=== PATIENT | female | born 1975 | race Caucasian/White ===

== ENCOUNTER 2023-04-14 15:22 | Emergency (ER) | payer BC, SELFPAY ==
[2023-04-14] VITALS (9 sets, daily range): BP systolic 148–168; BP diastolic 88–105; PULSE 61–76; RESP 13–26; TEMP 36.9; O2SAT 96; BMI 30.6
--- NOTE | 2023-04-14 15:33 | ECG_ITS ---
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
--- NOTE | 2023-04-14 15:38 | ED_ITS ---
HPI - General Adult General Chief complaint: Headache Stated complaint: HIGH BLOOD PRESSURE Time Seen by Provider: 04/14/23 15:27 Source: patient Mode of arrival: walk-in Limitations: no limitations History of Present Illness HPI narrative: patient is a 47-year-old female presents to the Emergency Room with concerns of headache, and high blood pressure. Patient states she has not felt well for the past for five days, notes a warm flushing sensation in her cheeks and ears. Recently got off her menstrual cycle. States she's had a gradual onset headache that waxes and wanes currently 10/10 frontal and occipital. Patient reports no nausea or vomiting. A she notes that her eyes hurt, she denies generalized body aches or fevers. She has two grandchildren with upper respiratory infections and the patient has had some postnasal drip herself. She has not taken her temperature over the past 4-5 days. She reports having these issues with headaches 3-4 times a month, and has mentioned it to her family doctor who has her monitoring her blood pressure. Patient notes her blood pressure has been in the mid to lower 150s systolic with episodes. She is not treated for hypertension. Patient has a history of mitral valve prolapse and also states this is her concern of her having undiagnosed hypertension. Patient appears nontoxic in no acute distress. pertinent history of chronic regional pain syndrome and bilateral feet following a back surgery. She is awaiting a spinal stimulator. Location: Reports head Treatments prior to arrival: Reports none Related Data Allergies Allergy/AdvReac Type Severity Reaction Status Date / Time codeine Allergy Unknown Verified 04/14/23 15:27 lamotrigine [From Lamictal] Allergy Unknown Verified 04/14/23 15:27 Review of Systems ROS Constitutional Denies: fever or chills Eyes Reports: light sensitivity; Denies: change in vision, blurry vision or eye discharge Ears, nose, mouth, and throat Reports: nasal congestion and post nasal drip; Denies: throat pain or neck pain Cardiovascular Denies: chest pain Respiratory Denies: shortness of breath or cough Gastrointestinal Denies: abdominal pain Genitourinary Denies: painful urination Musculoskeletal Denies: back pain or neck pain Integumentary/Breast Denies: rash Neurological Reports: headache and dizziness; Denies: lack of coordination or i nvoluntary movements Psychiatric Denies: anxiety Allergic/Immunologic Denies: hives Exam Narrative Exam Narrative: Vital signs and nurses notes reviewed. The patient is not hypoxic. General: The patient appears well and in no apparent distress. Patient is resting comfortably on cart. Skin: Warm, dry, no pallor noted. The patient has no evidence of rash, petechiae, or purpura noted. Head: Normocephalic, atraumatic, no temporal arterial tenderness Neck: Supple, trachea mid-line, no tenderness, no lymphadenopathy. No meningeal signs. No nuchal rigidity. Eye: Pupils are equal, round and reactive to light, EOMI Ears, Nose, Mouth, and Throat: Oral mucosa is moist, TMs are clear bilaterally, no hemotympanum noted. Cardiovascular: Regular Rate and Rhythm, no prominent murmur, barely audible only with pt seated upright with ER environment Respiratory: Patient is in no distress, no accessory muscle use, lungs are clear to auscultation, no wheezing, rales or rhonchi Musculoskeletal: normal ROM, + CRPS lower legs. Denies new pain or arthralgias GI: Normal bowel sounds, no tenderness to palpation, no masses appreciated. No rebound, guarding, or rigidity noted. 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 The patient is not ataxic. The patient has normal speech. The patient has normal coordination. . Normal motor and sensory observed.chronic regional pain syndrome and bilateral feet following back surgery. Patient ambulates cautiously Psychiatric: Cooperative Constitutional Vital Signs, click to edit/add: Last Vital Signs Temp 98.5 F 04/14/23 15:27 Pulse 61 04/14/23 16:40 Resp 15 04/14/23 16:40 BP 168/98 H 04/14/23 16:30 Pulse Ox 96 04/14/23 15:31 O2 Del Method Room Air 04/14/23 15:27 Course Vital Signs Vital signs: Vital Signs Temperature 98.5 F 04/14/23 15:27 Pulse Rate 76 04/14/23 15:27 Respiratory Rate 18 04/14/23 15:27 Blood Pressure 148/88 H 04/14/23 15:27 Pulse Oximetry 96 04/14/23 15:27 Oxygen Delivery Method Room Air 04/14/23 15:27 Temperature 98.5 F 04/14/23 15:27 Pulse Rate 61 10/08/23 16:40 Respiratory Rate 15 04/14/23 16:40 Blood Pressure 168/98 H 04/14/23 16:30 Pulse Oximetry 96 04/14/23 15:31 Oxygen Delivery Method Room Air 04/14/23 15:27 Medical Decision Making MDM Narrative Medical decision making narrative: patient presents with acute on chronic symptoms, noting headaches happening up to three times a month at various times, not just related to her menstrual cycles. Patient notes a flush feeling with warmness to her cheeks and ears, states her mother did go through menopause at age 50 or 49. She denies any head injury. Symptoms have been waxing and waning for the past 4-5 days. Patient has been exposed to children with upper respiratory infections and her symptoms may be more viral upper respiratory infection given light sensitivity and headache with nasal congestion. A flu and Covid swab will be obtained. Headache was gradual in onset the fluid bolus, Toradol, Reglan and Benadryl. recheck at bedside patient states her headache is down to a seven or six out of ten. Notes it is still there but much improved, she had a manual bloood pressure taken at bedside noted to be 142/84. Her home but pressure machine was double checked and noted to be 147/99. Patient had slightly low potassium. She is not a pressure medication and is given an oral dose of potassium here 50 mEq. We will also give her 2 g IV magnesium and reassess her symptoms. She like to hold on muscle relaxant at this time. Patient will disccuss ongoing blood pressure and possible migraine management with her family doctor. We discussed the frequency of her symptoms. She has no family history of brain aneurysm. Her is at bedside and reports is been no fall or fever. Patient's headache was also not sudden onset or severe with symptoms coming and going over the past 4-5 days. patient reevaluated, feel she is ready for discharge rates her pain 5/10. States it is very tolerable. She plans to call her doctor tomorrow to discuss ongoing treatments in symptoms. The patient is to followup with primary care physician in next 2-3 days or to return to the emergency department should any of the signs or symptoms worsen or new symptoms develop. Patient had questions answered. The patient agrees with the following Diagnosis and Treatment plan and the patient will be discharged home. Lab Data Labs: Lab Results 04/14/23 04/14/23 Range/Units 15:40 15:46 WBC 5.5 (4.0-11.0) 10^3/uL RBC 4.83 (4.20-5.40) 10^6/uL Hgb 13.6 (12.0-16.0) g/dL Hct 39.1 (36.0-48.0) % MCV 81.0 (81.0-99.0) fL MCH 28.2 (26.7-34.0) pg MCHC 34.8 (29.9-35.2) g/dL RDW 13.9 (11.0-15.0) % Plt Count 375 (150-450) 10^3/uL MPV 8.8 L (9.5-13.5) fL Neut % (Auto) 54.4 (43.0-75.0) % Lymph % (Auto) 31.5 (20.5-60.0) % [place] % (Auto) 12.0 (1.7-12.0) % Eos % (Auto) 1.4 (0.9-7.0) % Baso % (Auto) 0.5 (0.2-2.0) % Neut # (Auto) 3.0 (1.4-6.5) 10^3/uL Lymph # (Auto) 1.7 (1.2-3.8) 10^3/uL [place] # (Auto) 0.7 (0.3-0.8) 10^3/uL Eos # (Auto) 0.1 (0.0-0.7) 10^3/uL Baso # (Auto) 0.0 (0.0-0.1) 10^3/uL Abs Immat Gran (auto) 0.01 (0.00-0.03) 10^3/uL Imm/Tot Granulo (auto) 0.2 (0.0-0.5) % Sodium 131 L (136-145) mmol/L Potassium 3.1 L (3.5-5.1) mmol/L Chloride 96 L (98-107) mmol/L Carbon Dioxide 29.1 (21.0-32.0) mmol/L Anion Gap 9.0 BUN 12.0 (7.0-18.0) mg/dL Creatinine 0.75 (0.55-1.02) mg/dL Est GFR ( Amer) >60 (>=60) Est GFR (Non-Af Amer) >60 (>=60) BUN/Creatinine Ratio 16.0 Glucose 109 H (74-106) mg/dL Calcium 8.5 (8.5-10.1) mg/dL Total Bilirubin 0.2 (0.2-1.0) mg/dL AST 21 (15-37) U/L ALT 27 (14-59) U/L Alkaline Phosphatase 84 (46-116) U/L Total Protein 7.2 (6.4-8.2) g/dL Albumin 4.1 (3.4-5.0) g/dL Globulin 3.1 g/dL Albumin/Globulin Ratio 1.3 TSH 2.895 (0.358-3.740) uIU/mL Serum HCG, Qual Negative (NEGATIVE) SARS-CoV-2 (PCR) Negative (NEGATIVE) Influenza Type A Ag Negative Influenza Type B Ag Negative SARS-CoV-2 RNA ([place]ALVA) Not detected (NOT DETECTE) ECG Data Attestation: I personally reviewed and interpreted this ECG as follows: Interpretation: EKG interpretation: Emergency Department physician interpretation, normal sinus rhythm 76, no ectopy, no ST segment elevation, normal axis. Discharge Plan Discharge Chief Complaint: Headache Clinical Impression: Headache, Hypertension, Hypokalemia Patient Disposition: Home, Self-Care Time of Disposition Decision: 17:35 Condition: Good Instructions: Hypokalemia (ED), Acute Headache (ED), Hypertension (ED) Stand Alone Forms: Portal Instructions Referrals: HERBERT PANG [Primary Care Provider] - As soon as possible Discharge Date/Time: 04/14/23 17:52
[2023-04-14 15:53] LABS: Basophils Percent Auto 0.5 % (0.2-2.0); Eosinophils Absolute Auto 0.1 10^3/uL (0.0-0.7); Eosinophils Percent Auto 1.4 % (0.9-7.0); Hematocrit 39.1 % (36.0-48.0); Hemoglobin 13.6 g/dL (12.0-16.0); Immature Granulocytes Abs Auto 0.01 10^3/uL (0.00-0.03); Immature Granulocytes Pct Auto 0.2 % (0.0-0.5); Lymphocytes Absolute Auto 1.7 10^3/uL (1.2-3.8); Lymphocytes Percent Auto 31.5 % (20.5-60.0); Mean Corpuscular HGB Conc 34.8 g/dL (29.9-35.2); Mean Corpuscular Hemoglobin 28.2 pg (26.7-34.0); Mean Platelet Volume 8.8 fL (9.5-13.5); Monocytes Absolute Auto 0.7 10^3/uL (0.3-0.8); Neutrophils Percent Auto 54.4 % (43.0-75.0); Platelet Count 375 10^3/uL (150-450); Red Blood Count 4.83 10^6/uL (4.20-5.40); Red Cell Distribution Width 13.9 % (11.0-15.0); White Blood Count 5.5 10^3/uL (4.0-11.0)
[2023-04-14 16:02] LABS: HCG Qualitative NEGATIVE (NEGATIVE)
[2023-04-14] MEDS: 0.9 % SODIUM CHLORIDE 1,000 ML 999 ML IV (16:02)
[2023-04-14] MEDS: DIPHENHYDRAMINE HCL 50 MG/ML (1ML) VIAL 25 MG IV (16:03)
[2023-04-14] MEDS: KETOROLAC TROMETHAMINE 30 MG/ML VIAL IVP (16:03)
[2023-04-14] MEDS: METOCLOPRAMIDE HCL 10 MG/2 ML VIAL IVP (16:03)
[2023-04-14 16:06] LABS: Influenza Virus A Antigen Negative; Influenza Virus B Antigen Negative; Internal Control Within Normal Limits; SARS-CoV-2 Ag NEGATIVE (NEGATIVE)
[2023-04-14 16:07] LABS: Alanine Aminotransferase 27 U/L (14-59); Albumin Globulin Ratio 1.3; Albumin Level 4.1 g/dL (3.4-5.0); Alkaline Phosphatase 84 U/L (46-116); Aspartate Amino Transferase 21 U/L (15-37); Bilirubin Total 0.2 mg/dL (0.2-1.0); Calcium 8.5 mg/dL (8.5-10.1); Carbon Dioxide 29.1 mmol/L (21.0-32.0); Chloride 96 mmol/L (98-107); Estimated GFR (African America >60 (>=60); Estimated GFR (Non-African Ame >60 (>=60); Globulin 3.1 g/dL; Glucose 109 mg/dL (74-106); Potassium 3.1 mmol/L (3.5-5.1); Sodium 131 mmol/L (136-145); Total Protein 7.2 g/dL (6.4-8.2)
[2023-04-14 16:15] LABS: Thyroid Stimulating Hormone 2.895 uIU/mL (0.358-3.740)
[2023-04-14] MEDS: POTASSIUM BICARBONATE/CIT 25 MEQ TABLET EFF 50 MEQ PO (17:04)
[2023-04-14] MEDS: MAGNESIUM SULFATE IN WATER 2 GM/50 ML PREMIX IV (17:04)
[2023-04-15 15:50] LABS: SARS-CoV-2 NAA NOT DETECTED (NOT DETECTE)
== END 2023-04-14 17:52 | disposition home or self-care (01) ==
PROVIDERS: Personal Emergency Response Attendant; Emergency Provider Emergency Medicine; PCP Family Medicine
DX: R51.9 Headache, unspecified (principal); I10 Essential (primary) hypertension; E87.6 Hypokalemia; Z20.822 Contact with and (suspected) exposure to COVID-19; I34.1 Nonrheumatic mitral (valve) prolapse
CPT/HCPCS: 36415; 80053; 84443; 84703; 85025; 87635; 87804; 87811; 93005; 96374; 96375; 99285; U0003

== ENCOUNTER 2023-05-08 16:55 | Emergency (ER) | payer BC, SELFPAY ==
[2023-05-08] VITALS (15 sets, daily range): BP systolic 146–202; BP diastolic 88–118; PULSE 53–72; RESP 18–28; TEMP 36.8; O2SAT 96–98; BMI 30.8
--- NOTE | 2023-05-08 17:26 | ECG_ITS ---
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
--- NOTE | 2023-05-08 17:29 | CT_ITS ---
The [address] [address] Patient Name: BETO BRENNAN MRN: [id number] date: 1975 Sex: F Assigned Patient Location: ER Current Patient Location: ER Accession/Order Number: [id number] Exam Date: 05/08/2023 18:33 Report Date: 05/08/2023 18:49 At the request of: LAUREL SULLIVAN Procedure: CT head/brain wo con EXAM: CT head/brain wo con HISTORY: Dizzy, headache, HTN COMPARISON: None. TECHNIQUE: Multiple thin computed tomograms of the brain were obtained, with sagittal and coronal reconstructions. Radiation reduction technique and algorithms were utilized during the study. FINDINGS: The ventricles are not enlarged, the lateral ventricles are symmetric and the third ventricles in the midline. The sylvian fissures and cortical sulci are unremarkable. There is no evidence of an intracranial hemorrhage, mass lesion or apparent acute infarct. No abnormality seen in the deep white matter. The cerebellum and visualized brainstem are intact. The paranasal sinuses are clear as visualized. The middle ears are aerated. The mastoid sinuses are clear. There is no apparent acute skull fracture. CT/CT head/brain wo con IMPRESSION: There is no evidence of an intracranial hemorrhage, mass lesion or apparent acute infarct. No focal abnormality is seen in the deep white matter. The paranasal sinuses are clear as visualized. There is no apparent acute skull fracture. Comparison with a previous study may be helpful in confirming the chronicity of these findings. If the patient's symptoms persist and further evaluation is clinically indicated perhaps an MRI the brain would be helpful. Electronically authenticated by: SOFIA JARAMILLO Date: 05/08/2023 18:49
--- NOTE | 2023-05-08 17:30 | ED.GENADUL1 ---
HPI - General Adult General Chief complaint: Headache Stated complaint: Hypertension Time Seen by Provider: 05/08/23 17:15 Source: patient Mode of arrival: walk-in History of Present Illness HPI narrative: patient is a 47-year-old female who presents to the Emergency Room for ongoing issues with high blood pressure, dizziness, headache. She is currently taking propranolol that is prescribed by her primary care provider. She does not take any other medications for high blood pressure. She was seen in this emergency department almost 4 weeks ago for the same symptoms. She denies fevers, cough, congestion, chest pain, shortness of breath. She feels nauseous but has not had any vomiting. No double or loss of vision. She states her provider told her if her systolic blood pressure is greater than 170, to go to the emergency department. She states she took a dose of her blood pressure medication before she came to the Emergency Room. She states her provider is attempting to get an MRI approved of the brain to check for for lots of things . Related Data Home Medications Medication Instructions Recorded Confirmed lurasidone 80 mg tablet 160 mg PO QPM 05/08/23 05/08/23 oxcarbazepine 600 mg tablet 600 mg PO TID 05/08/23 05/08/23 propranolol 80 mg capsule,24 80 mg PO DAILY 05/08/23 05/08/23 hr,extended release trazodone 50 mg tablet 100 mg PO QPM 05/08/23 05/08/23 vilazodone 20 mg tablet 20 mg PO DAILY 05/08/23 05/08/23 zolpidem 12.5 mg tablet,extended 12.5 mg PO QPM PRN insomnia 05/08/23 05/08/23 release,multiphase Previous Rx's Medication Instructions Recorded diphenhydramine HCl 25 mg capsule 25 mg PO Q6H PRN headache #12 caps 05/08/23 (Benadryl) metoclopramide HCl 10 mg tablet 10 mg PO Q6H PRN nausea and 05/08/23 (Reglan) vomiting #12 tabs Allergies Allergy/AdvReac Type Severity Reaction Status Date / Time codeine Allergy Unknown Verified 04/14/23 15:27 lamotrigine [From Lamictal] Allergy Unknown Verified 04/14/23 15:27 Review of Systems ROS Constitutional Denies: fever or chills Ears, nose, mouth, and throat Denies: throat pain Cardiovascular Denies: chest pain Respiratory Denies: shortness of breath or cough Gastrointestinal Reports: nausea; Denies: abdominal pain or vomiting Musculoskeletal Denies: back pain or neck pain Integumentary/Breast Denies: rash Neurological Reports: headache Hematologic/Lymphatic Denies: easy bruising Exam Narrative Exam Narrative: Gen.: Awake, alert, in no distress Head: Normocephalic, atraumatic ENT: Moist mucous membranes Respiratory: No respiratory distress, lungs clear bilaterally Cardio: Regular rate and rhythm Extremities: Moves extremities equally Psych: Normal mood and affect Neuro: No focal neuro deficit Skin: Warm, dry, intact Constitutional Vital Signs, click to edit/add: Last Vital Signs Temp 98.2 F 05/08/23 17:10 Pulse 55 L 05/08/23 18:50 Resp 23 05/08/23 18:50 BP 148/88 H 05/08/23 18:30 Pulse Ox 96 05/08/23 17:15 O2 Del Method Room Air 05/08/23 17:10 Course Vital Signs Vital signs: Vital Signs Temperature 98.2 F 05/08/23 17:10 Pulse Rate 64 05/08/23 17:10 Respiratory Rate 18 05/08/23 17:10 Blood Pressure 184/110 H 05/08/23 17:10 Pulse Oximetry 98 05/08/23 17:10 Oxygen Delivery Method Room Air 05/08/23 17:10 Temperature 98.2 F 05/08/23 17:10 Pulse Rate 55 L 05/08/23 18:50 Respiratory Rate 23 05/08/23 18:50 Blood Pressure 148/88 H 05/08/23 18:30 Pulse Oximetry 96 05/08/23 17:15 Oxygen Delivery Method Room Air 05/08/23 17:10 Medical Decision Making [facility] Narrative Medical decision making narrative: beta blockers avoided as the patient is bradycardic in the Emergency Room. she was treated with IV Reglan, Benadryl, IV fluids in addition to IV hydralazine and Vasotec. Her blood pressure improved significantly, she reported that her headache and dizziness were much better. CT of the brain is unremarkable and lab studies show mild thyroid dysfunction with no other acute abnormalities. Patient will be discharged home to follow-up for further medication adjustment from her PCP office, Reglan and Benadryl given for home for headache. Return to the Emergency Room if symptoms change or worsen. Medical Records Medical records reviewed: Yes I reviewed the patient's medical records Lab Data Lab results reviewed: Yes I reviewed the patient's lab results Labs: Lab Results 05/08/23 Range/Units 17:23 WBC 6.1 (4.0-11.0) 10^3/uL RBC 4.32 (4.20-5.40) 10^6/uL Hgb 12.0 (12.0-16.0) g/dL Hct 35.5 L (36.0-48.0) % MCV 82.2 (81.0-99.0) fL MCH 27.8 (26.7-34.0) pg MCHC 33.8 (29.9-35.2) g/dL RDW 14.4 (11.0-15.0) % Plt Count 324 (150-450) 10^3/uL MPV 9.6 (9.5-13.5) fL Neut % (Auto) 57.3 (43.0-75.0) % Lymph % (Auto) 29.2 (20.5-60.0) % [place] % (Auto) 10.8 (1.7-12.0) % Eos % (Auto) 2.0 (0.9-7.0) % Baso % (Auto) 0.5 (0.2-2.0) % Neut # (Auto) 3.5 (1.4-6.5) 10^3/uL Lymph # (Auto) 1.8 (1.2-3.8) 10^3/uL [place] # (Auto) 0.7 (0.3-0.8) 10^3/uL Eos # (Auto) 0.1 (0.0-0.7) 10^3/uL Baso # (Auto) 0.0 (0.0-0.1) 10^3/uL Abs Immat Gran (auto) 0.01 (0.00-0.03) 10^3/uL Imm/Tot Granulo (auto) 0.2 (0.0-0.5) % PT 10.2 (9.0-11.6) sec INR 0.96 Sodium 135 L (136-145) mmol/L Potassium 3.4 L (3.5-5.1) mmol/L Chloride 100 (98-107) mmol/L Carbon Dioxide 31.6 (21.0-32.0) mmol/L Anion Gap 6.8 BUN 7.0 (7.0-18.0) mg/dL Creatinine 0.70 (0.55-1.02) mg/dL Est GFR ( Amer) >60 (>=60) Est GFR (Non-Af Amer) >60 (>=60) BUN/Creatinine Ratio 10.0 Glucose 88 (74-106) mg/dL Calcium 8.7 (8.5-10.1) mg/dL Total Bilirubin 0.2 (0.2-1.0) mg/dL AST 20 (15-37) U/L ALT 46 (14-59) U/L Alkaline Phosphatase 80 (46-116) U/L Troponin I High Sens 5.7 (4.0-51.3) pg/mL Total Protein 7.0 (6.4-8.2) g/dL Albumin 3.7 (3.4-5.0) g/dL Globulin 3.3 g/dL Albumin/Globulin Ratio 1.1 TSH 5.187 H (0.358-3.740) uIU/mL Free T4 0.64 L (0.76-1.46) ng/dL Free T3 1.71 L (2.18-3.98) pg/mL Imaging Data CT scan - head: Attestation: I have reviewed the pertinent imaging results. Radiologist's impression: Procedure: CT head/brain wo con EXAM: CT head/brain wo con HISTORY: Dizzy, headache, HTN COMPARISON: None. TECHNIQUE: Multiple thin computed tomograms of the brain were obtained, with sagittal and coronal reconstructions. Radiation reduction technique and algorithms were utilized during the study. FINDINGS: The ventricles are not enlarged, the lateral ventricles are symmetric and the third ventricles in the midline. The sylvian fissures and cortical sulci are unremarkable. There is no evidence of an intracranial hemorrhage, mass lesion or apparent acute infarct. No abnormality seen in the deep white matter. The cerebellum and visualized brainstem are intact. The paranasal sinuses are clear as visualized. The middle ears are aerated. The mastoid sinuses are clear. There is no apparent acute skull fracture. IMPRESSION: There is no evidence of an intracranial hemorrhage, mass lesion or apparent acute infarct. No focal abnormality is seen in the deep white matter. The paranasal sinuses are clear as visualized. There is no apparent acute skull fracture. Comparison with a previous study may be helpful in confirming the chronicity of these findings. If the patient's symptoms persist and further evaluation is clinically indicated perhaps an MRI the brain would be helpful. Electronically authenticated by: SOFIA JARAMILLO Date: 05/08/2023 18:49 ECG Data Attestation: I personally reviewed and interpreted this ECG as follows: (normal sinus rhythm at a rate of fifty-four, no acute ST elevation or ectopy.) Discharge Plan Discharge Chief Complaint: Headache Clinical Impression: Headache, Hypertension Patient Disposition: Home, Self-Care Time of Disposition Decision: 18:56 Condition: Good Prescriptions / Home Meds: New diphenhydramine HCl [Benadryl] 25 mg capsule 25 mg PO Q6H PRN (Reason: headache) Qty: 12 0RF Rx Instructions: to be taken with reglan for headache metoclopramide HCl [Reglan] 10 mg tablet 10 mg PO Q6H PRN (Reason: nausea and vomiting) Qty: 12 0RF No Action lurasidone 80 mg tablet 160 mg PO QPM oxcarbazepine 600 mg tablet 600 mg PO TID propranolol 80 mg capsule,extended release 24 hr 80 mg PO DAILY trazodone 50 mg tablet 100 mg PO QPM vilazodone 20 mg tablet 20 mg PO DAILY zolpidem 12.5 mg tablet,ext release multiphase 12.5 mg PO QPM PRN (Reason: insomnia) Instructions: Acute Headache (ED), Hypertension (ED) Stand Alone Forms: Portal Instructions Referrals: HERBERT PANG [Primary Care Provider] - 1 week
[2023-05-08] MEDS: 0.9 % SODIUM CHLORIDE 1,000 ML 1000 ML IV (17:45)
[2023-05-08 17:48] LABS: Basophils Percent Auto 0.5 % (0.2-2.0); Eosinophils Absolute Auto 0.1 10^3/uL (0.0-0.7); Hematocrit 35.5 % (36.0-48.0); Immature Granulocytes Abs Auto 0.01 10^3/uL (0.00-0.03); Immature Granulocytes Pct Auto 0.2 % (0.0-0.5); Lymphocytes Absolute Auto 1.8 10^3/uL (1.2-3.8); Lymphocytes Percent Auto 29.2 % (20.5-60.0); Mean Corpuscular HGB Conc 33.8 g/dL (29.9-35.2); Mean Corpuscular Hemoglobin 27.8 pg (26.7-34.0); Mean Corpuscular Volume 82.2 fL (81.0-99.0); Mean Platelet Volume 9.6 fL (9.5-13.5); Monocytes Absolute Auto 0.7 10^3/uL (0.3-0.8); Monocytes Percent Auto 10.8 % (1.7-12.0); Neutrophils Absolute Auto 3.5 10^3/uL (1.4-6.5); Neutrophils Percent Auto 57.3 % (43.0-75.0); Platelet Count 324 10^3/uL (150-450); Red Blood Count 4.32 10^6/uL (4.20-5.40); Red Cell Distribution Width 14.4 % (11.0-15.0); White Blood Count 6.1 10^3/uL (4.0-11.0)
[2023-05-08] MEDS: HYDRALAZINE HCL 20 MG/ML VIAL 10 MG IVP (17:50)
[2023-05-08] MEDS: DIPHENHYDRAMINE HCL 50 MG/ML (1ML) VIAL 25 MG IV (17:50)
[2023-05-08] MEDS: METOCLOPRAMIDE HCL 10 MG/2 ML VIAL INJ (17:50)
[2023-05-08] MEDS: ENALAPRILAT DIHYDRATE 1.25 MG/ML VIAL IV (17:50)
[2023-05-08 18:01] LABS: INR 0.96; Prothrombin Time 10.2 sec (9.0-11.6)
[2023-05-08 18:04] LABS: Alanine Aminotransferase 46 U/L (14-59); Albumin Globulin Ratio 1.1; Albumin Level 3.7 g/dL (3.4-5.0); Alkaline Phosphatase 80 U/L (46-116); Anion Gap 6.8; Aspartate Amino Transferase 20 U/L (15-37); Bilirubin Total 0.2 mg/dL (0.2-1.0); Calcium 8.7 mg/dL (8.5-10.1); Carbon Dioxide 31.6 mmol/L (21.0-32.0); Chloride 100 mmol/L (98-107); Estimated GFR (African America >60 (>=60); Estimated GFR (Non-African Ame >60 (>=60); Globulin 3.3 g/dL; Glucose 88 mg/dL (74-106); Potassium 3.4 mmol/L (3.5-5.1); Sodium 135 mmol/L (136-145)
[2023-05-08 18:10] LABS: Thyroid Stimulating Hormone 5.187 uIU/mL (0.358-3.740); Troponin I High Sensitivity 5.7 pg/mL (4.0-51.3)
[2023-05-08 18:41] LABS: Free T4 0.64 ng/dL (0.76-1.46)
[2023-05-08 18:47] LABS: Free T3 1.71 pg/mL (2.18-3.98)
== END 2023-05-08 19:10 | disposition home or self-care (01) ==
PROVIDERS: Physician Assistant; Emergency Provider Emergency Medicine; PCP Family Medicine
DX: R51.9 Headache, unspecified (principal); I10 Essential (primary) hypertension; Z79.899 Other long term (current) drug therapy
CPT/HCPCS: 36415; 70450; 80053; 84439; 84443; 84481; 84484; 85025; 85610; 93005; 96372; 96374; 96375; 99285

== ENCOUNTER 2023-07-31 17:31 | Emergency (ER) | payer BC, SELFPAY ==
[2023-07-31] VITALS (28 sets, daily range): BP systolic 143–210; BP diastolic 89–115; PULSE 56–82; RESP 10–25; TEMP 36.3; O2SAT 95–100; BMI 31.6
--- OUTSIDE RECORDS SUMMARY | 2023-07-31 17:41 | XMS_ITS | CCD ---
Author Name Unknown Address [address] [facility] [address] [place] [address] Organization [facility] Care Team Providers Care Research [employer] Insights Executive Name Role Phone Aspen Mast Unavailable Joanie Mujica Unavailable DO Sarwat Pang Primary Care Provider [phone] MD Joanie Mujica Attending Provider [phone] Campbell Shelton Unavailable DO Sarwat Pang Primary Care Provider [phone] MD Campbell Shelton Attending Provider MD Joanie Mujica Attending Provider [facility], DR MATHEW Primary Care Unavailable DR JOANIE MUJICA Admitting Unavailable DR JOANIE MUJICA Attending Unavailable LOKESH Mast-C Aspen Attending Provider MD Joanie Mujica Attending Provider [phone] NO FAMILY, PHYSICIAN Primary Care Provider Unava ilable Aspen Mast Attending Unavailable Aspen Mast Admitting Unavailable Joanie Mujica Attending Unavailable Joanie Mujica Admitting Unavailable Sarwat Pang Primary Care Unavailable Joanie Mujica E Admitting Unavailable NO FAMILY, PHYSICIAN Primary Care Unavailable Joanie Mujica Attending Unavailable Joanie Mujica Attending Unavailable Joanie Mujica Admitting Unavailable Sarwat Pang Primary Care Unavailable Campbell Shelton Admitting Unavailable Campbell Shelton Attending Unavailable Sarwat Pang Primary Care Unavailable Campbell Shelton Admitting Unavailable Campbell Shelton Attending Unavailable Sarwat Pang Primary Care Unavailable Magno Joanie E Admitting Unavailable Sarwat Pang Primary Care Unavailable Joanie Mujica Attending Unavailable Joanie Mujica E Admitting Unavailable Pang, Sarwat Primary Care Unavailable Mujica, Joanie E Attending Unavailable Mujica, Joanie E Admitting Unavailable Pang, Sarwat Primary Care Unavailable Mujica, Joanie E Attending Unavailable Mujica, Joanie E Admitting Unavailable Pang, Sarwat Primary Care Unavailable Mujica, Joanie E Attending Unavailable PANG, SARWAT W Primary Care Physician Unavailab MD Abel Joe Admitting Unavailable Abel Ruggiero Attending Unavailable Abel Ruggiero Referring Unavailable Abel Ruggiero Attending Unavailable Abel Ruggiero Admitting Unavailable PANG, SARWAT Celso Referring Unavailable Rodriguez Ruba Admitting Unavailable Ruba Frias Attending Unavailable Abel Ruggiero Attending Unavailable MD Abel Ruggiero Admitting Unavailable PANG, SARWAT Celso Referring Unavailable PANG, SARWAT W Referring Unavailable Frias Ruba Admitting Unavailable Ruba Frias Attending Unavailable MD Abel Ruggiero Admitting Unavailable Magno Joanie E. Referring Unavailable Abel Ruggiero Attending Unavailable SARWAT PANG Referring Unavailable MD Abel Ruggiero Admitting Unavailable Abel Ruggiero Attending Unavailable SARWAT PANG Referring Unavailable MD Abel Ruggiero Admitting Unavailable Abel Ruggiero Attending Unavailable SARWAT PANG Referring Unavailable Abel Ruggiero Attending Unavailable MD Abel Ruggiero Admitting Unavailable Abel Ruggiero Admitting Unavailable PANG, SARWAT W Referring Unavailable Abel Ruggiero Attending Unavailable Abel Ruggiero Attending Unavailable MD Abel Ruggiero Admitting Unavailable Abel Ruggiero Referring Unavailable Abel Ruggiero Attending Unavailable MD Abel Ruggiero Admitting Unavailable Abel Ruggiero Referring Unavailable IRMA LAI Referring Unavailable Allergies Allergy Classification Reported Allergen(s) Allergy Type Date of Onset Reaction(s) Facility (20 sources) Codeine; Translations: [codeine] Drug Allergy 2 rash, Vomiting (disorder) [facility] (20 sources) lamoTRIgine; Translations: [lamotrigine] Drug Allergy 2 rash, Eruption of skin (disorder) [facility] (1 source) Codeine Drug Allergy 6 [facility] (2 sources) lamoTRIgine; Translations: [LaMICtal] Drug Allergy 6 [facility] (1 source) Codeine Drug Allergy 2 [facility] (1 source) lamoTRIgine Drug Allergy 2 [facility] Medications Current Medications Medication Drug Class(es) Dates Sig (Normalized) Sig (Original) acetaminophen 325 mg / oxyCODONE hydrochloride 5 mg oral tablet (3 sources) Opioid Agonist Start: 05-21-2023 Percocet 5 mg-325 mg oral tablet 1 tab(s), Oral, q6hr, 28 tab(s), Refill(s) 0, prn pain, [id number], 155, cm, 05/21/23 7:14:00 EST, Height/Length Dosing, 77.5, kg, 11/27/22 9:07:00 EDT, Weight Dosing Start Date: 05/21/23 Status: Ordered Amphetamine / Dextroamphetamine (1 source) Central Nervous System Stimulant Adderall XR Active amphetamine aspartate 7.5 mg / amphetamine sulfate 7.5 mg / dextroamphetamine saccharate 7.5 mg / dextroamphetamine sulfate 7.5 mg oral tablet (20 sources) Central Nervous System Stimulant Start: 11-27-2022 take 1 tablet by mouth in the morning amphetamine-dext roamphetamine 30 mg oral tablet Refill(s) 0, TAKE 1 TABLET BY MOUTH IN THE MORNING IN ADDITION TO 30 MG IN THE AFTERNOON Start Date: 11/27/22 Status: Ordered Start: 11-13-2021 take 20 mg by mouth once daily in the morning Dextroamphetamine-Amphetamine Active 20 MG PO Every morning November 13, 2021 12:00am Start: 11-13-2021 End: 11-13-2021 take 15 mg by mouth once daily in the evening Dextroamphetamine-Amphetamine Active 15 MG PO Every evening November 13, 2021 12:00am Takes at 2 PM Ascorbic Acid-Vitamin E-Biot in (Hair, Skin, Nails With Biotin) 7.5-7.5-1,250 mg-unit-mcg Tablet,Chewable (7 sources) Start: 11-13-2021 Ascorbic Acid- Vitamin E-Biotin (Hair, Skin, Nails With Biotin) 7.5-7.5-1,250 mg-unit-mcg Tablet,Chewable Active 3 TAB PO Daily November 12, 2021 11:00pm Start: 11-13-2021 Ascorbic Acid- Vitamin E-Biotin (Hair, Skin, Nails With Biotin) 7.5-7.5-1,250 mg-unit-mcg Tablet,Chewable Active 3 TAB PO Daily November 13, 2021 12:00am azithromycin 500 mg oral tab let (6 sources) Macrolide Antimicrobial Start: 10-19-2022 Start: 10-19-2022 take 4 tablets by mo uth at mealtime Azithromycin 500 MG 4 tablets Orally as directed for 1 days Take all 4 tablets by mouth today with food Oct, Active Start: 08-29-2021 Zithromax 250 MG 2 tablet on the first day, then 1 tablet daily for 4 days Orally Once a day for 5 day(s) Aug, Active Biotin (9 sources) Start: 11-27-2022 biotin See Instructions, celso, Refills(s) 0 Start Date: 11/27/22 Status: Ordered cephalexin 500 mg oral capsule (8 sources) Cephalosporin Antibacterial Start: 03-26-2023 End: 04-02-2023 take 1 capsule by mouth every six hours Keflex 500 mg Cap 500 mg = 1 cap(s), Oral, q6hr, X 7 day(s), # 28 cap(s), Refills(s) 0, Pharmacy: [id number], 155, cm, 03/26/23 6:55:00 EDT, Height/Length Dosing, 77.5, kg, 11/27/22 9:07:00 EDT, Weight Dosing Start Date: 03/26/23 Stop Date: 04/02/23 Status: Ordered Start: 11-29-2021 End: 05-17-2022 take 500 mg by mouth three times daily Cephalexin Discontinued 500 MG PO Three times daily November 29, 2021 12:00am May 17, 2022 8:03am doxycycline hyclate 100 mg oral capsule (1 source) Tetracycline-class Drug Start: 05-21-2023 End: 06-04-2023 take 1 capsule by mouth twice daily doxycycline hyclate 100 mg Cap 100 mg = 1 cap(s), Oral, BID, X 14 day(s), # 28 cap(s), Refills(s) 0, Pharmacy: [id number], 155, cm, 05/21/23 7:14:00 EST, Height/Length Dosing, 77.5, kg, 11/27/22 9:07:00 EDT, Weight Dosing Start Date: 05/21/23 Stop Date: 06/04/23 Status: Ordered Fish Oils (9 sources) Start: 11-27-2022 take 1000 mg by mouth once daily Fish Oil 1,000 mg, Oral, Daily, Refill(s) 0 Start Date: 11/27/22 Status: Ordered gabapentin 300 mg oral capsule (6 sources) Anti-epileptic Agent Start: 05-29-2022 take 1-2 capsules by mouth twice daily Gabapentin 300 MG 1-2 capsule Orally BID for 30 day(s) May, Active Start: 12-19-2021 take 2 capsules by m outh every twelve hours Gabapentin 300 MG 2 capsule Orally twice a day for 30 day(s) Dec, Active Gabapentin Activ e Handicap placards as directed (1 source) Start: 12-11-2022 Hydrolyzed Ultra Collagen Plus C (9 sources) Start: 11-27-2022 Hydrolyzed Ultra Collagen Plus C See Instructions, Refill(s) 0, daily Start Date: 11/27/22 Status: Ordered lurasidone hydrochloride 80 mg oral tablet (20 sources) Atypical Antipsychotic Start: 11-27-2022 take 2 tablets by mouth once daily at bedtime Latuda 80 mg oral tablet TAKE 2 TABLETS BY MOUTH EVERY DAY AT BEDTIME Start Date: 11/27/22 Status: Ordered Start: 11-13-2021 take 1 tablet by marco th once daily at bedtime Lurasidone (Latuda) 80 mg tablet Active 160 MG PO Daily at bedtime November 13, 2021 12:00am take 2 tablets by mo uth at bedtime Latuda 80 MG TAKE 2 TABLETS BY MOUTH AT BEDTIME Oral for 15 Days Active Latuda Active medication for headaches and nausea (5 sources) Start: 05-14-2023 medication for headaches and nausea medication for headaches and nausea Start Date: 05/14/23 Status: Ordered metroNIDAZOLE 500 mg oral tablet (5 sources) Nitroimidazole Antimicrobial Start: 10-20-2022 take 1 tablet by mouth every twelve hours Misc Medication (20 sources) Start: 11-27-2022 Misc Medication See Instructions, hair, skin and nails dailh Start Date: 11/27/22 Status: Ordered Start: 11-27-20[facility] See Instructions, Dungeduardkevin da dailu Start Date: 11/27/22 Status: Ordered Start: 11-27-2022 [facility] See Instructions, Apple cider vinegar daily Start Date: 11/27/22 Status: Ordered Ayssmixuvqbh-Pwpu-Mwarn Acid (Centrum Women) 18-400 mg-mcg Tablet (7 sources) Start: 11-13-2021 take 3 tablets by mouth once daily Aseannnhjxgs-Cvlg-Gcpnh Acid (Centrum Women) 18-400 mg-mcg Tablet Active 3 TAB PO Daily November 12, 2021 11:00pm Start: 11-13-2021 take 3 tablets by mo uth once daily Hvxgegeugfmo-Tuzk-Wcvkh Acid (Centrum Women) 18-400 mg-mcg Tablet Active 3 TAB PO Daily November 13, 2021 12:00am mupirocin 0.02 mg/mg topical ointment (1 source) RNA Synthetase Inhibitor Antibacterial Start: 05-16-2023 take 15 g nasal route twice daily mupirocin Top 2% Oint See Instructions, 15 gm, Refill(s) 0, apply to both nostrils, both axillary folds, both groin creases twice daily for 5 days, [id number], 155, cm, 05/14/23 13:20:00 EST, Height/Length Dosing, 77.5, kg, 11/27/22 9:07:00 EDT, Weight Dosing Start Date: 05/16/23 Status: Ordered nitroglycerin 0.4 mg sublingual tablet (7 sources) Nitrate Vasodilator Start: 11-13-2021 Nitroglycerin Active 0.4 MG SUBLINGUAL As Directed November 13, 2021 12:00am OXcarbazepine 600 mg oral tablet (20 sources) Anti-epileptic Agent Start: 03-20-2023 take 1 tablet by mouth three times daily oxcarbazepine 600 mg Tab 600 mg = 1 tab(s), Oral, TID, Refills(s) 0 Start Date: 03/20/23 Status: Ordered Start: 11-27-2022 take 1 tablet by marco th once daily at bedtime oxcarbazepine 300 mg Tab TAKE 1 TABLET BY MOUTH EVERYDAY AT BEDTIME Start Date: 11/27/22 Status: Ordered Start: 11-13-2021 take 600 mg by mouth twice daily Oxcarbazepine Active 600 MG PO Twice daily November 13, 2021 12:00am Start: 11-13-2021 take 300 mg by mouth once daily at bedtime Oxcarbazepine Active 300 MG PO Daily at bedtime November 13, 2021 12:00am OXcarbazepine Ac tive oxyCODONE hydrochloride 5 mg oral tablet (19 sources) Opioid Agonist Start: 01-04-2022 take 1-2 tablets by mouth three times daily oxyCODONE HCl 5 MG 1-2 tablets Orally tid for 7 days Dec, Active Start: 11-29-2021 End: 05-17-2022 take 5-10 mg by mouth every six hours Oxycodone Discontinued 5 - 10 MG PO Q6H 50 8 November 29, 2021 May 17, 2022 8:02am prazosin 2 mg oral capsule (16 sources) alpha-Adrenergic Inocencio Start: 11-27-2022 take 2 capsules by mouth once daily prazosin 2 mg oral capsule 4 mg = 2 cap(s), Oral, Daily, Refills(s) 0 Start Date: 11/27/22 Status: Ordered Start: 11-13-2021 take 1 mg by mouth o nce daily at bedtime Prazosin Active 1 MG PO Daily at bedtime November 13, 2021 12:00am pregabalin 100 mg oral capsu le (18 sources) Start: 10-26-2022 take 1 capsule by mo [facility] every twelve hours Start: 10-26-2022 take 1 capsule by mo [facility] every twelve hours Start: 10-26-2022 Start: 06-12-2022 take 1 capsule by mo [facility] every twelve hours Pregabalin 75 MG 1 capsule Orally Twice a day for 30 days Jun, Active Start: 02-09-2022 take 1 capsule by mo [facility] every twelve hours Pregabalin 25 MG 1 capsule Orally Twice a day for 10 days Feb, Active Start: 02-08-2022 take 1 capsule by mo [facility] every six hours Pregabalin 25 MG 1 capsule Orally qid for 30 days Feb, Active Start: 02-08-2022 take 2 capsules by m outh every twelve hours Lyrica 25 MG 2 capsules Orally Twice a day for 30 days EMMANUEL Feb, Active AD (9 sources) Start: 11-27-2022 AD See Instructions, Refill(s) 0, daily Start Date: 11/27/22 Status: Ordered ProFe (1 source) ProFe Active propranolol hydrochloride 80 mg oral tablet (5 sources) beta-Adrenergic Inocencio Start: 04-29-2023 take 80 mg by mouth once daily propranolol 80 mg, Oral, Daily, Refills(s) 0 Start Date: 04/29/23 Status: Ordered tiZANidine 4 mg oral tablet (4 sources) Central alpha-2 Adrenergic Agonist Start: 06-05-2022 take 1 tablet by mouth every eight hours tiZANidine HCl 4 MG 1 tablet as needed Orally Three times a day for 7 days May, Active traZODone hydrochloride 150 mg oral tablet (20 sources) Serotonin Reuptake Inhibitor Start: 11-13-2021 take 1 tablet by mouth once daily at bedtime as needed traZODONE 150 mg Tab TAKE 1 TABLET BY MOUTH EVERYDAY AT BEDTIME NEEDED FOR INSOMNIA Start Date: 11/27/22 Status: Ordered traZODone HCl Ac tive vilazodone hydrochloride 20 mg oral tablet (20 sources) Start: 11-27-2022 take 1 tablet by mouth once daily vilazodone 20 mg oral tablet TAKE 1 TABLET BY MOUTH EVERY DAY Start Date: 11/27/22 Status: Ordered Start: 11-13-2021 take 1 tablet by marco once daily in the morning Vilazodone (Viibryd) 40 mg tablet Active 40 MG PO Every morning November 13, 2021 12:00am Viibryd Active zolpidem tartrate 12.5 mg extended release oral tablet (20 sources) gamma-Aminobutyric Acid-ergic Agonist Start: 11-13-2021 take 1 tablet by mouth at bedtime as needed zolpidem 12.5 mg oral ER Tab TAKE 1 TABLET AT BEDTIME NEEDED FOR INSOMNIA Start Date: 11/27/22 Status: Ordered Zolpidem Tartrat e Active Completed/Discontinued Medications Medication Drug Class(es) Dates Sig (Normalized) Sig (Original) [id number] 200 actuat albuterol 0.09 mg/actuat metered dose inhaler (1 source) beta2-Adrenergic Agonist Start: 1 take 2 puff(s) by inhalation every four hours as needed Albuterol Sulfate HFA 108 (90 Base) MCG/ACT 2 puffs as needed Inhalation every 4 hrs November, Not-Taking amoxicillin 875 mg / clavulanate 125 mg oral tablet (1 source) Penicillin-class Antibacterial Start: 1 take 1 tablet by mouth every twelve hours Amoxicillin-Pot Clavulanate 875-125 MG 1 tablet Orally every 12 hrs for 7 days November, Not-Taking cariprazine (1 source) Atypical Antipsychotic Vraylar Not-Taking cefTRIAXone (4 sources) Cephalosporin Antibacterial Start: 3 Rocephin 500 mg Oct, 500 mg cyclobenzaprine hydrochloride 10 mg oral tablet (7 sources) Muscle Relaxant Start: 2 End: 2 take 10 mg by mouth three times daily Cyclobenzaprine Discontinued 10 MG PO Three times daily November 29, 2021 12:00am May 17, 2022 8:02am fluticasone propionate 0.05 mg/actuat metered dose nasal spray (1 source) Corticosteroid Start: 1 take 1 spray(s) nasal route once daily Fluticasone Propionate 50 MCG/ACT 1 spray in each nostril Nasally Once a day for 30 day(s) November, Not-Taking methylPREDNISolone 4 mg oral tablet (1 source) Corticosteroid Start: 1 methylPREDNISolone 4 MG as directed Orally Once a day for 6 days November, Not-Taking Prednisone (8 sources) Start: 2 End: 2 Prednisone Discontinued 1 dose pk PO per package directions November 29, 2021 12:00am May 17, 2022 8:02am take 4 tabs for 3 days then take 3 tabs for 3 days then take 2 tabs for 3 days then take 1 tab for 3 days Start: 11-29-2021 End: 05-17-2022 Prednisone Discontinued 1 do se pk PO per package directions November 28, 2021 11:00pm May 17, 2022 7:02am take 4 tabs for 3 days then take 3 tabs for 3 days then take 2 tabs for 3 days then take 1 tab for 3 days Start: 11-29-2021 Prednisone Act destini 1 dose pk PO per package directions November 28, 2021 11:00pm take 4 tabs for 3 days then take 3 tabs for 3 days then take 2 tabs for 3 days then take 1 tab for 3 days Start: 11-29-2021 Prednisone Act destini 1 dose pk PO per package directions November 29, 2021 12:00am take 4 tabs for 3 days then take 3 tabs for 3 days then take 2 tabs for 3 days then take 1 tab for 3 days Start: 08-29-2021 take 1 tablet by marco th every twelve hours predniSONE 20 MG 1 tablet Orally bid for 5 day(s) Aug, Active Problems Active Problems Problem Classification Problem Date Documented Da te Episodic/Chronic Anxiety disorders (9 sources) Anxiety 11-27-2022 Chronic Esophageal disorders (20 sources) Gastroesophageal reflux disease; Translations: [Gastro-esophageal reflux disease without esophagitis] Onset: 2 Resolved: 2 Chronic Esophageal disorders (1 source) Esophageal disorders; Translations: [Gastro-esophageal reflux disease without esophagitis] Onset: 2 Essential hypertension (9 sources) Hypertensive disorder 11-27-2022 Chronic Genitourinary symptoms and ill-defined conditions (2 sources) Dysuria Episodic Mood disorders (9 sources) Bipolar I disorder 11-27-2022 Chronic Other acquired deformities (20 sources) Spondylolysis; Translations: [Spondylolysis, lumbar region] 11-28-2021 Episodic Other acquired deformities (4 sources) Spondylolysis, lumbar region Onset: 2 Resolved: 2 Episodic Other acquired deformities (7 sources) Lumbar spondylolisthesis; Translations: [Spondylolisthesis, lumbar region] 11-29-2021 Episodic Other connective tissue disease (3 sources) Arthrodesis status Episodic Other gastrointestinal disorders (9 sources) History of gastroesophageal reflux disease 11-27-2022 Episodic Other nutritional; endocrine; and metabolic disorders (9 sources) H/O: hypothyroidism 11-27-2022 Episodic Other nutritional; endocrine; and metabolic disorders (9 sources) H/O: obesity 11-27-2022 Episodic Other screening for suspected conditions (not mental disorders or infectious disease) (9 sources) Disorder of cardiovascular system 11-27-2022 Episodic Residual codes; unclassified (3 sources) High risk heterosexual behavior; Translations: [High risk heterosexual behavior] Onset: 3 Episodic Schizophrenia and other psychotic disorders (9 sources) Schizophrenia 11-27-2022 Chronic Spondylosis; intervertebral disc disorders; other back problems (20 sources) Lumbar radiculopathy; Translations: [Radiculopathy, lumbar region] Onset: 2 Resolved: 2 Episodic Unclassified (1 source) Encounter for preprocedural laboratory examination; Translations: [Encounter for preprocedural laboratory examination] Onset: 2 Unclassified (1 source) Spondylolysis, lumbar region; Translations: [Spondylolysis, lumbar region] Onset: 2 Unclassified (1 source) M43.06 - Spondylolysis, lumbar region; Translations: [M43.06 - Spondylolysis, lumbar region] Onset: 2 Unclassified (1 source) Spinal stenosis, lumbar region without neurogenic claudication; Translations: [Spinal stenosis, lumbar region without neurogenic claudication] Onset: 2 Unclassified (1 source) Z01.812 - Encounter for preprocedural laboratory examination; Translations: [Z01.812 - Encounter for preprocedural laboratory examination] Onset: 2 Past or Other Problems Problem Classification Problem Date Documented Da te Episodic/Chronic Chronic obstructive pulmonary disease and bronchiectasis (1 source) Bronchitis, not specified as acute or chronic Onset: 08-29-2021 Resolved: 08-29-2021 Episodic Immunizations and screening for infectious disease (1 source) Contact with and (suspected) exposure to other viral communicable diseases Onset: 08-29-2021 Resolved: 08-29-2021 Episodic Other acquired deformities (1 source) Spondylolysis, lumbosacral region; Translations: [Spondylolysis, lumbosacral region] Onset: 11-27-2021 Episodic Other acquired deformities (1 source) Spondylolisthesis, lumbar region; Translations: [Spondylolisthesis, lumbar region] Onset: 11-27-2021 Episodic Other upper respiratory infections (1 source) Acute upper respiratory infection, unspecified Onset: 08-29-2021 Resolved: 08-29-2021 Episodic Results Test Name Value Interpretation Reference Range Facility Consent for Treatmenton Consent for Treatment [id number] Mane [facility] Consultation Noteon 07-15-19 24 Consultation Note Patient: AARON BRENNAN Age: 47 years Sex: Female : 1975 Associated Diagnoses: None Author: Ruba Frias PA-C Subjective Chief complaint 07/15/2023 10:32 EST low back pain . Patient is a 47-year-old female. She has a past medical history significant for postlaminectomy syndrome, chronic pain, and sacroiliitis. She underwent spinal cord stimulator implant on 05/21/2023 and at this time, she states that her pain is almost completely resolved. She is doing well and feeling well. She has no radicular symptoms. She does not have any pain or issues with the stimulator site anymore. She is overall feeling better. Unfortunate, she is noticing a lot of buttock pain. Difficulty with sitting in certain positions. Difficulty with doing certain things because of the buttock pain. She rates this discomfort a 6/10 when it is present. She underwent a full course of physical therapy without improvement. She continues to do home exercise without improvement. She has taken anti-inflammatory medication without improvement. She wonders now about getting his buttock pain taken care of now that her radicular symptoms are resolved with the stimulator. Health Status Allergies: Allergic Reactions (Selected) Severity Not Documented Codeine- Emesis. LaMICtal- Rash., Allergies (2) Active Reaction codeine Emesis LaMICtal Rash Current medications: (Selected) Prescriptions Prescribed Percocet 5 mg-325 mg oral tablet: 1 tab(s), Oral, q6hr, 28 tab(s), Refill(s) 0, prn pain, [id number], 155, cm, 05/21/23 7:14:00 EST, Height/Length Dosing, 77.5, kg, 11/27/22 9:07:00 EDT, Weight Dosing Documented Medications Documented Fish Oil: 1,000 mg, Oral, Daily, Refill(s) 0 Hydrolyzed Ultra Collagen Plus C: See Instructions, Refill(s) 0, daily Latuda 80 mg oral tablet: TAKE 2 TABLETS BY MOUTH EVERY DAY AT BEDTIME Misc Medication: See Instructions, Apple cider vinegar daily Misc Medication: See Instructions, Gurjit dorman Misc Medication: See Instructions, hair, skin and nails dailh AD: See Instructions, Refill(s) 0, daily amphetamine-dextroamp hetamine 30 mg oral tablet: Refill(s) 0, TAKE 1 TABLET BY MOUTH IN THE MORNING IN ADDITION TO 30 MG IN THE AFTERNOON biotin: See Instructions, celso, Refills(s) 0 medication for headaches and nausea: medication for headaches and nausea oxcarbazepine 600 mg Tab: 600 mg = 1 tab(s), Oral, TID, Refills(s) 0 prazosin 2 mg oral capsule: 4 mg = 2 cap(s), Oral, Daily, Refills(s) 0 propranolol: 80 mg, Oral, Daily, Refills(s) 0 traZODONE 150 mg Tab: TAKE 1 TABLET BY MOUTH EVERYDAY AT BEDTIME NEEDED FOR INSOMNIA vilazodone 20 mg oral tablet: TAKE 1 TABLET BY MOUTH EVERY DAY zolpidem 12.5 mg oral ER Tab: TAKE 1 TABLET AT BEDTIME NEEDED FOR INSOMNIA Problem list: All Problems Hypertension / SNOMED CT 0882353125 / Confirmed Cardiovascular disease / SNOMED CT 8695959694 / Confirmed History of hypothyroidism / SNOMED CT 438873264 / Confirmed H/O gastroesophageal reflux (GERD) / SNOMED CT 9395306322 / Confirmed H/O: obesity / SNOMED CT 117907913 / Confirmed Anxiety / SNOMED CT 27519986 / Confirmed Lower back pain / SNOMED CT 456000830 / Confirmed Bipolar 1 disorder / SNOMED CT 2288611099 / Confirmed Schizophrenia / SNOMED CT 08453341 / Confirmed Objective Vital Signs 07/15/2023 10:32 EST Peripheral Pulse Rate 51 bpm LOW Respiratory Rate 18 br/min Systolic Blood Pressure 133 mmHg Diastolic Blood Pressure 77 mmHg Mean Arterial Pressure, Cuff 96 mmHg General: Alert and oriented, No acute distress. Eye: Normal conjunctiva. HENT: Normocephalic, Normal hearing. Cardiovascular: No edema. Musculoskeletal Normal range of motion. Normal strength. 5/5 lower extremity straight Pain with compression of the bilateral sacroiliac joints positive TRENT test bilaterally. Positive thigh thrust bilaterally. Positive Gaenslen's test bilaterally Integumentary: Warm, Dry, Fowlkes. Incisions well-healed Neurologic: Alert, Oriented. Psychiatric: Cooperative, Appropriate mood & affect. Results Review Lumbar MRI report once again reviewed. 11/27/2022 Impression and Plan Patient is a 47-year-old female with a past medical history significant for postlaminectomy syndrome, chronic pain, and sacroiliitis. She underwent spinal cord stimulator implant on 05/21/2023 that gave her complete relief of her radicular symptoms. She states that things are going well in regards to her lower back and radicular symptoms. Unfortunate, she is noticing a lot of buttock pain that appears to be related to her sacroiliac joints. She has undergone physical therapy in the past without improvement. Continues to do home exercise without improvement. This affects her ambulatory status. This affects her quality of life. On physical examination appears to be related to her sacroiliac joint. Based on her imaging findings, her pain pattern, and her failure to improve pr (more content not included)... Normal [facility] Comment on above: Result Comment: Elec tronically Signed By: Ruba Frias PA-C\.br\Date and Time Signed: 07/15/23 10:58 EST\.br\Electronically Co-Signed By: Néstor Maradiaga DO Legal Correspondence Officeo n 07-15-2023 Legal Correspondence Office [id number]# 1.00TIFF [facility] Office/Clinic Note-Physician on 07-15-2023 Office/Clinic Note-Physician [id number]# 1.00TIFF [facility] Patient Correspondenceon Patient Correspondence [id number]# 1.00TIFF [facility] Patient Correspondence [id number]# 1.00TIFF [facility] Patient Correspondence [id number]# 1.00TIFF Normal [facility] Patient Correspondence [id number]# 1.00TIFF Normal [facility] Patient History Officeon Patient History Office [id number]# 1.00TIFF Normal [facility] Consent for Treatmenton 06-07 Consent for Treatment [id number]# 1.00TIFF [facility] Consultation Noteon 06-18-20 Consultation Note Patient: AARON BRENNAN Age: 47 years Sex: Female : 1975 Associated Diagnoses: None Author: Abel Ruggiero MD Subjective Chief complaint 06/18/2023 9:25 EST Low back pain, f.u from SCS implant . 47-year-old female 3-1/2 weeks out from permanent spinal cord stimulator for lumbar postlaminectomy syndrome and chronic pain. Here for postop check. The puffiness in the battery site is resolving. She has some pain around the battery site but it is improving. She would also like some reprogramming done by the [employer] dairy supplies sales representative who is here today. No apparent complications. The patient has questions about her activity restrictions. The patient finds the stimulator to be helpful for her chronic neuropathic pain. Current pain rates as a 6 out of 10 at the battery site. AGUSTO 60. Health Status Allergies: Allergic Reactions (All) Severity Not Documented Codeine- Emesis. LaMICtal- Rash. Current medications: (Selected) Prescriptions Prescribed Percocet 5 mg-325 mg oral tablet: 1 tab(s), Oral, q6hr, 28 tab(s), Refill(s) 0, prn pain, [id number], 155, cm, 05/21/23 7:14:00 EST, Height/Length Dosing, 77.5, kg, 11/27/22 9:07:00 EDT, Weight Dosing Documented Medications Documented Fish Oil: 1,000 mg, Oral, Daily, Refill(s) 0 Hydrolyzed Ultra Collagen Plus C: See Instructions, Refill(s) 0, daily Latuda 80 mg oral tablet: TAKE 2 TABLETS BY MOUTH EVERY DAY AT BEDTIME Misc Medication: See Instructions, Apple cider vinegar daily Misc Medication: See Instructions, Gurjit dorman Misc Medication: See Instructions, hair, skin and nails dailh AD: See Instructions, Refill(s) 0, daily amphetamine-dextroamp hetamine 30 mg oral tablet: Refill(s) 0, TAKE 1 TABLET BY MOUTH IN THE MORNING IN ADDITION TO 30 MG IN THE AFTERNOON biotin: See Instructions, dailu, Refills(s) 0 medication for headaches and nausea: medication for headaches and nausea oxcarbazepine 600 mg Tab: 600 mg = 1 tab(s), Oral, TID, Refills(s) 0 prazosin 2 mg oral capsule: 4 mg = 2 cap(s), Oral, Daily, Refills(s) 0 propranolol: 80 mg, Oral, Daily, Refills(s) 0 traZODONE 150 mg Tab: TAKE 1 TABLET BY MOUTH EVERYDAY AT BEDTIME NEEDED FOR INSOMNIA vilazodone 20 mg oral tablet: TAKE 1 TABLET BY MOUTH EVERY DAY zolpidem 12.5 mg oral ER Tab: TAKE 1 TABLET AT BEDTIME NEEDED FOR INSOMNIA Problem list: All Problems Anxiety / SNOMED CT 85511802 / Confirmed Bipolar 1 disorder / SNOMED CT 3555570788 / Confirmed Cardiovascular disease / SNOMED CT 7733245313 / Confirmed H/O gastroesophageal reflux (GERD) / SNOMED CT 8225020525 / Confirmed H/O: obesity / SNOMED CT 555355250 / Confirmed History of hypothyroidism / SNOMED CT 164558835 / Confirmed Hypertension / SNOMED CT 6259680885 / Confirmed Lower back pain / SNOMED CT 920254266 / Confirmed Schizophrenia / SNOMED CT 81924426 / Confirmed Objective Vital Signs 06/18/2023 9:25 EST Peripheral Pulse Rate 51 bpm LOW Systolic Blood Pressure 136 mmHg Diastolic Blood Pressure 92 mmHg HI Mean Arterial Pressure, Cuff 107 mmHg General: No acute distress. Alert and oriented x 3. Well-nourished. Well-developed. Musculoskeletal/skin: Incision sites are healing very well. No sign of infection. The battery site is much less puffy. No redness or edema. No warmth. Impression and Plan 47-year-old female with lumbar postlaminectomy syndrome chronic pain status post permanent spinal cord stimulator 3-1/2 weeks ago. She is healing very well. I advised her that she could use an abdominal binder. She may walk. She is to continue to limit her lifting, bending, twisting for the next 3 weeks. I would like to see her back in 3 to 4 weeks for final postoperative check. If all looks well at that point she will be cleared for full activities. Patient agrees with plan of care. [facility] Comment on above: Result Comment: Elec tronically Signed By: Monik SANTIAGO, Abel Singh.br\Date and Time Signed: 06/18/23 12:03 EST Office/Clinic Note-Physician on 06-18-2023 Office/Clinic Note-Physician [id number]#1 .00TIFF [facility] Patient Correspondenceon Patient Correspondence [id number]#1 .00TIFF [facility] Patient Correspondence [id number]#1 .00TIFF [facility] Patient History Officeon Patient History Office [id number]#1 .00TIFF [facility] Consent for Treatmenton 05-09 Consent for Treatment [id number]#1 .00TIFF [facility] Consultation Noteon 05-27-20 Consultation Note Patient: AARON BRENNAN Age: 47 years Sex: Female : 1975 Associated Diagnoses: None Author: Ruba Frias PA-C Subjective Chief complaint Follow-up for spinal cord stimulator implant.. Patient is a 47-year-old female. She presents today for a follow-up after undergoing a spinal cord stimulator implant. This was done on 05/21/2023. Unfortunate, she has been having a lot of issues with her battery pack site. She states that it is very tender. She has pain at the battery pack site that she rates a 9/10. She is here today to just have it checked as she is nervous because she now shares with us that she is allergic to nickel and has some issues with nickel jewelry. Health Status Allergies: Allergic Reactions (Selected) Severity Not Documented Codeine- Emesis. LaMICtal- Rash., Allergies (2) Active Reaction codeine Emesis LaMICtal Rash Current medications: (Selected) Prescriptions Prescribed Percocet 5 mg-325 mg oral tablet: 1 tab(s), Oral, q6hr, 28 tab(s), Refill(s) 0, prn pain, [id number], 155, cm, 05/21/23 7:14:00 EST, Height/Length Dosing, 77.5, kg, 11/27/22 9:07:00 EDT, Weight Dosing doxycycline hyclate 100 mg Cap: 100 mg = 1 cap(s), Oral, BID, X 14 day(s), # 28 cap(s), Refills(s) 0, Pharmacy: [id number], 155, cm, 05/21/23 7:14:00 EST, Height/Length Dosing, 77.5, kg, 11/27/22 9:07:00 EDT, Weight Dosing mupirocin Top 2% Oint: See Instructions, 15 gm, Refill(s) 0, apply to both nostrils, both axillary folds, both groin creases twice daily for 5 days, [id number], 155, cm, 05/14/23 13:20:00 EST, Height/Length Dosing, 77.5, kg, 11/27/22 9:07:00 EDT, Weight Dosing Documented Medications Documented Fish Oil: 1,000 mg, Oral, Daily, Refill(s) 0 Hydrolyzed Ultra Collagen Plus C: See Instructions, Refill(s) 0, daily Latuda 80 mg oral tablet: TAKE 2 TABLETS BY MOUTH EVERY DAY AT BEDTIME Misc Medication: See Instructions, Apple cider vinegar daily Misc Medication: See Instructions, Ashwangon da dailu Misc Medication: See Instructions, hair, skin and nails dailh AD: See Instructions, Refill(s) 0, daily amphetamine-dextroamp hetamine 30 mg oral tablet: Refill(s) 0, TAKE 1 TABLET BY MOUTH IN THE MORNING IN ADDITION TO 30 MG IN THE AFTERNOON biotin: See Instructions, dailu, Refills(s) 0 medication for headaches and nausea: medication for headaches and nausea oxcarbazepine 600 mg Tab: 600 mg = 1 tab(s), Oral, TID, Refills(s) 0 prazosin 2 mg oral capsule: 4 mg = 2 cap(s), Oral, Daily, Refills(s) 0 propranolol: 80 mg, Oral, Daily, Refills(s) 0 traZODONE 150 mg Tab: TAKE 1 TABLET BY MOUTH EVERYDAY AT BEDTIME NEEDED FOR INSOMNIA vilazodone 20 mg oral tablet: TAKE 1 TABLET BY MOUTH EVERY DAY zolpidem 12.5 mg oral ER Tab: TAKE 1 TABLET AT BEDTIME NEEDED FOR INSOMNIA Problem list: All Problems Hypertension / SNOMED CT 1304462840 / Confirmed Cardiovascular disease / SNOMED CT 8997371535 / Confirmed History of hypothyroidism / SNOMED CT 537322285 / Confirmed H/O gastroesophageal reflux (GERD) / SNOMED CT 7340684591 / Confirmed H/O: obesity / SNOMED CT 789768372 / Confirmed Anxiety / SNOMED CT 87288568 / Confirmed Lower back pain / SNOMED CT 794763121 / Confirmed Bipolar 1 disorder / SNOMED CT 7275677197 / Confirmed Schizophrenia / SNOMED CT 06043698 / Confirmed Objective VS/Measurements General: Alert and oriented, No acute distress. Eye: Normal conjunctiva. HENT: Normocephalic, Normal hearing. Cardiovascular: No edema. Musculoskeletal Normal range of motion. Normal strength. 5/5 lower extremity strength but uncomfortable moving around Integumentary: Warm, Dry, Fowlkes. Dressing was removed. Dr. Ruggiero was in the room as well. Incisions are both healing well. No redness. No drainage. Internal sutures all look good. Some fluid/swelling looks to be present on exam. Neurologic: Alert, Oriented. Psychiatric: Cooperative, Appropriate mood & affect. Impression and Plan Patient is a 47-year-old female with a past medical history significant for postlaminectomy syndrome and chronic pain. She underwent a spinal cord stimulator full implant on 05/21/2023 and she presents today for a sooner than originally scheduled follow-up?1 day early because of some tenderness and pain at the battery site. She states it is very uncomfortable. She cannot put any pressure against it. We had a long session of the battery pack. It does not look to be infected. We recommend her to ice the area. A new clean and dry sterile dressing was placed. At this time, she is going to follow-up in 2 weeks for reevaluation. Call clinic sooner if necessary. [id number] treatments and wound comfort were discussed [facility] Comment on above: Result Comment: Elec tronically Signed By: Ruba Frias PA-C\.br\Date and Time Signed: 05/27/23 15:21 EST\.br\Electronically Co-Signed By: Abel Ruggiero MD\.br\Date and Time Co-Signed: 06/10/23 11:41 EST IntraOperative Documentson 07-22-2022 IntraOperative Documents [id number]# 1.00TIFF [facility] Consent for Anesthesiaon Consent for Anesthesia [id number]#1 .00TIFF [facility] Consent for Procedure/Surger yon 05-21-2023 Consent for Procedure/Surgery [id number]#1 .00TIFF [facility] Consent for Treatmenton 05-08 Consent for Treatment [id number]# 1.00TIFF [facility] Discharge Instructionson Discharge Instructions [id number]#1 .00TIFF [facility] IntraOperative Documentson 07-21-2022 IntraOperative Documents [id number]#1 .00TIFF [facility] Main OR Intraoperative Recor don 05-21-2023 Main OR Intraoperative Record IntraOp Document Type FTPM Summary Primary Physician: Abel Ruggiero MD Finalized Date/Time: 05/21/23 10:15:18 Pt. Name: AARON BRENNAN/Sex: 1975 Female Med Rec #: [id number] Physician: Monik SANTIAGO, Abel Melo Financial #: [id number] Pt. Type: P Room/Bed: / Admit/Disch: 05/21/23 06:52:24 - Institution: Case Times FTPM Entry 1 Patient Times In Room 05/21/23 09:07:00 Out Room 05/21/23 10:14:00 Procedure Times Start 05/21/23 09:10:00 Stop 05/21/23 10:04:00 Anesthesia Times Start 05/21/23 09:07:00 Stop 05/21/23 10:14:00 Last Modified By: Francisco RODRIGUEZ, Mariam Ruiz 05/21/23 10:15:12 Case Attendance FTPM Entry 1 Entry 2 Entry 3 Case Attendee Jerome Burgos DO, Jhony Ruggiero MD, Aebl Lee CRNA, Merced De Jesus Role Performed Anesthesiologist of Surgeon - Primary Anesthesiologist Record Welcome Center Attendant Time In 05/21/23 09:07:00 05/21/23 09:07:00 05/21/23 09:07:00 Time Out 05/21/23 10:14:00 05/21/23 10:14:00 05/21/23 10:14:00 Procedure SPINAL CORD STIMULATOR SPINAL CORD STIMULATOR SPINAL CORD STIMULATOR IMPLANT(.) IMPLANT(.) IMPLANT(.) Comments Last Modified By: Francisco RODRIGUEZ, Mariam Singh RN, Mariam Chen RN 05/21/23 10:15:13 05/21/23 10:15:13 05/21/23 10:15:13 Entry 4 Entry 5 Entry 6 Case Attendee Francisco RODRIGUEZ, Mariam Cantu RN, Demetria Metz RT(R), Zuleika Role Performed Tire Worker - Primary Scrub - Primary Egg Trayer Time In 05/21/23 09:07:00 05/21/23 09:07:00 05/21/23 09:07:00 Time Out 05/21/23 10:14:00 05/21/23 10:14:00 05/21/23 10:14:00 Procedure SPINAL CORD STIMULATOR SPINAL CORD STIMULATOR SPINAL CORD STIMULATOR IMPLANT(.) IMPLANT(.) IMPLANT(.) Comments Last Modified By: Mariam Singh RN, RN, Mariam Chen RN 05/21/23 10:15:13 05/21/23 10:15:13 05/21/23 10:15:13 Entry 7 Case Attendee Tona Rincon CST Role Performed CANE LOADER/SA Time In 05/21/23 09:07:00 Time Out 05/21/23 10:14:00 Procedure SPINAL CORD STIMULATOR IMPLANT(.) Comments Last Modified By: Mariam Singh RN 05/21/23 10:15:13 General Comments: [employer] -Megan Robledo Perioperative Protocols FTPM Pre-Care Text: Implements protective measures prior to operative or invasive procedure, confirms identity before the operative or invasive procedure, verifies operative procedure, surgical site, and laterality Entry 1 Procedure(s) SPINAL CORD STIMULATOR Patient Identity Birthday, ID Band IMPLANT(.) Verified (select at Check, Patient least 2): Participation Consents / H and P Anesthesia Consent, Operative Site Present Verified HandP, Surgery/Procedure Marking Verified Consent Surgical Site Yes Laterality Verified Yes Verified Procedure Verified Yes Correct Patient Yes Position Verified Availability Equipment, Medication, Prep Dry Yes Verified (If X-ray Applicable) PreOp Antibiotic Yes Time Out Jhony Cano Jr., DO Given Participants G, Mariam Singh RN, Pepe RN, Monik Augustin MD, Jesus Parker CRNA, Brandy J., Christman RT(R), Mckenzie To CST, Liane E Time Out Complete 05/21/23 09:07:00 Outcomes Met? Yes Last Modified By: Mariam Singh RN 05/21/23 09:17:25 Post-Care Text: The patient is free from signs and symptoms of injury caused by extraneous objects Allergy Information FTPM Pre-Care Text: Verifies allergies Entry 1 Allergies Reviewed? Yes Allergies Reviewed Self/Patient With Outcomes Met? Yes Last Modified By: Mariam Singh RN 05/21/23 08:50:21 Post-Care Text: The patient received appropriate medication(s) safely administered during the perioperative period Surgical Procedures FTPM Entry 1 Procedure Description Procedure SPINAL CORD STIMULATOR Modifiers . IMPLANT Surgeon Description PERM SCS, 2 LEADS, THORACIC Primary Procedure Yes Primary Surgeon Abel Ruggiero MD Start 05/21/23 09:10:00 Stop 05/21/23 10:04:00 Anesthesia Type MAC Surgical Service Pain Management Wound Class 1 - Clean Last Modified By: Mariam Singh RN 05/21/23 10:15:15 General Case Data FTPM Pre-Care Text: Classifies surgical wound, implements aseptic technique, initiates traffic control Entry 1 Case Information OR Pain Proc Room Case Level Level 2 Wound Class 1 - Clean Specialty Pain Management ASA Class 3 Preop Diagnosis M96.1, G89.29 Postop Same As Preop Yes Postop Diagnosis M96.1, G89.29 Outcomes Met? Yes Last Modified By: Mariam Singh RN 05/21/23 09:18:00 Post-Care Text: The patient is free from signs and symptoms of infection Skin Assessment (Pre Procedure) FTPM Pre-Care Text: Implements protective measures to prevent skin/ tissue injury due to thermal or mechanical sources Evaluates for signs and symptoms of physical injury to skin and tissue Entry 1 Skin Integrity Intact, Fowlkes, Warm, and Skin Abnormality No Dry Outcomes Met? Yes Last Modified By: Mariam Singh RN 05/21/23 08:50:29 Post-Care Text: The patie (more content not included)... Normal [facility] Main OR Preoperative Recordo n 05-21-2023 Main OR Preoperative Record Holding Area Document Type FTPM Summary Primary Physician: Abel Ruggiero MD Finalized Date/Time: 05/21/23 07:28:37 Pt. Name: AARON BRENNANO.B./Sex: 1975 Female Med Rec #: [id number] Physician: Abel Ruggiero MD Financial #: [id number] Pt. Type: P Room/Bed: / Admit/Disch: 05/21/23 06:52:24 - Institution: Case Times Holding FTPM Pre-Care Text: Verifies consent for planned procedure, identifies individual values and wishes concerning care, includes family members in perioperative teaching Secures patient's records' belongings, and valuables, maintains patient's dignity and privacy, and maintains patient confidentiality Entry 1 In Holding 05/21/23 07:08:00 Outcomes Met? Yes Last Modified By: Amanda Canales RN 05/21/23 07:08:57 Post-Care Text: The patient participates in decisions affecting his or her perioperative plan of care The patient's right to privacy is maintained Surgery Checklist FTPM Entry 1 Patient Birthday, ID Band Procedure History and Physical, Identification: Check, Patient Verification: Surgical Consent, With Participation Patient NPO after Midnight: Yes Date/Time: 05/21/23 07:27:00 Results Reviewed N/A Personal Items: Jewelry Comments: Personal Items Pt. wearing seven rings. Complaints of Pain: Yes Comment: Pain Comment: 03/17 bilateral feet Operative Site Yes Marking: Marked By: Dr. Ruggiero Location: SCS imiplant 2 leads thoracic Availability Equipment, X-Ray Verified: Does Patient Smoke No Patient states Yes Comment - Adult --Sudeep postop adult Supervision supervision available Case Cancelled in No Holding Area see comments below for reason Last Modified By: Amanda Canales RN 05/21/23 07:28:33 Finalized By: Amanda Canales RN Document Signatures Signed By: Amanda Canales RN 05/21/23 07:28 Normal [facility] Operative Reporton 3 Operative Report Patient: AARON BRENNAN Age: 47 years Sex: Female : 1975 Associated Diagnoses: None Author: Abel Ruggiero MD Procedure Procedure: Spinal Cord Stimulator Implant with Fluoroscopic Guidance - [employer] WaveWriter Alpha 16 Implantable Pulse generator, 2 x 8 contact Avista MRI 56cm leads. Diagnosis: Lumbar Post-laminectomy Syndrome Anesthesia: MAC MAC anesthesia is medically necessary for the procedure due to the procedure requiring the patient to remain in a painful position for a prolonged period of time. Patient was responsive throughout the procedure. The increased risk of the procedure with use of sedation was discussed with the patient. The patient wished to proceed. Pre-op antibiotics were administered 30 minutes prior to incision. The patient was identified in the pre-op area. The procedure, including risks benefits and alternatives was discussed with the patient. The patient agreed to proceed. Informed consent was obtained and the site(s) marked. The patient was brought to the procedure room and placed in the prone position with padding under the abdomen to reduce lumbar lordosis. Time out was taken. The back was prepped and draped in surgical sterile fashion. Skin and subcutaneous tissues were anesthetized with 16 mL of Lidocaine 2% with epinephrine combined in a 50/50 mixture with 0.5% bupivacaine through a 25G needle. A 3 cm incision was made in the midline. Bovie cautery was used to dissect to the interspinous ligament. The L1/2 epidural space was entered using a 14G Touhy needle using loss of resistance technique. The first 8-contact [employer] epidural lead was advanced in the posterior aspect of the epidural space to right of midline where the top of the lead overlied the T10 vertebral body to the right of midline. A second 14G Touhy needle then was used to enter the L1/2 epidural space using the same technique. A second 8-contact [employer] lead was then advanced under fluoroscopic guidance in the posterior aspect of the epidural space to where the tip of the lead overlied the T10 vertebral body to the left of midline. Complex intraoperative programming then took place for less than 30 minutes. The patient noted paresthesias in the areas of pain. The leads were then anchored to interspinous ligament using Clik X Anchors and Fixate devices. The generator pocket was then formed after first anesthetizing the skin and subcutaneous tissues with 10ml of the anesthetic mixture using bovie cautery and blunt dissection.. The leads were tunneled from the midline incision to the generator pocket. Both sites were irrigated with antibiotic irrigation. 2 2-0 silk suture were used in the pocket as stay sutures for the generator. Impedances were checked and were ok. The leads were then fixed to the generator with the hex wrench. The pulsed generator was then placed in the pocket and fixed into place with the stay sutures. Both sites were closed in layered fashion with Vicryl suture and liquiband. Antibiotic ointment and sterile dressing was then applied and the patient transferred to the recovery area. The patient was awakened and brought to the recovery room in good condition. IVF: 1000ml Blood loss: minimal Complications: none Specimens: none The patient was brought to the recovery area in stable condition and then monitored for an appropriate period of time. Further programming and education then took place with the dairy supplies sales representative. The patient was discharged home in good condition with post-procedure instructions and antibiotics sent to the patient's pharmacy. Epidural injection procedure Physical Exam: vital signs Vital Signs 05/21/2023 7:14 EST Heart Rate Monitored 58 bpm LOW SpO2 95 % 05/21/2023 7:14 EST Systolic Blood Pressure 139 mmHg Diastolic Blood Pressure 69 mmHg Mean Arterial Pressure, Monitered 92 mmHg 05/21/2023 7:13 EST Temperature Axillary 36.4 DegC 05/21/2023 7:12 EST Respiratory Rate 14 br/min . Normal [facility] Comment on above: Result Comment: Elec tronically Signed By: Abel Ruggiero MD\.br\Date and Time Signed: 05/21/23 10:07 EST Progress Note-Physicianon Progress Note-Physician Patient: AARON BRENNAN Age: 47 years Sex: Female : 1975 Associated Diagnoses: None Author: Jhony Cano Jr., DO Postoperative Information Postoperative disposition: Postoperative disposition: To PACU. Optimetrix number: Optimetrix number [id number]. Anesthetic utilized: Monitored anesthesia care. Physical Examination Vital signs stable. Pain Assessment: Controlled. General: Awake, Alert, Appropriate. Respiratory: Adequate air exchange, Equal bilateral chest wall expansion, Non-labored. Cardiovascular: Stable, Normal peripheral perfusion. Neurological: Normal sensory function. Assessment Anesthetic outcome No anesthetic complications noted. Review / Management Condition: Stable. Plan Transfer/Discharge: Transfer/Discharge Discharge when meets criteria. Normal [facility] Comment on above: Result Comment: Elec tronically Signed By: Jhony Cano Jr., DO\.br\Date and Time Signed: 05/21/23 12:25 EST Progress Note-Physicianon Progress Note-Physician Patient: AARON BRENNAN Age: 47 years Sex: Female : 1975 Associated Diagnoses: None Author: Jhony Cano Jr., DO Preoperative Information NPO after midnight Review of Systems Eye Respiratory: Negative except as documented in history of present illness. Cardiovascular: Negative except as documented in history of present illness. Health Status Allergies: Allergic Reactions (Selected) Severity Not Documented Codeine- Emesis. LaMICtal- Rash., Allergies (2) Active Reaction codeine Emesis LaMICtal Rash Current medications: (Selected) Prescriptions Prescribed mupirocin Top 2% Oint: See Instructions, 15 gm, Refill(s) 0, apply to both nostrils, both axillary folds, both groin creases twice daily for 5 days, [facility][id number], 155, cm, 05/14/23 13:20:00 EST, Height/Length Dosing, 77.5, kg, 11/27/22 9:07:00 EDT, Weight Dosing Documented Medications Documented Fish Oil: 1,000 mg, Oral, Daily, Refill(s) 0 Hydrolyzed Ultra Collagen Plus C: See Instructions, Refill(s) 0, daily Latuda 80 mg oral tablet: TAKE 2 TABLETS BY MOUTH EVERY DAY AT BEDTIME Misc Medication: See Instructions, Apple cider vinegar daily Misc Medication: See Instructions, Gurjit dorman Misc Medication: See Instructions, hair, skin and nails dailh AD: See Instructions, Refill(s) 0, daily amphetamine-dextroamp hetamine 30 mg oral tablet: Refill(s) 0, TAKE 1 TABLET BY MOUTH IN THE MORNING IN ADDITION TO 30 MG IN THE AFTERNOON biotin: See Instructions, celso, Refills(s) 0 medication for headaches and nausea: medication for headaches and nausea oxcarbazepine 600 mg Tab: 600 mg = 1 tab(s), Oral, TID, Refills(s) 0 prazosin 2 mg oral capsule: 4 mg = 2 cap(s), Oral, Daily, Refills(s) 0 propranolol: 80 mg, Oral, Daily, Refills(s) 0 traZODONE 150 mg Tab: TAKE 1 TABLET BY MOUTH EVERYDAY AT BEDTIME NEEDED FOR INSOMNIA vilazodone 20 mg oral tablet: TAKE 1 TABLET BY MOUTH EVERY DAY zolpidem 12.5 mg oral ER Tab: TAKE 1 TABLET AT BEDTIME NEEDED FOR INSOMNIA, Home Medications (17) Active amphetamine-dextroamp hetamine 30 mg oral tablet biotin See Instructions Fish Oil 1,000 mg, Oral, Daily Hydrolyzed Ultra Collagen Plus C See Instructions Latuda 80 mg oral tablet medication for headaches and nausea Misc Medication See Instructions Misc Medication See Instructions Misc Medication See Instructions mupirocin Top 2% Oint See Instructions oxcarbazepine 600 mg Tab 600 mg = 1 tab(s), Oral, TID prazosin 2 mg oral capsule 4 mg = 2 cap(s), Oral, Daily AD See Instructions propranolol 80 mg, Oral, Daily traZODONE 150 mg Tab vilazodone 20 mg oral tablet zolpidem 12.5 mg oral ER Tab , No qualifying data available Problem list: All Problems Anxiety / SNOMED CT 91904968 / Confirmed Bipolar 1 disorder / SNOMED CT 5510857865 / Confirmed Cardiovascular disease / SNOMED CT 8742409421 / Confirmed H/O gastroesophageal reflux (GERD) / SNOMED CT 6249658550 / Confirmed H/O: obesity / SNOMED CT 852730970 / Confirmed History of hypothyroidism / SNOMED CT 728706336 / Confirmed Hypertension / SNOMED CT 8986313193 / Confirmed Lower back pain / SNOMED CT 149424247 / Confirmed Schizophrenia / SNOMED CT 19090375 / Confirmed Histories Past Medical History: No active or resolved past medical history items have been selected or recorded. Procedure history: Spinal cord stimulator trial ([id number]) on 03/26/2023 at 47 Years. Comments: 04/02/2023 14:47 Danielle Raymond RN 60% relief Caudal epidural ([id number]) on 01/21/2023 at 47 Years. Comments: 02/18/2023 8:09 Nanci Lopez RN caudal elizabeth 0% relief Fusion of lumbar spine (879645766) in 2021 at 46 Years. Comments: 11/27/2022 9:06 Nanci Lopez RN L5/S1 Laminectomy with excision of herniated intervertebral disc, nucleus pulposus (58626285) in 2019 at 44 Years. Comments: 11/27/2022 8:44 Nanci Lopez RN T2 and T3 Open reversal of tubal ligation (434104544) in 2010 at 35 Years. Tubal ligation (088721340) in 1995 at 20 Years. Cholecystectomy (66331676) in 1992 at 17 Years. Appendix (104588807). Social History Social & Psychosocial Habits Alcohol 11/27/2022 Risk Assessment: Denies Alcohol Use Substance Abuse 11/27/2022 Risk Assessment: Denies Substance Abuse Tobacco 11/27/2022 Risk Assessment: Denies Tobacco Use . Physical Examination Airway: Mallampati classification: II (soft palate, fauces, uvula visible). Plan [place] [employer] (ASA) physical status classification: Class III. [facility] Comment on above: Result Comment: Elec tronically Signed By: Jhony Cano Jr., DO\Date and Time Signed: 05/20/23 07:32 EST MRSA Screenon 05-15-2023 MRSA DNA ROSALVA+probe Ql (Unsp spec) Microbiology PROCEDURE: MRSA Screen [R1] SOURCE: Nasal BODY SITE: COLLECTED DATE/TIME: 05/14/2023 13:59 EST RECEIVED DATE/TIME: 05/14/2023 14:58 EST START DATE/TIME: 05/14/2023 14:58 EST FREE TEXT SOURCE: Monik SANTIAGO, Abel Ruggiero MD, Abel Melo FINAL REPORTS Final Report [] Verified Date/Time: 05/15/2023 11:50 EST MRSA Positive. Final faxed to Dr. Abel Ruggiero 05/15/2023 11:50 CSS Performing Locations R1: This test was performed at: [facility], [address] [place] [address], [address] [place] [address], [facility] Comment on above: Performed By: #### 1 [id number] ####[place] [address] Consent for Treatmenton Consent for Treatment [id number]#1 .00TIFF [facility] Consent for Treatment [id number]#1 .00TIFF [facility] Physician Orderon 05-14-2023 Physician Order [id number]# 1.00TIFF [facility] Insurance Correspondence Off iceon 05-13-2023 Insurance Correspondence Office [id number]# 3.00TIFF [facility] Physician Orderon 05-08-2023 Physician Order [id number]# 1.00TIFF [facility] Patient Correspondenceon Patient Correspondence [id number]#1 .00TIFF [facility] Consent for Treatmenton 03-09 Consent for Treatment [id number]# 1.00CD:127 Normal [facility] Consultation Noteon 04-02-20 Consultation Note Patient: AARON BRENNAN Age: 47 years Sex: Female : 1975 Associated Diagnoses: None Author: Monik SANTIAGO, Abel Melo Subjective Chief complaint 04/02/2023 14:43 EDT Bilateral feet and leg pain . 47-year-old female history of lumbar postlaminectomy syndrome and chronic neuropathic pain following up from spinal cord stimulator trial. The patient reports 60 to 80% ongoing relief with the trial. She was able to walk for a mile. Used to not be able to walk for more than 100 feet with the severe pain that she was experiencing in her feet. The patient is very hesitant to give up the trial leads because she is feeling so much better. She is though encouraged with the relief that she is experienced. No apparent complications from the procedure. The patient is very eager to proceed with permanent implant. Pain rates down to a 2 out of 10 on the visual analog scale. Up to a 4 out of 10. AGUSTO at 48. Health Status Allergies: Allergic Reactions (All) Severity Not Documented Codeine- Emesis. LaMICtal- Rash. Current medications: (Selected) Documented Medications Documented Fish Oil: 1,000 mg, Oral, Daily, Refill(s) 0 Hydrolyzed Ultra Collagen Plus C: See Instructions, Refill(s) 0, daily Latuda 80 mg oral tablet: TAKE 2 TABLETS BY MOUTH EVERY DAY AT BEDTIME Misc Medication: See Instructions, Apple cider vinegar daily Misc Medication: See Instructions, Ashwangon da dailu Misc Medication: See Instructions, hair, skin and nails dailh AD: See Instructions, Refill(s) 0, daily amphetamine-dextroamp hetamine 30 mg oral tablet: Refill(s) 0, TAKE 1 TABLET BY MOUTH IN THE MORNING IN ADDITION TO 30 MG IN THE AFTERNOON biotin: See Instructions, dailu, Refills(s) 0 oxcarbazepine 600 mg Tab: 600 mg = 1 tab(s), Oral, TID, Refills(s) 0 prazosin 2 mg oral capsule: 4 mg = 2 cap(s), Oral, Daily, Refills(s) 0 traZODONE 150 mg Tab: TAKE 1 TABLET BY MOUTH EVERYDAY AT BEDTIME NEEDED FOR INSOMNIA vilazodone 20 mg oral tablet: TAKE 1 TABLET BY MOUTH EVERY DAY zolpidem 12.5 mg oral ER Tab: TAKE 1 TABLET AT BEDTIME NEEDED FOR INSOMNIA Problem list: All Problems Anxiety / SNOMED CT 25237919 / Confirmed Bipolar 1 disorder / SNOMED CT 1484410441 / Confirmed Cardiovascular disease / SNOMED CT 4175451350 / Confirmed H/O gastroesophageal reflux (GERD) / SNOMED CT 5411133716 / Confirmed H/O: obesity / SNOMED CT 347768947 / Confirmed History of hypothyroidism / SNOMED CT 023401324 / Confirmed Hypertension / SNOMED CT 6803932518 / Confirmed Lower back pain / SNOMED CT 198900600 / Confirmed Schizophrenia / SNOMED CT 47406005 / Confirmed Objective Vital Signs 04/02/2023 14:43 EDT Peripheral Pulse Rate 91 bpm Respiratory Rate 14 br/min Systolic Blood Pressure 189 mmHg HI Diastolic Blood Pressure 97 mmHg HI Mean Arterial Pressure, Cuff 128 mmHg General: No acute distress. Alert and oriented x3. Well-nourished. Well-developed. Musculoskeletal: Patient arises easily from a seated position. Leads were removed under sterile conditions intact without difficulty. Sites are clean, dry, and intact. No sign of infection. Impression and Plan 47-year-old female with a history lumbar postlaminectomy syndrome chronic pain, and lumbar radiculitis with significant improvement of pain and function with the use of the spinal cord stimulator trial. This was a very successful trial. The patient's quality life and activities of daily living were significantly improved as a result of the relief she was experiencing. She got back to walking, which has been very problematic for her due to her pain. The leads were removed intact without difficulty. I provided the patient activity restrictions directly following the lead removal, which include do not submerge in water for the next several days. She may shower however. We discussed the permanent implant including its risk, benefits, and alternatives. These include risks of bleeding, infection, and nerve injury. We discussed the postoperative period which require activity restrictions for at least 4 to 6 weeks following the permanent implant. The patient voiced understanding and willingness to proceed. She would like to proceed to soon as possible. Plan to follow-up 1 week after the surgical implant of her spinal cord stimulator. She required 2 thoracic leads as well as rechargeable pulse generator. Patient agrees with plan of care. [facility] Comment on above: Result Comment: Elec tronically Signed By: Monik SANTIAGO, Abel Singh.br\Date and Time Signed: 04/02/23 15:14 EDT Office/Clinic Note-Physician on 04-02-2023 Office/Clinic Note-Physician [id number]# 1.00CD:127 [facility] Patient Correspondenceon Patient Correspondence [id number]# 1.00CD:127 [facility] Patient Correspondence [id number]# 1.00CD:127 [facility] Patient History Officeon Patient History Office [id number]# 1.00CD:127 [facility] Consent for Anesthesiaon Consent for Anesthesia [id number]# 1.00CD:127 [facility] Consent for Procedure/Surger yon 03-26-2023 Consent for Procedure/Surgery [id number]# 1.00CD:127 [facility] Consent for Treatmenton 03-08 Consent for Treatment [id number]#1. 00CD:127 [facility] Discharge Instructionson Discharge Instructions [id number]# 1.00CD:127 Normal [facility] IntraOperative Documentson 0 03-26-2023 IntraOperative Documents [id number]# 1.00CD:127 Normal [facility] IntraOperative Documents [id number]# 1.00CD:127 Normal [facility] Main OR Intraoperative Recor don 03-26-2023 Main OR Intraoperative Record IntraOp Document Type FTPM Summary Primary Physician: Abel Ruggiero MD Finalized Date/Time: 03/26/23 08:07:10 Pt. Name: AARON BRENNANO.B./Sex: 1975 Female Med Rec #: [id number] Physician: Abel Ruggiero MD Financial #: [id number] Pt. Type: P Room/Bed: / Admit/Disch: 03/26/23 06:44:13 - Institution: Case Times FTPM Entry 1 Patient Times In Room 03/26/23 07:34:00 Out Room 03/26/23 08:00:00 Procedure Times Start 03/26/23 07:37:00 Stop 03/26/23 07:58:00 Anesthesia Times Start 03/26/23 07:34:00 Last Modified By: Mariam Singh RN 03/26/23 08:04:22 Case Attendance FTPM Entry 1 Entry 2 Entry 3 Case Attendee Estee MATUTE, NEWS LIBRARY DIRECTOR, Queen Monik SANTIAGO, Abel Singh RN, Mariam Redmond Role Performed Anesthesiologist Surgeon - Primary Tire Worker - Primary Welcome Center Attendant Time In 03/26/23 07:34:00 03/26/23 07:34:00 03/26/23 07:34:00 Time Out 03/26/23 08:00:00 03/26/23 08:00:00 03/26/23 08:00:00 Procedure SPINAL CORD STIMULATOR SPINAL CORD STIMULATOR SPINAL CORD STIMULATOR TRIAL(.) TRIAL(.) TRIAL(.) Comments Last Modified By: Francisco RODRIGUEZ, Mariam Singh RN, Mariam Chen RN 03/26/23 08:04:25 03/26/23 08:04:25 03/26/23 08:04:25 Entry 4 Entry 5 Entry 6 Case Attendee Danielle Bah RN, Sabina Stern Role Performed Scrub - Primary Scrub - Relief Egg Trayer Time In 03/26/23 07:34:00 03/26/23 07:34:00 03/26/23 07:34:00 Time Out 03/26/23 08:00:00 03/26/23 08:00:00 03/26/23 08:00:00 Procedure SPINAL CORD STIMULATOR SPINAL CORD STIMULATOR SPINAL CORD STIMULATOR TRIAL(.) TRIAL(.) TRIAL(.) Comments Last Modified By: Francisco RODRIGUEZ, Maraim Singh RN, Mariam hCen RN 03/26/23 08:04:25 03/26/23 08:04:25 03/26/23 08:04:25 Entry 7 Case Attendee Toi SANTIAGO, Keo Mehta Role Performed Anesthesiologist of Record Time In 03/26/23 07:34:00 Time Out 03/26/23 08:00:00 Procedure SPINAL CORD STIMULATOR TRIAL(.) Comments Last Modified By: Mariam Singh RN 03/26/23 08:04:25 General Comments: [employer] Rep-Marisa Perioperative Protocols FTPM Pre-Care Text: Implements protective measures prior to operative or invasive procedure, confirms identity before the operative or invasive procedure, verifies operative procedure, surgical site, and laterality Entry 1 Procedure(s) SPINAL CORD STIMULATOR Patient Identity Birthday, ID Band TRIAL(.) Verified (select at Check, Patient least 2): Participation Consents / H and P Anesthesia Consent, Operative Site Present Verified HandP, Surgery/Procedure Marking Verified Consent Surgical Site Yes Laterality Verified Yes Verified Procedure Verified Yes Correct Patient Yes Position Verified Availability Equipment, Medication, Prep Dry Yes Verified (If X-ray Applicable) PreOp Antibiotic Yes Time Out Francisco RODRIGUEZ, Mariam Ruiz, Given Participants Danielle Bah, Monik SANTIAGO, Estee Parker DNP, NEWS LIBRARY DIRECTOR, Queen Ruy, Pepe RODRIGUEZ, Charly Augustin Amy Time Out Complete 03/26/23 07:34:00 Outcomes Met? Yes Last Modified By: Mariam Singh RN 03/26/23 08:05:45 Post-Care Text: The patient is free from signs and symptoms of injury caused by extraneous objects Allergy Information FTPM Pre-Care Text: Verifies allergies Entry 1 Allergies Reviewed? Yes Allergies Reviewed Self/Patient With Outcomes Met? Yes Last Modified By: Mariam Singh RN 03/26/23 07:28:10 Post-Care Text: The patient received appropriate medication(s) safely administered during the perioperative period Surgical Procedures FTPM Entry 1 Procedure Description Procedure SPINAL CORD STIMULATOR Modifiers . TRIAL Surgeon Description SCS TRIAL 2 LEADS THORACIC Primary Procedure Yes Primary Surgeon Abel Ruggiero MD Start 03/26/23 07:37:00 Stop 03/26/23 07:58:00 Anesthesia Type MAC Surgical Service Pain Management Wound Class 1 - Clean Last Modified By: Mariam Singh RN 03/26/23 08:04:30 General Case Data FTPM Pre-Care Text: Classifies surgical wound, implements aseptic technique, initiates traffic control Entry 1 Case Information OR Pain Proc Room Case Level Level 2 Wound Class 1 - Clean Specialty Pain Management ASA Class 2 Preop Diagnosis M96.1, G89.29 Postop Same As Preop Yes Postop Diagnosis M96.1, G89.29 Outcomes Met? Yes Last Modified By: Mariam Singh RN 03/26/23 07:41:14 Post-Care Text: The patient is free from signs and symptoms of infection Skin Assessment (Pre Procedure) FTPM Pre-Care Text: Implements protective measures to prevent skin/ tissue injury due to thermal or mechanical sources Evaluates for signs and symptoms of physical injury to skin and tissue Entry 1 Skin Integrity Intact, [place], Warm, and Skin Abnormality No Dry Outcomes Met? Yes Last Modified By: Mariam Singh RN 03/26/23 07:28:19 Post-Care Text: The patient is free from signs and symptoms of injury caused by extraneous objects Patient (more content not included)... Normal [facility] Main OR Preoperative Recordo n 03-26-2023 Main OR Preoperative Record Holding Area Document Type FTPM Summary Primary Physician: Abel Ruggiero MD Finalized Date/Time: 03/26/23 07:02:18 Pt. Name: AARON BRENNAN /Sex: 1975 Female Med Rec #: [id number] Physician: Abel Ruggiero MD Financial #: [id number] Pt. Type: P Room/Bed: / Admit/Disch: 03/26/23 06:44:13 - Institution: Case Times Holding FTPM Pre-Care Text: Verifies consent for planned procedure, identifies individual values and wishes concerning care, includes family members in perioperative teaching Secures patient's records' belongings, and valuables, maintains patient's dignity and privacy, and maintains patient confidentiality Entry 1 In Holding 03/26/23 06:48:00 Outcomes Met? Yes Last Modified By: Amanda Canales RN 03/26/23 06:48:47 Post-Care Text: The patient participates in decisions affecting his or her perioperative plan of care The patient's right to privacy is maintained Surgery Checklist FTPM Entry 1 Patient Birthday, ID Band Procedure History and Physical, Identification: Check, Patient Verification: Surgical Consent, With Participation Patient NPO after Midnight: Yes Date/Time: 03/26/23 06:48:00 Results Reviewed N/A Personal Items: Jewelry Comments: Personal Items Pt. wearing two rings. Complaints of Pain: Yes Comment: a necklace and a nose piercing. Pain Comment: 1010 LLE and bilateral Operative Site Yes foot Marking: Marked By: Dr. Ruggiero Location: 2 leads thoracic Availability Equipment, X-Ray Verified: Does Patient Smoke No Patient states Yes Comment - Adult -Sudeep postop adult Supervision supervision available Case Cancelled in No Holding Area see comments below for reason Last Modified By: Amanda Canales RN 03/26/23 06:50:40 Finalized By: Amanda Canales RN Document Signatures Signed By: Amanda Canales RN 03/26/23 07:02 Normal [facility] Operative Reporton 3 Operative Report Patient: AARON BRENNAN Age: 47 years Sex: Female : 1975 Associated Diagnoses: None Author: Abel Ruggiero MD Procedure Procedure: Spinal Cord Stimulator Trial with Fluoroscopic Guidance, 2- Infinion 16-contact [employer] Leads Placed - Thoracic. Diagnosis: Lumbar Post Laminectomy Syndrome, Chronic pain Anesthesia: MAC MAC anesthesia is medically necessary for the procedure due to the procedure requiring the patient to remain in a painful position. The patient was identified in the pre-op area. The procedure, including risks benefits and alternatives was discussed with the patient. The patient agreed to proceed. Informed consent was obtained and the site(s) marked. The patient was brought to the procedure room and placed in the prone position with padding under the abdomen to reduce lumbar lordosis. Time out was taken. The back was prepped and draped in surgical sterile fashion. Skin and subcutaneous tissues were anesthetized with 16 mL of Lidocaine 2% with epinephrine through a 25G needle. The L1/2 epidural space was entered using a 14G Touhy needle using loss of resistance technique. The first 16-contact [employer] epidural lead was advanced in the posterior aspect of the epidural space to where the top of the lead overlied the top of T8 to the right of midline. A second 14G Touhy needle then was used to enter the L1/2 epidural space using the same technique. A second 16-contact [employer] lead was then advanced under fluoroscopic guidance in the posterior aspect of the epidural space to where the tip of the lead overlied the top of T8 to the left of midline. Complex intraoperative programming then took place for less than 30 minutes. The patient noted paresthesias in the areas of her pain. The leads were then anchored to the skin using 2-0 silk suture and Clik-X anchors after removing the needles and stylettes. Antibiotic ointment and sterile dressing was then applied and the patient transferred to the recovery area. The patient was brought to the recovery area in stable condition and then monitored for an appropriate period of time. Further programming and education then took place with the dairy supplies sales representative. The patient was discharged home in good condition with post-procedure instructions and antibiotics sent to her pharmacy. No apparent complications. Epidural injection procedure Physical Exam: vital signs Vital Signs 03/26/2023 7:49 EDT Heart Rate Monitored 84 bpm Systolic Blood Pressure 98 mmHg Diastolic Blood Pressure 69 mmHg SpO2 99 % 03/26/2023 6:55 EDT Heart Rate Monitored 70 bpm SpO2 99 % 03/26/2023 6:55 EDT Temperature Axillary 36.3 DegC 03/26/2023 6:55 EDT Systolic Blood Pressure 125 mmHg Diastolic Blood Pressure 84 mmHg Mean Arterial Pressure, Monitered 98 mmHg 03/26/2023 6:55 EDT Respiratory Rate 14 br/min . Normal [facility] Comment on above: Result Comment: Elec tronically Signed By: Monik SANTIAGO, Abel Melo\.br\Date and Time Signed: 03/26/23 08:02 EDT Progress Note-Physicianon Progress Note-Physician Patient: AARON BRENNAN Age: 47 years Sex: Female : 1975 Associated Diagnoses: None Author: Keo Cm MD Postoperative Information Postoperative disposition: Postoperative disposition: To PACU. Optimetrix number: Optimetrix number [id number]. Anesthetic utilized: General. Physical Examination Vital Signs 03/26/2023 8:11 EDT Heart Rate Monitored 76 bpm SpO2 100 % 03/26/2023 8:11 EDT Respiratory Rate 16 br/min 03/26/2023 8:10 EDT Systolic Blood Pressure 111 mmHg Diastolic Blood Pressure 70 mmHg Mean Arterial Pressure, Monitered 84 mmHg 03/26/2023 8:04 EDT Heart Rate Monitored 76 bpm SpO2 98 % 03/26/2023 8:04 EDT Temperature Axillary 36.4 DegC Pain Assessment: Pain Assessment 03/26/2023 8:03 EDT Preliminary Pain Scale 0 03/26/2023 8:03 EDT Patient Preferred Pain Tool Numeric rating . General: Awake, Alert, Appropriate. Respiratory: Adequate air exchange, Equal bilateral chest wall expansion. Cardiovascular: Stable. Neurological: At Baseline. Assessment Anesthetic outcome No anesthetic complications noted. Review / Management Condition: Stable. Plan Transfer/Discharge: Transfer/Discharge Discharge when meets criteria ( To home ). Normal [facility] Comment on above: Result Comment: Elec tronically Signed By: Keo Cm MD\.br\Date and Time Signed: 03/26/23 08:21 EDT Progress Note-Physician Patient: AARON BRENNAN Age: 47 years Sex: Female : 1975 Associated Diagnoses: None Author: Keo Cm MD Preoperative Information Anesthesia Preop Info: Time patient last ate or drank 03/25/2023 19:00:00. Anesthesia history: Patient history: None. Family history+: None. Informed consent: Signed by patient. Including risks, benefits, and alternatives related to the: Anesthetic plan, Postoperative pain management plan. Re-evaluation prior to induction: Toi SANTIAGO, Keo Mehta. Initial evaluation reviewed: No significant change. Review of Systems Eye: Negative. Ear/Nose/Mouth/Throat : Negative. Respiratory: Negative. Cardiovascular: Negative. Gastrointestinal: Negative. Genitourinary: Negative. Hematology/Lymphatics : Negative. Endocrine: Negative. Musculoskeletal: Negative. Neurologic: Negative. Health Status Allergies: Allergies (2) Active Reaction codeine Emesis LaMICtal Rash Current medications: Home Medications (14) Active amphetamine-dextroamp hetamine 30 mg oral tablet biotin See Instructions Fish Oil 1,000 mg, Oral, Daily Hydrolyzed Ultra Collagen Plus C See Instructions Latuda 80 mg oral tablet Misc Medication See Instructions Misc Medication See Instructions Misc Medication See Instructions oxcarbazepine 600 mg Tab 600 mg = 1 tab(s), Oral, TID prazosin 2 mg oral capsule 4 mg = 2 cap(s), Oral, Daily AD See Instructions traZODONE 150 mg Tab vilazodone 20 mg oral tablet zolpidem 12.5 mg oral ER Tab , Medications (1) Active Scheduled: (0) Continuous: (1) Sodium Chloride 0.9% 1,000 mL 1,000 mL, IV, 15 mL/hr PRN: (0) Problem list: All Problems Hypertension / SNOMED CT 8077548901 / Confirmed Cardiovascular disease / SNOMED CT 7213709007 / Confirmed History of hypothyroidism / SNOMED CT 011832018 / Confirmed H/O gastroesophageal reflux (GERD) / SNOMED CT 6178082356 / Confirmed H/O: obesity / SNOMED CT 971658500 / Confirmed Anxiety / SNOMED CT 13219315 / Confirmed Lower back pain / SNOMED CT 649309017 / Confirmed Bipolar 1 disorder / SNOMED CT 3597471778 / Confirmed Schizophrenia / SNOMED CT 64389734 / Confirmed, Active Problems (9) Anxiety Bipolar 1 disorder Cardiovascular disease H/O gastroesophageal reflux (GERD) H/O: obesity History of hypothyroidism Hypertension Lower back pain Schizophrenia Histories Social History Social & Psychosocial Habits Alcohol 11/27/2022 Risk Assessment: Denies Alcohol Use Substance Abuse 11/27/2022 Risk Assessment: Denies Substance Abuse Tobacco 11/27/2022 Risk Assessment: Denies Tobacco Use . Physical Examination Vital Signs 03/26/2023 6:55 EDT Heart Rate Monitored 70 bpm SpO2 99 % 03/26/2023 6:55 EDT Temperature Axillary 36.3 DegC 03/26/2023 6:55 EDT Systolic Blood Pressure 125 mmHg Diastolic Blood Pressure 84 mmHg Mean Arterial Pressure, Monitered 98 mmHg 03/26/2023 6:55 EDT Respiratory Rate 14 br/min Measurements from flowsheet : Measurements 03/26/2023 6:55 EDT Height/Length Measured 155 cm Height/Length Dosing 155.0 cm Weight Estimated 77.5 kg Airway: Mallampati classification: II (soft palate, fauces, uvula visible). Distance: Thyromental, Adequate. Respiratory: Lungs are clear to auscultation, Symmetrical chest wall expansion. Cardiovascular: Regular rhythm, Good pulses equal in all extremities. Gastrointestinal: Soft, Non-tender. Plan [place] [employer] (ASA) physical status classification: Class II. Anesthetic Preoperative Plan: Anesthesia General. [facility] Comment on above: Result Comment: Elec tronically Signed By: Toi SANTIAGO, Keo Mehta\.br\Date and Time Signed: 03/26/23 07:23 EDT Insurance Correspondence Off iceon 03-21-2023 Insurance Correspondence Office [id number]#3 .00CD:127 [facility] Consent for Treatmenton 03-08 Consent for Treatment [id number]# 1.00CD:127 [facility] Patient Correspondenceon Patient Correspondence [id number]# 1.00CD:127 [facility] Consent for Treatmenton 02-05 Consent for Treatment [id number]# 1.00CD:127 [facility] Consultation Noteon 02-19-20 Consultation Note Patient: AARON BRENNAN Age: 47 years Sex: Female : 1975 Associated Diagnoses: None Author: Abel Ruggiero MD Subjective Chief complaint 02/18/2023 8:07 EDT Left leg and bilateral feet pain . 47-year-old female with a history of lumbar postlaminectomy syndrome and lumbar radiculitis following up from caudal epidural steroid injection. Unfortunately, the patient has not experienced any significant sustained relief. She still has severe pain into both feet. She has a very hard time doing normal daily activities and can hardly walk as a result of her pain. She rates her pain as an 8 out of 10 on the visual analog scale. AGUSTO is 62. No apparent complications from the procedure. The patient and I have previously discussed spinal cord stimulation. She is interested in pursuing this. She has already undergone psychological evaluation which came back favorable. She and her would like to discuss that process again. He is present virtually. Health Status Allergies: Allergic Reactions (All) Severity Not Documented Codeine- Emesis. LaMICtal- Rash. Current medications: (Selected) Documented Medications Documented Fish Oil: 1,000 mg, Oral, Daily, Refill(s) 0 Hydrolyzed Ultra Collagen Plus C: See Instructions, Refill(s) 0, daily Latuda 80 mg oral tablet: TAKE 2 TABLETS BY MOUTH EVERY DAY AT BEDTIME Misc Medication: See Instructions, Apple cider vinegar daily Misc Medication: See Instructions, Gurjit dorman Misc Medication: See Instructions, hair, skin and nails dailh AD: See Instructions, Refill(s) 0, daily amphetamine-dextroamp hetamine 30 mg oral tablet: TAKE 1 TABLET BY MOUTH IN THE MORNING IN ADDITION TO 15 MG IN THE AFTERNOON biotin: See Instructions, celso, Refills(s) 0 lurasidone 80 mg oral tablet: TAKE 2 TABLETS BY MOUTH DAILY AT BEDTIME oxcarbazepine 300 mg Tab: TAKE 1 TABLET BY MOUTH EVERYDAY AT BEDTIME prazosin 2 mg oral capsule: 4 mg = 2 cap(s), Oral, Daily, Refills(s) 0 traZODONE 150 mg Tab: TAKE 1 TABLET BY MOUTH EVERYDAY AT BEDTIME NEEDED FOR INSOMNIA vilazodone 20 mg oral tablet: TAKE 1 TABLET BY MOUTH EVERY DAY zolpidem 12.5 mg oral ER Tab: TAKE 1 TABLET AT BEDTIME NEEDED FOR INSOMNIA Problem list: All Problems Anxiety / SNOMED CT 07546021 / Confirmed Bipolar 1 disorder / SNOMED CT 7121860653 / Confirmed Cardiovascular disease / SNOMED CT 3846886036 / Confirmed H/O gastroesophageal reflux (GERD) / SNOMED CT 2819610836 / Confirmed H/O: obesity / SNOMED CT 269277089 / Confirmed History of hypothyroidism / SNOMED CT 533791923 / Confirmed Hypertension / SNOMED CT 6362955910 / Confirmed Lower back pain / SNOMED CT 258324889 / Confirmed Schizophrenia / SNOMED CT 54367059 / Confirmed Objective Vital Signs 02/18/2023 8:07 EDT Peripheral Pulse Rate 90 bpm Respiratory Rate 12 br/min LOW Systolic Blood Pressure 137 mmHg Diastolic Blood Pressure 96 mmHg HI Mean Arterial Pressure, Cuff 110 mmHg General: No acute distress. Alert and oriented x3. Well-nourished. Well-developed. Musculoskeletal: Injection site healed. Arises slowly from a seated position. Neuro: allodynia bilateral feet and ankles, Nondermatomal. Feet are reddish in color. They are cool to the touch. 2/5 left ankle dorsiflexion. 4/5 right ankle dorsiflexion. Unable to move the left toes. Impression and Plan 47-year-old female with severe bilateral lower extremity pain after lumbar surgery. Her pain is consistent lumbar postlaminectomy syndrome. The pain has not responded to extensive conservative care including the use of Lyrica, ibuprofen, physical therapy. surgical intervention has been ineffective in managing her symptoms. We discussed the option of a spinal cord stimulator trial again today. Risk, benefits, and alternatives were reviewed with the patient. She wishes to proceed. Follow-up 1 week after the trial to assess response. Patient agrees with plan of care. Normal [facility] Comment on above: Result Comment: Elec tronically Signed By: Monik SANTIAGO, Abel Singh.valdo\Date and Time Signed: 02/18/23 08:29 EDT Office/Clinic Note-Physician on 02-18-2023 Office/Clinic Note-Physician [id number]# 1.00CD:127 Normal [facility] Patient Correspondenceon Patient Correspondence [id number]# 1.00CD:127 Normal [facility] Patient Correspondence [id number]# 1.00CD:127 [facility] Patient History Officeon Patient History Office [id number]# 1.00CD:127 [facility] Consent for Procedure/Surger yon 01-21-2023 Consent for Procedure/Surgery [id number]# 1.00CD:127 [facility] Consent for Treatmenton 01-05 Consent for Treatment [id number]# 1.00CD:127 [facility] Discharge Instructionson Discharge Instructions [id number]# 1.00CD:127 [facility] IntraOperative Documentson 0 01-21-2023 IntraOperative Documents [id number]# 1.00CD:127 [facility] Main OR Intraoperative Recor don 01-21-2023 Main OR Intraoperative Record IntraOp Document Type FTPM Summary Primary Physician: Abel Ruggiero MD Finalized Date/Time: 01/21/23 08:08:04 Pt. Name: AARON BRENNANO.B./Sex: 1975 Female Med Rec #: [id number] Physician: Abel Ruggiero MD Financial #: [id number] Pt. Type: P Room/Bed: / Admit/Disch: 01/21/23 07:08:10 - Institution: Case Times FTPM Entry 1 Patient Times In Room 01/21/23 07:56:00 Out Room 01/21/23 08:01:00 Procedure Times Start 01/21/23 07:59:00 Stop 01/21/23 08:00:00 Anesthesia Times Last Modified By: Danielle Armstrong RN 01/21/23 08:01:01 Case Attendance FTPM Entry 1 Entry 2 Entry 3 Case Attendee Monik MD, AbelDanielle Matrinez RN, RN, Emily C Role Performed Surgeon - Primary Tire Worker - Primary Scrub - Primary Time In 01/21/23 07:56:00 01/21/23 07:56:00 01/21/23 07:56:00 Time Out 01/21/23 08:01:00 01/21/23 08:01:00 01/21/23 08:01:00 Procedure CAUDAL EPIDURAL STEROID CAUDAL EPIDURAL STEROID CAUDAL EPIDURAL STEROID INJECTION(.) INJECTION(.) INJECTION(.) Comments Last Modified By: Danielle Armstrong RN, RN, Madison A Pritchard RN, Madison A 01/21/23 08:01:02 01/21/23 08:01:02 01/21/23 08:01:02 Entry 4 Case Attendee Barry Rodriguez Role Performed Egg Trayer Time In 01/21/23 07:56:00 Time Out 01/21/23 08:01:00 Procedure CAUDAL EPIDURAL STEROID INJECTION(.) Comments Last Modified By: Danielle Armstrong RN 01/21/23 08:01:02 Perioperative Protocols FTPM Pre-Care Text: Implements protective measures prior to operative or invasive procedure, confirms identity before the operative or invasive procedure, verifies operative procedure, surgical site, and laterality Entry 1 Procedure(s) CAUDAL EPIDURAL STEROID Patient Identity Birthday, ID Band INJECTION(.) Verified (select at Check, Patient least 2): Participation Consents / H and P HandP, Surgery/Procedure Operative Site Present Verified Consent Marking Verified Surgical Site Yes Laterality Verified Yes Verified Procedure Verified Yes Correct Patient Yes Position Verified Availability Equipment, Medication, Prep Dry Yes Verified (If X-ray Applicable) PreOp Antibiotic No Time Out Danielle Armstrong RN, Myers RN, Monik Owens MD, Michael Parker Bryce Time Out Complete 01/21/23 07:57:00 Outcomes Met? Yes Last Modified By: Danielle Armstrong RN 01/21/23 07:57:19 Post-Care Text: The patient is free from signs and symptoms of injury caused by extraneous objects Allergy Information FTPM Pre-Care Text: Verifies allergies Entry 1 Allergies Reviewed? Yes Allergies Reviewed Self/Patient With Outcomes Met? Yes Last Modified By: Danielle Armstrong RN 01/21/23 07:32:51 Post-Care Text: The patient received appropriate medication(s) safely administered during the perioperative period Surgical Procedures FTPM Entry 1 Procedure Description Procedure CAUDAL EPIDURAL STEROID Modifiers . INJECTION Surgeon Description CAUDAL ELIZABETH Primary Procedure Yes Primary Surgeon Abel Ruggiero MD Start 01/21/23 07:59:00 Stop 01/21/23 08:00:00 Anesthesia Type None Surgical Service Pain Management Wound Class 1 - Clean Last Modified By: Danielle Armstrong RN 01/21/23 08:01:03 General Case Data FTPM Pre-Care Text: Classifies surgical wound, implements aseptic technique, initiates traffic control Entry 1 Case Information OR Pain Proc Room Case Level Level 2 Wound Class 1 - Clean Specialty Pain Management Preop Diagnosis M96.1 Postop Same As Preop Yes Postop Diagnosis M96.1 Outcomes Met? Yes Last Modified By: Danielle Armstrong RN 01/21/23 07:57:28 Post-Care Text: The patient is free from signs and symptoms of infection Skin Assessment (Pre Procedure) FTPM Pre-Care Text: Implements protective measures to prevent skin/ tissue injury due to thermal or mechanical sources Evaluates for signs and symptoms of physical injury to skin and tissue Entry 1 Skin Integrity Intact, [place], Warm, and Skin Abnormality No Dry Outcomes Met? Yes Last Modified By: Danielle Armstrong RN 01/21/23 07:33:14 Post-Care Text: The patient is free from signs and symptoms of injury caused by extraneous objects Patient Positioning FTPM Pre-Care Text: Identifies physical alterations that require additional precautions for procedure-specific positioning, verifies presence of prosthetics or corrective devices, positions the patient, evaluates the patient for signs and symptoms of injury as a result of positioning Entry 1 Procedure CAUDAL EPIDURAL STEROID Body Position Prone INJECTION(.) Feet Uncrossed? Yes Left Arm Position Resting at Side Right Arm Position Resting at Side Left Leg Position Extended Right Leg Position Extended Positioning Device Pillow Under Head Large, Safety Strap, Pillow Large Under Knees Press Points Checked Yes By Danielle Armstrong RN Outcomes Met? Yes Last Mo (more content not included)... Normal [facility] Main OR Preoperative Recordo n 01-21-2023 Main OR Preoperative Record Holding Area Document Type FT Summary Primary Physician: Abel Ruggiero MD Finalized Date/Time: 01/21/23 07:26:46 Pt. Name: AARON BRENNAN /Sex: 1975 Female Med Rec #: [id number] Physician: Abel Ruggiero MD Financial #: [id number] Pt. Type: P Room/Bed: / Admit/Disch: 01/21/23 07:08:10 - Institution: Case Times Holding FTPM Pre-Care Text: Verifies consent for planned procedure, identifies individual values and wishes concerning care, includes family members in perioperative teaching Secures patient's records' belongings, and valuables, maintains patient's dignity and privacy, and maintains patient confidentiality Entry 1 In Holding 01/21/23 07:24:00 Outcomes Met? Yes Last Modified By: Amanda Canales RN 01/21/23 07:24:35 Post-Care Text: The patient participates in decisions affecting his or her perioperative plan of care The patient's right to privacy is maintained Surgery Checklist FTPM Entry 1 Patient Birthday, ID Band Procedure History and Physical, Identification: Check, Patient Verification: Surgical Consent, With Participation Patient NPO after Midnight: Yes Date/Time: 01/21/23 07:24:00 Results Reviewed N/A Personal Items: Jewelry Comments: Personal Items Pt. wearing two rings Complaints of Pain: Yes Comment: and nose piercing. Pain Comment: 10 bilateral feet Operative Site Yes and LLE Marking: Marked By: Dr. Ruggiero Location: caudal ELIZABETH Availability Equipment, X-Ray Verified: Does Patient Smoke No Patient states Yes Comment - Adult -Sudeep postop adult Supervision supervision available Case Cancelled in No Holding Area see comments below for reason Last Modified By: Amanda Canales RN 01/21/23 07:26:44 Finalized By: Amanda Canales RN Document Signatures Signed By: Amanda Canales RN 01/21/23 07:26 Normal [facility] Operative Reporton 3 Operative Report Patient: AARON BRENNAN Age: 47 years Sex: Female : 1975 Associated Diagnoses: None Author: Abel Ruggiero MD Procedure Procedure: Caudal Epidural Steroid Injection with Fluoroscopic Guidance Diagnosis: Lumbar Post laminectomy syndrome Anesthesia: local The patient was identified in the pre-op area. The procedure, including risks benefits and alternatives was discussed with the patient. The patient agreed to proceed. Informed consent was obtained and the site(s) marked. The patient was brought to the procedure room and placed in the prone position with padding under the abdomen to reduce lumbar lordosis. Time out was taken. Monitors were placed. Patient was responsive throughout the procedure. The sacral region was prepped and draped in sterile fashion with Chloraprep. Skin and subcutaneous tissues were anesthetized with 4 mL of Lidocaine 2% through a 25G needle. A 22G spinal needle was then advanced under fluoroscopic guidance onto the sacral hiatus. Isovue 1mL was injected under live fluoroscopy which demonstrated appropriate epidural spread without vascular uptake. After confirmation of negative aspiration, 2mL of 2% PF lidocaine, 7mL of PF normal saline, and 10mg (10mg/1mL) of PF dexamethasone were injected. The needle was removed and a bandage applied. The patient was brought to the recovery area in stable condition and then monitored for an appropriate period of time. The patient was discharged home in good condition with post-procedure instructions. No apparent complications. Epidural injection procedure Physical Exam: vital signs Vital Signs 01/21/2023 7:59 EDT Heart Rate Monitored 74 bpm Respiratory Rate 14 br/min Systolic Blood Pressure 153 mmHg HI Diastolic Blood Pressure 93 mmHg HI SpO2 95 % 01/21/2023 7:29 EDT Heart Rate Monitored 63 bpm SpO2 96 % 01/21/2023 7:28 EDT Systolic Blood Pressure 141 mmHg HI Diastolic Blood Pressure 92 mmHg HI Mean Arterial Pressure, Monitered 108 mmHg 01/21/2023 7:28 EDT Temperature Oral 36.7 DegC 01/21/2023 7:27 EDT Respiratory Rate 14 br/min . Normal [facility] Comment on above: Result Comment: Elec tronically Signed By: Monik SANTIAGO, Abel Melo\.br\Date and Time Signed: 01/21/23 08:01 EDT Outside Records Officeon Outside Records Office [id number]#1 .00CD:127 Normal [facility] Insurance Correspondence Off iceon 12-19-2022 Insurance Correspondence Office [id number]# 1.00CD:127 Normal [facility] Referrals Officeon 3 Referrals Office [id number]# 1.00CD:127 Normal [facility] Consultation Noteon 12-19-19 Consultation Note Patient: AARON BRENNAN Age: 47 years Sex: Female : 1975 Associated Diagnoses: None Author: Monik SANTIAGO, Abel Melo Basic Information Accompanied by: Spouse. Source of history: Self. Referral source: Magno SANTIAGO, Joanie Fonseca History limitation: None. Chief Complaint 11/27/2022 8:31 EDT Bilateral feet pain History of Present Illness 47-year-old female with a history of L5-S1 fusion 1 year ago exactly. The patient was having low back and left leg pain prior to her fusion. Patient states that she woke up feeling much different following the surgery. She had severe pain in her left greater than right foot and severe pain in the left thigh. The pain has not subsided over the year. She rates it as a 10/10 on the visual analog scale. AGUSTO is 50. Treatments have included a full course of physical therapy, Lyrica, and ibuprofen. She has a difficult time walking. Her feet are extremely sensitive. Even light touch bothers them. She denies swelling in the feet. She does endorse color change and weakness. Her feet do tend to get hot and cold. The pain is significantly impacting quality life and activities of daily living. The patient used to enjoy hiking and is no longer able to walk even short distances without having to sit. She uses now a cane for support. Initially she was using a walker just following her surgery. Review of Systems Complete review of systems obtained and reviewed. Form scanned. Pertinent findings are noted in the HPI. Health Status Allergies: Allergic Reactions (All) Severity Not Documented Codeine- Emesis. LaMICtal- Rash. Current medications: Home Medications (16) Active amphetamine-dextroamp hetamine 30 mg oral tablet biotin See Instructions Fish Oil 1,000 mg, Oral, Daily Hydrolyzed Ultra Collagen Plus C See Instructions Latuda 80 mg oral tablet lurasidone 80 mg oral tablet Misc Medication See Instructions Misc Medication See Instructions Misc Medication See Instructions oxcarbazepine 300 mg Tab prazosin 2 mg oral capsule 4 mg = 2 cap(s), Oral, Daily pregabalin 100 mg Cap AD See Instructions traZODONE 150 mg Tab vilazodone 20 mg oral tablet zolpidem 12.5 mg oral ER Tab Problem list: All Problems Anxiety / SNOMED CT 38110310 / Confirmed Cardiovascular disease / SNOMED CT 9933958056 / Confirmed H/O gastroesophageal reflux (GERD) / SNOMED CT 1341163439 / Confirmed H/O: obesity / SNOMED CT 804757651 / Confirmed History of hypothyroidism / SNOMED CT 037500081 / Confirmed Hypertension / SNOMED CT 4751732669 / Confirmed Lower back pain / SNOMED CT 037649801 / Confirmed Histories Past Medical History: No active or resolved past medical history items have been selected or recorded. Family History: No family history items have been selected or recorded. Procedure history: Fusion of lumbar spine (982696043) in 2021 at 46 Years. Comments: 11/27/2022 9:06 Nanci Lopez RN L5/S1 Laminectomy with excision of herniated intervertebral disc, nucleus pulposus (98467679) in 2019 at 44 Years. Comments: 11/27/2022 8:44 Nanci Lopez RN T2 and T3 Open reversal of tubal ligation (912203581) in 2010 at 35 Years. Tubal ligation (966441291) in 1995 at 20 Years. Cholecystectomy (28518191) in 1992 at 17 Years. Appendix (320754810). Social History Social & Psychosocial Habits Alcohol 11/27/2022 Risk Assessment: Denies Alcohol Use Substance Abuse 11/27/2022 Risk Assessment: Denies Substance Abuse Tobacco 11/27/2022 Risk Assessment: Denies Tobacco Use . Physical Examination Vital Signs (last 24 hrs) Last Charted Heart Rate Peripheral 81 bpm (NOVEMBER 27 08:31) SBP 130 mmHg (NOVEMBER 27:) DBP 88 mmHg (NOVEMBER 27:) Weight 77.5 kg (NOVEMBER 27:) BMI 32.3 (NOVEMBER 27:) Constitutional: No acute distress. Well-nourished. Well-developed. Eyes: No exudate or deformity. Extraocular muscles are intact. Ears, nose, mouth, and throat: Ears and nose are without deformity. Wears a mask. Neck: No noticeable masses, tracheal deviation, or asymmetry. No thyromegaly on inspection. Respiratory: No gasping or shortness of breath. No accessory muscle use. Cardiovascular: Pulses in extremities are palpable. No noticeable lower extremity edema or varicosities. Gastrointestinal (abdomen): No distention. No pain with palpation. Lymphatic: No supraclavicular or paracervical lymphadenopathy. Skin: Inspection of skin reveals no rashes, lesions, or ulcers. Normal skin turgor. Psychiatric: Oriented to time, place, and person. Normal mood and affect. Musculoskeletal: Patient arises slowly from a seated position. She ambulates with a limp. There is limited range of motion lumbar spine secondary to pain. Tender over the low back region. Healed lumbar scar. No pain with range of motion of bilateral hips. Allodynia bilateral feet and ankles Neurologic: Allodynia bilateral feet and ankles, Nondermatomal. Fe (more content not included)... Normal [facility] Comment on above: Result Comment: Elec tronically Signed By: Monik SANTIAGO, Abel Melo\.br\Date and Time Signed: 12/18/22 14:25 EDT Consent for Treatmenton 11-06 Consent for Treatment [id number]# 1.00CD:127 [facility] HIPAA Forms Officeon 023 HIPAA Forms Office [id number]#1 .00CD:127 [facility] Legal Correspondence Officeo n 11-27-2022 Legal Correspondence Office [id number]#1 .00CD:127 [facility] Legal Correspondence Office [id number]#1 .00CD:127 [facility] Office/Clinic Note-Physician on 11-27-2022 Office/Clinic Note-Physician [id number]#1 .00CD:127 [facility] Patient Correspondenceon Patient Correspondence [id number]#1 .00CD:127 Normal [facility] Patient Correspondence [id number]#1 .00CD:127 Normal [facility] Patient Correspondence [id number]#1 .00CD:127 Normal [facility] Patient Correspondence [id number]#1 .00CD:127 Normal [facility] Patient Correspondence [id number]#1 .00CD:127 Normal [facility] Patient Correspondence [id number]#1 .00CD:127 Normal [facility] Patient History Officeon Patient History Office [id number]#1 .00CD:127 Normal [facility] Radiology Outside Office Cpa Tax yon 11-27-2022 Radiology Outside Office Copy [id number]#1 .00CD:127 Normal [facility] Radiology Outside Office Cpa Tax yon 11-09-2022 Radiology Outside Office Copy [id number]# 1.00CD:127 Normal [facility] Outside Records Officeon Outside Records Office [id number]# 1.00CD:127 Normal [facility] Referrals Officeon 3 Referrals Office [id number]# 1.00CD:127 Normal [facility] MR lumbar spine wo/w conon 0 11-04-2022 MR lumbar spine wo/w con [place] [id number] MRI Report Signed Patient: Aaron Brennan MR#: [id number] 78 : 1975 Acct:[id number] Age/Sex: 47 / F ADM Date: 11/03/22 Loc: MR Room: Type: [facility] Attending Dr: Joanie Mujica MD Copies to: Joanie Mujica MD Ordering Provider: Joanie Mujica MD Date of Service: 11/03/22 MR/MR lumbar spine wo/w con: M54.16 MRI LUMBAR SPINE WITHOUT AND WITH INTRAVENOUS CONTRAST CLINICAL DATA: Low back pain with radiculopathy. Difficulty ambulating. Previous back surgery. COMPARISON: MRI 07/04/2021 Multiecho imaging in the axial and sagittal plane was performed before and after intravenous administration of 15 MLO ProHance. Patient is status post fusion with posterior rods, pedicle screws and interbody fusion device at the lumbosacral junction. There is associated susceptibility artifact. There is continued anterolisthesis of L5 of approximately 6 mm. Bilateral L5 spondylolysis is present. There are no acute compression fractures or marrow edema. The conus medullaris terminates at L1-2. No paraspinal soft tissue abnormalities are seen. There is a tiny left renal cyst. At T12-L1, there is no disc disease or stenosis. At L1-2, there is slight loss of disc height. Mild annular disc bulging is visualized with a more focal broad-based protrusion from the right parasagittal region to the neural foramen. This is similar to the comparison. There is slight thecal sac effacement. There is also minor inferior foraminal encroachment on the right. At L2-3, there is minimal loss of disc height and disc desiccation. Mild annular disc bulging is present. There is a tiny left parasagittal protrusion. This site shows enhancement and this may be granulation tissue. There is minimal associated thecal sac effacement. There is minor bilateral inferior foraminal encroachment. At L3-4, the disc is normal in height and signal intensity. No disc bulge or herniation is present. No central or foraminal stenosis is seen. At L4-5, there is minimal loss of disc height and disc desiccation. There is minor annular disc bulging. No thecal sac effacement is identified. There is some facet hypertrophy and bilateral inferior foraminal encroachment, right side slightly greater than left. At the lumbosacral junction, there is mild disc bulging and uncovering of the disc. There is mild facet hypertrophy. No thecal sac effacement is identified. Assessment of the neural foramen is slightly limited by the hardware artifact. Once again the foramen are more horizontally oriented and there is still probably at least moderate if not greater stenosis. MR/MR lumbar spine wo/w con IMPRESSION: NEW LUMBOSACRAL FUSION OR SPINAL LISTHESIS DUE TO SPONDYLOLYSIS IS AGAIN NOTED. QUESTION OF GRANULATION TISSUE IN THE LEFT PARASAGITTAL REGION AT L2-3. MILD ADDITIONAL DISCOVERTEBRAL DEGENERATIVE CHANGES, OUTLINED ABOVE. Impression dictated by: Megan Robles M.D.11/04/2022 1:51 PM Dictation Location: [place] [address] Transcribed By: [facility] 11/04/22 1351 Dictated By: Megan Robles MD 11/04/22 1200 Signed By: 11/04/22 1351 Normal [facility] Chlamydia trachomatis DNA [P resence] in Specimen by ROSALVA with probe detectionOrdered By: Aspen Mast on 10-19-2022 C. trachomatis DNA ROSALVA+probe Ql (Unsp spec) Negative Negative [facility] Chlamydia/GC/Trich NAAon Chlamydia Trachomotis, ROSALVA Negative Normal Negative [facility] Comment on above: Order Comment: Reaso n for Exam High risk sexual behavior Performed By: #### G CCHLAMTRI #### [facility] , Neisseria Gonorrhoeae, ROSALVA Negative Normal Negative [facility] Comment on above: Order Comment: Reaso n for Exam High risk sexual behavior Performed By: #### G CCHLAMTRI #### [facility] , Trichomonas ROSALVA Negative Normal Negative [facility] Comment on above: Order Comment: Reaso n for Exam High risk sexual behavior Result Comment: Perf ormed at: =G - [facility] [address] [id number] Copy Center Specialist: Stephenie Xiong MD, Phone: [phone] PERFORMED BY: [address] [place] [address] PATHOLOGIST CAR WASH ATTENDANT AUTOMATIC ARUN FOSTER M.D. Performed By: #### G CCHLAMTRI #### [facility] , Chlamydia/GC/Trich ROSALVA Negative Negative No rt [employer] Other Neisseria gonorrhoeae DNA [P resence] in Specimen by ROSALVA with probe detectionOrdered By: Aspen Mast on 10-19-2022 N. gonorrhoeae DNA ROSALVA+probe Ql (Unsp spec) Negative Negative [facility] Trichomonas vaginalis DNA [P resence] in Specimen by ROSALVA with probe detectionOrdered By: Aspen Mast on 10-19-2022 T. vaginalis DNA ROSALVA+probe Ql (Unsp spec) Negative Negative [facility] Comment on above: Performed at: =[facility] [address] [id number] Director: Stephenie Xiong MD, Phone: [phone] Urinalysis - AUTOMATEDon Appearance (U) clear [employer] Other Bilirubin Ql (U) Negative [employer] Other Color (U) yellow [employer] Other Glucose Ql (U) Negative [employer] Other Hemoglobin Ql (U) Negative [employer] Other Ketones Ql (U) Negative [employer] Other Leukocyte esterase Test strip Ql (U) Negative [employer] Other Nitrite Ql (U) Negative [employer] Other pH (U) 6.0 [pH] [employer] Other Protein Ql (U) Negative [employer] Other Specific gravity (U) [Rel density] 1.030 [employer] Other Urobilinogen (U) [Mass/Vol] 0.2 mg/dL [employer] Other Urinalysis - AUTOMATED No rth [employer] Other XR lumbar spine 6V w bending on 06-04-2022 XR lumbar spine 6V w bending [facility] [address] [address] XRay Report Signed Patient: Aaron Brennan MR#: [id number] 78 : 1975 Acct:[id number] Age/Sex: 46 / F ADM Date: 06/04/22 Loc: XD Room: Type: REG CLI Attending Dr: Joanie Mujica MD Copies to: Joanie Mujica MD Ordering Provider: Joanie Mujica MD Date of Service: 06/04/22 XR/XR lumbar spine 6V w bending: M43.06 LUMBAR SPINE - 6 views. CLINICAL HISTORY: Fall over the weekend now with pain in lower back down left leg COMPARISON: Lumbar spine 05/28/2022 FINDINGS: Posterior hardware fixation L5-S1 grossly unchanged without evidence of hardware complication. Vertebral body and remaining disc space heights appear maintained. Minimal endplate and facet joint degenerative changes without pathological motion. XR/XR lumbar spine 6V w bending IMPRESSION: NO EVIDENCE OF HARDWARE COMPLICATION OR ACUTE BONY PROCESS. Impression dictated by: Guille Meadows Jr., D.OYovani06/04/2022 4:21 PM Dictation Location: [place] [address] Transcribed By: [facility] 06/04/22 162 Dictated By: Guille Meadows Jr, DO 06/04/22 1620 Signed By: 06/04/22 1621 Normal [facility] XR lumbar spine AP/LAT/FLX/E XTon 05-28-2022 XR lumbar spine AP/LAT/FLX/EXT [facility] [address] [address] XRay Report Signed Patient: Aaron Brennan MR#: [id number] 78 : 1975 Acct:[id number] Age/Sex: 46 / F ADM Date: 05/28/22 Loc: XD Room: Type: REG CLI Attending Dr: Joanie Mujica MD Copies to: Joanie Mujica MD Ordering Provider: Joanie Mujica MD Date of Service: 05/28/22 XR/XR lumbar spine AP/LAT/FLX/EXT: M56.16 Lumbar spine 4 views Reason for exam: Three-month follow-up postop. Left-sided back pain that radiates into hip. COMPARISON: Lumbar spine 02/08/2022. FINDINGS: Posterior hardware fixation L5-S1 grossly unchanged from the prior study. No hardware complication. Vertebral body and remaining disc space heights appear maintained. Scattered endplate and facet joint degenerative changes, unchanged. No pathological motion. XR/XR lumbar spine AP/LAT/FLX/EXT IMPRESSION: No significant change in lumbar spine findings compared to the prior study. No hardware complication. Impression dictated by: Guille Meadows Jr., D.O.05/28/2022 12:29 PM Dictation Location: [place] [address] Transcribed By: [facility] 05/28/22 1229 Dictated By: Guille Meadows Jr DO 05/28/22 1227 Signed By: 05/28/22 1229 Normal [facility] HCG ( test) IA.rapi d Ql (U)Ordered By: Campbell Shelton on 05-17-2022 HCG ( test) Ql (U) Negative [facility] HCG,Urineon 05-17-2022 Beta HCG ( test) Ql (U) Negative [facility] Comment on above: Result Comment: PERF ORMED BY: [facility] [address] [place] [address] PATHOLOGIST CAR WASH ATTENDANT AUTOMATIC ARUN FOSTER M.D. Performed By: #### U HCG ####[facility] [id number] [place] [address] [facility] COVID-19 Antigenon 2 COVID-19 Antigen Healthcare Worker?: N Reference Range: Negative Negative results, from patients with symptom onset beyond five days, should be treated as presumptive and confirmation with a molecular assay, if necessary, for patient management, may be performed. Negative results do not rule out COVID-19 and should not be used as the sole basis for treatment or patient management decisions, including infection control decisions. Negative results should be considered in the context of a patient's recent exposures, history and the presence of clinical signs and symptoms consistent with COVID-19. The Sathish SARS Antigen SANTANA does not differentiate between SARS-CoV and SARS-CoV-2. This test was developed and its performance characteristic determined by [employer] and validated at [facility]. This test has not been FDA cleared or approved. This test has been authorized by FDA under an Emergency Use Authorization (EUA). This test has been validated in accordance with the FDA's Guidance Document (Policy for Diagnostics Testing in Laboratories Certified to Perform High Complexity Testing under CLIA prior to Emergency Use Authorization for Coronavirus Disease-2019 during the Public Health Emergency) issued on October 08, 2019. This test is only authorized for the duration of time the declaration that circumstances exist justifying the authorization of the emergency use of in vitro diagnostic tests for detection of SARS-CoV-2 virus and/or diagnosis of COVID-19 infection under section 564(b)(1) of the Act, 21 U.S.C. 360bbb-3(b)(1), unless the authorization is terminated or revoked sooner. SARS-CoV+SARS-CoV-2 (COVID-19) Ag [Presence] in Respiratory specimen by Rapid immunoassay Negative for SARS Antigen by SANTANA PERFORMED BY: [place] [address] PATHOLOGIST CAR WASH ATTENDANT AUTOMATIC ARUN FOSTER M.D. Normal [facility] Comment on above: Performed By: #### C OVID-19 SATHISH, SOFIANEG #### [address] COVID-19 SOFIAOrdered By: Yasmine Shelton on 05-15-2022 SARS-CoV+SARS-CoV-2 (COVID-19) Ag IA.rapid Ql (Resp) Negative Negative [facility] Comment on above: This is a duplicate Sathish SARS Antigen (SANTANA) result to be used for statistical tracking purpose only. No Panel InformationOrdered By: Cmapbell Shelton on 05-15-2022 SARS Antigen (LFIA) [facility] Sathish Ag Negativeon 05-15-20 Sathish Ag Negative Negative Normal Negative [facility] Comment on above: Result Comment: This is a duplicate Sathish SARS Antigen (SANTANA) result to be used for statistical tracking purpose only. PERFORMED BY: [place] [address] PATHOLOGIST CAR WASH ATTENDANT AUTOMATIC ARUN FOSTER M.D. Performed By: #### C OVID-19 SATHISH, SOFIANEG #### [address] XR lumbar spine 2-3V*on XR lumbar spine 2-3V* [facility] [address] XRay Report Signed Patient: Aaron Brennan MR#: [id number] 78 : 1975 Acct:[id number] Age/Sex: 46 / F ADM Date: 02/08/22 Loc: XD Room: Type: [facility] Attending Dr: Joanie Mujica MD Copies to: Joanie Mujica MD Ordering Provider: Joanie Mujica MD Date of Service: 02/08/22 XR/XR lumbar spine 2-3V*: M43.06 Lumbar spine 2 views Reason for exam: Follow-up fusion surgery. Pain down left leg. COMPARISON: Lumbar spine 12/19/2021. FINDINGS: Chest finger hardware fixation lumbosacral junction without evidence of hardware complication. Vertebral body and remaining disc space heights appear maintained. Scattered endplate and facet joint degenerative change. XR/XR lumbar spine 2-3V* IMPRESSION: No evidence of hardware complication. Impression dictated by: Guille Meadows Jr., D.OYovani02/08/2022 1:05 PM Dictation Location: [place] [address] Transcribed By: [facility] 02/08/22 1305 Dictated By: Guille Meadows Jr, DO 02/08/22 1300 Signed By: 02/08/22 1305 Normal [facility] XR lumbar spine 2-3V*on 12-06 XR lumbar spine 2-3V* [facility] [place] [address] XRay Report Signed Patient: Aaron Brennan MR#: [id number] 78 : 1975 Acct:[id number] Age/Sex: 46 / F ADM Date: 12/19/21 Loc: XD Room: Type: [facility] Attending Dr: Joanie Mujica MD Copies to: Joanie Mujica MD Ordering Provider: Joanie Mujica MD Date of Service: 12/19/21 XR/XR lumbar spine 2-3V*: M43.06 Lumbar spine 2 views Reason for exam: Post surgical follow-up. Bilateral leg numbness left-sided low back pain. COMPARISON: Intraoperative study 11/27/2021. FINDINGS: Posterior hardware fixation involving the lumbosacral junction without evidence of radiographic complication. Vertebral body and remaining disc space heights appear well-maintained. Minimal endplate degenerative change. Post cholecystectomy clips. SI joints demonstrate degenerative change. XR/XR lumbar spine 2-3V* IMPRESSION: No evidence of hardware complication. Impression dictated by: Guille Meadows Jr., D.O.12/19/2021 3:55 PM Dictation Location: [place] [address] Transcribed By: [facility] 12/19/21 1555 Dictated By: Guille Meadows Jr, DO 12/19/21 155 Signed By: 12/19/21 1555 Normal [facility] XR lumbar spine 2-3V*on 11-06 XR lumbar spine 2-3V* [facility] [place] [address] XRay Report Signed Patient: Aaron Brennan MR#: [id number] 78 : 1975 Acct:[id number] Age/Sex: 46 / F ADM Date: 11/27/21 Loc: OR Room: Type: [facility] Attending Dr: Joanie Mujica MD Ordering Provider: Joanie Mujica MD Date of Service: 11/27/21 XR/XR lumbar spine 2-3V*: . Copies to: Joanie Mujica MD Intraoperative study. Reason for exam: PLIF L5-S1. FINDINGS: A total of 194 images were obtained intraoperatively by the referring service including CT images of the lumbar spine in the axial, sagittal and coronal planes. No radiologist was present at time procedure. 1 minute 10 seconds of fluoroscopic time is utilized. XR/XR lumbar spine 2-3V* IMPRESSION: Intraoperative study. Impression dictated by: Guille Meadows Jr., D.O.11/30/2021 11:40 AM Dictation Location: [place] [address] Transcribed By: [facility] 11/30/21 1140 Dictated By: Guille Meadows Jr, DO 11/30/21 1139 Signed By: 11/30/21 1140 Normal [facility] ABO/Rh Retypeon 11-27-2021 ABO/RH Recheck Result Positive Normal [facility] Comment on above: Result Comment: PERF ORMED BY: [place] [address] PATHOLOGIST CAR WASH ATTENDANT AUTOMATIC ARUN FOSTER M.D. HCG,Urineon 11-27-2021 Beta HCG ( test) Ql (U) Negative [facility] Comment on above: Result Comment: PERF ORMED BY: [place] [address] PATHOLOGIST CAR WASH ATTENDANT AUTOMATIC ARUN FOSTER M.D. Performed By: #### U HCG #### [address] 11-27-2021 L - -------- Specimen: [id number] Received: 11/27/21 Status: ANANDA Aguilera Num: [id number] Spec Type: Surgical Subm Dr: Joanie Mujica MD Tissues: A Disc - Intervertebral/Lumbar /Cervical (LUMBAR) Procedures: HE Stain, Gross/Micro L3 -------- Patient Age/Sex Location Account Attending Physician -------- Aaron Brennan 46/F 4N [id number] Joanie Mujica MD -------- SPEC NUM: [id number] RECD: 11/27/21 STATUS: ANANDA AGUILERA NUM: [id number] RICARDO: 11/27/21 DR: Joanie Mujica MD ENTERED: 11/27/[address] [facility] [address]: LISA TYPE: Surgical DEPT: S ORDERED: HE Stain, Gross/Micro L3 ORDERED: HE Stain, Gross/Micro L3 Pathological Diagnosis Lumbar disc, L5-S1, discectomy: - Fragments of fibrocartilaginous tissue with no specific pathologic findings. Clinical Information L5-S1 instability Gross Description Received in formalin labeled with the patient's name, number and lumbar disc is a 3.5 x 2.5 x 0.9 cm aggregate of carey-red, rubbery and ragged fibrous tissue. Machine Operator Replanter sections are submitted in one cassette labeled A1. Type of Fixative: 10% Neutral Buffered Formalin (SINAI/DIEGO) Microscopic Description One glass slide with H E stained material has been examined. The microscopic findings support the above pathologic diagnosis. CPT Codes 87778 -------- -------- Specimen: [id number] Received: 11/27/21 Status: ANANDA Barberjanny Num: [id number] Spec Type: Surgical Subm Dr: Joanie Mujica MD Tissues: A Disc - Intervertebral/Lumbar /Cervical (LUMBAR) Procedures: HE Stain, Gross/Micro L3 -------- Patient: Aaron Brennan [id number] (Continued) -------- Signed (signature on file) Kristopher Mohan MD 11/28/211922 [facility] COVID-19 [facility] 11-23-2021 SARS-CoV-2 (COVID-19) RNA ROSALVA+probe Ql (Unsp spec) Negative Normal Negative [facility] Comment on above: Order Comment: Healt hcare Worker?: N Result Comment: Testing for SARS-CoV-2 by RT-PCR This test was developed and its performance characteristics determined by [email or web address]) and validated at the [facility]. This test has not been FDA cleared or approved. This test has been authorized by FDA under an Emergency Use Authorization (EUA). This test has been validated in accordance with the FDA's Guidance Document (Policy for Diagnostics Testing in Laboratories Certified to Perform High Complexity Testing under CLIA prior to Emergency Use Authorization for Coronavirus Disease-2019 during the Public Health Emergency) issued on October 08, 2019. This test is only authorized for the duration of time the declaration that circumstances exist justifying the authorization of the emergency use of in vitro diagnostic tests for detection of SARS-CoV-2 virus and/or diagnosis of COVID-19 infection under section 564(b)(1) of the Act, 21 U.S.C. 360bbb-3(b)(1), unless the authorization is terminated or revoked sooner. PERFORMED BY: [place] [address] PATHOLOGIST CAR WASH ATTENDANT AUTOMATIC ARUN FOSTER M.D. Performed By: #### C OVID 19 [facility] #### [address] Vital Signs Date Time Vital Sign Value Performing Clinician Facility 07-15-2023 10:32-0500 Diastolic blood pressure 77 mm[Hg] Ruba LOANZ [facility] 07-15-2023 10:32-0500 Heart rate 51 /min Ruba LOANZ [facility] 07-15-2023 10:32-0500 Mean blood pressure 96 mm[Hg] Ruba LOANZ [facility] 07-15-2023 10:32-0500 Respiratory rate 18 /min Ruba LOANZ [facility] 07-15-2023 10:32-0500 Systolic blood pressure 133 mm[Hg] Rubary Frias [facility] 06-18-2023 09:25-0500 Diastolic blood pressure 92 mm[Hg] Abel Mnoik [facility] 06-18-2023 09:25-0500 Heart rate 51 /min Abel Monik [facility] 06-18-2023 09:25-0500 Mean blood pressure 107 mm[Hg] Abel Monik [facility] 06-18-2023 09:25-0500 Systolic blood pressure 136 mm[Hg] Abel Monik [facility] 05-21-2023 10:27-0500 Heart rate 53 /min Abel Monik [facility] 05-21-2023 10:27-0500 SaO2% (BldA) [Mass fraction] 95 % Abel Monik [facility] 05-21-2023 10:27-0500 Body temperature 97.34 [degF] Abel Monik [facility] 05-21-2023 10:27-0500 Respiratory rate 16 /min Abel Monik [facility] 05-21-2023 10:24-0500 Diastolic blood pressure 84 mm[Hg] Abel Monik [facility] 05-21-2023 10:24-0500 Mean blood pressure 105 mm[Hg] Abel Monik [facility] 05-21-2023 10:24-0500 Systolic blood pressure 146 mm[Hg] Abel Monik [facility] 05-21-2023 10:16-0500 Heart rate 57 /min Abel Monik [facility] 05-21-2023 10:16-0500 SaO2% (BldA) [Mass fraction] 98 % Abel Moink [facility] 05-21-2023 10:16-0500 Diastolic blood pressure 74 mm[Hg] Abel Monik [facility] 05-21-2023 10:16-0500 Mean blood pressure 93 mm[Hg] Abel Monik [facility] 05-21-2023 10:16-0500 Systolic blood pressure 131 mm[Hg] Abel Monik [facility] 05-21-2023 10:16-0500 Respiratory rate 12 /min Abel Monik [facility] 05-21-2023 07:14-0500 Heart rate 58 /min Abel Monik [facility] 05-21-2023 07:14-0500 SaO2% (BldA) [Mass fraction] 95 % Abel Monik [facility] 05-21-2023 07:14-0500 Diastolic blood pressure 69 mm[Hg] Abel Monik [facility] 05-21-2023 07:14-0500 Mean blood pressure 92 mm[Hg] Abel Monik [facility] 05-21-2023 07:14-0500 Systolic blood pressure 139 mm[Hg] Abel Monik [facility] 05-21-2023 07:13-0500 Body temperature 97.52 [degF] Abel Monik [facility] 05-21-2023 07:12-0500 Respiratory rate 14 /min Abel Monik [facility] 05-14-2023 13:16-0500 Diastolic blood pressure 81 mm[Hg] Abel Monik [facility] 05-14-2023 13:16-0500 Heart rate 53 /min Abel Monik [facility] 05-14-2023 13:16-0500 Mean blood pressure 101 mm[Hg] Abel Monik [facility] 05-14-2023 13:16-0500 Respiratory rate 16 /min Abel Monik [facility] 05-14-2023 13:16-0500 Systolic blood pressure 142 mm[Hg] Abel Monik [facility] 04-02-2023 14:43-0400 Diastolic blood pressure 97 mm[Hg] Abel Monik [facility] 04-02-2023 14:43-0400 Heart rate 91 /min Abel Monik [facility] 04-02-2023 14:43-0400 Mean blood pressure 128 mm[Hg] Abel Monik [facility] 04-02-2023 14:43-0400 Respiratory rate 14 /min Abel Monik [facility] 04-02-2023 14:43-0400 Systolic blood pressure 189 mm[Hg] Abel Monik [facility] 03-26-2023 08:11-0400 Heart rate 76 /min Abel Monik [facility] 03-26-2023 08:11-0400 SaO2% (BldA) [Mass fraction] 100 % Abel Monik [facility] 03-26-2023 08:11-0400 Respiratory rate 16 /min Abel Monik [facility] 03-26-2023 08:10-0400 Diastolic blood pressure 70 mm[Hg] Abel Monik [facility] 03-26-2023 08:10-0400 Mean blood pressure 84 mm[Hg] Abel Monik [facility] 03-26-2023 08:10-0400 Systolic blood pressure 111 mm[Hg] Abel Monik [facility] 03-26-2023 08:04-0400 Heart rate 76 /min Abel Monik [facility] 03-26-2023 08:04-0400 SaO2% (BldA) [Mass fraction] 98 % [facility] System 03-26-2023 08:04-0400 Body temperature 97.52 [degF] Abel Monik [facility] 03-26-2023 08:03-0400 Diastolic blood pressure 65 mm[Hg] Abel Monik [facility] 03-26-2023 08:03-0400 Mean blood pressure 80 mm[Hg] Abel Monik [facility] 03-26-2023 08:03-0400 Systolic blood pressure 108 mm[Hg] Abel Monik [facility] 03-26-2023 08:03-0400 Respiratory rate 16 /min Abel Monik [facility] 03-26-2023 07:57-0400 Diastolic blood pressure 74 mm[Hg] Abel Monik [facility] 03-26-2023 07:57-0400 Systolic blood pressure 128 mm[Hg] Abel Monik [facility] 03-26-2023 07:55-0400 Heart rate 91 /min Abel Monik [facility] 03-26-2023 07:55-0400 SaO2% (BldA) [Mass fraction] 100 % Abel Monik [facility] 03-26-2023 06:55-0400 Body temperature 97.34 [degF] Abel Monik [facility] 03-26-2023 06:55-0400 Mean blood pressure 98 mm[Hg] Abel Monik [facility] 03-20-2023 09:44-0400 Diastolic blood pressure 86 mm[Hg] Abel Monik [facility] 03-20-2023 09:44-0400 Heart rate 80 /min Abel Monik [facility] 03-20-2023 09:44-0400 Respiratory rate 14 /min Abel Monik [facility] 03-20-2023 09:44-0400 Systolic blood pressure 128 mm[Hg] Abel Monik [facility] 01-21-2023 08:03-0400 Heart rate 61 /min Abel Monik [facility] 01-21-2023 08:03-0400 SaO2% (BldA) [Mass fraction] 98 % Abel Monik [facility] 01-21-2023 08:03-0400 Diastolic blood pressure 83 mm[Hg] Abel Monik [facility] 01-21-2023 08:03-0400 Mean blood pressure 103 mm[Hg] Abel Monik [facility] 01-21-2023 08:03-0400 Systolic blood pressure 143 mm[Hg] Abel Monik [facility] 01-21-2023 07:59-0400 Diastolic blood pressure 93 mm[Hg] Abel Monik [facility] 01-21-2023 07:59-0400 Heart rate 74 /min Abel Monik [facility] 01-21-2023 07:59-0400 Respiratory rate 14 /min Abel Monik [facility] 01-21-2023 07:59-0400 SaO2% (BldA) [Mass fraction] 95 % Abel Monik [facility] 01-21-2023 07:59-0400 Systolic blood pressure 153 mm[Hg] Abel Monik [facility] 01-21-2023 07:29-0400 Heart rate 63 /min Abel Monik [facility] 01-21-2023 07:29-0400 SaO2% (BldA) [Mass fraction] 96 % Abel Monik [facility] 01-21-2023 07:28-0400 Diastolic blood pressure 92 mm[Hg] Abel Monik [facility] 01-21-2023 07:28-0400 Mean blood pressure 108 mm[Hg] Abel Monik [facility] 01-21-2023 07:28-0400 Systolic blood pressure 141 mm[Hg] Abel Monik [facility] 01-21-2023 07:28-0400 Body temperature 98.06 [degF] Abel Monik [facility] 01-21-2023 07:27-0400 Respiratory rate 14 /min Abel Ruggiero [facility] 10-26-2022 09:40-0400 Body height 154.94 cm Joanie Mujica Other [facility] Other 10-26-2022 09:40-0400 Body mass index (BMI) [Ratio] 32.5 kg/m2 Joanie Mujica Other [facility] Other 10-26-2022 09:40-0400 Body weight 78.02 kg Joanie Mujica Other [facility] Other 10-26-2022 09:40-0400 Diastolic blood pressure 60 mm[Hg] Joanie Mujica Other [facility] Other 10-26-2022 09:40-0400 Systolic blood pressure 122 mm[Hg] Joanie Mujica Other [facility] Other 10-19-2022 17:30-0400 Body height 154.94 cm Aspen Mast Other [facility] Other 10-19-2022 17:30-0400 Body mass index (BMI) [Ratio] 32.5 kg/m2 Aspen Mast Other [facility] Other 10-19-2022 17:30-0400 Body temperature 100.1 [degF] Aspen Mast Other [facility] Other 10-19-2022 17:30-0400 Body weight 78.02 kg Aspen Mast Other [facility] Other 10-19-2022 17:30-0400 Diastolic blood pressure 95 mm[Hg] Aspen Mast Other [facility] Other 10-19-2022 17:30-0400 Respiratory rate 18 /min Aspen Mast Other [facility] Other 10-19-2022 17:30-0400 SaO2% (BldA) [Mass fraction] 97 % Aspen Mast Other [facility] Other 10-19-2022 17:30-0400 Systolic blood pressure 164 mm[Hg] Aspen Mast Other [facility] Other 2022 10:00-0500 Body height 154.94 cm Joanie Mujica Other [facility] Other 2022 10:00-0500 Body mass index (BMI) [Ratio] 30.98 kg/m2 Joanie Mujica Other [facility] Other 2022 10:00-0500 Body weight 74.39 kg Joanie Mujica Other [facility] Other 2022 10:00-0500 Respiratory rate 18 /min Joaniedouglas Mujica Other [facility] Other 05-17-2022 09:25-0500 Diastolic blood pressure 76 mm[Hg] DO Sarwat Pang Work Phone: [facility] 05-17-2022 09:25-0500 Heart rate 51 /min DO Sarwat Pang Work Phone: [facility] 05-17-2022 09:25-0500 Respiratory rate 16 /min DO Sarwat Pang Work Phone: [facility] 05-17-2022 09:25-0500 SaO2% (BldA) [Mass fraction] 96 % DO Sarwat Pang Work Phone: [facility] 05-17-2022 09:25-0500 Systolic blood pressure 117 mm[Hg] DO Sarwat Braye Work Phone: [facility] 05-17-2022 06:58-0500 Body height 154.94 cm DO Sarwat Braye Work Phone: [facility] 05-17-2022 06:58-0500 Body temperature 97.7 [degF] DO Sarwat Pang Work Phone: [facility] 05-17-2022 06:58-0500 Body weight 78.01 kg DO Sarwat Pang Work Phone: [facility] 02-08-2022 12:20-0400 Body height 154.94 cm Joanie Mujica Other [facility] Other 02-08-2022 12:20-0400 Body mass index (BMI) [Ratio] 30.98 kg/m2 Joanie Mujica Other [facility] Other 02-08-2022 12:20-0400 Body weight 74.39 kg Joanie Mujica Other [facility] Other 12-19-2021 12:00-0400 Body height 154.94 cm Joanie Mujica Other [facility] Other 12-19-2021 12:00-0400 Body mass index (BMI) [Ratio] 30.98 kg/m2 Joanie Mujica Other [facility] Other 12-19-2021 12:00-0400 Body weight 74.39 kg Joanie Mujica Other [facility] Other 09-21-2021 14:20-0400 Body height 154.94 cm Joanie Mujica Other [facility] Other 09-21-2021 14:20-0400 Body mass index (BMI) [Ratio] 30.61 kg/m2 Joanie Mujica Other [facility] Other 09-21-2021 14:20-0400 Body weight 73.48 kg Joanie Mujica Other [facility] Other 08-29-2021 10:05-0500 Body height 154.94 cm Aspen Mast Other [facility] Other 08-29-2021 10:05-0500 Body mass index (BMI) [Ratio] 30.61 kg/m2 Aspen Mast Other [facility] Other 08-29-2021 10:05-0500 Body temperature 98.4 [degF] Aspen Mast Other [facility] Other 08-29-2021 10:05-0500 Body weight 73.48 kg Aspen Mast Other [facility] Other 08-29-2021 10:05-0500 SaO2% (BldA) [Mass fraction] 98 % Aspen Mast Other [facility] Other Encounters Encounter Date Encounter Type Care Provider Facility Start: 07-30-2023 ambulatory IRMA LAI Not Available Start: 07-15-2023 End: 07-16-2023 ambulatory SARWAT PANG Facility:[facility] [place] Start: 07-15-2023 End: 07-15-2023 Pain Management Ruba Frias [facility] Start: 06-18-2023 End: 06-19-2023 ambulatory Abel D Monik Facility:[facility] [place] Start: 06-18-2023 End: 06-18-2023 Pain Management Abel D Monik [facility] Start: 05-27-2023 End: 05-28-2023 ambulatory SARWAT PANG Facility:[facility] [place] Start: 05-21-2023 End: 05-22-2023 ambulatory Abel D Monik Facility:[facility] [place] Start: 05-21-2023 End: 05-21-2023 Pain Management Abel D Monik [facility] Start: 05-14-2023 End: 05-15-2023 ambulatory Abel D Monik Facility:[facility] [place] Start: 05-14-2023 End: 05-15-2023 ambulatory Abel D Monik Facility:[facility] [place] Start: 05-14-2023 End: 05-14-2023 Patient encounter procedure Abel D Monik [facility] Start: 05-14-2023 End: 05-14-2023 Pain Management Abel D Monik [facility] Start: 04-02-2023 End: 04-03-2023 ambulatory SARWAT PANG Facility:[facility] [place] Start: 04-02-2023 End: 04-02-2023 Pain Management Abel D Monik [facility] Start: 03-26-2023 End: 03-27-2023 ambulatory Abel D Monik Facility:[facility] [place] Start: 03-26-2023 End: 03-26-2023 Pain Management Abel D Monki [facility] Start: 03-20-2023 End: 03-21-2023 ambulatory SARWAT PANG Facility:[facility] [place] Start: 03-20-2023 End: 03-20-2023 Pain Management Abel Ruggiero [facility] Start: 02-18-2023 End: 02-19-2023 ambulatory SARWAT Celso PANG Facility:[facility] [place] Start: 01-21-2023 End: 01-22-2023 ambulatory MD Abel Ruggiero Facility:[facility] [place] Start: 01-21-2023 End: 01-21-2023 Pain Management Abel Ruggiero [facility] Start: 12-11-2022 End: 12-11-2022 ambulatory Joanie Mujica Other [facility] [employer] Other Start: 12-11-2022 Telephone encounter Joanie Mujica [facility] Neuro[facility] Start: 11-27-2022 End: 11-28-2022 ambulatory MD Abel Ruggiero Facility:[facility] [place] Start: 11-03-2022 End: 11-03-2022 ambulatory Joanie Mujica Facility:[facility] Start: 11-03-2022 End: 11-03-2022 ambulatory PHYSICIAN NO [facility] Work Phone: Start: 11-03-2022 End: 11-03-2022 Patient encounter procedure PHYSICIAN NO [facility] Work Phone: Start: 10-26-2022 End: 10-26-2022 ambulatory Joanie Mujica Other [facility] [employer] Other Start: 10-26-2022 Office outpatient visit 15 minutes Joanie Mujica [facility] Neurosurgery Start: 10-26-2022 Telephone encounter Joanie Mujica [facility] Neurosurgery Start: 10-19-2022 End: 10-19-2022 ambulatory Aspen Mast Facility:[facility] Start: 10-19-2022 End: 10-19-2022 Departed Referred SPIRITUAL CARE COORDINATOR-C Aspen Mast Work Phone: [facility] Ctr-Lab [facility] Work Phone: Start: 10-19-2022 End: 10-19-2022 ambulatory SPIRITUAL CARE COORDINATOR-C Aspen Aragonmond Work Phone: [facility] Ctr Work Phone: Start: 10-19-2022 Office outpatient visit 15 minutes Aspen Kezia [facility] Start: 2022 End: 2022 ambulatory Joanie Mujica Other [facility] Other Start: 2022 Office outpatient visit 15 minutes Joanie Mujica [facility] Neurosurgery Start: 08-21-2022 End: 08-21-2022 ambulatory Joanie Mujica Other [facility] Other Start: 08-21-2022 Telephone encounter Joanie Mujica [facility] Neuro[facility] Start: 06-12-2022 End: 06-12-2022 ambulatory Joanie Mujica Other [facility] Other Start: 06-12-2022 Telephone encounter Joanie Mujica [facility] Start: 06-04-2022 End: 06-04-2022 ambulatory Joanie Mujica Facility:[facility] Start: 06-04-2022 End: 06-04-2022 Patient encounter procedure DO Sarwat Pang Work Phone: [facility] Ctr-XRay [facility] Start: 06-04-2022 End: 06-04-2022 ambulatory DO Sarwat Pang Work Phone: [facility] C[facility] Work Phone: Start: 06-04-2022 Telephone encounter Joanie Mujica [facility] Neuro[facility] Start: 05-29-2022 End: 05-29-2022 ambulatory Joanie Mujica Other [facility] Other Start: 05-29-2022 Office outpatient visit 15 minutes Joanie Mujica [facility] Neurosurgery Start: 05-28-2022 End: 05-28-2022 ambulatory Joanie Mujica Facility:[facility] Start: 05-28-2022 End: 05-28-2022 ambulatory DO Sarwat Pang Work Phone: [facility] Ctr Work Phone: Start: 05-28-2022 End: 05-28-2022 Patient encounter procedure DO Sarwat Pang Work Phone: [facility] Ctr-XRay [facility] Start: 05-17-2022 End: 05-17-2022 ambulatory Campbell Shelton Facility:[facility] Start: 05-17-2022 End: 05-17-2022 Admission to same day surgery center DO Sarwat Pang Work Phone: [facility] Ctr-Digestive Health Start: 05-17-2022 End: 05-17-2022 ambulatory DO Sarwat Pang Work Phone: [facility] Ctr Work Phone: Start: 05-15-2022 End: 05-15-2022 ambulatory Campbell Shelton Facility:[facility] Start: 05-15-2022 End: 05-15-2022 ambulatory DO Sarwat Pang Work Phone: [facility] Ctr Work Phone: Start: 05-15-2022 End: 05-15-2022 Patient encounter procedure DO Sarwat Pang Work Phone: [facility] Start: 03-21-2022 End: 03-21-2022 ambulatory Campbell Shelton Other [facility] [employer] Other Start: 03-21-2022 Telephone encounter Campbell Shelton [facility] Start: 02-09-2022 End: 02-09-2022 ambulatory Joanie Mujica Other [facility] [employer] Other Start: 02-09-2022 Telephone encounter Joanie Mujica [facility] Neuro[facility] Start: 02-08-2022 Postop follow up visit related to original px Joanie Mujica [facility] Start: 02-08-2022 End: 02-08-2022 ambulatory Joanie Mujica [facility] [employer] Other Start: 02-08-2022 End: 02-08-2022 Patient encounter procedure DO Sarwat Pang Work Phone: [facility] Start: 01-04-2022 End: 01-04-2022 ambulatory Joanie Mujica Other [facility] [employer] Other Start: 01-04-2022 Telephone encounter Joanie Mujica [facility] Start: 01-03-2022 End: 01-04-[address] [facility] Facility: Start: 12-19-2021 Postop follow up visit related to original px Joanie Mujica [facility] Start: 12-19-2021 End: 12-19-2021 ambulatory Joanie Cole Mujica [facility] [employer] Other Start: 12-19-2021 End: 12-19-2021 Patient encounter procedure DO Sarwat Pang Work Phone: [facility] Start: 12-18-2021 End: 12-18-2021 ambulatory Joanie Mujica Other [place] [employer] Other Start: 12-18-2021 Telephone encounter Joanie Mujica [facility] Start: 12-07-2021 End: 12-07-2021 ambulatory Joanie Mujica Other [place] [employer] Other Start: 12-07-2021 Telephone encounter Joanie Mujica [facility] Start: 12-05-2021 End: 12-05-2021 ambulatory Joanie Mujica Other [place] [employer] Other Start: 12-05-2021 Telephone encounter Joanie Mujica [facility] Start: 11-27-2021 Admission to [facility] Joanie Mujica [facility] Start: 11-27-2021 End: 11-29-2021 ambulatory Joanie Mujica [facility] [employer] Other Start: 11-23-2021 End: 11-23-2021 ambulatory Joanie Mujica Facility:[facility] Start: 09-21-2021 End: 09-21-2021 ambulatory Joanie Mujica Other [facility] [employer] Other Start: 09-21-2021 Office outpatient visit 15 minutes Joanie Mujica [facility] Start: 08-29-2021 End: 08-29-2021 ambulatory Aspen Aragonmond Other [facility] [employer] Other Start: 08-29-2021 Office outpatient visit 15 minutes Aspen Kezia [facility] Procedures Date Procedure Procedure Detail Performing Clinician Start: 03-26-2023 Implantation of temporary spinal cord stimulator Abel Ruggiero Comment on above: 60% relief Start: 01-21-2023 Local anesthetic sacral epidural block Abel Ruggiero Comment on above: caudal elizabeth 0% relief Start: 06-04-2022 X-ray of lumbar spine, six views including bending views DO Sarwat Pang Work Phone: Start: 05-28-2022 X-ray of lumbar spine, four views DO Garett leo Pang Work Phone: Start: 05-17-2022 Esophagogastroduodenoscopy DO Sarwat Steel e Work Phone: Start: 02-08-2022 X-ray of lumbar spine, two or three views DO Sarwat Pang Work Phone: Start: 12-19-2021 X-ray of lumbar spine, two or three views DO Sarwat Pang Work Phone: Start: 07-08-2021 Lumbar spinal fusion Abel Ruggiero Comment on above: L5/S1 Start: 07-08-2019 Laminectomy with excision of herniated intervertebral disc, nucleus pulposus Abel Ruggiero Comment on above: T2 and T3 Start: 07-08-2010 Open reversal of female sterilization Abel Ruggiero Start: 07-08-1995 Ligation of fallopian tube Abel marie Start: 07-08-1992 Cholecystectomy Abel Ruggiero Appendix structure ( body structure) Abel Ruggiero SARS Antigen (LFIA) DO Sarwat Pang Work Phone: Plan of Treatment Date Care Activity Detail Author Start: 11-03-2022 MR Lumbar spine WO a nd W contrast IV [facility] Start: 11-03-2022 MRI of lumbar spine with contrast MR lumbar spine wo/w con [facility] Start: 05-17-2022 [facility] Chlamydia trachomati s DNA [Presence] in Unspecified specimen by ROSALVA with probe detection [facility] Neisseria gonorrhoea e DNA [Presence] in Unspecified specimen by ROSALVA with probe detection [facility] Trichomonas vaginali s DNA [Presence] in Unspecified specimen by ROSALVA with probe detection [facility] Immunizations Immunization Date Immunization Notes Care Provider Gene woodard 10-27-2020 COVID-19 mRNA, Comirnaty (Pfizer) DO Sarwat Pang Work Phone: [facility] 10-06-2020 COVID-19 mRNA, Comirnaty (Pfizer) DO Sarwat Pang Work Phone: [facility] Payers Date Payer Category Payer Unknown 2021 Self-pay [id number] 1975 Unknown [id number] 2.16.84 [id number] 1973 Unknown [id number] 2.16.8 40.1.893435.3.579.2.727 1973 Unknown [id number] 2.16.8 40.1.668035.3.579.2.727 1973 Unknown [id number] 2.16.8 40.1.473344.3.579.2.727 1973 Unknown [id number] 2.16.8 40.1.235492.3.579.2.727 1973 Unknown [id number] 2.16.8 40.1.343577.3.579.2. 1973 Unknown [id number] 2.16.8 40.1.867862.3.579.2.72 1973 Unknown [id number] .16.8 40.1.456439.3.579.2. 1973 Unknown [id number] .16.8 40.1.000207.3.579.2. 1973 Unknown [id number] .16.8 40.1.510045.3.579.2. 1973 Unknown [id number] .16.8 40.1.775416.3.579.2. 1973 Unknown [id number] .16.8 40.1.293491.3.579.2. 1973 Unknown [id number] 2.16.8 40.1.696262.3.579.2.7 1973 Unknown [id number] 2.16.84 0.1.654068.3.579.2.1259 1959 Blue Cross Blue [facility]70 [id number] 2.16.840.1.623942.19 Unknown [id number] 2.16.8 40.1.773571.3.579.2.531 Unknown [id number] 2.16.8 40.1.348427.3.579.2.531 Unknown [id number] 2.16.8 40.1.761933.3.579.2.531 Unknown [id number] 2.16.8 40.1.766456.3.579.2.531 Unknown [id number] 2.16.8 40.1.441657.3.579.2.531 Unknown [id number] 2.16.8 40.1.003816.3.579.2.531 Unknown [id number] 2.16.8 40.1.605351.3.579.2.531 Unknown [id number] 2.16.8 40.1.328734.3.579.2.531 Unknown [id number] 2.16.8 40.1.580486.3.579.2.531 Unknown [id number] 2.16.8 40.1.434845.3.579.2.531 Social History Date Type Detail Facility Unknown if ever smoked [facility] Other Sex Assigned At [facility] Start: 11-27-2021 End: 05-17-2022 Tobacco smoking status NHIS Never smoked tobacco (finding) [facility] Start: 1975 Sex Assigned At Female F [facility] Tobacco smoking status No Smokin g Status Entered [facility] Medical Equipment Procedure Code Equipment Code Equipment Origin al Text Equipment Identifier Dates Spinal fusion gr aft kit [id number] FDA Start: 11-27-2021 Bone-screw inter nal spinal fixation system, non-sterile [id number] FDA Start: 11-27-2021 Bone-screw inter nal spinal fixation system, non-sterile [id number] FDA Start: 11-27-2021 Polymeric spinal fusion cage, non-sterile [id number] FDA Start: 11-27-2021 Bone-screw inter nal spinal fixation system, non-sterile [id number] FDA Start: 11-27-2021 Bone-screw inter nal spinal fixation system, non-sterile +[id number] FDA Start: 11-27-2021 Bone-screw inter nal spinal fixation system, non-sterile [id number] FDA Start: 11-27-2021 Bone-screw inter nal spinal fixation system, non-sterile +[id number] FDA Start: 11-27-2021 Goals Date Patient Goal Desired Activity /State Functional Status Date Assessment Result Facility 07-15-2023 Functional Status N/A [facility] 06-18-2023 Functional Status N/A [facility] 05-21-2023 Functional Status N/A [facility] 05-14-2023 Functional Status N/A [facility] 04-02-2023 Functional Status N/A [facility] 03-26-2023 Functional Status N/A [facility] 03-20-2023 Functional Status N/A [facility] 01-21-2023 Functional Status N/A [facility] Clinical Notes 08-29-2021 to 07-15-2023 Note Date & Type Note Facility 07-15-2023 Evaluation + Plan note Extrac carmelo from: Title:Pain Managment Follow up Author:Ruba Lo Date:07/15/23 Impression and Plan Patient is a 47-year-old female with a past medical history significant for postlaminectomy syndrome, chronic pain, and sacroiliitis. She underwent spinal cord stimulator implant on 05/21/2023 that gave her complete relief of her radicular symptoms. She states that things are going well in regards to her lower back and radicular symptoms. Unfortunate, she is noticing a lot of buttock pain that appears to be related to her sacroiliac joints. She has undergone physical therapy in the past without improvement. Continues to do home exercise without improvement. This affects her ambulatory status. This affects her quality of life. On physical examination appears to be related to her sacroiliac joint. Based on her imaging findings, her pain pattern, and her failure to improve previous conservative treatments I recommended to patient bilateral sacroiliac joint injection under fluoroscopy for diagnostic purposes. Procedure was discussed previous and benefits were discussed. Patient to go patient out to his after the injection for reevaluation. Call clinic sooner if necessary. AGUSTO score: 16% OARRS reviewed [facility]12-12-2023 Evaluation + Plan noteExtracted from: Title:FUV Author:Abel Ruggiero MD Date :06/18/23 Impression and Plan 47-year-old female with lumbar postlaminectomy syndrome chronic pain status post permanent spinal cord stimulator 3-1/2 weeks ago. She is healing very well. I advised her that she could use an abdominal binder. She may walk. She is to continue to limit her lifting, bending, twisting for the next 3 weeks. I would like to see her back in 3 to 4 weeks for final postoperative check. If all looks well at that point she will be cleared for full activities. Patient agrees with plan of care. Future Appointments Appointment Date:07/15/2023 10:30:00 AM Scheduled Provider:Ruba Frias PA-C Location:[facility] Appointment Type:Pain Management - Follow Up (FT) [facility]11-14-2023 Note [id number] + Plan noteExtracted from: Title:ANES Post-operative Note - MAC Author:Jhony Weiner Jr., DO Date:05/21/23 Plan Transfer/Discharge: Transfer/Discharge Discharge when meets criteria. Extracted from: Title:ANES Pre-operative Note - Pain Mgt Author: Jhony Cano Jr., DO Date:05/21/23 Plan [place] [employer] (ASA) physical status classification: Class III. Future Appointments Appointment Date:05/28/2023 10:30:00 AM Scheduled Provider:Abel Ruggiero MD Location:[facility] Appointment Type:Pain Management - Follow Up (FT) [facility]09-26-2023 Evaluation + Plan noteExtracted from: Title:FUV Author:Abel Ruggiero MD Date :04/02/23 Impression and Plan 47-year-old female with a history lumbar postlaminectomy syndrome chronic pain, and lumbar radiculitis with significant improvement of pain and function with the use of the spinal cord stimulator trial. This was a very successful trial. The patient's quality life and activities of daily living were significantly improved as a result of the relief she was experiencing. She got back to walking, which has been very problematic for her due to her pain. The leads were removed intact without difficulty. I provided the patient activity restrictions directly following the lead removal, which include do not submerge in water for the next several days. She may shower however. We discussed the permanent implant including its risk, benefits, and alternatives. These include risks of bleeding, infection, and nerve injury. We discussed the postoperative period which require activity restrictions for at least 4 to 6 weeks following the permanent implant. The patient voiced understanding and willingness to proceed. She would like to proceed to soon as possible. Plan to follow-up 1 week after the surgical implant of her spinal cord stimulator. She required 2 thoracic leads as well as rechargeable pulse generator. Patient agrees with plan of care. [facility]09-19-2023 Evaluation + Plan noteExtracted from: Title:CSB post op Author:Keo Cm MD Date:03/26/23 Plan Transfer/Discharge: Transfer/Discharge Discharge when meets criteria ( To home ). Extracted from: Title:YOLIE Preop Author:Keo Cm MD Date:03/26/23 Plan [place] [employer] (ASA) physical status classification: Class II. Anesthetic Preoperative Plan: Anesthesia General. Future Appointments Appointment Date:04/02/2023 02:45:00 PM Scheduled Provider:Abel Ruggiero MD Location:.[facility] Appointment Type:Pain Management - Follow Up (FT) [facility]09-19-2023 Note [id number]#1.00CD:[address] [place] [address] 01-21-2023 [id number]#1.00CD:[address] [place], [place] 2330304-21-2023 Evaluation note* Encounter Date Diagnosis Assessment Notes Treatment Notes Treatment Clinical Notes Oct, Left lumbar radiculopathy (ICD-10 - M54.16) The patient gets mild relief with 75 mg Lyrica twice daily but has other medications that bother her at night with the Lyrica I have asked her to talk to her other doctors to see if these can be adjusted so we can increase her Lyrica. My recommendation would be to increase Lyrica to 75 mg 1 or 2 p.o. twice daily she needs to see pain management for evaluation of dorsal column stimulator or peripheral nerve stimulation for her RSD she will be sent to Dr. Ruggiero. I independently reviewed the dynamic back x-ray and compared to previous showing good hardware and interbody cage placement. The patient also has had 6 sessions of physical therapy with no benefit she feels it makes her symptoms a bit worse given these findings and the symptoms that the patient has I would recommend a reevaluation with MRI of the lumbar spine with and without gadolinium she understands agrees and we will order it I will follow-up with her after. I will also follow-up with her after her visit to Dr. Ruggiero so I will see her in a period of 4 to 6 weeks. Oct, History of lumbar fusion (ICD-10 - Z98.1) [facility] Other 04-14-2023 Evaluation note* Encounter Date Diagnosis Assessment Notes Treatment Notes Treatment Clinical Notes Oct, High risk sexual behavior (ICD-10 - Z72.51) Detecting and treating STDs material was printed Oct, Dysuria (ICD-10 - R30.0) Drink plenty fluids, get plenty of rest. Take the azithromycin, 4 tablets today with food. Take the metronidazole as prescribed until gone starting tomorrow. Follow-up with your family physician if no improvement in 2 to 3 days. No intercourse for 2 weeks. Always use condoms. [employer] [facility] Other 02-16-2023 Evaluation note* Encounter Date Diagnosis Assessment Notes Treatment Notes Treatment Clinical Notes Aug, Left lumbar radiculopathy (ICD-10 - M54.16) This patient has in essence RSD below the knees bilaterally, left greater than right that is quite uncomfortable. When talking with the patient she had symptoms similar to this but nowhere near as severe prior to surgery. Now that she has been decompressed they seem to be getting worse. I think we need to reimage her to ensure there are no further problems with her spine or canal that could be contributing to these leg symptoms. I am sending her for physical therapy so that we can obtain an MRI. She has upset stomach with Gabapentin. She will start with Gabapentin 300 mg once or twice in the morning continue with Lyrica in the evening and check in with us about how she is coming along. I will see her in 4 to 6 weeks. Aug, History of lumbar fusion (ICD-10 - Z98.1) [facility] Other 12-06-2022 Evaluation note* Encounter Date Diagnosis Assessment Notes Treatment Notes Treatment Clinical Notes Jun, Left lumbar radiculopathy (ICD-10 - M54.16) [facility] Other 11-22-2022 Evaluation note* Encounter Date Diagnosis Assessment Notes Treatment Notes Treatment Clinical Notes May, Left lumbar radiculopathy (ICD-10 - M54.16) At approximately 6 months postop the patient's x-rays look very good. Her pain is much better than it was preoperatively but she has numbness in the left L5 distribution and some dysesthesias over the distal foot, and a little bit on the right, along with some weakness. The patient had a significant L5-S1 spondylolisthesis and had chronic problems for a long period of time prior to surgical intervention.I would like her to start on gabapentin to gain some relief. She is quite functional and she overall is happy with how she is doing, but still has real issues that she is living with. I would like to talk to her in the next couple weeks about how the gabapentin is doing and adjust the dose.as needed. She will call the office and speak with my nurse and keep us updated with her progress on the medication. May, Lumbar spondylolysis (ICD-10 - M43.06) [employer] [facility] Other 11-10-2022 Procedure [facility]09-14-2022 Evaluation note* Encounter Date Diagnosis Assessment Notes Treatment Notes Treatment Clinical Notes Mar, Gastroesophageal ref lux disease, unspecified whether esophagitis present (ICD-10 - K21.9) [facility] Other 08-04-2022 Evaluation note* Encounter Date Diagnosis Assessment Notes Treatment Notes Treatment Clinical Notes Feb, Lumbar spondylolysis (ICD-10 - M43.06) This patient is now 2 1/2 month postop, x-ray looks to be good with regard to hardware and interbody cage. Clinically the patient cannot walk half mile; she does not have the leg pain that she did previously but she has some persistent numbness in the left calf she has developed dysesthesias in the anterior foot consistent with almost an RSD like pattern. She had had chronic pain and numbness in that leg for some time. I remember that neuroforamen was very narrow interoperatively. Her right leg is nearly completely better I think the biggest difficulty she is having at this point is the dysesthesias in the foot. She had difficulty with gabapentin so we will try Lyrica 25 mg 1 or 2 tablets p.o. twice daily. I will see her definitely in 3 months with an x-ray for follow-up. She is doing regular physical therapy for strengthening. She will check in with us on how the Lyrica is doing. Feb, Left lumbar radiculopathy (ICD-10 - M54.16) [facility] [facility] Other 06-14-2022 Evaluation note* Encounter Date Diagnosis Assessment Notes Treatment Notes Treatment Clinical Notes Dec, Left lumbar radiculopathy (ICD-10 - M54.16) This patient has numbness in an L5 distribution that occurred after surgery and weakness of the left foot. She had a very severely compressed left L5 nerve root that was decompressed during the L5-S1 lumbar interbody fusion. She had the symptoms for several years prior to her surgery. Her postop findings are not uncommon in situations like this. I discussed this with the patient and her . She has numbness L5 distribution a little bit on the right, a lot on the left, with left foot weakness and left quadricep weakness. She feels she is slowly improving. I am sending her for physical therapy for gait training and left leg strengthening. She continues to wear her brace and mind her postop limitations. I have added gabapentin to her regime for discomfort. I will see her back in 4 to 6 weeks. [facility] Other 03-17-2022 Evaluation note* Encounter Date Diagnosis Assessment Notes Treatment Notes Treatment Clinical Notes Sep, Lumbar spondylolysis (ICD-10 - M43.06) I have independently reviewed the MRI of the lumbar spine and the plain x-ray of the lumbar spine. This patient has an L5-S1 spondylolisthesis with severe foraminal stenosis bilaterally. She appears to have significant left radicular leg pain and chronic low back pain. She seems to have exhausted conservative care in the past but has not had recent therapy since 2018 so we will send her for physical therapy of the low back and obtain a dynamic flexion and extension view of the back along with a AP lateral pelvis and reevaluate the patient in about 4 to 6 weeks. Consideration will be given to surgical intervention once these results are available for review Sep, Left lumbar radiculopathy (ICD-10 - M54.16) [facility] Other 02-22-2022 Evaluation note* Encounter Date Diagnosis Assessment Notes Treatment Notes Treatment Clinical Notes Aug, Contact with and (suspected) exposure to other viral communicable diseases (ICD-10 - Z20.828) Aug, Bronchitis (ICD-10 - J40) Drink plenty fluids, get plenty of rest. Take the prednisone and Zithromax as prescribed until gone. Take Tylenol Motrin as needed for aches pains or fevers. Use your albuterol inhaler as needed as prescribed. Follow-up with your family physician if no improvement in 2 to 3 days. Aug, Viral upper respiratory illness (ICD-10 - J06.9) Aug, Other Additional time spent conducting pre-visit phone call, screening for symptoms, instructions on social distancing, application and removal of PPE, and cleaning of examination room, equipment and supplies was preformed. Patient education given for testing methodology and results. Patient care instructions given in writting by [facility] document. [employer] Other Evaluation + Plan note Future Appointments Appointment Date:02/05/2023 03:30:00 PM Scheduled Provider:Abel Ruggiero MD Location:FT.[facility] Appointment Type:Pain Management - Follow Up ([facility] Future Appointments Appointment Date:03/26/2023 07:30:00 AM Scheduled Provider: Location:[facility] Pain Management Appointment Type:Surgery FT Appointment Date:04/02/2023 02:45:00 PM Scheduled Provider:Abel Ruggiero MD Location:FT.[facility] Appointment Type:Pain Management - Follow Up (FT) [facility] Future Appointments Appointment Date:05/21/2023 08:45:00 AM Scheduled Provider: Location:[facility] Pain Management Appointment Type:Surgery FT Appointment Date:05/28/2023 01:30:00 PM Scheduled Provider:Abel Ruggiero MD Location:FT.Pain [facility] Appointment Type:Pain Management - Follow Up (FT) [facility] Future Appointments Appointment Date:05/21/2023 08:45:00 AM Scheduled Provider: Location:[facility] Pain Management Appointment Type:Surgery FT Appointment Date:05/28/2023 01:30:00 PM Scheduled Provider:Abel Ruggiero MD Location:FT.Pain [facility] Appointment Type:Pain Management - Follow Up (FT) Diagnostic Tests Pending * MRSA Screen 05/14/23 [facility] noteNo InformationNort[employer] Other evaluation noteNo assessment information available [facility] Work Phone: Evaluation noteNortNext Level [employer] Systems Other History and physical note Author Campbell Shelton [facility] May 17, 2022 8:44am Note Date/Time May 17, 2022 8:44am [facility] [address] [place] [address] Gastroenterology H&P Signed Patient: Aaron Brennan MR#: [id number] : 1975 Acct:[id number] Age/Sex: 46 / F Adm Date: 2 Loc: Room: Type: [facility] Attending Dr: Campbell Shelton MD Copies to: MD Sarwat Rene DO~ Date of Service: 05/17/2022 HISTORY & PHYSICAL: Patient's history with special attention to the cardiovascular, pulmonary systems and the current problem was reviewed with the patient immediately prior to the procedure. Present medications and doses reviewed in the EMR. Allergies and pertinent laboratory tests were also reviewedat this time in the EMR. The physical examination, as below, was then performed. Indication, assessment and HPI: 46-year-old female referred for EGD to evaluate history of GERD, eructation, regurgitation Family history of GI malignancy? No PHYSICAL EXAMINATION Mouth and Pharynx : Moist mucus membranes, normal dentition Cardiac: Regular rate, regular rhythm Pulmonary: Clear to auscultation bilaterally, no wheezing Neurological: Alert and oriented x3, no focal deficits noted Abdomen: Abdomen soft, non-tender REVIEW OF SYSTEMS Constitutional: Denies malaise, fevers Cardiovascular: Denies chest pain, palpitations Respiratory: Denies shortness of breath, wheezing Gastrointestinal: Per HPI Genitourinary: Denies dysuria, polyuria Musculoskeletal: Denies joint swelling, joint stiffness Neurological: Denies numbness, tingling Integumentary: Denies rashes, skin lesions Endocrine: Denies fatigue, weight loss Written informed consent obtained from the patient. Risks (including but not limited to perforation, infection, bloating, bleeding, need for emergent surgeryand loss of life), benefits and alternatives explained and questions answered. The patient verbalized understanding. Based on history patient is an appropriate candidate for the procedure. Campbell Shelton MD Documented By: Campbell Shelton MD 05/17/2243 Signed By: <Electronically signed by Campbell Shelton MD> 05/17/2244 [facility] Work Phone: [employer] general Narrative - Reported* Type Description Date Medical History bipolar Medical History schizophrenia [facility] Other [facility] general Narrative - Reported* Type Description Date Medical History bipolar Medical History schizophrenia Medical History Prolapsing left ventricle Surgical History back surgery-[place] Hospitalization History See Above [facility] Other History general Narrative - ReportedNort [employer] Other Hospital course Narrative No data available for this section [facility] Additional Instructions DISCHARGE INSTRUCTIONS FOR UPPER ENDOSCOPY WHAT TO EXPECT: - You may feel full, gassy or cramping after your procedure. In some cases, this may be from a few hours to a day. Walking may help relieve the discomfort. - Your throat may feel sore today from the scope that the doctor passed through your throat to visualize your stomach. Take a throat lozenge or suck on ice to ease the discomfort. - You may notice some streaks of blood in your sputum if the doctor has taken a biopsy. - You should begin to recover from anesthesia within 1 hour of the procedure, however may feel groggy for the next 24 hours. DO's AND DON'Ts: - Call your doctor right away if you have a hard abdomen, severe pain, vomiting or if you cough up large amounts of blood. - Call your doctor if you develop any rashes, hives or difficulty breathing. - If you take 81 mg aspirin for your heart it is safe to resume this medication. - If you take other blood thinner medications your doctor will instruct you when these can safely be resumed. - Do NOT drive for 24 hours. - Do NOT operate machinery such as power tools, lawn mowers, snow blowers, sewing machines, etc. for 24 hours. - Avoid alcoholic beverages and drugs for allergies, nerves, or sleep. - Do NOT stay alone. Do NOT leave your child unattended. - Do NOT make important personal or business decisions or sign any legal documents. - Eat solid foods and drink liquids in smaller amounts than usual until normal appetite returns. If you should experience an upset stomach, liquids high in sugar content (soda, Mekih-Aid, non-acid juices) are recommended. - Do NOT smoke. - Do take it easy today. You need not stay in bed, but avoid strenuous activities such as jogging or working out. FOLLOW UP & RECOMMENDATIONS: - Follow-up with Dr. Shelton as needed - Notify the doctor if you have any problems. - Follow up with PCP. - Office number [phone].[facility] Work Phone: Hospital Discharge instructions No data available for this section [facility] No data available for this section [facility] SystemReason for visit NarrativeReferral Dr. Pinto Lumbar SpondylolysisWellersburg [employer] Other Reason for Referral Reason *FU 11/08 RSD Bila t foot stimulator ; Right sacroiliac pain Diagnosis 1 Left lumbar radiculo sarah (M54.16) Referral Organization [facility]ros[facility]gery Referring Provider First Name Joanie Referring Provider Last Name Magno Referring Provider Specialty Neurologica l Surgery Referred Organization [facility] Referred Provider Abel Ruggiero Referred Address [address] [place], [place],[address] Referred Provider Specialty Pain Medicin e Referral Priority Routine General Notes Bee Gray 023 11:15:48 AM >Received today and waiting for office notes to be locked before sending Bee Gray 11/01/2022 11:10:53 AM >Office notes are locked. [facility] Pain Medicine 's office request us to fill out form and fax referral to them and they will review the referral and call patient. Referral was fax Reason Severe Persistent Mya mbar Radiculopathy with Severe Leg Pain with Zacarias Charly Please send PT notes as soon as available for MRI prior auth Diagnosis 1 Left lumbar radiculo sarah (M54.16) Referral Organization [facility] Referring Provider First Name Joanie Referring Provider Last Name Magno Referring Provider Specialty Neurologica l Surgery Referred Organization [facility] Referred Address ,[place], [place],[address] Referred Provider Specialty Physical The rapist Referral Priority Routine General Notes [place] i 09/14/2022 11:32:48 AM > PT notes in chart Reason Evaluate and Treat f or Leg Strengthening and Gait Training Diagnosis 1 Left lumbar radiculo sarah (M54.16) Referral Organization [facility] Referring Provider First Name Joanie Referring Provider Last Name Magno Referring Provider Specialty Neurologica l Surgery Referred Organization [facility] Referred Address [address], [place],[address] Referred Provider Specialty Physical The rapist Referral Priority Routine Reason Evaluate and Treat Diagnosis 1 Lumbar spondylolysis (M43.06) Diagnosis 2 Left lumbar radiculo sarah (M54.16) Referral Organization [facility] urosurgery Referring Provider First Name Joanie Referring Provider Last Name Magno Referring Provider Specialty Neurologica l Surgery Referred Organization [facility] Referred Address ,[place], [place],[address] Referred Provider Specialty Physical The rapist Referral Priority Routine Chief Complaint and Reason for Visit Chief Complaint M43.06 M43.06 Chief Complaint GERD Chief Complaint GERD GERD Chief Complaint GERD GERD m54.16 Chief Complaint GERD GERD m54.16 m43.06 Chief Complaint High risk sexual beh avior Chief Complaint Z72.51 m54.16 Family History No Family History Records Found Relationship Condition Age at Onset Recorded Date/T armando Not Specified Depression Unknown Malignant neoplasm of breast Unknown father Diabetes mellitus Unknown History of coronary artery stent placement Unknown Coronary artery disease Unknown Schizophrenia Unknown Malignant neoplasm of kidney Unknown brother Diabetes mellitus Unknown Depression Unknown Hypertension Unknown sister Schizophrenia Unknown Diabetes mellitus Unknown Bipolar disorder Unknown Advance Directives No Advanced Directives Records Found Advance Directive Response Recorded Date/ Time Advance Directives No September 21 2:12pm Advance Directive Response Recorded Date/ Time Advance Directives No September 21 1:12pm Summary Purpose Additional Source Comments REASON FOR VISIT (unrecogniz ed section and content) #1 RED SHERI, SORE THRAOT, B/L EAR PAIN, CONGESTED X 6 DAYSnumbness and tinglingmed refillplif L5-S13 wk po/ Plif L5-S1/ [id number] refillRx9 wks po PLIF f/u PT leg weaknessNo InformationMAIL PPW6 mo po PLIF w/xrayfell down stairsGabapentin follow upOtherf/u left leg painRULE OUT STDRULE OUT STDmed changef/u after ptNo Information Care Teams (unrecognized sec tion and content) Team Status: Inactive Member Role Status Dates Sarwat Pang DO Primary Care Provider Active Joanie Mujica MD Attending Provider Active Team Status: Active Member Role Status Dates Sarwat Pang DO Primary Care Provider Active Team Status: Inactive Member Role Status Dates Sarwat Pang DO Primary Care Provider Active Campbell Shelton MD Attending Provider Active Team Status: Inactive Member Role Status Dates KRISTY FarooqC Attending Provider Active Team Status: Active Member Role Status Dates PHYSICIAN NO FAMILY Primary Care Provider Active Team Status: Inactive Member Role Status Dates Joanie Mujica MD Attending Provider Active PHYSICIAN NO FAMILY Primary Care Provider Active Goals (unrecognized section and content) Goals may be documented in a n alternate section INFORMATION SOURCE (unrecogn ized section and content) DATE CREATED AUTHOR 07/03/2022 [facility] DATE CREATED AUTHOR AUTHOR'S ORGANIZ ATION 11/14/2022 [facility] DATE CREATED AUTHOR AUTHOR'S ORGANIZ ATION 07/16/2023 [facility] DATE CREATED AUTHOR AUTHOR'S ORGANIZ ATION 07/31/2023 [facility] EPIC FOR RECORDS PERTAINING TO PATIENTS WHO ARE OR HAVE BEEN ENROLLED IN A CHEMICAL DEPENDENCY/SUBSTANCEABUSE PROGRAM, SOME INFORMATION MAY BE OMITTED. This clinical summary was aggregated from multiple sources. Caution should be exercised in using it in the provision of clinical care. This summary normalizes information from multiple sources, and as a consequence, information in this document may materially change the coding, format and clinical context of patient data. In addition, data may be omitted in some cases. CLINICAL DECISIONS SHOULD BE BASED ON THE PRIMARY CLINICAL RECORDS. [facility] [employer], [facility]. provides no warranty or guarantee of the accuracy or completeness of information in this document.
--- NOTE | 2023-07-31 17:58 | XR_ITS ---
The [address] [address] Patient Name: BETO BRENNAN MRN: [id number] date: 1975 Sex: F Assigned Patient Location: ER Current Patient Location: ER Accession/Order Number: [id number] Exam Date: 07/31/2023 18:10 Report Date: 07/31/2023 18:47 At the request of: LAUREL SULLIVAN Procedure: XR chest 1V EXAM: XR chest 1V at 1806 hours HISTORY: Dizzy COMPARISON: None. TECHNIQUE: AP upright portable chest x-ray FINDINGS: The heart is not enlarged and the vasculature is not distended. No acute infiltrate, effusion or pneumothorax is identified. The osseous structures are grossly intact. XR/XR chest 1V IMPRESSION: No acute infiltrate or evidence of cardiac decompensation. Direct comparison with a previous study would be helpful in determining the chronicity of these findings. Electronically authenticated by: SOFIA JARAMILLO Date: 07/31/2023 18:47
--- NOTE | 2023-07-31 17:58 | ECG_ITS ---
The [facility] Test Date: 2023-07-31 Pat Name: BETO BRENNAN Department: Room: - Gender: Female Behavior Analyst: : 1975 Requested By: Order Number: [id number] Reading MD: MIKE OVALLE Measurements Intervals [place] Rate: 62 P: 35 OK: 178 QRS: 64 QRSD: 94 T: 65 QT: 436 QTc: 442 Interpretive Statements 1100 Sinus rhythm 9110 normal ECG Compared to ECG 05/08/2023 17:25:30 Sinus bradycardia no longer present Electronically Signed On 08-01-2023 7:15:26 EST by MIKE OVALLE
--- NOTE | 2023-07-31 18:02 | CT_ITS ---
[address] [address] Patient Name: BETO BRENNAN MRN: [id number] date: 1975 Sex: F Assigned Patient Location: ED.MAIN Current Patient Location: Accession/Order Number: [id number] Exam Date: 07/31/2023 19:08 Report Date: 07/31/2023 20:43 At the request of: LAUREL SULLIVAN Procedure: CT angio neck CTA HEAD/NECK. HISTORY: HTN, dizziness COMPARISON: None. TECHNIQUE: CT angiogram of the head and neck obtained after administration of 75 mL of nonionic intravenous contrast material, Isovue-300. Multiplanar and volume rendered 3-D reformats were created. NASCET criteria was used for evaluation of luminal stenosis. 3-D vascular images were constructed on a separate workstation. FINDINGS: THORACIC AORTA: Normal. There is a normal anatomy at the origin of the great vessels. RIGHT COMMON CAROTID ARTERY: No significant stenosis. RIGHT EXTERNAL CAROTID ARTERY: No significant stenosis. RIGHT INTERNAL CAROTID ARTERY: No significant stenosis. LEFT COMMON CAROTID ARTERY: No significant stenosis. LEFT EXTERNAL CAROTID ARTERY: No significant stenosis. LEFT INTERNAL CAROTID ARTERY: No significant stenosis. RIGHT VERTEBRAL ARTERY: No significant stenosis. LEFT VERTEBRAL ARTERY: No significant stenosis. [place]: The bilateral intracranial internal carotid arteries, anterior cerebral arteries, middle cerebral arteries and anterior and posterior communicating arteries are normal. POSTERIOR INTRACRANIAL CIRCULATION: The basilar artery and posterior cerebral arteries are patent, without stenosis or occlusion. DURAL SINUSES: Patent. No intracranial aneurysm measuring least 2 mm identified. No intracranial AVM. LUNG APICES: The lung apices are clear. SOFT TISSUES: The prevertebral soft tissues are normal. No soft tissue inflammation. OSSEOUS STRUCTURES: No acute osseous abnormality throughout the imaged axial skeleton and skull base. CT/CT angio neck IMPRESSION: No high-grade or hemodynamically flow-limiting stenosis of the major arteries of the head and neck. Electronically authenticated by: TIESHA ORTIZ Date: 07/31/2023 20:43
--- NOTE | 2023-07-31 18:02 | CT_ITS ---
[address] [address] Patient Name: BETO BRENNAN MRN: [id number] date: 1975 Sex: F Assigned Patient Location: ER Current Patient Location: ER Accession/Order Number: [id number] Exam Date: 07/31/2023 19:08 Report Date: 07/31/2023 20:43 At the request of: LAUREL SULLIVAN Procedure: CT angio head CTA HEAD/NECK. HISTORY: HTN, dizziness COMPARISON: None. TECHNIQUE: CT angiogram of the head and neck obtained after administration of 75 mL of nonionic intravenous contrast material, Isovue-300. Multiplanar and volume rendered 3-D reformats were created. NASCET criteria was used for evaluation of luminal stenosis. 3-D vascular images were constructed on a separate workstation. FINDINGS: THORACIC AORTA: Normal. There is a normal anatomy at the origin of the great vessels. RIGHT COMMON CAROTID ARTERY: No significant stenosis. RIGHT EXTERNAL CAROTID ARTERY: No significant stenosis. RIGHT INTERNAL CAROTID ARTERY: No significant stenosis. LEFT COMMON CAROTID ARTERY: No significant stenosis. LEFT EXTERNAL CAROTID ARTERY: No significant stenosis. LEFT INTERNAL CAROTID ARTERY: No significant stenosis. RIGHT VERTEBRAL ARTERY: No significant stenosis. LEFT VERTEBRAL ARTERY: No significant stenosis. [place]: The bilateral intracranial internal carotid arteries, anterior cerebral arteries, middle cerebral arteries and anterior and posterior communicating arteries are normal. POSTERIOR INTRACRANIAL CIRCULATION: The basilar artery and posterior cerebral arteries are patent, without stenosis or occlusion. DURAL SINUSES: Patent. No intracranial aneurysm measuring least 2 mm identified. No intracranial AVM. LUNG APICES: The lung apices are clear. SOFT TISSUES: The prevertebral soft tissues are normal. No soft tissue inflammation. OSSEOUS STRUCTURES: No acute osseous abnormality throughout the imaged axial skeleton and skull base. CT/CT angio head IMPRESSION: No high-grade or hemodynamically flow-limiting stenosis of the major arteries of the head and neck. Electronically authenticated by: TIESHA ORTIZ Date: 07/31/2023 20:43
--- NOTE | 2023-07-31 18:06 | ED.GENADUL1 ---
HPI - General Adult General Chief complaint: Dizziness Stated complaint: dizzy high bp Time Seen by Provider: 07/31/23 17:57 Source: patient and family Mode of arrival: Wheelchair History of Present Illness HPI narrative: Patient is a 47-year-old female who returns to the emergency department for dizziness, hypertension, not feeling well. Patient states abruptly today after having an MRI done as an outpatient, she noticed a sensation of spinning, dizziness and her blood pressure was elevated. She denies feeling anxious although she is visibly anxious at initial interview. She has had no fevers, chills. She reports blurry vision. She states she feels numbness in the fingertips of the left hand. She is able to ambulate. She denies chest pain or shortness of breath. She has been seen in this emergency department twice previously for the same. She takes multiple blood pressure medications. Related Data Home Medications Medication Instructions Recorded Confirmed lurasidone 80 mg tablet 160 mg PO QPM 05/08/23 07/31/23 oxcarbazepine 600 mg tablet 600 mg PO TID 05/08/23 07/31/23 propranolol 80 mg capsule,24 80 mg PO BID 05/08/23 07/31/23 hr,extended release trazodone 50 mg tablet 100 mg PO QPM 05/08/23 07/31/23 vilazodone 20 mg tablet 20 mg PO DAILY 05/08/23 07/31/23 zolpidem 12.5 mg tablet,extended 12.5 mg PO QPM PRN insomnia 05/08/23 07/31/23 release,multiphase amlodipine 5 mg tablet 5 mg PO BID PRN BP >150 07/31/23 07/31/23 Previous Rx's Medication Instructions Recorded diphenhydramine HCl 25 mg capsule 25 mg PO Q6H PRN headache #12 caps 05/08/23 (Benadryl) metoclopramide HCl 10 mg tablet 10 mg PO Q6H PRN nausea and 05/08/23 (Reglan) vomiting #12 tabs meclizine 25 mg chewable tablet 25 mg PO QID PRN dizziness #12 tabs 07/31/23 (Antivert) promethazine 25 mg tablet 25 mg PO Q6H PRN nausea and 07/31/23 vomiting #12 tabs Allergies Allergy/AdvReac Type Severity Reaction Status Date / Time codeine Allergy Unknown Verified 07/31/23 17:55 lamotrigine [From Lamictal] Allergy Unknown Verified 07/31/23 17:55 Review of Systems ROS Constitutional Denies: fever or chills Eyes Reports: blurry vision Ears, nose, mouth, and throat Denies: throat pain or nasal congestion Cardiovascular Denies: chest pain Respiratory Denies: shortness of breath or cough Gastrointestinal Denies: nausea or vomiting Musculoskeletal Denies: back pain Integumentary/Breast Denies: rash Neurological Reports: numbness in extremities, dizziness and vertigo; Denies: headache or slurred speech Endocrine Denies: excessive urination Hematologic/Lymphatic Denies: easy bruising PFSH PFSH Social History Smoking status: Never smoker Exam Narrative Exam Narrative: Gen.: Awake, alert, in no distress Head: Normocephalic, atraumatic ENT: Moist mucous membranes Respiratory: No respiratory distress, lungs clear bilaterally Cardio: Regular rate and rhythm Extremities: Moves extremities equally Psych: Anxious Neuro: No focal neuro deficit, Clear speech Skin: Warm, dry, intact Constitutional Vital Signs, click to edit/add: Last Vital Signs Temp 97.4 F L 07/31/23 17:44 Pulse 59 L 07/31/23 21:40 Resp 18 07/31/23 21:40 BP 156/95 H 07/31/23 21:30 Pulse Ox 95 07/31/23 21:40 O2 Del Method Room Air 07/31/23 17:44 Course Vital Signs Vital signs: Vital Signs Temperature 97.4 F L 07/31/23 17:44 Pulse Rate 64 07/31/23 17:44 Respiratory Rate 20 07/31/23 17:44 Blood Pressure 209/114 H 07/31/23 17:44 Pulse Oximetry 99 07/31/23 17:44 Oxygen Delivery Method Room Air 07/31/23 17:44 Temperature 97.4 F L 07/31/23 17:44 Pulse Rate 59 L 07/31/23 21:40 Respiratory Rate 18 07/31/23 21:40 Blood Pressure 156/95 H 07/31/23 21:30 Pulse Oximetry 95 07/31/23 21:40 Oxygen Delivery Method Room Air 07/31/23 17:44 Medical Decision Making MDM Narrative Medical decision making narrative: Patient was treated with IV hydralazine and Vasotec with improvement of blood pressure. She continued to feel dizzy, she was given Valium, Zofran and additional Compazine for dry heaving. Lab studies are within normal limits. Patient was sent for CT angio of the head and neck, as she had an MRI without contrast today. The scans are unremarkable. The radiologist required that the patient have a noncontrast CT at this facility before injection for angiography despite having an MRI today. These studies do not show any evidence of acute process. Patient was reevaluated by attending physician and we recommended she be evaluated in the hospital to monitor her blood pressure and dizziness. It was recommended that she be admitted for hypertensive urgency. Initially she was agreeable to this but states that her blood pressure is better and she would like to go home. She understands she should continue to take her blood pressure medication and return to the ER if symptoms change or worsen. Antivert and Phenergan given for home. Follow-up with PCP and return to the ER if symptoms change or worsen. Medical Records Medical records reviewed: Yes I reviewed the patient's medical records Lab Data Lab results reviewed: Yes I reviewed the patient's lab results Labs: Lab Results 07/31/23 Range/Units 18:05 WBC 8.1 (4.0-11.0) 10^3/uL RBC 4.75 (4.20-5.40) 10^6/uL Hgb 12.6 (12.0-16.0) g/dL Hct 37.8 (36.0-48.0) % MCV 79.6 L (81.0-99.0) fL MCH 26.5 L (26.7-34.0) pg MCHC 33.3 (29.9-35.2) g/dL RDW 14.7 (11.0-15.0) % Plt Count 358 (150-450) 10^3/uL MPV 8.8 L (9.5-13.5) fL Neut % (Auto) 56.9 (43.0-75.0) % Lymph % (Auto) 31.5 (20.5-60.0) % [place] % (Auto) 10.1 (1.7-12.0) % Eos % (Auto) 0.7 L (0.9-7.0) % Baso % (Auto) 0.6 (0.2-2.0) % Neut # (Auto) 4.6 (1.4-6.5) 10^3/uL Lymph # (Auto) 2.6 (1.2-3.8) 10^3/uL [place] # (Auto) 0.8 (0.3-0.8) 10^3/uL Eos # (Auto) 0.1 (0.0-0.7) 10^3/uL Baso # (Auto) 0.1 (0.0-0.1) 10^3/uL Abs Immat Gran (auto) 0.02 (0.00-0.03) 10^3/uL Imm/Tot Granulo (auto) 0.2 (0.0-0.5) % PT 11.0 (9.0-11.6) sec INR 1.04 Sodium 127 L (136-145) mmol/L Potassium 3.4 L (3.5-5.1) mmol/L Chloride 94 L (98-107) mmol/L Carbon Dioxide 26.0 (21.0-32.0) mmol/L Anion Gap 10.4 BUN 8.0 (7.0-18.0) mg/dL Creatinine 0.80 (0.55-1.02) mg/dL Est GFR ( Amer) >60 (>=60) Est GFR (Non-Af Amer) >60 (>=60) BUN/Creatinine Ratio 10.0 Glucose 104 (74-106) mg/dL Calcium 9.1 (8.5-10.1) mg/dL Magnesium 2.0 (1.8-2.4) mg/dL Total Bilirubin 0.4 (0.2-1.0) mg/dL AST 24 (15-37) U/L ALT 29 (14-59) U/L Alkaline Phosphatase 89 (46-116) U/L Troponin I High Sens 5.7 (4.0-51.3) pg/mL Total Protein 7.8 (6.4-8.2) g/dL Albumin 3.9 (3.4-5.0) g/dL Globulin 3.9 g/dL Albumin/Globulin Ratio 1.[address] scan - head: Radiologist's impression: ITS Impressions Chest X-Ray 07/31/23 17:58 IMPRESSION: No acute infiltrate or evidence of cardiac decompensation. Direct comparison with a previous study would be helpful in determining the chronicity of these findings. Electronically authenticated by: SOFIA JARAMILLO Date: 07/31/2023 18:47 Head CTA 07/31/23 18:02 IMPRESSION: No high-grade or hemodynamically flow-limiting stenosis of the major arteries of the head and neck. Electronically authenticated by: TIESHA ORTIZ Date: 07/31/2023 20:43 Neck CTA 07/31/23 18:02 IMPRESSION: No high-grade or hemodynamically flow-limiting stenosis of the major arteries of the head and neck. Electronically authenticated by: TIESHA ORTIZ Date: 07/31/2023 20:[address] 07/31/23 19:00 IMPRESSION: No acute intracranial process. Electronically authenticated by: GEORGE ROACH Date: 07/31/2023 20:22 ECG Data Attestation: I personally reviewed and interpreted this ECG as follows: (Normal sinus rhythm at a rate of 62, no acute ST elevation or ectopy. EKG reviewed by attending physician) Discharge Plan Discharge Chief Complaint: Dizziness Clinical Impression: Dizziness, Hypertension Patient Disposition: Home, Self-Care Time of Disposition Decision: 21:56 Condition: Good Prescriptions / Home Meds: New meclizine [Antivert] 25 mg tablet,chewable 25 mg PO QID PRN (Reason: dizziness) Qty: 12 0RF promethazine 25 mg tablet 25 mg PO Q6H PRN (Reason: nausea and vomiting) Qty: 12 0RF No Action lurasidone 80 mg tablet 160 mg PO QPM oxcarbazepine 600 mg tablet 600 mg PO TID propranolol 80 mg capsule,extended release 24 hr 80 mg PO BID trazodone 50 mg tablet 100 mg PO QPM vilazodone 20 mg tablet 20 mg PO DAILY zolpidem 12.5 mg tablet,ext release multiphase 12.5 mg PO QPM PRN (Reason: insomnia) diphenhydramine HCl [Benadryl] 25 mg capsule 25 mg PO Q6H PRN (Reason: headache) Qty: 12 0RF Rx Instructions: to be taken with reglan for headache metoclopramide HCl [Reglan] 10 mg tablet 10 mg PO Q6H PRN (Reason: nausea and vomiting) Qty: 12 0RF amlodipine 5 mg tablet 5 mg PO BID PRN (Reason: BP >150) Instructions: Hypertension (ED), Dizziness (ED) Stand Alone Forms: Portal Instructions Referrals: HERBERT APNG [Primary Care Provider] - 1 week
[2023-07-31] MEDS: DIAZEPAM 10 MG/2 ML SYRINGE 2 MG IV (18:22)
[2023-07-31] MEDS: ONDANSETRON PF 4 MG/2 ML VIAL IV ×2 (18:22→20:06)
[2023-07-31] MEDS: ENALAPRILAT DIHYDRATE 1.25 MG/ML VIAL IV (18:22)
[2023-07-31] MEDS: HYDRALAZINE HCL 20 MG/ML VIAL 10 MG IVP (18:22)
[2023-07-31 18:24] LABS: Basophils Absolute Auto 0.1 10^3/uL (0.0-0.1); Basophils Percent Auto 0.6 % (0.2-2.0); Eosinophils Absolute Auto 0.1 10^3/uL (0.0-0.7); Eosinophils Percent Auto 0.7 % (0.9-7.0); Hematocrit 37.8 % (36.0-48.0); Hemoglobin 12.6 g/dL (12.0-16.0); Immature Granulocytes Abs Auto 0.02 10^3/uL (0.00-0.03); Immature Granulocytes Pct Auto 0.2 % (0.0-0.5); Lymphocytes Absolute Auto 2.6 10^3/uL (1.2-3.8); Lymphocytes Percent Auto 31.5 % (20.5-60.0); Mean Corpuscular HGB Conc 33.3 g/dL (29.9-35.2); Mean Corpuscular Hemoglobin 26.5 pg (26.7-34.0); Mean Corpuscular Volume 79.6 fL (81.0-99.0); Mean Platelet Volume 8.8 fL (9.5-13.5); Monocytes Absolute Auto 0.8 10^3/uL (0.3-0.8); Monocytes Percent Auto 10.1 % (1.7-12.0); Neutrophils Absolute Auto 4.6 10^3/uL (1.4-6.5); Neutrophils Percent Auto 56.9 % (43.0-75.0); Platelet Count 358 10^3/uL (150-450); Red Blood Count 4.75 10^6/uL (4.20-5.40); Red Cell Distribution Width 14.7 % (11.0-15.0); White Blood Count 8.1 10^3/uL (4.0-11.0)
[2023-07-31 18:40] LABS: Alanine Aminotransferase 29 U/L (14-59); Albumin Level 3.9 g/dL (3.4-5.0); Alkaline Phosphatase 89 U/L (46-116); Anion Gap 10.4; Aspartate Amino Transferase 24 U/L (15-37); Bilirubin Total 0.4 mg/dL (0.2-1.0); Calcium 9.1 mg/dL (8.5-10.1); Chloride 94 mmol/L (98-107); Estimated GFR (African America >60 (>=60); Estimated GFR (Non-African Ame >60 (>=60); Globulin 3.9 g/dL; Glucose 104 mg/dL (74-106); Potassium 3.4 mmol/L (3.5-5.1); Sodium 127 mmol/L (136-145); Total Protein 7.8 g/dL (6.4-8.2); Troponin I High Sensitivity 5.7 pg/mL (4.0-51.3)
[2023-07-31 18:42] LABS: INR 1.04
--- NOTE | 2023-07-31 19:00 | CT_ITS ---
[address] [address] Patient Name: BETO BRENNAN MRN: [id number] date: 1975 Sex: F Assigned Patient Location: ER Current Patient Location: ER Accession/Order Number: [id number] Exam Date: 07/31/2023 19:05 Report Date: 07/31/2023 20:22 At the request of: LAUREL SULLIVAN Procedure: CT head/brain wo con EXAM: CT head/brain wo con HISTORY: HTN dizziness COMPARISON: CT brain 05/08/2023 TECHNIQUE: Axial CT scans through the head were obtained without IV contrast administration. Dose reduction techniques were achieved by using: automated exposure control and/or adjustment of mA and /or kV according to patient size and/or use of iterative reconstruction technique. FINDINGS: There is no acute intracranial hemorrhage or abnormal extra-axial fluid collection. No mass effect or midline shift is seen. There is no evidence of large acute territorial infarction. There is no hydrocephalus. To the limit of CT, the posterior fossa appears unremarkable. The calvaria and extra cranial soft tissues are unremarkable. The visualized orbits show no abnormality. The visualized paranasal sinuses show no air-fluid level. Mastoid air cells are clear. CT/CT head/brain wo con IMPRESSION: No acute intracranial process. Electronically authenticated by: GEORGE ROACH Date: 07/31/2023 20:22
--- NOTE | 2023-07-31 19:56 | PC.NURSE ---
This nurse assisted pt to the restroom Pt very nauseous and slow moving Pt wanted to keep her eyes closed at most times and felt very light headed ambulating when pt got back into bed she began to vomit Josselyn MILLER notified and orders placed
[2023-07-31] MEDS: PROCHLORPERAZINE 10 MG/2 ML VIAL 5 MG IV (21:21)
== END 2023-07-31 22:06 | disposition home or self-care (01) ==
PROVIDERS: Physician Assistant; Emergency Provider Emergency Medicine; PCP Family Medicine
DX: R42 Dizziness and giddiness (principal); I10 Essential (primary) hypertension
CPT/HCPCS: 36415; 70450; 70496; 70498; 71045; 80053; 83735; 84484; 85025; 85610; 93005; 96374; 96375; 96376; 99285; J0360; J0780; J2405; J3360; Q9967

== ENCOUNTER 2023-11-06 19:24 | Emergency (ER) | payer BC, SELFPAY ==
[2023-11-06] VITALS (7 sets, daily range): BP systolic 150–155; BP diastolic 90–96; PULSE 84–104; TEMP 36.7; O2SAT 97–98; BMI 27.9
--- NOTE | 2023-11-06 19:37 | ECG_ITS ---
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
--- NOTE | 2023-11-06 19:38 | ED_ITS ---
HPI HPI - General Adult General Chief complaint: Recheck/Abnormal Lab/Rx Stated complaint: fast heart rate Time Seen by Provider: 11/06/23 19:27 Source: patient Mode of arrival: walk-in History of Present Illness HPI narrative: 48-year-old female presents to ED for fast heartbeat. She has no palpitations. She checks her blood pressure several times a day and her heart rate was fast, approximately 110 all day. She has not missed any of her medications. She has had no fever cough chest pain or vomiting. Related Data Home Medications ?Medication ?Instructions ?Recorded ?Confirmed lurasidone 80 mg tablet 160 mg PO QPM 05/08/23 11/06/23 oxcarbazepine 600 mg tablet 600 mg PO TID 05/08/23 11/06/23 propranolol 80 mg capsule,24 80 mg PO BID 05/08/23 07/31/23 hr,extended release trazodone 50 mg tablet 100 mg PO QPM 05/08/23 11/06/23 zolpidem 12.5 mg tablet,extended 12.5 mg PO QPM PRN insomnia 05/08/23 11/06/23 release,multiphase amlodipine 5 mg tablet 5 mg PO BID PRN BP >150 07/31/23 11/06/23 dextroamphetamine-amphetamine 20 20 mg PO DAILY 11/06/23 11/06/23 mg tablet dextroamphetamine-amphetamine ER 30 mg PO QAM 11/06/23 11/06/23 30 mg 24hr capsule,extend release levothyroxine 25 mcg tablet 25 mcg PO DAILY 11/06/23 11/06/23 losartan 100 mg tablet 100 mg PO DAILY 11/06/23 11/06/23 losartan 50 mg tablet 50 mg PO QAM 11/06/23 11/06/23 metoprolol succinate 50 mg 50 mg PO DAILY 11/06/23 11/06/23 tablet,extended release 24 hr spironolactone 25 mg tablet 25 mg PO DAILY 11/06/23 11/06/23 vilazodone 40 mg tablet 40 mg PO DAILY 11/06/23 11/06/23 Allergies Allergy/AdvReac Type Severity Reaction Status Date / Time codeine Allergy Unknown Verified 07/31/23 17:55 lamotrigine [From Lamictal] Allergy Unknown Verified 07/31/23 17:55 Opioid HPI Opioid Management Most Recent Opioid Data: No Data to Display Review of Systems ROS Narrative A ten point review of systems is negative except as noted above. PFSH PFSH Social History Smoking status: Never smoker Exam Narrative Exam Narrative: Nurses note and vital signs reviewed and patient is not hypoxic. General: The patient appears well and in no apparent distress. Patient is resting comfortably on cart. Skin: Warm, dry, no pallor noted. There is no rash noted. Head: Normocephalic, atraumatic Eye: Normal conjunctiva, no drainage Ears, Nose, Mouth, and Throat: oral mucosa is moist. Nares patent. Cardiovascular: Regular Rate and Rhythm, minimally tachycardic Respiratory: Patient is in no distress, no accessory muscle use, lungs are clear to auscultation, no wheezing, rales or rhonchi Back: non-tender, no CVA tenderness bilaterally to percussion. GI: Soft and nontender Musculoskeletal: The patient has no evidence of calf tenderness, no pitting edema, symmetrical pulses noted bilaterally Neurological: A&O, normal speech Psychiatric: Cooperative Constitutional Vital Signs, click to edit/add: Last Vital Signs Temp 98.0 F 11/06/23 19:30 Pulse 85 11/06/23 20:00 Resp 16 11/06/23 20:00 BP 155/90 H 11/06/23 20:51 Pulse Ox 97 11/06/23 19:31 O2 Del Method Room Air 11/06/23 19:30 Course Vital Signs Vital signs: Vital Signs Temperature 98.0 F 11/06/23 19:30 Pulse Rate 104 H 11/06/23 19:30 Respiratory Rate 16 11/06/23 19:30 Blood Pressure 150/92 H 11/06/23 19:30 Pulse Oximetry 98 11/06/23 19:30 Oxygen Delivery Method Room Air 11/06/23 19:30 Temperature 98.0 F 11/06/23 19:30 Pulse Rate 85 11/06/23 20:00 Respiratory Rate 16 11/06/23 20:00 Blood Pressure 155/90 H 11/06/23 20:51 Pulse Oximetry 97 11/06/23 19:31 Oxygen Delivery Method Room Air 11/06/23 19:30 Medical Decision Making MDM Narrative Medical decision making narrative: The patient's heart rate has come down without intervention. Blood pressure is very minimally elevated and she is due for more blood pressure medication tonight when she gets home. Blood work is negative. She is able to be discharged home but she will follow-up with her PCP for recheck. Treatment diagnosis and follow-up were discussed with the patient. Differential Diagnosis Differential Diagnosis: Hypertension, anemia, dehydration, acute kidney injury Lab Data Lab results reviewed: Yes I reviewed the patient's lab results Labs: Lab Results 11/06/23 Range/Units 19:53 WBC 6.0 (4.0-11.0) 10^3/uL RBC 4.30 (4.20-5.40) 10^6/uL Hgb 11.5 L (12.0-16.0) g/dL Hct 33.9 L (36.0-48.0) % MCV 78.8 L (81.0-99.0) fL MCH 26.7 (26.7-34.0) pg MCHC 33.9 (29.9-35.2) g/dL RDW 15.6 H (11.0-15.0) % Plt Count 317 (150-450) 10^3/uL MPV 8.8 L (9.5-13.5) fL Neut % (Auto) 55.2 (43.0-75.0) % Lymph % (Auto) 30.5 (20.5-60.0) % [place] % (Auto) 12.6 H (1.7-12.0) % Eos % (Auto) 0.7 L (0.9-7.0) % Baso % (Auto) 0.7 (0.2-2.0) % Neut # (Auto) 3.3 (1.4-6.5) 10^3/uL Lymph # (Auto) 1.8 (1.2-3.8) 10^3/uL [place] # (Auto) 0.8 (0.3-0.8) 10^3/uL Eos # (Auto) 0.0 (0.0-0.7) 10^3/uL Baso # (Auto) 0.0 (0.0-0.1) 10^3/uL Abs Immat Gran (auto) 0.02 (0.00-0.03) 10^3/uL Imm/Tot Granulo (auto) 0.3 (0.0-0.5) % Sodium 137 (136-145) mmol/L Potassium 3.2 L (3.5-5.1) mmol/L Chloride 102 (98-107) mmol/L Carbon Dioxide 27.2 (21.0-32.0) mmol/L Anion Gap 11.0 BUN 6.0 L (7.0-18.0) mg/dL Creatinine 0.63 (0.55-1.02) mg/dL Est GFR ( Amer) >60 (>=60) Est GFR (Non-Af Amer) >60 (>=60) BUN/Creatinine Ratio 9.5 Glucose 118 H (74-106) mg/dL Calcium 9.5 (8.5-10.1) mg/dL Imaging Data Chest x-ray: Radiologist's impression: ITS Impressions Chest X-Ray 11/06/23 19:43 IMPRESSION: No acute abnormality identified. Electronically authenticated by: Salbador ALEXIS Date: 11/06/2023 20:43 ECG Data Attestation: I personally reviewed and interpreted this ECG as follows: (EKG on my interpretation shows sinus rhythm with a rate of 83 and artifact from nerve stimulator) Discharge Plan Discharge Stand Alone Forms: Portal Instructions Chief Complaint: Recheck/Abnormal Lab/Rx Clinical Impression: Sinus tachycardia, Hypertension Patient Disposition: Home, Self-Care Time of Disposition Decision: 20:54 Condition: Good Mode of Transportation: Private Vehicle Prescriptions / Home Meds: No Action lurasidone 80 mg tablet 160 mg PO QPM oxcarbazepine 600 mg tablet 600 mg PO TID propranolol 80 mg capsule,extended release 24 hr 80 mg PO BID trazodone 50 mg tablet 100 mg PO QPM zolpidem 12.5 mg tablet,ext release multiphase 12.5 mg PO QPM PRN (Reason: insomnia) dextroamphetamine-amphetamine 20 mg tablet 20 mg PO DAILY dextroamphetamine-amphetamine 30 mg capsule,extended release 24hr 30 mg PO QAM levothyroxine 25 mcg tablet 25 mcg PO DAILY losartan 100 mg tablet 100 mg PO DAILY losartan 50 mg tablet 50 mg PO QAM metoprolol succinate 50 mg tablet extended release 24 hr 50 mg PO DAILY vilazodone 40 mg tablet 40 mg PO DAILY spironolactone 25 mg tablet 25 mg PO DAILY amlodipine 5 mg tablet 5 mg PO BID PRN (Reason: BP >150) Print Language: Ethiopian Instructions: Hypertension (ED), Tachycardia (ED) Additional Instructions: Follow-up with your PCP Referrals: HERBERT PANG [Primary Care Provider] - 1 week
--- NOTE | 2023-11-06 19:43 | XR_ITS ---
The [address] [address] Patient Name: BETO BRENNAN MRN: [id number] date: 1975 Sex: F Assigned Patient Location: ER Current Patient Location: ER Accession/Order Number: [id number] Exam Date: 11/06/2023 20:12 Report Date: 11/06/2023 20:43 At the request of: CIPRIANO CHAMPION Procedure: XR chest 1V ONE-VIEW CHEST RADIOGRAPH, 11/06/2023 8:12 PM EDT COMPARISON: Chest, 07/31/2023 CLINICAL HISTORY: SOB/rapid heart rate today. Patient takes blood pressure medication. FINDINGS: No acute cardiopulmonary disease. No pulmonary edema, pneumothorax, or pleural effusion. Normal heart size. No acute osseous abnormality. Spinal stimulation leads overlying the lower thoracic level. XR/XR chest 1V IMPRESSION: No acute abnormality identified. Electronically authenticated by: Salbador ALEXIS Date: 11/06/2023 20:43
--- NOTE | 2023-11-06 19:48 | PC.NURSE ---
pt has a back stimulator in and this is causing artifact to EKG print out. While on the air sampling and monitoring the rate and rhythm is clear, NSR and in the 80's to 90's at this time.
[2023-11-06 20:10] LABS: Basophils Percent Auto 0.7 % (0.2-2.0); Eosinophils Percent Auto 0.7 % (0.9-7.0); Hematocrit 33.9 % (36.0-48.0); Hemoglobin 11.5 g/dL (12.0-16.0); Immature Granulocytes Abs Auto 0.02 10^3/uL (0.00-0.03); Immature Granulocytes Pct Auto 0.3 % (0.0-0.5); Lymphocytes Absolute Auto 1.8 10^3/uL (1.2-3.8); Lymphocytes Percent Auto 30.5 % (20.5-60.0); Mean Corpuscular HGB Conc 33.9 g/dL (29.9-35.2); Mean Corpuscular Hemoglobin 26.7 pg (26.7-34.0); Mean Corpuscular Volume 78.8 fL (81.0-99.0); Mean Platelet Volume 8.8 fL (9.5-13.5); Monocytes Absolute Auto 0.8 10^3/uL (0.3-0.8); Monocytes Percent Auto 12.6 % (1.7-12.0); Neutrophils Absolute Auto 3.3 10^3/uL (1.4-6.5); Neutrophils Percent Auto 55.2 % (43.0-75.0); Platelet Count 317 10^3/uL (150-450); Red Cell Distribution Width 15.6 % (11.0-15.0)
[2023-11-06 20:17] LABS: BUN Creatinine Ratio 9.5; Calcium 9.5 mg/dL (8.5-10.1); Carbon Dioxide 27.2 mmol/L (21.0-32.0); Chloride 102 mmol/L (98-107); Estimated GFR (African America >60 (>=60); Estimated GFR (Non-African Ame >60 (>=60); Glucose 118 mg/dL (74-106); Potassium 3.2 mmol/L (3.5-5.1); Sodium 137 mmol/L (136-145)
== END 2023-11-06 21:05 | disposition home or self-care (01) ==
PROVIDERS: Emergency Provider Emergency Medicine; PCP Family Medicine
DX: R00.0 Tachycardia, unspecified (principal); I10 Essential (primary) hypertension; Z79.899 Other long term (current) drug therapy; Z79.890 Hormone replacement therapy
CPT/HCPCS: 36415; 71045; 80048; 85025; 93005; 99285

== ENCOUNTER 2024-05-13 13:00 | Outpatient (OUT) | payer OTHER, SELFPAY ==
--- NOTE | 2024-05-13 13:08 | XR_ITS ---
The [address] [address] Patient Name: BETO BRENNAN MRN: [id number] date: 1975 Sex: F Assigned Patient Location: [facility] Current Patient Location: Accession/Order Number: [id number] Exam Date: 05/13/2024 13:11 Report Date: 05/18/2024 07:31 At the request of: CARMENZA MACKENZIE Procedure: XR foot LT min 3V PROCEDURE: XR foot LT min 3V COMPARISON: None. HISTORY: Pain In Unspecified Foot FINDINGS: BONES:No fracture, acute abnormality, or significant arthropathy. SOFT TISSUES:Negative. No visible soft tissue swelling. EFFUSION:None visible. OTHER: Negative. XR/XR foot LT min 3V IMPRESSION: No acute radiographic abnormality Electronically authenticated by: SALINAS LINTON Date: 05/18/2024 07:31
== END 2024-05-13 13:01 | disposition home or self-care (01) ==
PROVIDERS: PCP Family Medicine; Visit Provider Anesthesiology
DX: M79.672 Pain in left foot (principal)
CPT/HCPCS: 73630

== ENCOUNTER 2024-05-28 15:55 | Outpatient (OUT) | payer OTHER, SELFPAY ==
--- NOTE | 2024-05-28 16:10 | MR_ITS ---
[facility] [id number] Patient Name: BETO BRENNAN MRN: [id number] date: 1975 Sex: F Assigned Patient Location: MRI Current Patient Location: Accession/Order Number: [id number] Exam Date: 05/28/2024 16:12 Report Date: 05/31/2024 09:28 At the request of: CARMEZNA MACKENZIE Procedure: MR foot LT wo con HISTORY: Pain in the region of the MTP joints of the left foot for the past year. Painful to walk. MR foot LT wo con: 05/28/2024 4:12 PM EST COMPARISON: Radiographs left foot 05/13/2024. TECHNIQUE: Multiplanar, multisequence MRI images of the left foot were obtained without contrast. FINDINGS: LIGAMENTS AND TENDONS: The Lisfranc ligament complex appears intact. No significant tendinopathy, tendon tear, or tenosynovitis is seen. BONES AND JOINTS: The bone marrow signal intensity appears age appropriate. There is a hallux valgus deformity. There are mild degenerative changes of the first MTP joint and first metatarsal-sesamoid joints. There is a small joint effusion of the tibiotalar joint. No bone marrow edema-like signal is identified. MUSCLES AND SOFT TISSUES: The visualized musculature appears of normal signal intensity. No Alaniz neuroma or intermetatarsal bursitis is seen. PLANTAR FASCIA: The visualized portion of the plantar fascia appears of normal thickness and signal intensity. MR/MR foot LT wo con IMPRESSION: 1. No MRI evidence of a stress reaction or stress fracture is seen. 2. Hallux valgus deformity with mild osteoarthritis of the first MTP joint and first metatarsal-sesamoid joints. Electronically authenticated by: MARITO GUERRERO Date: 05/31/2024 09:28
== END 2024-05-28 15:56 | disposition home or self-care (01) ==
LOC: MRI 15:55
PROVIDERS: PCP Family Medicine; Visit Provider Anesthesiology
DX: M79.672 Pain in left foot (principal); M20.12 Hallux valgus (acquired), left foot
CPT/HCPCS: 73718

== ENCOUNTER 2025-03-23 07:22 | Outpatient (OUT) | payer OTHER, SELFPAY ==
--- OUTSIDE RECORDS SUMMARY | 2025-03-23 07:28 | XMS_ITS | CCD ---
Author Organization [facility] Care Team Providers Care Data Entry Analyst Name Role Phone Aspen Mast Unavailable Joanie Mujica Unavailable DO Sarwat Pang Primary Care Provider [phone] MD Joanie Mujica Attending Provider [phone] Campbell Shelton Unavailable DO Sarwat Pang Primary Care Provider [phone] MD Campbell Shelton Attending Provider [phone] MD Joanie Mujica Attending Provider [facility], DR MATHEW Primary Care Unavailable SIL, DR NAIR Admitting Unavailable DR JOANIE MUJICA Attending Unavailable Kezia, SAW STRAIGHTENER-C Aspen Attending Provider [phone] MD Joanie Mujica Attending Provider [phone] NO FAMILY, PHYSICIAN Primary Care Provider Unava ilable Aspen Mast Attending Unavailable Aspen Mast Admitting Unavailable Joanie Mujica Attending Unavailable Michael Mujicae Douglas Admitting Unavailable Pang, Sarwat Primary Care Unavailable Joanie Mujica E Admitting Unavailable NO FAMILY, PHYSICIAN Primary Care Unavailable Joanie Mujica Attending Unavailable Joanie Mujica Attending Unavailable Sil Joanie E Admitting Unavailable Pang, Sarwat Primary Care Unavailable Campbell Shelton Admitting Unavailable Campbell Shelton Attending Unavailable Wilber, Sarwat Primary Care Unavailable Campbell Shelton Admitting Unavailable Campbell Shelton Attending Unavailable Pang, Sarawt Primary Care Unavailable Mujica, Joanie E Admitting Unavailable Pang, Sarwat Primary Care Unavailable Joanie Mujica Attending Unavailable Michael Mujicae E Admitting Unavailable Pang, Sarwat Primary Care Unavailable Joanie Mujica Attending Unavailable Sil, Joanie E Admitting Unavailable Pang, Sarwat Primary Care Unavailable Mujica, Joanie E Attending Unavailable Sil, Joanie E Admitting Unavailable Sarwat Pang Primary Care Unavailable Michael Mujicae E Attending Unavailable SARWAT PANG Primary Care Physician Unavailab crescencio Pang MD, Sarwat Primary Care Provider Eisenstein SEXUAL HEALTH PHYSICIAN-TONSORIAL ARTIST, [facility] Primary Care Provi kristine Eisenstein SEXUAL HEALTH PHYSICIAN-TONSORIAL ARTIST, [facility] Primary Care Provi kristine Carmelo Oconnor Admitting Unavailabl e AnastasiaCarmelo webb Attending Unavailabl e Eisenstein, Jemma Primary Care Unavailable Eisenstein, Jemma Primary Care Unavailable Eisenstein, Jemma Admitting Unavailable Eisenstein, Jemma Attending Unavailable MAYITO PLASCENCIA Attending Unavailable MAYITO PLASCENCIA Referring Unavailable EISENSTEIN, JEMMA Primary Care Unavailable CARMELO OCONNOR Attending Unavailabl e ANASTASIACARMELO R Referring Unavailabl e EISENSTEIN, JEMMA Primary Care Unavailable EISENSTEIN, JEMMA Referring Unavailable EISENSTEIN, JEMMA Primary Care Unavailable CARMELO OCONNOR Attending Unavailabl e EISENSTEIN, JEMMA Referring Unavailable EISENSTEIN, JEMMA Primary Care Unavailable CARMELO OCONNOR Attending Unavailabl WAYNE Soto Attending Unavailable VAMSI ALONZO Attending Unavailable VAMSI ADDISON Referring Unavailable WAYNE ADDISON Attending Unavailable WAYNE ADDISON Attending Unavailable WAYNE ADDISON Attending Unavailable Néstor Maradiaga Referring Unavailable Néstor Maradiaga Attending Unavailable Néstor Maradiaga Attending Unavailable SARWAT PANG Referring Unavailable Néstor Maradiaga Admitting Unavailable Néstor Maradiaga Attending Unavailable Néstor Maradiaga Admitting Unavailable SARWAT PANG Referring Unavailable Néstor Maradiaga Attending Unavailable Néstor Maradiaga Referring Unavailable NO FAMILY, PHYSICIAN Primary Care Provider Unava ilable Vamsi Alonzo DO Attending Provider Allergies Allergy Classification Reported Allergen(s) Allergy Type Date of Onset Reaction(s) Facility Anti-Epileptic Agents (1 source) lamoTRIgine Drug Allergy 4 [facility] Opioid Agonists (1 source) Codeine Drug Allergy 4 Vomiting, [facility] (20 sources) Codeine; Translations: [codeine] Drug Allergy 0 rash, Vomiting (disorder), GI intolerance, Hives, Unknown [facility] (20 sources) lamoTRIgine; Translations: [lamotrigine] Drug Allergy 0 rash, Eruption of skin (disorder) [facility] (1 source) Codeine Drug Allergy 6 [facility] (2 sources) lamoTRIgine; Translations: [LaMICtal] Drug Allergy 6 [facility] (1 source) Codeine Drug Allergy 2 [facility] (1 source) lamoTRIgine Drug Allergy 2 [facility] (14 sources) Lamotrigine Propensity to adverse reactions 0 Rash, Unknown [facility] Medications Current Medications Medication Drug Class(es) Dates [...] Weight Dosing Start Date: 05/21/23 Status: Ordered [id number] 200 actuat albuterol 0.09 mg/actuat metered dose inhaler (2 sources) beta2-Adrenergic Agonist Start: 12-04-2023 take 1 puff(s) by inhalation every four hours as needed for wheezing Start: 11-14-2020 take 2 puff(s) by in halation every four hours as needed Albuterol Sulfate HFA 108 (90 Base) MCG/ACT 2 puffs as needed Inhalation every 4 hrs November, Not-Taking amLODIPine 5 mg oral tablet (5 sources) Dihydropyridine Calcium Channel Inocencio Start: 09-16-2023 End: 10-02-2024 take 1 tablet by mouth in the morning, then take 1 tablet by mouth at bedtime amLODIPine (NORVASC) 5 mg tablet Take 1 tablet (5 mg total) by mouth in the morning and 1 tablet (5 mg total) before bedtime. 09/16/2023 10/02/2024 Discontinued Amphetamine / Dextroamphetamine (1 source) Central Nervous System Stimulant Adderall XR Active amphetamine aspartate 3.75 mg / amphetamine sulfate 3.75 mg / dextroamphetamine saccharate 3.75 mg / dextroamphetamine sulfate 3.75 mg oral tablet (20 sources) Central Nervous System Stimulant Start: 12-04-2023 take 2 tablets by mouth once daily in the evening Start: 12-04-2023 take 30 mg by mouth once daily in the evening Dextroamphetamine-Amphetamine Active 30 MG PO Every evening December 04, 2023 11:01am Takes at 2 PM Start: 11-27-2022 take 1 tablet by marco in the morning amphetamine-dextroamphetamine 30 mg oral tablet Refill(s) 0, TAKE 1 TABLET BY MOUTH IN THE MORNING IN ADDITION TO 30 MG IN THE AFTERNOON Start Date: 11/27/22 Status: Ordered Start: 11-13-2021 take 1 capsule by mo [facility] once daily in the morning Start: 11-13-2021 End: 12-04-2023 take 1 tablet by mouth once daily in the evening Dextroamphetamine-Amphetamine 15 mg tabl et Discontinued 15 MG PO Every evening November 13, 2021 12:00am December 04, 2023 11:04am Takes at 2 PM Start: 11-13-2021 End: 11-13-2021 Dextroamphetamine-Amphetamin e 15 mg tablet Discontinued 0 .ROUTE .COMPLEX November 13, 2021 12:00am November 13, 2021 1:30pm 15 mg orally Start: 06-16-2021 dextroamphetam ine-amphetamine (ADDERALL) 20 mg tablet in the morning. 06/16/2021 Active Start: 06-16-2021 amphetamine-de xtroamphetamine XR (ADDERALL XR) 20 mg 24 hr capsule Start: 05-16-2021 amphetamine-de xtroamphetamine XR (ADDERALL XR) 30 mg 24 hr capsule 1 capsule (30 mg total) every morning. 05/16/2021 Active Start: 05-16-2021 amphetamine-de xtroamphetamine XR (ADDERALL XR) 15 mg 24 hr capsule amphetamine-dext roamphetamine (Adderall) 15 MG tablet every 12 (twelve) hours Active Adderall 20 MG t ablet every 12 (twelve) hours Active Apple Cider Vinegar (5 sources) End: 10-02-2024 APPLE CIDER VINEGAR ORAL Newton e by mouth daily. 10/02/2024 Discontinued (Discontinued by another clinician) APPLE CIDER VINE GAR ORAL Take by mouth daily. Active APPLE CIDER VINE GAR ORAL Take by mouth daily. 0 Active Ascorbic Acid-Vitamin E-Biot in (Hair, Skin, Nails With Biotin) 7.5-7.5-1,250 mg-unit-mcg Tablet,Chewable (9 sources) Start: 11-13-2021 Start: 11-13-2021 Ascorbic Acid- Vitamin E-Biotin (Hair, [...] a day for 5 day(s) Aug, Active benzonatate 200 mg oral capsule (1 source) Non-narcotic Antitussive Start: 12-04-2023 take 1 capsule by mouth three times daily as needed for cough Biotin (18 sources) Start: 11-27-2022 biotin See Instructions, dailu, Refills(s) 0 Start Date: 11/27/22 Status: Ordered End: 10-02-2024 BIOTIN ORAL Take by mouth da danie. 10/02/2024 Discontinued (Discontinued by another clinician) BIOTIN ORAL Take by mouth daily. Active BIOTIN ORAL Take by mouth daily. 0 Active cariprazine 1.5 mg oral capsule (7 sources) Atypical Antipsychotic Start: 04-12-2020 End: 10-02-2024 VRAYLAR 1.5 mg capsule 3 mg. 04/12/2020 10/02/2024 Discontinued Vraylar Not-Taki ng cephalexin 500 mg oral capsule (10 sources) Cephalosporin Antibacterial Start: 03-26-2023 End: 04-02-2023 take 1 capsule by mouth every six hours Keflex 500 mg Cap 500 mg = 1 cap(s), Oral, q6hr, X 7 day(s), # 28 cap(s), Refills(s) 0, Pharmacy: [facility]/pharmacy #[id number], 155, cm, 03/26/23 6:55:00 EDT, Height/Length Dosing, 77.5, kg, 11/27/22 9:07:00 EDT, Weight Dosing Start Date: 03/26/23 Stop Date: 04/02/23 Status: Ordered Start: 11-29-2021 End: 05-17-2022 take 1 capsule by mouth three times daily Cephalexin 500 mg capsule Discontinued 500 MG PO Three times daily November 29, 2021 12:00am May 17, 2022 8:03am Cranberry preparation (5 sources) Non-Standardized Food Allergenic Extract, Non-Standardized Plant Allergenic Extract End: 10-02-2024 CRANBERRY ORAL Take by mouth daily. 10/02/2024 Discontinued (Discontinued by another clinician) CRANBERRY ORAL T ocry by mouth daily. Active CRANBERRY ORAL T cory by mouth daily. 0 Active docosahexaenoic acid/epa (FI SH OIL ORAL) (5 sources) End: 10-02-2024 docosahexaenoic acid/epa (FI SH OIL ORAL) Take by mouth 3 (three) times a day. 10/02/2024 Discontinued (Discontinued by another clinician) docosahexaenoic acid/epa (FISH OIL ORAL) Take by mouth 3 (three) times a day. Active docosahexaenoic acid/epa (FISH OIL ORAL) Take by mouth 3 (three) times a day. 0 Active doxycycline hyclate 100 mg oral capsule (1 source) Tetracycline-class Drug Start: 05-21-2023 End: 06-04-2023 take 1 capsule by mouth twice daily doxycycline hyclate 100 mg Cap 100 mg = 1 cap(s), Oral, BID, X 14 day(s), # 28 cap(s), Refills(s) 0, Pharmacy: [facility]/pharmacy #[id number], 155, cm, 05/21/23 7:14:00 EST, Height/Length Dosing, 77.5, kg, 11/27/22 9:07:00 EDT, Weight Dosing Start Date: 05/21/23 Stop Date: 06/04/23 Status: Ordered Fish Oils (13 sources) Start: 11-27-2022 take 1000 mg by mouth once daily Fish Oil 1,000 mg, Oral, Daily, Refill(s) 0 Start Date: 11/27/22 Status: Ordered gabapentin 300 mg oral capsule (12 sources) Anti-epileptic Agent Start: 12-19-2021 take 2 capsules by mouth every twelve hours Gabapentin 300 MG 2 capsule Orally twice a day for 30 day(s) Dec, Active Start: 08-16-2020 End: 10-02-2024 gabapentin (NEURONTIN) 300 m g capsule Indications: Lumbar neuritis , Lumbosacral spondylosis without myelopathy Take 1 capsule (300 mg total) by mouth See Admin Instructions. Take 1 tablet by mouth at bedtime for 3 nights, then take 1 tablet by mouth twice daily for 3 days, then take 1 tablet by mouth three times daily thereafter 81 capsule 08/16/2020 10/02/2024 Discontinued (Discontinued by another clinician) Gabapentin Activ e Handicap placards as directed (1 source) Start: 12-11-2022 Hydrolyzed Ultra Collagen Plus C (13 sources) Start: 11-27-2022 Hydrolyzed Ultra Collagen Plus C See Instructions, Refill(s) 0, daily Start Date: 11/27/22 Status: Ordered ibuprofen 800 mg oral tablet (6 sources) Nonsteroidal Anti-inflammatory Drug End: 10-02-2024 take 1 tablet by mouth every six hours as needed for pain ibuprofen (ADVIL,MOTRIN) 800 mg tablet Take 800 mg by mouth every 6 (six) hours as needed for pain. 10/02/2024 Discontinued (Discontinued by another clinician) labetalol hydrochloride 200 mg oral tablet (5 sources) beta-Adrenergic Inocencio Start: 10-28-2024 End: 02-25-2025 take 1 tablet by mouth at bedtime labetaloL (NORMODYNE) 200 mg tablet TAKE 1 TABLET (200 MG TOTAL) BY MOUTH IN THE MORNING AND BEFORE BEDTIME 180 tablet 2 02/25/2025 Active levothyroxine sodium 0.05 mg oral tablet (12 sources) l-Thyroxine Start: 07-08-2024 take 1 tablet by mouth in the morning levothyroxine (SYNTHROID, LEVOTHROID) 50 MCG tablet Take 1 tablet (50 mcg total) by mouth in the morning. 07/08/2024 Active Start: 09-10-2023 take 1 tablet by mouth once da danie losartan potassium 100 mg oral tablet (15 sources) Angiotensin 2 Receptor Inocencio Start: 10-31-2023 End: 10-02-2024 take 1 tablet by mouth in the morning losartan (COZAAR) 100 mg tablet Take 1 tablet (100 mg total) by mouth in the morning. 90 tablet 3 10/02/2024 Active Start: 10-03-2023 take 1 tablet by marco in the morning losartan (COZAAR) 50 mg tablet Take 1 tablet (50 mg total) by mouth in the morning. 90 tablet 3 10/03/2023 Active take 2 tablets by mo [facility] once daily losartan (Cozaar) 50 MG tablet Take 100 mg by mouth Daily Active lurasidone hydrochloride 80 mg oral tablet (20 sources) Atypical Antipsychotic Start: 11-27-2022 take 2 tablets by mouth once daily at bedtime Latuda 80 mg oral tablet TAKE 2 TABLETS BY MOUTH EVERY DAY AT BEDTIME Start Date: 11/27/22 Status: Ordered Start: 06-19-2021 lurasidone (LA TUDA) 80 mg tablet 1 tablet (80 mg total) in the morning. 06/19/2021 Active Start: 06-19-2021 LATUDA 120 mg tablet tablet lurasidone (Latu da) 120 MG tablet Take 80 mg by mouth in the evening Active take 2 tablets by mo ut at bedtime Latuda 80 MG TAKE 2 TABLETS BY MOUTH AT BEDTIME Oral for 15 Days Active Latuda Active medication for headaches and nausea (9 sources) Start: 05-14-2023 medication for headaches and nausea medication for headaches and nausea Start Date: 05/14/23 Status: Ordered methylPREDNISolone (12 sources) Corticosteroid Start: 07-09-2024 methylPREDNISo lone (Medrol Dospak) 4 MG tablets Indications: Neuritis Follow schedule on MEDROL PACK package instructions to be used as directed 21 tablet 07/09/2024 Active Start: 11-14-2020 methylPREDNISo lone 4 MG as directed Orally Once a day for 6 days November, Not-Taking 24 hr metoprolol succinate 50 mg extended release oral tablet (13 sources) beta-Adrenergic Inocencio Start: 12-04-2023 take 1 tablet by mouth once daily Start: 09-10-2023 End: 10-02-2024 take 1.5 tablets by mouth every twenty-four hours in the morning, then take 1.5 tablets by mouth at bedtime metoprolol succinate XL (TOPROL XL) 50 mg 24 hr tablet Take 1.5 tablets (75 mg total) by mouth in the morning and 1.5 tablets (75 mg total) before bedtime. 270 tablet 3 10/02/2024 Active Start: 09-10-2023 take 1 tablet by marco th every twenty-four hours in the morning, then take 1 tablet by mouth at bedtime metoprolol succinate XL (TOPROL XL) 50 mg 24 hr tablet Take 1 tablet (50 mg total) by mouth in the morning and 1 tablet (50 mg total) before bedtime. 0 09/10/2023 Active metroNIDAZOLE 500 mg oral tablet (5 sources) Nitroimidazole Antimicrobial Start: 10-20-2022 take 1 tablet by mouth every twelve hours Misc Medication (20 sources) Start: 11-27-2022 Misc Medication See Instructions, hair, skin and nails dail Start Date: 11/27/22 Status: Ordered Start: 11-27-2022 Misc Medicatio n See Instructions, Dungngon da dailu Start Date: 11/27/22 Status: Ordered Start: 11-27-2022 Misc Medicatio n See Instructions, Apple cider vinegar daily Start Date: 11/27/22 Status: Ordered Pdvhnhsfbjjy-Ylti-Wtcly Acid (Centrum Women) 18-400 mg-mcg Tablet (9 sources) Start: 11-13-2021 take 3 tablets by mo uth once daily Start: 11-13-2021 take 3 tablets by mo uth once daily Tleeehvdejrc-Bnsu-Jkfhn Acid (Centrum Women) 18-400 mg-mcg Tablet Active 3 TAB PO Daily November 12, 2021 11:00pm Start: 11-13-2021 take 3 tablets by mo uth once daily Braarbtdadjq-Ofen-Akzps Acid (Centrum Women) 18-400 mg-mcg Tablet Active 3 TAB PO Daily November 13, 2021 12:00am mupirocin 0.02 mg/mg topical ointment (1 source) RNA Synthetase Inhibitor Antibacterial Start: 05-16-2023 take 15 g nasal route twice daily mupirocin Top 2% Oint See Instructions, 15 gm, Refill(s) 0, apply to both nostrils, both axillary folds, both groin creases twice daily for 5 days, [facility]/pharmacy #[id number], 155, cm, 05/14/23 13:20:00 EST, Height/Length Dosing, 77.5, kg, 11/27/22 9:07:00 EDT, Weight Dosing Start Date: 05/16/23 Status: Ordered NIFEdipine 60 mg osmotic 24 hr extended release oral tablet (9 sources) Dihydropyridine Calcium Channel Inocencio Start: 10-22-2024 take 1 tablet by mouth twice daily NIFEdipine XL (PROCARDIA XL) 60 mg 24 hr tablet Take 1 tablet (60 mg total) by mouth 2 (two) times a day. 60 tablet 3 10/22/2024 Active Start: 10-02-2024 End: 10-22-2024 take 1 tablet by mouth every twenty-four hours in the morning NIFEdipine XL (PROCARDIA XL) 60 mg 24 hr tablet Take 1 tablet (60 mg total) by mouth in the morning. 30 tablet 5 10/02/2024 10/22/2024 Discontinued (Reorder) take 1 tablet by marco th before mealtime, then take 1 tablet by mouth every twenty-four hours NIFEdipine CC (Adalat CC) 60 MG 24 hr tablet Take 60 mg by mouth in the morning. Take before meals. Do not crush, chew, or split. Active nitroglycerin 0.4 mg sublingual tablet (9 sources) Nitrate Vasodilator Start: 11-13-2021 OXcarbazepine 600 mg oral tablet (20 sources) Anti-epileptic Agent Start: 04-12-2020 OXcarbaze pine (TRILEPTAL) 600 mg tablet Take 1 tablet (600 mg total) by mouth in the morning and 1 tablet (600 mg total) at noon and 1 tablet (600 mg total) before bedtime. 04/12/2020 Active Start: 04-12-2020 OXcarbazepine (TRILEPTAL) 600 mg tablet Take 1 tablet (600 mg total) by mouth in the morning and 1 tablet (600 mg total) at noon and 1 tablet (600 mg total) before bedtime. 04/12/2020 Active Start: 04-12-2020 End: 10-02-2024 take 1 tablet by mouth once daily at bedtime Oxcarbazepine 300 mg tablet Discontinued 300 MG PO Daily at bedtime November 13, 2021 12:00am December 04, 2023 11:03am Trileptal 600 MG tablet every 12 (twelve) hours Active OXcarbazepine Ac tive oxyCODONE hydrochloride 5 mg oral tablet (20 sources) Opioid Agonist Start: 01-04-2022 take 1-2 tablets by mouth three times daily oxyCODONE HCl 5 MG 1-2 tablets Orally tid for 7 days Dec, Active Start: 11-29-2021 End: 05-17-2022 take 5-10 mg by mouth every six hours as needed for pain Oxycodone 5 mg Tablet Discontinued 5 - 10 MG PO Q6H as needed for Pain 50 8 November 29, 2021 May 17, 2022 8:02am PNV no.95/ferrous fum/folic ac ( ORAL) (5 sources) End: 10-02-2024 PNV no.95/ferrous fum/folic ac ( ORAL) Take by mouth daily. 10/02/2024 Discontinued (Discontinued by another clinician) PNV no.95/ferrou s fum/folic ac ( ORAL) Take by mouth daily. Active PNV no.95/ferrou s fum/folic ac ( ORAL) Take by mouth daily. 0 Active prazosin 2 mg oral capsule (19 sources) alpha-Adrenergic Inocencio Start: 11-27-2022 take 2 capsules by mouth once daily prazosin 2 mg oral capsule 4 mg = 2 cap(s), Oral, Daily, Refills(s) 0 Start Date: 11/27/22 Status: Ordered Start: 11-13-2021 End: 12-04-2023 take 1 capsule by mouth once daily at bedtime Prazosin 1 mg capsule Discontinued 1 MG PO Daily at bedtime November 13, 2021 12:00am May 29th, 2024 11:05am predniSONE 10 mg oral tablet (11 sources) Start: 12-04-2023 Start: 11-29-2021 End: 05-17-2022 Prednisone 10 mg tablets,dos e pack Discontinued 1 dose pk PO per package directions November 29, 2021 12:00am May 17, 2022 8:02am take 4 tabs for 3 days then take 3 tabs for 3 days then take 2 tabs for 3 days then take 1 tab for 3 days Start: 11-29-2021 End: 05-17-2022 Prednisone Discontinued 1 do se pk PO per package directions November 29, [...] Start: 08-29-2021 take 1 tablet by marco every twelve hours predniSONE 20 MG 1 tablet Orally bid for 5 day(s) Aug, Active pregabalin 100 mg oral capsu le (18 sources) Start: 10-26-2022 take 1 capsule by mo [facility] every twelve hours Start: 10-26-2022 take 1 capsule by mo [facility] every twelve hours Start: 10-26-2022 Start: 06-12-2022 take 1 capsule by mo [facility] every twelve hours Pregabalin 75 MG 1 capsule Orally Twice a day for 30 days Jun, Active Start: 02-09-2022 take 1 capsule by mo uth every twelve hours Pregabalin 25 MG 1 capsule Orally Twice a day for 10 days Feb, Active Start: 02-08-2022 take 1 capsule by mo uth every six hours Pregabalin 25 MG 1 capsule Orally qid for 30 days Feb, Active Start: 02-08-2022 take 2 capsules by out every twelve hours Lyrica 25 MG 2 capsules Orally Twice a day for 30 days EMMANUEL Feb, Active AD (13 sources) Start: 11-27-2022 AD See Instructions, Refill(s) 0, daily Start Date: 11/27/22 Status: Ordered ProFe (1 source) ProFe Active propranolol hydrochloride 80 mg oral tablet (9 sources) beta-Adrenergic Inocencio Start: 04-29-2023 take 80 mg by mouth once daily propranolol 80 mg, Oral, Daily, Refills(s) 0 Start Date: 04/29/23 Status: Ordered spironolactone 25 mg oral tablet (12 sources) Aldosterone Antagonist Start: 10-31-2023 End: 10-02-2024 take 1 tablet by mouth in the morning spironolactone (ALDACTONE) 25 mg tablet Take 1 tablet (25 mg total) by mouth in the morning. 90 tablet 3 10/02/2024 Active tiZANidine 4 mg oral tablet (4 sources) Central alpha-2 Adrenergic Agonist Start: 06-05-2022 take 1 tablet by mouth every eight hours tiZANidine HCl 4 MG 1 tablet as needed Orally Three times a day for 7 days May, Active traZODone hydrochloride 50 mg oral tablet (20 sources) Serotonin Reuptake Inhibitor Start: 06-23-2024 traZODone (Desyrel) 50 MG tablet 06/23/2024 Active Start: 12-04-2023 Start: 12-04-2023 take 100 mg by mouth once daily at bedtime Trazodone Active 100 MG PO Daily at bedtime December 04, 2023 11:04am Start: 04-12-2020 take 2 tablets by mo uth once daily traZODone (DESYREL) 50 mg tablet Take 2 tablets (100 mg total) by mouth nightly. 04/12/2020 Active Start: 04-12-2020 End: 12-04-2023 take 1 tablet by mouth once daily at bedtime Trazodone 150 mg tablet Discontinued 150 MG PO Daily at bedtime November 13, 2021 12:00am December 04, 2023 11:04am traZODone HCl Ac tive vilazodone hydrochloride 40 mg oral tablet (20 sources) Start: 04-19-2020 take 1 tablet by mouth in the morning vilazodone (VIIBRYD) 40 mg tablet Take 1 tablet (40 mg total) by mouth in the morning. 04/19/2020 Active Start: 04-19-2020 take 1 tablet by mouth once da danie vilazodone 20 mg oral tablet TAKE 1 TABLET BY MOUTH EVERY DAY Start Date: 11/27/22 Status: Ordered take 2 tablets by [facility] at mealtime vilazodone (Viibryd) 20 MG tablet Take 40 mg by mouth in the morning. Take with meals. Active Viibryd Active zolpidem tartrate 12.5 mg extended release oral tablet (20 sources) gamma-Aminobutyric Acid-ergic Agonist Start: 05-31-2021 zolpidem CR (AMBIEN CR) 12.5 mg CR tablet nightly. 05/31/2021 Active Start: 05-31-2021 zolpidem (AMBI EN) 10 mg tablet Zolpidem Tartrat e Active Completed/Discontinued Medications Medication Drug Class(es) Dates Sig (Normalized) Sig (Original) amoxicillin 875 mg / clavulanate 125 mg oral tablet (1 source) Penicillin-class Antibacterial Start: 11-14-2020 take 1 tablet by mouth every twelve hours Amoxicillin-Pot Clavulanate 875-125 MG 1 tablet Orally every 12 hrs for 7 days November, Not-Taking cefTRIAXone (4 sources) Cephalosporin Antibacterial Start: 10-19-2022 Rocephin 500 mg Oct, 500 mg cyclobenzaprine hydrochloride 10 mg oral tablet (9 sources) Muscle Relaxant Start: 11-29-2021 End: 05-17-2022 take 1 tablet by mouth three times daily as needed for muscle spasms Cyclobenzaprine 10 mg tablet Discontinued 10 MG PO Three times daily as needed for back spasms November 29, 2021 12:00am May 17, 2022 8:02am fluticasone propionate 0.05 mg/actuat metered dose nasal spray (1 source) Corticosteroid Start: 11-14-2020 take 1 spray(s) nasal route once daily Fluticasone Propionate 50 MCG/ACT 1 spray in each nostril Nasally Once a day for 30 day(s) November, Not-Taking pantoprazole 40 mg delayed release oral tablet (2 sources) Proton Pump Inhibitor Start: 12-04-2023 End: 12-04-2023 take 1 tablet by mouth once daily Pantoprazole 40 mg tablet,delayed release (DR/EC) Discontinued 40 MG PO Daily December 04, 2023 12:00am December 04, 2023 11:03am Problems Active Problems Problem Classification Problem Date Documented Date Episodic/Chronic Acute bronchitis (1 source) Acute bronchitis; Translations: [Acute bronchitis, unspecified] 12-04-2023 Episodic Anxiety disorders (20 sources) Anxiety; Translations: [Anxiety disorder, unspecified] Onset: 0 11-27-2022 Chronic Esophageal disorders (20 sources) Gastroesophageal reflux disease; Translations: [Gastro-esophageal reflux disease without esophagitis] Onset: 2 Resolved: 2 Chronic Esophageal disorders (1 source) Esophageal disorders; Translations: [Gastro-esophageal reflux disease without esophagitis] Onset: 2 Essential hypertension (20 sources) Hypertensive disorder; Translations: [Essential (primary) hypertension] Onset: 4 11-27-2022 Chronic Genitourinary symptoms and ill-defined conditions (2 sources) Dysuria Episodic Heart valve disorders (13 sources) Mitral valve prolapse; Translations: [Nonrheumatic mitral (valve) prolapse] Onset: 0 04-20-2020 Chronic Malaise and fatigue (2 sources) Asthenia; Translations: [Weakness] 11-05-2024 Episodic Mood disorders (13 sources) Bipolar I disorder 11-27-2022 Chronic Other acquired deformities (20 sources) Spondylolysis; Translations: [Spondylolysis, lumbar region] 11-28-2021 Episodic Other acquired deformities (4 sources) Spondylolysis, lumbar region Onset: 2 Resolved: 2 Episodic Other acquired deformities (9 sources) Lumbar spondylolisthesis; Translations: [Spondylolisthesis, lumbar region] 11-29-2021 Episodic Comment on above: Problem List clean-u p per request of Phys. EHR Cmte Other acquired deformities (3 sources) Spondylolysis, lumbosacral region; Translations: [Lumbosacral spondylolysis] Onset: 2 06-19-2023 Episodic Comment on above: Problem List clean-u p per request of Phys. EHR Cmte Other connective tissue disease (3 sources) Arthrodesis status Episodic Other connective tissue disease (8 sources) Inflammatory neuropathy ; Translations: [Neuralgia and neuritis, unspecified] 06-25-2024 Episodic Other connective tissue disease (8 sources) Capsulitis of metatarsophalangeal joint of left foot; Translations: [Other enthesopathy of left foot and ankle] 06-25-2024 Episodic Other connective tissue disease (2 sources) Muscle pain; Translations: [Myalgia, unspecified site] 11-05-2024 Episodic Other gastrointestinal disorders (13 sources) History of gastroesophageal reflux disease 11-27-2022 Episodic Other nervous system disorders (12 sources) Polyneuropathy; Translations: [Other specified polyneuropathies] 06-25-2024 Chronic Other nervous system disorders (2 sources) 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 Other nervous system disorders (2 sources) Paresthesia; Translations: [Paresthesia of skin] 11-05-2024 Episodic Other nutritional; endocrine; and metabolic disorders (13 sources) H/O: hypothyroidism 11-27-2022 Episodic Other nutritional; endocrine; and metabolic disorders (13 sources) H/O: obesity 11-27-2022 Episodic Other screening for suspected conditions (not mental disorders or infectious disease) (13 sources) Disorder of cardiovascular system 11-27-2022 Episodic Other upper respiratory disease (11 sources) Seasonal allergy; Translations: [Other seasonal allergic rhinitis] Onset: 0 04-20-2020 Chronic Residual codes; unclassified (3 sources) High risk heterosexual behavior; Translations: [High risk heterosexual behavior] Onset: 3 Episodic Schizophrenia and other psychotic disorders (13 sources) Schizophrenia 11-27-2022 Chronic Spondylosis; intervertebral disc disorders; other back problems (13 sources) Lumbosacral spondylosis without myelopathy; Translations: [Spondylosis without myelopathy or radiculopathy, lumbosacral region] Onset: 0 04-20-2020 Chronic Thyroid disorders (2 sources) Hypothyroidism; Translations: [Hypothyroidism, unspecified] 12-04-2023 Chronic Unclassified (1 source) Encounter for preprocedural laboratory [...] Encounter for preprocedural laboratory examination] Onset: 2 Unclassified (1 source) M54.17 - Radiculopathy, lumbosacral region Past or Other Problems Problem Classification Problem Date Documented Da te Episodic/Chronic Chronic obstructive pulmonary disease and bronchiectasis (1 source) Bronchitis, not specified as acute or chronic Onset: 08-29-2021 Resolved: 08-29-2021 Episodic Immunizations and screening for infectious disease (1 source) Contact with and (suspected) exposure to other viral communicable diseases Onset: 08-29-2021 Resolved: 08-29-2021 Episodic Other acquired deformities (1 source) Spondylolisthesis, lumbar region; Translations: [Spondylolisthesis, lumbar region] Onset: 11-27-2021 Episodic Other upper respiratory infections (1 source) Acute upper respiratory infection, unspecified Onset: 08-29-2021 Resolved: 08-29-2021 Episodic Spondylosis; intervertebral disc disorders; other back problems (20 sources) Lumbar radiculopathy; Translations: [Radiculopathy, lumbar region] Onset: 04-20-2020 Resolved: 02-08-2022 Episodic Comment on above: Problem List clean-u p per request of Phys. EHR Cmte Results Test Name Value Interpretation Reference Range Facility Main OR Intraoperative Recor don 02-01-2025 Main OR Intraoperative Record Main OR Intraoperative Record IntraOp Document Type FTPM Summary Primary Physician: Néstor Maradiaga DO Finalized Date/Time: 02/01/25 13:46:20 Pt. Name: AARON BRENNAN/Sex: 1975 Female Med Rec #: [id number] Physician: Néstor Maradiaga DO Financial #: [id number] Pt. Type: P Room/Bed: / Admit/Disch: 02/01/25 12:58:17 - Institution: Case Times FTPM Entry 1 Patient Times In Room 02/01/25 13:39:00 Out Room 02/01/25 13:46:00 Procedure Times Start 02/01/25 13:42:00 Stop 02/01/25 13:45:00 Anesthesia Times Last Modified By: Vamsi Blackwell RN 02/01/25 13:46:06 Case Attendance FTPM Entry 1 Entry 2 Entry 3 Case Attendee Néstor Maradiaga DO, RN, Vamsi Armstrong RN, Danielle Fitzgerald Role Performed Surgeon - Primary Factory Helper - Primary Scrub - Primary Time In 02/01/25 13:39:00 02/01/25 13:39:00 02/01/25 13:39:00 Time Out 02/01/25 13:46:00 02/01/25 13:46:00 02/01/25 13:46:00 Procedure CAUDAL EPIDURAL STEROID CAUDAL EPIDURAL STEROID CAUDAL EPIDURAL STEROID INJECTION(., .) INJECTION(., .) INJECTION(., .) Comments Last Modified By: Rishi RODRIGUEZ, Vamsi Blackwell RN, Vamsi Castrejon RN 02/01/25 13:46:06 02/01/25 13:46:06 02/01/25 13:46:06 Entry 4 Case Attendee Sabina Parks Role Performed Reliability Engineer Time In 02/01/25 13:39:00 Time Out 02/01/25 13:46:00 Procedure CAUDAL EPIDURAL STEROID INJECTION(., .) Comments Last Modified By: Vamsi Blackwell RN 02/01/25 13:46:06 Perioperative Protocols FTPM Pre-Care Text: Implements protective measures prior to operative or invasive procedure, confirms identity before the operative or invasive procedure, verifies operative procedure, surgical site, and laterality Entry 1 Procedure(s) CAUDAL EPIDURAL STEROID Patient Identity Birthday, ID Band INJECTION(., .) Verified (select at Check, Patient least 2): Participation Consents / H and P H&P, Surgery/Procedure Operative Site Present Verified Consent Marking Verified Surgical Site Yes Laterality Verified Yes Verified Procedure Verified Yes Correct Patient Yes Position Verified Availability Equipment, Medication, Prep Dry Yes Verified (If X-ray Applicable) PreOp Antibiotic No Time Out Vamsi Blackwell RN, Pritchard RN, Hiren Gilman DO, Bradford A., Sabina Parks Time Out Complete 02/01/25 13:39:00 Outcomes Met? Yes Last Modified By: Vamsi Blackwell RN 02/01/25 13:40:38 Post-Care Text: The patient is free from signs and symptoms of injury caused by extraneous objects Allergy Information FTPM Pre-Care Text: Verifies allergies Entry 1 Allergies Reviewed? Yes Allergies Reviewed Self/Patient With Outcomes Met? Yes Last Modified By: Vamsi Blackwell RN 02/01/25 13:41:04 Post-Care Text: The patient received appropriate medication(s) safely administered during the perioperative period Surgical Procedures FTPM Entry 1 Procedure Description Procedure CAUDAL EPIDURAL STEROID Modifiers ., . INJECTION Surgeon Description Caudal ELIZABETH Primary Procedure Yes Primary Surgeon Néstor Maradiaga DO Start 02/01/25 13:42:00 Stop 02/01/25 13:45:00 Anesthesia Type None Surgical Service Pain Management Wound Class 1 - Clean Last Modified By: Vamsi Blackwell RN 02/01/25 13:46:08 General Case Data FTPM Pre-Care Text: Classifies surgical wound, implements aseptic technique, initiates traffic control Entry 1 Case Information OR Pain Proc Room Case Level Level 2 Wound Class 1 - Clean Specialty Pain Management Preop Diagnosis M96.1 Postop Same As Preop Yes Postop Diagnosis M96.1 Outcomes Met? Yes Last Modified By: Vamsi Blackwell RN 02/01/25 13:41:26 Post-Care Text: The patient is free from signs and symptoms of infection Skin Assessment (Pre Procedure) FTPM Pre-Care Text: Implements protective measures to prevent skin/ tissue injury due to thermal or mechanical sources Evaluates for signs and symptoms of physical injury to skin and tissue Entry 1 Skin Integrity Intact, [place], Warm, & Skin Abnormality No Dry Outcomes Met? Yes Last Modified By: Vamsi Blackwell RN 02/01/25 13:41:33 Post-Care Text: The patient is free from [...] Procedure CAUDAL EPIDURAL STEROID Body Position Prone INJECTION(., .) Feet Uncrossed? Yes Left Arm Position Resting at Side Right Arm Position Resting at Side Left Leg Position Extended Right Leg Position Extended Positioning Device Pillow Under Head Large, Safety Strap, Pillow Large Under Knees Press Points Cande (more content not included)... Normal [facility] Main OR Preoperative Recordo n 02-01-2025 Main OR Preoperative Record Main OR Preoperative Record Holding Area Document Type FTPM Summary Primary Physician: Néstor Maradiaga DO Finalized Date/Time: 02/01/25 13:05:04 Pt. Name: AARON BRENNAN/Sex: 1975 Female Med Rec #: [id number] Physician: Néstor Maradiaga DO Financial #: [id number] Pt. Type: P Room/Bed: / Admit/Disch: 02/01/25 12:58:17 - Institution: Case Times Holding FTPM Pre-Care Text: Verifies consent for planned procedure, identifies individual values and wishes concerning care, includes family members in perioperative teaching Secures patient's records' belongings, and valuables, maintains patient's dignity and privacy, and maintains patient confidentiality Entry 1 In Holding 02/01/25 13:03:00 Outcomes Met? Yes Last Modified By: Amanda Canales RN 02/01/25 13:03:15 Post-Care Text: The patient participates in decisions affecting his or her perioperative plan of care The patient's right to privacy is maintained Surgery Checklist FTPM Entry 1 Patient Birthday, ID Band Procedure History and Physical, Identification: Check, Patient Verification: Surgical Consent, With Participation Patient NPO after Midnight: No Date/Time: 02/01/25 13:03:00 Results Reviewed 09 orange and water Personal Items: Jewelry Comments: Personal Items Pt. wearing eight Complaints of Pain: Yes Comment: earrings, three rings and two necklaces. Pain Comment: 04/16 lower back pain Operative Site Yes Marking: Marked By: Dr. Maradiaga Location: caudal Availability Equipment, X-Ray Verified: Does Patient Smoke No Patient states Yes Comment - Adult -Sudeep postop adult Supervision supervision available Case Cancelled in No Holding Area see comments below for reason Last Modified By: Amanda Canales RN 02/01/25 13:05:03 Finalized By: Amanda Canales RN Document Signatures Signed By: Amanda Canales RN 02/01/25 13:05 [facility] Operative Reporton Operative Report Operative Report Diagnosis: M96.1 Lumbar postlaminectomy pain syndrome Procedure: Caudal epidural steroid injection under fluoroscopic guidance Anesthesia: Local Complications: None After informed consent was obtained, the patient was brought back to the procedure room and placed in the prone position. Back areas prepped and draped in the usual sterile fashion using fluoroscopic guidance, the skin and subcutaneous tissues overlying the needle trajectory over the sacral hiatus was anesthetized with 2% lidocaine. The 22-gauge Quincke needle was then introduced in the lower aspect of the sacral hiatus. Injection of contrast under fluoroscopy revealed appropriate epidural spread in both the lateral and AP views without vascular uptake. Negative aspiration for blood. Thereafter, 9 mL of normal saline with 40 mg of methylprednisolone was injected into the epidural space the needle was then removed. The patient tolerated procedure well. Patient was then transferred to the recovery room in stable condition. Follow-up: The patient will update us on the response to this procedure, and agrees to continue currently prescribed/recommende d therapies. Normal [facility] Comment on above: Result Comment: Elec tronically Signed By: Néstor Maradiaga DO.br\Date and Time Signed: 02/01/25 13:47 EDT Coding Summaryon 10-07-2024 Coding Summary HTMLBase 64 TlverjaiGWs2tUw+PGhlY WQ+RJ9QVFZgF19huHUakS 9tQ0ACRMlAOxskOGSSGNk JYpTdwmLuLZ6nwCRwUMBc IC8+HQ6dFDOqMfmdkCRiu 1F8yAH3B24bxw3lCTwxlG K3DGQaFoCoijopc5bwaXd 6IDcuNmluOyBt FJJpeG29UEN9lE20Sv36m CRysPZyt9hylKn3BtXdQY CcXOW4mDxsUJwys8RdJPH dK76vpREom2N3 AJKnkUasuNQnNqQslDN6q F3dACugtcbmd8zhlthqAb n1vd06nQZvt3J8tPQ1D7W cwjS8GXWzwRSi FdpajNWKkH9iycxbi8yvu vdvDoPaWLKuGVe5GGa9LN RunQjzOlPjTL99CXL9AUS ixpQzM2TxQTOt qWfsKyF3a2R7Zm8FH4DDD otbB0UBUEWIYQltuHE+PC 42mv20A1CoWlusPvq9BRK jIHW3gTC3fS2z XSHlYUgtq9Z2lDI1R6Jhq bCsax3ar0obBQIoBBquM5 5yoLDav3S2TYLczQO2ZZX owOvhEoCswX56 Oyc+VZPcbNbxt8EtNqcvv 5sjb1phtWh6OmesGLThmy KjfSedKYN6k6VrYl1gIGY saJU4iLF5hC5t CjKxEsX5STdiK609LsQuv ZAvMuffL76hJ7RfyIP+PH HePkz8OHIsdIduFJ1vY8A hZGRpbmctbGVm uSeqWJ4kVYOpozsbMRJpo B5uYVDlQ5t8QyHuCtZ2BK kgZ0JhODHguowpNn13eR7 yYeNyAfC7LHoc J2YeqkQ9QHAokJXmMFrxA SC9C90iq7N6QOBsDWBvRM B1tPF5eT5dfVscdjxoyXE mdDsgdmVydGlj NCicDDruB956AMFynBozJ kNvZGluZyBEYXRlOiAgMD QvMDIvMjAyNTwvdGQ+PHR aIYM7oUldCDXh xYMqMGttWe2faSepvJzpE I2lAXNsvzqxDWLjwZ5eVW UttTCmyUzmKR2oMYYqrzg td214AqPkNRO7 UJIjiNZvS7CsxJ5cVtUoO APlHCPgR1MxiJImTGubA4 35KGbuItR9NHBxweCmW6H sLWFsaWduOiB0 a3U0Lj2Wc9UwjtisH0Haf TXqHdAlZfygEFa8C3CeKi wvdHI+DT30VUSuEV84UKq 5GJW1bYafOZqe FNBkK1MlgU2tXjGcEVLpX GRkOyc+PHRhYmxlIHdpZH RoPScxMDAlJyBzdHlsZT0 bRd3nVHTiLDPs jGeyvQFgRtRna3jcBKMxS CxlQI1aqDagE9IbbTL0AF Wrd7u2Tr13R43gT2EscZK +UNUodPS1rGI5 cR4lGiOoVhH1UElrL059L nOowJUdGufzc5ybm4bsuR w5KoM1EQUfxjGwkVnwKYL 8l0QsFs62O08p IHdpZHRoPSIxNSUiIHZhb Gdppo7oyN7jHk4+PGNvbC V2gYU3fN1tJwIfSeA2ORe dE594McOmnOBz Idagb1mwi0tshEt1OkHsY YKyyoEivMjdQZG9i6HvAy 29G0EukTuai0DgXds2qb4 3wPVqg9H3uSW9 E0VlMMJtzsmloGEjkQaqL L3oTDQmxbduVSTroY0nEP PoO4h1LqTxMdV8WGvmS2P spqC8MUPnlWSz ZGKsqTOBlY6rcrgvc3ces cjuYrKhTQSdUVb3IJj4FL IugFbxVaGzCCH6PkK3IOS 9dIWvxS5zuMew ktsfzE6uHkf+KBQ4pQBts NUCFK0cRisroVR+PHRkIH C0pDowNMaiEPIvsC6eGVN yV0j3XaYbIbY7 FVmxC2OnpvH1ISGgqXUlZ LEydTNWaU5whthwn7oonr znDzFzDQIaYVa0JUv0SVN saWduOiBsZWZ0 NoA6TVD9eONaeP3qdYail mjbiK1oUrg+QmlydGggRG X3XPf5M6JmVrv6TQBqcHx cVU0yaASyTPzk Ku3qgBybwPdyYC0mHDNgt vizk850NfHyo6bvCOSnbF PqVOcvULI5A54xf3Q3GSS fCTDfNYH6oGE9 iA4tmAblboaliCUisFaqp iXehYpnKKvfTRstT743LC KhfNmgPkKdUTy8B0CaDcr 8EKCsjWfwNV1h wLSePEiyPv6bdXvjcMjrU E4sRTHdtvoev976UdDde2 dwUQQsjCEnTIouMIY9Q15 tj6D6BIDbLCPh JWQ9nUL0nK7kiOiibjfqc GVmdDsgdmVydGljYWwtYW mrS678ZBKwzVssEsPecVn 5Z1DrPqo0IMKq mXbiAH6bnOHdXTleJi8ir AwqyLafSQ8fDLYtrfugs4 29RnQts9kzBKHjySRkICq jAIB5T53ju1A9 MTPlXYNkIRI7hUX5hL4wt GlnbjogbGVmdDsgdmVydG rlHFxxVQhmG764YTWjvIn nPlBhdGllbnQg HBqaPTl1Q9CmAszevGT+P G34TNKeKE27rCBpeCSdn2 bgiXj6AkToHXTiGGH1xNb lJJaqq4JeGKYl M56eiHQgw4Y7OMQwkTvoo EIcOuUgpEP0uK3mZNvias erg7ldympqHnkvr0zutq1 1gY62Z23zDVkf ZHRoPSIzMCUiIHZhbGlnb h5jsY5nRu6+CRFjhPQ9gM Y7uQ6gIVTzMfJ9OCmlU33 9InRvcCIvPjxj r0mhc5ultKr7NeH7AUScx zXakDaeDDW6u9PmFw94K6 9sIHdpZHRoPSIyMCUiIHZ keRxjdb0idI9f Ii8+MFWddMB7oGF8iW1nB cBlChK8MKkzP896UxQbfI LkBrsnO76yE3UghLK+PHR nIly0LYAorCej ZO8mzEWxNVszOk8dRHM8S aOkYfHzXBacB3BhMGWvyc csvkcqfMK0UGBwHFDikG5 1Hp5snUetNUHb tPBXiO6buzzum2rrrvgyH lOiEUStWFw2FYo5DHVouL eyQsKrPJG5MhD9MKB3xGV zoS1neYpweojz pT8hH8OzNHKfeaoeWx50w H7aBwOrBoV1NSitOpj+Q0 qDF4HzYWFEEC9ZMCETOE7 8CD09vIRfa4I5 uAO2M9ZuSOWxyjrfkrlqr EN5XDEgLOTfoY67bCSdQP zjUf2fe6B6z448UJPtING yzI90Tk4tsQav WUBhdCVGmE9fywfsq3eog sgiJnJcODDiGOz7GWu1IH AxxLdeLvCeKDR7CmU0FYZ 5bBOcyC3seStf cogvkB1pYjs+MDIvMTYvM Fb9RZesoQL+HJHqHVD8aO yaYAiuAFGyfR2cDBLzP2i 3CxImAqD4CDqc F7HdTSTzfytoLi97wO6hV hRqMlS3KEefM7NkuxW0FM CozVWvWIukSIA2E53eo7P 2TPGxKIVxMLP8 fXB7iA1aiSstjxujsWTgk DsgdmVydGljYWwtYWxpZ2 46IHRvcDsnPjUxIFllYXJ jME68SG22yRVj k5J9pZL5P6PjPHGbvwhfj qskiLB3COJwWMFknM52oE KyJTaoWh6ie3R1k543WSF gVCGauN12Bu4k qMsdXCCnpJMGkQ8sjvyrm 1hrjkkwCrMsEORbPEu4RW t7GDWwdDmbOeDcWTO0HjY 4NUE4yOFogA9u hSuupbpmvE4gOck+RkVNQ VjIEC55HN50kXYnp5L5mG T8N6FbDMRitbbuppxufVJ 5BPWhRCSulP58 nWJeJFfiAc9uy9O5q151U LKrOWCdbY40Xi0ttSnmKY YlvHCNgS4ronrxn0neech gIzAwMDAwMDt0 BCy1SYRsyZpkEuCkHHW6A lI2JUU4yRBqkZ1ryUdlbt llzP7zVlb+J8U4V0NgSdv vdHI+IQ78NIKy PZ05qSCtcLUvj9feoBm9Y kKnLNLvLNO4aJzwPEkik6 BcVJJhQ07luQKjt4J2YHK vbGxhcHNlOyBl vVE2zN2bSNoksmcib7ugk kttXuone8cxiw84uF52O0 9sIHdpZHRoPSIzMCUiIHZ ofWkzxf2wvS5j Ii8+BPBleLF4gXH5tY0iQ nVcHkB4INwyS995VnKgrL WhTecjx2dgo9eblOx5WmC wJSIgdmFsaWdu LZX7o0EaNx20E13jNYdeA HRoPSIyMCUiIHZhbGlnbj 3wsM9yUv6+QM9fg2wcik3 7cY29yKQ+PHRk HHF5wQyyASkdMYYilZ0fA NsiCqV5RXYxOpCbbC78sO NlGIrrHy9xhMtulBeqPB2 qSEVpsnsyr399 TeMeh3iyRWLrlPZhUBahR CX7T83zs8M1ISZfFHTjYT N6tIL7xY4cpIcokymdtKS mdDsgdmVydGlj AQecRAvyR262SBXnbDqcX pQzjECpC7lffsLQJX1nMu wvdGQ+VZEbVZN3uHgvNBs oIZCfmO8kTIGz Z6l1PbBlWaI8HHtqA6Lfm nA2QKDbtBXnUICxsLQAnX 7gwqbow8wmzgwbGsIjTQR xUBf3FTz8SBBd eWkyVhMeTHM7BzZ7LHN4x YVhoY7uoFjvmcvnyU5uBq c+RklOOjwvdGQ+PHRkIHN 0eWxlPSdwYWRk kK4yIXBnK5r2XpAeFeH5F OraX3AvocZ9OEGcgIEiCL SocOWCpV9exrsel1wzdah gIzAwMDAwMDt0 FAj8WEXyzBcaAoSuCUO5Y iO4ROZ4sGMjzW2dkOzntq inkO0vFml+TVJOOjwvdGQ +PWPjZBA7wLos JPuhRVCycG3sJZMjP3u3E rYpJsW9UPpzA9SzwuN7SA TvgENdAHHwcAFByZ9fgbc ha6fusfkbLgFr AHPwMYn8XOm2TKCfhWvuE qDgOTU2MgE0HUV6rGSxwV 8caDbmigwohR5cGxt+UGF 3TCT0UF24ZI53 X0OpLxpwvAEfbCJ+PHRhY mxlIHdpZHRoPScxMDAlJy QrpYrnAB8nSe0tXATmVGM vbGxhcHNlOiBj b2x (more content not included)... [facility] Provider Orderson 10-02-2024 Provider Orders [id number] 3 [id number] [facility] Coding Summaryon 09-22-2024 Coding Summary HTMLBase 64 MphuxuqgNZq5eMd+PGhlY WQ+VG9KPIQyZ87jvJUhhB 8sW0WDLRfZLmyfZCIJKUc KPbZsbxHjIW3xpEMlDHZv IC8+BG6nJROyQduypVTia 5B6vQP5A03nlg0dEZowqQ E4VSStNbMhmlztf1npqOk 6IDcuNmluOyBt MJGgoP35KUG2xX04Ve75d WEdeHUvv8nioAu5MiHiOG SaQJX1vZaaTDatr9IoMDD nJ15lbQQnp2Q6 XDQfkWgntMEaKrEsuLC9s W2vCRkekfdou0ofarooAp x8yl76gQAix9A5hCN2X7O npuE4WIZnnMAs UutsbJGCnY8ipjrgq4uns jerVeJrSAMwLQy8BVv5CQ NymVshHlDgAN97LZB9NWW zosLeZ0PaVXMg lNijQqU4b1U6If6WN7QZC cvkK6HUDBNCBFdqeQW+PC 17mw22R5HoYqbcSff4NHD xLRW3rZK3pY2a ZCRqYYvph4N5iMH3V7Inf lQspt7sj8krVUXgWNesW6 6nzNFkx9J8YSDdwQD8LOA zvLorHbFroC65 Oyc+LHNweJvsx9TsMrdsq 1ayu3ylvQt1LvjrYWZgyz UzbYmhOXK9a4FqOx2yIUF uaGK2zLO2yD5i BvRpCgX1NDtgG909DvFsp SAnXvtbT16qN6RrwGM+PH BpFys7SXAijSezIO8xT1M hZGRpbmctbGVm uSemVI8uOVFfybujGCPtz A7eQUYyN1b6RaSsMnY3FG dgR0SaOUAgcovaAb95tC7 aIoGvTqT2KVzx E0IofbA3NSLlyGHsLTvfJ OB2K85ci1C9OGStQBJdLC A8cCR5nN7wtIieipkwjHI mdDsgdmVydGlj LPkaYUkyU662EUPugZtfH kNvZGluZyBEYXRlOiAgMD MvMTgvMjAyNTwvdGQ+PHR tZBA0xZwrTEXy jJKcFCigGp8nhEzicCnkJ U1uJKMhamojUSAwtH2jKG XcuGHntFtrYT2cOCHrikl ps633HiUnHYM9 QBPiyFOoZ4IgaU7qDwQtM HEaKHYeN2QjvTMbEArxT4 19VLscJsK8TPIxhaYkC9K sLWFsaWduOiB0 r3U5Zf0Ft1BomcthA1Kui VSvHyIsSqazSNt0W0CbUa wvdHI+AD48HHMrHT25PKz 1MQN1xDchFCdq ZBXkM8GisQ7mNoTwBXKiC GRkOyc+PHRhYmxlIHdpZH RoPScxMDAlJyBzdHlsZT0 eBg2yKSOqWJZp tIfwrQTvScAxx8xuMQOyW BocAJ7niJhzY4JuyYO6FY Rrw7q8Gj47K61kZ6BvkXU +IXNghJK4oVQ0 oP3fPhNfZlB1WQvsO716E dWuqBHzJgfwt8tfd4wcaR a6NbU9QDHyjiFjyZipVBS 3d7AfWt51O44f IHdpZHRoPSIxNSUiIHZhb Uykcz3kuK8wQj4+PGNvbC G4oZY5eM5lDgIyMlU3CHy hR181YyCfqAMd Ynaum5tqs6arpGx9EfXlV BWowsCoeUctENZ3a0CkQh 59B1OavLrrv9AfExm8fh9 7uUUfa8R9tEY5 S4HvBFXvdluekGIozGymU Y6oPGUnssbdAVCqbP9bDI IaS6u0PcTqJhG2YKumX0D clmY9ABEhuSZt EQDiyEVTmU7curcrk0wzp nyoZwLaYTFbAHi8HTc3ER RcnEfvOsJjXNA6BzN9FHF 3hZZdfQ6qcWyk yajtqK8oHnd+MKB6bZPgv WODTE6rSuflbAD+PHRkIH D7yBeeOQtsZCBmzO9qORK cC3y0HhMmWiU4 PBbdH0HzvlY8GDAbjAOyF CRqkDDNcH7hfmapo8jxts ahViLaGONfJPc3HTo2AZO saWduOiBsZWZ0 RgD3ENA5yNJfgU0fpZcpv mwqyP8sEfp+QmlydGggRG E2MRx3O6KmJiv4KAQqtEc dTW1xcQKtLEqm Pk2vpRziyAlnDF5mJBTtm ocsc215DeLbi2akMJIkfH ApMJimNEZ1H60rt3H2YUH pBEQqNTB7iTS2 aP0cdPkdkvdugKJfpWlkf jZyyDleCPbjZReyT271MX EflRmxYqVcFAt7G5VgIyj 8SHZlxJryQM2z xARfTBmnOg9rxAoaeLiwO P4iFGPaxdvay964XcEvq3 ygBAXznVDiPBlnMWA2O46 zh7C2JEUaLQHv XIT9uHD0pM5rxRoskhkyp GVmdDsgdmVydGljYWwtYW nxJ860VSGaxSxnWyJejTr 7R4AkMcs5UBZz uRukSE9lcIXxNWvfEg4ke NadlRvcJE5wEXRndfktm8 74LwAbu4xnKIYoxWIzEPm uUIQ2Y39py6I8 IVUkCFXbNMP9fFU0zF6fx GlnbjogbGVmdDsgdmVydG rlXNsoGLucV326CXLeoQf nPlBhdGllbnQg VIqrBZv9C2JpKiqojRD+P P11AAGxAU72fNYadDRvy6 iqeLb7TsAlIOBcYIZ7yCj sHDsgp2LnPRXp D50xqITfq9M9WHSgdUfwg LQaSdVvtLO3kG5hDWkzxc hnw2scmdhsDugeu2fhwq5 9vV24N62cCKya ZHRoPSIzMCUiIHZhbGlnb m1gmB8nCa4+KISvcXA9yJ I3mM0bRPVgDgR2JEleC51 9InRvcCIvPjxj z7bdt3uyjYy2FaQ4NUYtx xWsaIlqWYS6h1TcLv47S0 9sIHdpZHRoPSIyMCUiIHZ irEobcp5pbW6q Ii8+VFWaoDZ9gWU6bY6mC fEhOhQ3HCykE262OvPloH ShQmhuT13wA9CvqYU+PHR oPwt4CCUieXmi TG0twHZfUGqgRy7nFIJ8N dDtPqCrIYtbE6QmAPOupo zpjimxwQI2AHSzFJRcsK7 8Kp3pqMgdZGLj pAYOnK3xcrdgk2fwdkpsX jQzSTHpTBv8EVz5PGOyzF fjKiBoEAY2YuA7ERS5rOD blP6vrUsuxzsi fQ2gP5XhVTOvsptaFj01z D9bNvQqXnC8XRisMvb+Q0 lOO9VvHSOLOA7XCPZTRW8 0KJ30pIFpu6Q3 qEJ1H7AoLQFrcqjaxbnxx RS4TGQiZVCsnM34zIUeGV pjTp8tn4Z3c650AZByDZL nxW20Nh3fdIrh WJDjnVZCiE0hlafbw2wvd htlTrSiTXYrECg0PGh5CL VizHdrKdWwCFF7CsU4BLS 3wRStcM4fmGih xmmyjX6qHda+MDIvMTYvM Tr0IYoqkNL+EKBnPDA8jN mgOZahSEMagN8fQDXfO3p 5JuEuLbC3WYbk D4ItOOCyoadaTu45gT8fT tPiVwZ7GYzmU9GmkqA3LU LdsNLgNCdpWKL1O48wz3B 5VTKzOSStOAT0 aJA5nA0sfIhwtecdlCNpl DsgdmVydGljYWwtYWxpZ2 46IHRvcDsnPjUxIFllYXJ xFV10YT72vUTn q2M3xEK0B0GvRBLsrkkse utifYY6KLRhOYFjmM82yB ZhEUvzGb4de9I1c243ZBJ rAUCmvM71Mc6p aOpsEDOfzJUFkK2ovnsuq 9ukcubvJjYoLZQnLZg1LF j9PCLypWrxObOlVQN7PfW 1NFY4oIVqqD0d dJyoklnflN5hZdg+RkVNQ JbXKQ68PO57bYHpg1Z4gX Y4D8CiUUPzoplbfyfslXW 7XXAwKYNvdI98 vZDvYEkzLo1ov1S0b994V LDdPVAuuD28Xq2ynRtxMR LuwVEQgS5zwsfbj8wwueo gIzAwMDAwMDt0 TFe4FQNqzYseDfJlQEL5W qO3YHL2jHClhM0cuNjwep osyO2iBmy+UmVjdXJyaW5 zSI80kNYurJpd tjC7B3GtBfjelCE+PC90Y SUkKV43wEXbcIZuc9zfmW h6JzWsDAVxKTU7dTvrCFp qf0QuFQCnC65f rCZbh2U3NSLtaPbdyMWyH tYilEF5nR8lNTaspkmpa5 zicilgTcbwe7cyle54vA2 8A11nODelSHYh DILaMPPyWAXfjXudug3pj G9wIi8+MTHswVI0vAK0kA 7yJtMtEtW6EYyxO810ZwF riWMjDhomr6ie t2yrcJf2GsRiDPVjxeBya JyqRSX4l3RiYv99W62iKA dpZHRoPSIyMCUiIHZhbGl ktf9krL9mMn3+ IF7rb1svqa86yA08uEO+P TBgTUV3fSufPPzqJXBdxV 1qMOzqWoA8TLLfFySdlS7 8fXPlUWigCy7d nHpxrYbvMO8yUWTorskig 235SjDme8zsLGPwaIJnED ivTSB8O54mj1S6KLZxIZA pFCP3bZW2nW1h bGlnbjogbGVmdDsgdmVyd FvbPLtjCLyhK040WDGqqY njVmUryJCaR5ksyrNQGK0 lOjwvdGQ+PHRk NUW9nTrjBIhuXCHdfH4jZ DHcQ1s1VbGaSvZ5WEkkM5 LkqjT9VHHcrIUwWKGgbCY DaF4juxhpa2sq imesDhCfOTWnHLt5XBa1R UTqaIcfLpQwVEN5HdY4RL U0wBRwlQ1izIcxzcxuuJ4 wOyc+RklOOjwv dGQ+ROGaJQO3fGmqFWjrH CEpdS0bTFSvL5a6WrJjRx H5PFhpN5LgwsH3VXSfkNK sINRcnRKDtP1u nezfc9lfvuotGpPcEKHwI Jo1LCd0QQLbyCtcGwJoWH B1OiP0QOL3nCHiuM8nyWy ksqgobV8iPma+ TVJOOjwvdGQ+BGDuWNX3o MzdFHgeZYNqcP0hNHDzP0 k2OvLoVuG2UXunP3FibfT 6IGJvbGQgMTBw gSWDkB5awkstq0yzgqeiO gAdSUWrODz1GWb9YMQspC ygWyPbCXE8OzX2KTB6nIW ycU7oqHwnvgjm rV5iImf+KIF7MGC8EZ14U U14A6AcPfixrHWfoPT+PH RhYmxlIHdpZHRoPScxMDA wTyOayFcdCK4b Ym9 (more content not included)... [facility] - Other Lab [facility] - Other Lab Results [id number] .00OTGTIFF [facility] - Other Lab Results [id number]#1 [facility] [id number]#1 [facility]-2024 Provider Orders [id number]#1 [facility] Intra[facility] Recor don 06-02-2024 Main OR Intraoperative Record Main OR Intraoperative Record IntraOp Document Type FTPM Summary Primary Physician: Néstor Maradiaga DO Finalized Date/Time: 06/02/24 14:49:00 Pt. Name: AARON BRENNAN/Sex: 1975 Female Med Rec #: [id number] Physician: Néstor Maradiaga DO Financial #: [id number] Pt. Type: P Room/Bed: / Admit/Disch: 06/02/24 13:50:25 - Institution: Case Times FTPM Entry 1 Patient Times In Room 06/02/24 14:43:00 Out Room 06/02/24 14:48:00 Procedure Times Start 06/02/24 14:46:00 Stop 06/02/24 14:47:00 Anesthesia Times Last Modified By: Vamsi Blackwell RN 06/02/24 14:48:52 Case Attendance FTPM Entry 1 Entry 2 Entry 3 Case Attendee Néstor Maradiaga DO RN, Vamsi Armstrong RN, Danielle Fitzgerald Role Performed Surgeon - Primary Factory Helper - Primary Scrub - Primary Time In 06/02/24 14:43:00 06/02/24 14:43:00 06/02/24 14:43:00 Time Out 06/02/24 14:48:00 06/02/24 14:48:00 06/02/24 14:48:00 Procedure CAUDAL EPIDURAL STEROID CAUDAL EPIDURAL STEROID CAUDAL EPIDURAL STEROID INJECTION(.) INJECTION(.) INJECTION(.) Comments Last Modified By: Rishi RODRIGUEZ, Vamsi Blackwell RN, Vamsi Castrejon RN 06/02/24 14:48:53 M 06/02/24 14:48:53 M 06/02/24 14:48:53 Entry 4 Case Attendee Zuleika Jacob (R) Role Performed Reliability Engineer Time In 06/02/24 14:43:00 Time Out 06/02/24 14:48:00 Procedure CAUDAL EPIDURAL STEROID INJECTION(.) Comments Last Modified By: Vamsi Blackwell RN 06/02/24 14:48:53 Perioperative Protocols FTPM Pre-Care Text: Implements protective measures prior to operative or invasive procedure, confirms identity before the operative or invasive procedure, verifies operative procedure, surgical site, and laterality Entry 1 Procedure(s) CAUDAL EPIDURAL STEROID Patient Identity Birthday, ID Band INJECTION(.) Verified (select at Check, Patient least 2): Participation Consents / H and P H&P, Surgery/Procedure Operative Site Present Verified Consent Marking Verified Surgical Site Yes Laterality Verified Yes Verified Procedure Verified Yes Correct Patient Yes Position Verified Availability Equipment, Medication, Prep Dry Yes Verified (If X-ray Applicable) PreOp Antibiotic No Time Out Néstor Maradiaga DO, Given Participants Zuleika Jacob Harvey RN (R), Nathaniel Barbosa RN, Danielle Fitzgerald Time Out Complete 06/02/24 14:43:00 Outcomes Met? Yes Last Modified By: Vamsi Blackwell RN 06/02/24 14:43:46 Post-Care Text: The patient is free from signs and symptoms of injury caused by extraneous objects Allergy Information FTPM Pre-Care Text: Verifies allergies Entry 1 Allergies Reviewed? Yes Allergies Reviewed Self/Patient With Outcomes Met? Yes Last Modified By: Vamsi Blackwell RN 06/02/24 14:44:38 Post-Care Text: The patient received appropriate medication(s) safely administered during the perioperative period Surgical Procedures FTPM Entry 1 Procedure Description Procedure CAUDAL EPIDURAL STEROID Modifiers . INJECTION Surgeon Description CAUDAL ELIZABETH W/FLUORO Primary Procedure Yes Primary Surgeon Néstor Maradiaga DO Start 06/02/24 14:46:00 Stop 06/02/24 14:47:00 Anesthesia Type None Surgical Service Pain Management Wound Class 1 - Clean Last Modified By: Vamsi Blackwell RN 06/02/24 14:48:56 General Case Data FTPM Pre-Care Text: Classifies surgical wound, implements aseptic technique, initiates traffic control Entry 1 Case Information OR Pain Proc Room Case Level Level 2 Wound Class 1 - Clean Specialty Pain Management Preop Diagnosis M96.1 Postop Same As Preop Yes Postop Diagnosis M96.1 Outcomes Met? Yes Last Modified By: Vamsi Blackwell RN 06/02/24 14:45:09 Post-Care Text: The patient is free from signs and symptoms of infection Skin Assessment (Pre Procedure) FTPM Pre-Care Text: Implements protective measures to prevent skin/ tissue injury due to thermal or mechanical sources Evaluates for signs and symptoms of physical injury to skin and tissue Entry 1 Skin Integrity Intact, [place], Warm, & Skin Abnormality No Dry Outcomes Met? Yes Last Modified By: Vamsi Blackwell RN 06/02/24 14:45:18 Post-Care Text: The patient is free from [...] Head Large, Safety Strap, Pillow Large Under Knee (more content not included)... Normal [facility] Main OR Preoperative Recordo n 06-02-2024 Main OR Preoperative Record Main OR Preoperative Record Holding Area Document Type FTPM Summary Primary Physician: Néstor Maradiaga DO Finalized Date/Time: 06/02/24 14:06:49 Pt. Name: AARON BRENNAN /Sex: 1975 Female Med Rec #: [id number] Physician: Néstor Maradiaga DO Financial #: [id number] Pt. Type: P Room/Bed: / Admit/Disch: 06/02/24 13:50:25 - Institution: Case Times Holding FTPM Pre-Care Text: Verifies consent for planned procedure, identifies individual values and wishes concerning care, includes family members in perioperative teaching Secures patient's records' belongings, and valuables, maintains patient's dignity and privacy, and maintains patient confidentiality Entry 1 In Holding 06/02/24 14:03:00 Outcomes Met? Yes Last Modified By: Sho Weaver RN 06/02/24 14:03:26 Post-Care Text: The patient participates in decisions affecting his or her perioperative plan of care The patient's right to privacy is maintained Surgery Checklist FTPM Entry 1 Patient Birthday, ID Band Procedure History and Physical, Identification: Check, Patient Verification: Surgical Consent, With Participation Patient NPO after Midnight: No Date/Time: 06/02/24 14:03:00 Results Reviewed 0900 three cups of Personal Items: Contact Lenses, Jewelry Comments: coffee Personal Items Pt. wearing one nose Complaints of Pain: Yes Comment: ring, three pairs of earrings, two necklaces, two rings, and SCS. Pain Comment: 8/10 lower back pain Operative Site Yes Marking: Marked By: Dr. Maradiaga Location: Caudal Availability Equipment, X-Ray Verified: Does Patient Smoke No Patient states Yes Comment - Adult -Sudeep postop adult Supervision supervision available Case Cancelled in No Holding Area see comments below for reason Last Modified By: Sho Weaver RN 06/02/24 14:06:45 Finalized By: Sho Weaver RN Document Signatures Signed By: Sho Weaver RN 06/02/24 14:06 Normal [facility] Operative Reporton Operative Report Operative Report Diagnosis: M96.1 Lumbar postlaminectomy pain syndrome Procedure: Caudal epidural steroid injection under fluoroscopic guidance Anesthesia: Local Complications: None After informed consent was obtained, the patient was brought back to the procedure room and placed in the prone position. Back areas prepped and draped in the usual sterile fashion using fluoroscopic guidance, the skin and subcutaneous tissues overlying the needle trajectory over the sacral hiatus was anesthetized with 2% lidocaine. The 22-gauge Quincke needle was then introduced in the lower aspect of the sacral hiatus. Injection of contrast under fluoroscopy revealed appropriate epidural spread in both the lateral and AP views without vascular uptake. Negative aspiration for blood. Thereafter, 9 mL of normal saline with 40 mg of methylprednisolone was injected into the epidural space the needle was then removed. The patient tolerated procedure well. Patient was then transferred to the recovery room in stable condition. Follow-up: The patient will update us on the response to this procedure, and agrees to continue currently prescribed/recommende d therapies. Normal [facility] Comment on above: Result Comment: Elec tronically Signed By: Néstor Maradiaga DO\.br\Date and Time Signed: 06/02/24 14:49 EST MR lumbar spine wo/w conon 0 11-04-2022 MR lumbar spine wo/w con [facility] [place] [address] MRI Report Signed Patient: Aaron Brennan MR#: [id number] 78 : 1975 Acct:[id number] Age/Sex: 47 / F ADM Date: 11/03/22 Loc: Room: Type: [facility] Attending Dr: Joanie Mujica MD Copies to: [...] Megan Robles M.D.11/04/2022 1:51 PM Dictation Location: RADIO-PC-02 Transcribed By: DOUGLAS 11/04/22 1351 Dictated By: Megan Robles MD 11/04/22 1200 Signed By: 11/04/22 1351 Normal [facility] Chlamydia trachomatis DNA [P resence] in Specimen by ROSALVA with probe detectionOrdered By: Aspen Mast on 10-19-2022 C. trachomatis DNA ROSALVA+probe Ql (Unsp spec) Negative Negative [facility] Chlamydia/GC/Trich NAAon Chlamydia Trachomotis, ROSALVA Negative Normal Negative [facility] Comment on above: Order Comment: Reaso n for Exam High risk sexual behavior Performed By: #### G CCHLAMTRI #### [facility] , Neisseria Gonorrhoeae, ROSALVA Negative Normal Negative [facility] Comment on above: Order Comment: Reaso n for Exam High risk sexual behavior Performed By: #### G CCHLAMTRI #### [facility] , Trichomonas ROSALVA Negative Normal Negative [facility] Comment on above: Order Comment: Reaso n for Exam High risk sexual behavior Result Comment: Perf ormed at: =[employer] - [facility] [address] [id number] Export Specialist: Stephenie Xiong MD, Phone: [phone] PERFORMED BY: [address] [address] PATHOLOGIST AIR POLLUTION SPECIALIST ARUN FOSTER M.D. Performed By: #### G CCHLAMTRI #### [facility] , Chlamydia/GC/Trich ROSALVA Negative Negative No [facility] [employer] Other Neisseria gonorrhoeae DNA [P resence] in Specimen by ROSALVA with probe detectionOrdered By: Aspen Mast on 10-19-2022 N. gonorrhoeae DNA ROSALVA+probe Ql (Unsp spec) Negative Negative [facility] Trichomonas vaginalis DNA [P resence] in Specimen by ROSALVA with probe detectionOrdered By: Aspen Mast on 10-19-2022 T. vaginalis DNA ROSALVA+probe Ql (Unsp spec) Negative Negative [facility] Comment on above: Performed at: =G - [facility] [address] [place], [place] [id number] Director: Stephenie Xiong MD, Phone: [phone] Urinalysis - AUTOMATEDon Appearance (U) clear [employer] Other Bilirubin Ql (U) Negative [place] [facility] Other Color (U) yellow [employer] Other Glucose Ql (U) Negative [employer] Other Hemoglobin Ql (U) Negative [place] [employer] Other Ketones Ql (U) Negative [employer] Other Leukocyte esterase Test strip Ql (U) Negative [employer] Other Nitrite Ql (U) Negative [employer] Other pH (U) 6.0 [pH] [employer] Other Protein Ql (U) Negative [employer] Other Specific gravity (U) [Rel density] 1.030 [employer] Other Urobilinogen (U) [Mass/Vol] 0.2 mg/dL [employer] Other Urinalysis - AUTOMATED No rt New [employer] Other XR lumbar spine 6V w bending on 06-04-2022 XR lumbar spine 6V w bending [facility] Main [place] [address] [place] [address] XRay Report Signed Patient: Aaron Brennan MR#: [id number] 78 : 1975 Acct:[id number] Age/Sex: 46 / F ADM Date: 06/04/22 Loc: XD Room: Type: [facility] Attending Dr: Joanie Mujica MD Copies [...] BONY PROCESS. Impression dictated by: Guille Meadows Jr. D.O.06/04/2022 4:21 PM Dictation Location: [place] [address] Transcribed By: [facility] 06/04/22 162 Dictated By: Guille Meadows Jr, DO 06/04/22 162 Signed By: 06/04/22 162 [facility] XR lumbar spine AP/LAT/FLX/E XTon 05-28-2022 XR lumbar spine AP/LAT/FLX/EXT [facility] [place] [address] XRay Report Signed Patient: Aaron Brennan MR#: [id number] 78 : 1975 Acct:[id number] Age/Sex: 46 / F ADM Date: 05/28/22 Loc: XD Room: Type: [facility] Attending Dr: Joanie Mujica MD Copies [...] Meadows Jr., D.O.05/28/2022 12:29 PM Dictation Location: [place] [address] Transcribed By: [facility] 05/28/221228 Dictated By: Guille Meadows Jr, DO 05/28/221226 Signed By: 05/28/221228 Normal [facility] HCG ( test) IAmyrna d Ql (U)Ordered By: Campbell Shelton on 05-17-2022 HCG ( test) Ql (U) Negative [facility] HCG,Urineon 05-17-2022 Beta HCG ( test) Ql (U) Negative [facility] Comment on above: Result Comment: PERF ORMED BY: [facility] [address] [place] [id number] PATHOLOGIST AIR POLLUTION SPECIALIST ARUN FOSTER M.D. Performed By: #### U HCG ####[facility] [place] [address] [facility] COVID-19 Antigenon 2 COVID-19 Antigen Healthcare Worker?: [...] developed and its performance characteristic determined by [employer] and validated at [facility]. This test has not been FDA cleared [...] for SARS Antigen by SANTANA PERFORMED BY: [place] [address] PATHOLOGIST AIR POLLUTION SPECIALIST ARUN FOSTER M.D. Normal [facility] Comment on above: Performed By: #### C OVID-19 SATHISH, SOFIANEG #### [facility] [address] [place] [address] COVID-19 SOFIAOrdered By: Yasmine Shelton on 05-15-2022 SARS-CoV+SARS-CoV-2 (COVID-19) Ag IA.rapid Ql (Resp) Negative Negative [facility] Comment on above: This is a duplicate Sathish SARS Antigen (SANTANA) result to be used for statistical tracking purpose only. No Panel InformationOrdered By: Campbell Shelton on 05-15-2022 SARS Antigen (LFIA) [facility] Sathish Ag Negativeon 05-15-20 22 Sathish Ag Negative Negative Normal Negative [facility] Comment on above: Result Comment: This is a duplicate Sathish SARS Antigen (SANTANA) result to be used for statistical tracking purpose only. PERFORMED BY: [address] [address] PATHOLOGIST AIR POLLUTION SPECIALIST ARUN FOSTER M.D. Performed By: #### C OVID-19 SATHISH, SOFIANEG #### [facility] [address] [place] [address] XR lumbar spine 2-3V*on XR lumbar spine 2-3V* [facility] Main [place] [address] [place] [address] XRay Report Signed Patient: Aaron Brennan MR#: [id number] 78 : 1975 Acct:[id number] Age/Sex: 46 / F ADM Date: 02/08/22 Loc: XD Room: Type: REG CLI Attending [...] complication. Impression dictated by: Guille Meadows Jr., D.O.02/08/2022 1:05 PM Dictation Location: [place] [address] Transcribed By: [facility] 02/08/22 1305 Dictated By: Guille Meadows Jr, DO 02/08/22 1300 Signed By: 02/08/22 1305 Normal [facility] XR lumbar spine 2-3V*on 12-06 XR lumbar spine 2-3V* [facility] [place] [address] [place] [address] XRay Report Signed Patient: Aaron Brennan MR#: [id number] 78 : 1975 Acct:[id number] Age/Sex: 46 / F ADM Date: 12/19/21 Loc: XD Room: Type: REG CLI Attending [...] Meadows Jr., D.O.12/19/2021 3:55 PM Dictation Location: RADIO--11 Transcribed By: [facility] 12/19/21 1555 Dictated By: Guille Meadows Jr, DO 12/19/21 155 Signed By: 12/19/21 155 Normal [facility] XR lumbar spine 2-3V*on 11-06 XR lumbar spine 2-3V* [facility] Main [place] [address] [place] [address] XRay Report Signed Patient: Aaron Brennan MR#: [id number] 78 : 1975 Acct:[id number] Age/Sex: 46 / F ADM Date: 11/27/21 Loc: PR Room: Type: [facility] Attending Dr: Joanie Mujica MD Ordering Provider: [...] Meadows Jr., D.O.11/30/2021 11:40 AM Dictation Location: [facility]-08 Transcribed By: [facility] 11/30/21 1140 Dictated By: Guille Meadows Jr, DO 11/30/21 1139 Signed By: 11/30/21 1140 [facility] ABO/Rh Retypeon 11-27-2021 ABO/RH Recheck Result Positive Normal [facility] Comment on above: Result Comment: PERF ORMED BY: [address] [address] PATHOLOGIST AIR POLLUTION SPECIALIST ARUN FOSTER M.D. HCG,Urineon 11-27-2021 Beta HCG ( test) Ql (U) Negative Normal [facility] Comment on above: Result Comment: PERF ORMED BY: [address] [place] [id number] PATHOLOGIST AIR POLLUTION SPECIALIST ARUN FOSTER M.D. Performed By: #### U HCG #### [place] [id number] [place] 11-27-2021 L - -------- Specimen: [id number] Received: 11/27/21 Status: ANANDA Hardwick Num: [id number] Spec Type: Surgical Subm Dr: Joanie Mujica MD Tissues: A Disc - Intervertebral/Lumbar /Cervical (LUMBAR) Procedures: HE Stain, Gross/Micro L3 -------- Patient Age/Sex Location Account Attending Physician -------- Aaron Brennan/F 4N [id number] Joanie Muijca MD -------- SPEC NUM: [id number] RECD: 11/27/21 STATUS: ANANDA HARDWICK NUM: [id number] RICARDO: 11/27/21 DR: Joanie Mujica MD ENTERED: 11/27/[address] [facility] [address]: LISA TYPE: Surgical DEPT: S ORDERED: [...] of carey-red, rubbery and ragged fibrous tissue. Table Cover Folder sections are submitted in one cassette labeled A1. Type of Fixative: 10% Neutral Buffered Formalin (SM/YJ) Microscopic Description One glass slide with H E stained material has been examined. The microscopic findings support the above pathologic diagnosis. CPT Codes 83463 -------- -------- Specimen: [id number] Received: 11/27/21 Status: ANANDA Hardwick Num: [id number] Spec Type: Surgical Subm Dr: Joanie Mujica MD Tissues: A Disc - Intervertebral/Lumbar /Cervical (LUMBAR) Procedures: HE Stain, Gross/Micro L3 -------- Patient: Aaron Brennan [id number] (Continued) -------- Signed (signature on file) Kristopher Mohan MD 11/28/211922 Normal [facility] SARS-CoV-2 (COVID-19) RNA ROSALVA+probe Ql (Unsp spec) Negative Normal Negative [facility] Comment on above: Order Comment: Healt hcare Worker?: N Result Comment: Testing for SARS-CoV-2 by RT-PCR This test was developed and its performance characteristics determined by [employer] and validated at the [facility]. This test has not been FDA cleared [...] is terminated or revoked sooner. PERFORMED BY: [place] [id number] PATHOLOGIST AIR POLLUTION SPECIALIST ARUN FOSTER M.D. Performed By: #### C OVID 19 [facility] #### [place] [id number] [facility] Vital Signs Date Time Vital Sign Value Performing Clinician Facility 11-05-2024 11:24-0400 Body mass index (BMI) [Ratio] 32.35 kg/m2 Vamsi Cheri [employer] Work Phone: [facility] 11-05-2024 11:24-0400 Body [facility] 77.66 kg [facility] [employer] Work Phone: [facility] 11-05-2024 11:24-0400 Diastolic blood pressure 84 mm[Hg] [facility] [employer] Work Phone: [facility] 11-05-2024 11:24-0400 Heart rate 103 /min [facility] Cheri [employer] Work Phone: [facility] 11-05-2024 11:24-0400 SaO2% (BldA) [Mass fraction] 97 % [facility] Cheri [employer] Work Phone: [facility] 11-05-2024 11:24-0400 Systolic blood pressure 126 mm[Hg] [facility] Cheri [employer] Work Phone: [facility] 10-28-2024 10:16-0400 Body height 154.9 cm Carmelo Oconnor MD Work Phone: [facility] 10-28-2024 10:16-0400 Body mass index (BMI) [Ratio] 32.88 kg/m2 Carmelo Oconnor MD Work Phone: [facility] 10-28-2024 10:16-0400 Body weight 78.93 kg Carmelo Oconnor MD [facility] 10-28-2024 10:16-0400 Diastolic blood pressure 92 mm[Hg] Carmelo Oconnor MD Work Phone: [facility] 10-28-2024 10:16-0400 Heart rate 80 /min Carmelo Oconnor MD Work Phone: [facility] 10-28-2024 10:16-0400 Systolic blood pressure 148 mm[Hg] [facility]nor [facility] 10-02-2024 09:52-0400 Body height 154.9 cm Carmelo Oconnor MD Work Phone: [facility] 10-02-2024 09:52-0400 Body mass index (BMI) [Ratio] 32.63 kg/m2 Carmelo Oconnor MD Work Phone: [facility] 10-02-2024 09:52-0400 Body weight 78.34 kg Carmelo Oconnor MD Work Phone[facility] 10-02-2024 09:52-0400 Diastolic blood pressure 94 mm[Hg] Carmelo Oconnor MD Work Phone: [facility] 10-02-2024 09:52-0400 Heart rate 65 /min Carmelo Oconnor MD Work Phone: [facility] 10-02-2024 09:52-0400 SaO2% (BldA) [Mass fraction] 95 % Carmelo Oconnor MD [facility] 10-02-2024 09:52-0400 Systolic blood pressure 142 mm[Hg] Carmelo Oconnor MD Work Phone: [facility] [employer] [facility] 07-30-2024 08:31-0500 Body height 154.9 cm Wayne Addison DPM Work Phone: [facility] 07-30-2024 08:31-0500 Body mass index (BMI) [Ratio] 34.96 kg/m2 Wayne Brown DPM Work Phone: [facility] 07-30-2024 08:31-0500 Body weight 83.92 kg Wayne Brown DPM Work Phone: [facility] 07-30-2024 08:31-0500 Respiratory rate 18 /min Awyne Brown DPM Work Phone: [facility] 07-23-2024 08:29-0500 Body height 154.9 cm Wayne Brown DPM Work Phone: [facility] 07-23-2024 08:29-0500 Body mass index (BMI) [Ratio] 34.96 kg/m2 Wayne Brown DPM Work Phone: [facility] 07-23-2024 08:29-0500 Body weight 83.92 kg Wayne Brown DPM Work Phone: [facility] 07-23-2024 08:29-0500 Respiratory rate 18 /min Wayne Brown DPM Work Phone: [facility] 07-09-2024 08:35-0500 Body height 154.9 cm Wayne Brown DPM Work Phone: [facility] 07-09-2024 08:35-0500 Body mass index (BMI) [Ratio] 34.96 kg/m2 Wayne Brown DPM Work Phone: [facility] 07-09-2024 08:35-0500 Body weight 83.92 kg Wayne Brown DPM Work Phone: [facility] 07-09-2024 08:35-0500 Respiratory rate 16 /min Wayne Brown DPM Work Phone: [facility] 06-25-2024 08:42-0500 Body height 154.9 cm Wayne Brown DPM Work Phone: [facility] 06-25-2024 08:42-0500 Body mass index (BMI) [Ratio] 34.96 kg/m2 Wayne Addison DPM Work Phone: [facility] 06-25-2024 08:42-0500 Body weight 83.92 kg Wayne Addison DPM Work Phone: [facility] 06-25-2024 08:42-0500 Respiratory rate 18 /min Wayne Addison DPM Work Phone: [facility] 06-02-2024 14:52-0500 Heart rate 56 /min Néstor Hiren [facility] 06-02-2024 14:52-0500 SaO2% (BldA) [Mass fraction] 95 % Néstor Maradiaga [facility] 06-02-2024 14:52-0500 Diastolic blood pressure 68 mm[Hg] Néstor Maradiaga [facility] 06-02-2024 14:52-0500 Mean blood pressure 95 mm[Hg] Néstor Maradiaga [facility] 06-02-2024 14:52-0500 Systolic blood pressure 151 mm[Hg] Néstor Maradiaga [facility] 06-02-2024 14:51-0500 Respiratory rate 16 /min Néstor Maradiaga [facility] 06-02-2024 14:46-0500 Diastolic blood pressure 91 mm[Hg] Néstor Maradiaga [facility] 06-02-2024 14:46-0500 Heart rate 55 /min Néstor Maradiaga [facility] 06-02-2024 14:46-0500 Respiratory rate 16 /min Néstro Maradiaga [facility] 06-02-2024 14:46-0500 SaO2% (BldA) [Mass fraction] 98 % Néstor Maradiaga [facility] 06-02-2024 14:46-0500 Systolic blood pressure 152 mm[Hg] Néstor Maradiaga [facility] 06-02-2024 14:06-0500 Heart rate 67 /min Néstor Maradaiga [facility] 06-02-2024 14:06-0500 SaO2% (BldA) [Mass fraction] 96 % Néstor Maradiaga [facility] 06-02-2024 14:06-0500 Diastolic blood pressure 92 mm[Hg] Néstor Maradiaga [facility] 06-02-2024 14:06-0500 Mean blood pressure 111 mm[Hg] Néstor Maradiaga [facility] 06-02-2024 14:06-0500 Systolic blood pressure 150 mm[Hg] Néstor Maradiaga [facility] 06-02-2024 14:04-0500 Body temperature 98.24 [degF] Néstor Maradiaga [facility] 06-02-2024 14:03-0500 Respiratory rate 14 /min Néstor Maradiaga [facility] 05-13-2024 11:31-0500 Diastolic blood pressure 96 mm[Hg] Néstor Maradiaga [facility] 05-13-2024 11:31-0500 Heart rate 66 /min Néstor Maradiaga [facility] 05-13-2024 11:31-0500 Mean blood pressure 112 mm[Hg] Néstor Maradiaga [facility] 05-13-2024 11:31-0500 Respiratory rate 14 /min Néstor Maradiaga [facility] 05-13-2024 11:31-0500 Systolic blood pressure 143 mm[Hg] Néstor Maradiaga [facility] 12-04-2023 10:55-0400 Body height 154.94 cm [facility] 12-04-2023 10:55-0400 Body mass index (BMI) [Ratio] 32.1 kg/m2 [facility] 12-04-2023 10:55-0400 Body temperature 98.8 [degF] [facility] 12-04-2023 10:55-0400 Body weight 77.11 kg [facility] 12-04-2023 10:55-0400 Diastolic blood pressure 89 mm[Hg] [facility] 12-04-2023 10:55-0400 Heart rate 88 /min [facility] 12-04-2023 10:55-0400 Respiratory rate 18 /min [facility] 12-04-2023 10:55-0400 SaO2% (BldA) [Mass fraction] 95 % [facility] 12-04-2023 10:55-0400 Systolic blood pressure 131 mm[Hg] [facility] 10-03-2023 09:45-0400 Body height 154.9 cm Mayito Plascencia MD Work Phone: [facility] 10-03-2023 09:45-0400 Body mass index (BMI) [Ratio] 33.63 kg/m2 Mayito Plascencia MD Work Phone: [facility] 10-03-2023 09:45-0400 Body weight 80.74 kg Mayito Plascencia MD Work Phone: [facility] 10-03-2023 09:45-0400 Diastolic blood pressure 88 mm[Hg] Mayito Plascencia MD Work Phone: [facility] 10-03-2023 09:45-0400 Heart rate 65 /min Mayito Plascencia MD Work Phone: [facility] 10-03-2023 09:45-0400 SaO2% (BldA) [Mass fraction] 98 % Mayito Plascencia MD Work Phone: [facility] 10-03-2023 09:45-0400 Systolic blood pressure 134 mm[Hg] Mayito Plascencia MD Work Phone: [facility] 08-28-2023 10:31-0500 Heart rate 61 /min Néstor Maradiaga [facility] 08-28-2023 10:31-0500 SaO2% (BldA) [Mass fraction] 96 % Néstor Maradiaga [facility] 08-28-2023 10:31-0500 Diastolic blood pressure 99 mm[Hg] Néstor Maradiaga [facility] 08-28-2023 10:31-0500 Mean blood pressure 121 mm[Hg] Néstor Maradiaga [facility] 08-28-2023 10:31-0500 Respiratory rate 16 /min Palm Hiren [facility] 08-28-2023 10:31-0500 Systolic blood pressure 165 mm[Hg] Palm Hiren [facility] 08-28-2023 10:24-0500 Diastolic blood pressure 101 mm[Hg] Palm Hiren [facility] 08-28-2023 10:24-0500 Heart rate 73 /min Palm Hiren [facility] 08-28-2023 10:24-0500 Respiratory rate 16 /min Palm Hiren [facility] 08-28-2023 10:24-0500 SaO2% (BldA) [Mass fraction] 100 % Néstor Hiren [facility] 08-28-2023 10:24-0500 Systolic blood pressure 162 mm[Hg] Néstor Maradiaga [facility] 08-28-2023 09:00-0500 Heart rate 71 /min Néstor Hiren [facility] 08-28-2023 09:00-0500 SaO2% (BldA) [Mass fraction] 95 % Néstor Maradiaga [facility] 08-28-2023 09:00-0500 Body temperature 97.88 [degF] Néstor Maradiaga [facility] 08-28-2023 09:00-0500 Diastolic blood pressure 90 mm[Hg] Néstor Maradiaga [facility] 08-28-2023 09:00-0500 Mean blood pressure 109 mm[Hg] Néstor Maradiaga [facility] 08-28-2023 09:00-0500 Systolic blood pressure 147 mm[Hg] Néstor Maradiaga [facility] 08-28-2023 08:58-0500 Respiratory rate 16 /min Néstor Maradiaga [facility] 07-15-2023 10:32-0500 Diastolic blood pressure 77 mm[Hg] Ruba Frias [facility] 07-15-2023 10:32-0500 Heart rate 51 /min Rubary Frias [facility] 07-15-2023 10:32-0500 Mean blood pressure 96 mm[Hg] Ruba Frias [facility] 07-15-2023 10:32-0500 Respiratory rate 18 /min Rubary Frias [facility] 07-15-2023 10:32-0500 Systolic blood pressure 133 mm[Hg] Ruba Frias [facility] 06-18-2023 09:25-0500 Diastolic blood pressure 92 mm[Hg] Abel Ruggiero [facility] 06-18-2023 09:25-0500 Heart rate 51 /min Abel Monik [facility] 06-18-2023 09:25-0500 Mean blood pressure 107 mm[Hg] Abel Monik [facility] 06-18-2023 09:25-0500 Systolic blood pressure 136 mm[Hg] Abel Monik [facility] 05-21-2023 10:27-0500 Heart rate 53 /min Abel Monik [facility] 05-21-2023 10:27-0500 SaO2% (BldA) [Mass fraction] 95 % Abel Monik [facility] 05-21-2023 10:27-0500 Body temperature 97.34 [degF] Abel Monik [facility] 05-21-2023 10:27-0500 Respiratory rate 16 /min Abel Monik [facility] 05-21-2023 10:24-0500 Diastolic blood pressure 84 mm[Hg] Abel Monik [facility] 05-21-2023 10:24-0500 Mean blood pressure 105 mm[Hg] Abel Monik [facility] 05-21-2023 10:24-0500 Systolic blood pressure 146 mm[Hg] Abel Monik [facility] 05-21-2023 10:16-0500 Heart rate 57 /min Abel Monik [facility] 05-21-2023 10:16-0500 SaO2% (BldA) [Mass fraction] 98 % Abel Monik [facility] 05-21-2023 10:16-0500 Diastolic blood pressure 74 mm[Hg] Abel Monik [facility] 05-21-2023 10:16-0500 Mean blood pressure 93 mm[Hg] Abel Monik [facility] 11-14-2023 10:16-0500 Systolic blood pressure 131 mm[Hg] Abel Monik [facility] 05-21-2023 10:16-0500 Respiratory rate 12 /min Abel Monik [facility] 05-21-2023 07:14-0500 Heart rate 58 /min Abel Monik [facility] 05-21-2023 07:14-0500 SaO2% (BldA) [Mass fraction] 95 % Abel Monik [facility] 05-21-2023 07:14-0500 Diastolic blood pressure 69 mm[Hg] Abel Monik [facility] 05-21-2023 07:14-0500 Mean blood pressure 92 mm[Hg] Abel Monik [facility] 05-21-2023 07:14-0500 Systolic blood pressure 139 mm[Hg] Abel Monik [facility] 05-21-2023 07:13-0500 Body temperature 97.52 [degF] Abel Monik [facility] 05-21-2023 07:12-0500 Respiratory rate 14 /min Abel Monik [facility] 05-14-2023 13:16-0500 Diastolic blood pressure 81 mm[Hg] Abel Monik [facility] 05-14-2023 13:16-0500 Heart rate 53 /min Abel Monik [facility] 05-14-2023 13:16-0500 Mean blood pressure 101 mm[Hg] Abel Monik [facility] 05-14-2023 13:16-0500 Respiratory rate 16 /min Abel Monik [facility] 05-14-2023 13:16-0500 Systolic blood pressure 142 mm[Hg] Abel Monik [facility] 04-02-2023 14:43-0400 Diastolic blood pressure 97 mm[Hg] Abel Monik [facility] 04-02-2023 14:43-0400 Heart rate 91 /min Abel Monik [facility] 04-02-2023 14:43-0400 Mean blood pressure 128 mm[Hg] Abel Monik [facility] 04-02-2023 14:43-0400 Respiratory rate 14 /min Abel Monik [facility] 04-02-2023 14:43-0400 Systolic blood pressure 189 mm[Hg] Abel Monik [facility] 03-26-2023 08:11-0400 Heart rate 76 /min Abel Monik [facility] 03-26-2023 08:11-0400 SaO2% (BldA) [Mass fraction] 100 % Abel Monik [facility] 03-26-2023 08:11-0400 Respiratory rate 16 /min Abel Monik [facility] 03-26-2023 08:10-0400 Diastolic blood pressure 70 mm[Hg] Abel Monik [facility] 03-26-2023 08:10-0400 Mean blood pressure 84 mm[Hg] Abel Monik [facility] 03-26-2023 08:10-0400 Systolic blood pressure 111 mm[Hg] Abel Monik [facility] 03-26-2023 08:04-0400 Heart rate 76 /min Abel Monik [facility] 03-26-2023 08:04-0400 SaO2% (BldA) [Mass fraction] 98 % Abel Monik [facility] 03-26-2023 08:04-0400 Body temperature 97.52 [degF] Abel Monik [facility] 03-26-2023 08:03-0400 Diastolic blood pressure 65 mm[Hg] Abel Monik [facility] 03-26-2023 08:03-0400 Mean blood pressure 80 mm[Hg] Abel Monik [facility] 03-26-2023 08:03-0400 Systolic blood pressure 108 mm[Hg] Abel Monik [facility] 03-26-2023 08:03-0400 Respiratory rate 16 /min Abel Monik [facility] 03-26-2023 07:57-0400 Diastolic blood pressure 74 mm[Hg] Abel Monik [facility] 03-26-2023 07:57-0400 Systolic blood pressure 128 mm[Hg] Abel Monik [facility] 03-26-2023 07:55-0400 Heart rate 91 /min Abel Monik [facility] 03-26-2023 07:55-0400 SaO2% (BldA) [Mass fraction] 100 % Abel Monik [facility] 03-26-2023 06:55-0400 Body temperature 97.34 [degF] Abel Monik [facility] 03-26-2023 06:55-0400 Mean blood pressure 98 mm[Hg] Abel Monik [facility] 03-20-2023 09:44-0400 Diastolic blood pressure 86 mm[Hg] Abel Monik [facility] 03-20-2023 09:44-0400 Heart rate 80 /min Abel Monik [facility] 03-20-2023 09:44-0400 Respiratory rate 14 /min Abel Monik [facility] 03-20-2023 09:44-0400 Systolic blood pressure 128 mm[Hg] Abel Monik [facility] 01-21-2023 08:03-0400 Heart rate 61 /min Abel Monik [facility] 01-21-2023 08:03-0400 SaO2% (BldA) [Mass fraction] 98 % Abel Monik [facility] 01-21-2023 08:03-0400 Diastolic blood pressure 83 mm[Hg] Abel Monik [facility] 01-21-2023 08:03-0400 Mean blood pressure 103 mm[Hg] Abel Monik [facility] 01-21-2023 08:03-0400 Systolic blood pressure 143 mm[Hg] Abel Monik [facility] 01-21-2023 07:59-0400 Diastolic blood pressure 93 mm[Hg] Abel Monik [facility] 01-21-2023 07:59-0400 Heart rate 74 /min Abel Monik [facility] 01-21-2023 07:59-0400 Respiratory rate 14 /min Abel Monik [facility] 01-21-2023 07:59-0400 SaO2% (BldA) [Mass fraction] 95 % Abel Monik [facility] 01-21-2023 07:59-0400 Systolic blood pressure 153 mm[Hg] Abel Monik [facility] 01-21-2023 07:29-0400 Heart rate 63 /min Abelthom Ruggiero [facility] 01-21-2023 07:29-0400 SaO2% (BldA) [Mass fraction] 96 % Abel Monik [facility] 01-21-2023 07:28-0400 Diastolic blood pressure 92 mm[Hg] Abel Ruggiero [facility] 01-21-2023 07:28-0400 Mean blood pressure 108 mm[Hg] Abel Ruggiero [facility] 01-21-2023 07:28-0400 Systolic blood pressure 141 mm[Hg] Abel Monik [facility] 01-21-2023 07:28-0400 Body temperature 98.06 [degF] Abel Ruggiero [facility] 01-21-2023 07:27-0400 Respiratory rate 14 /min Abel Ruggiero [facility] 10-26-2022 09:40-0400 Body height 154.94 cm Joanie Mujica Other [facility] Other 10-26-2022 09:40-0400 Body mass index (BMI) [Ratio] 32.5 kg/m2 Joanie Mujica Other [facility] Other 04-21-2023 09:40-0400 Body weight 78.02 kg Joanie Sil Other [facility] Other 10-26-2022 09:40-0400 Diastolic blood pressure 60 mm[Hg] Joanie Mujica Other [facility] Other 10-26-2022 09:40-0400 Systolic blood pressure 122 mm[Hg] Joanie Mujica Other [facility] Other 10-19-2022 17:30-0400 Body height 154.94 cm Aspen Kezia Other [facility] Other 10-19-2022 17:30-0400 Body mass index (BMI) [Ratio] 32.5 kg/m2 Aspen Kezia Other [facility] Other 10-19-2022 17:30-0400 Body temperature 100.1 [degF] Aspen Kezia Other [facility] Other 10-19-2022 17:30-0400 Body weight 78.02 kg Aspen Kezia Other [facility] Other 10-19-2022 17:30-0400 Diastolic blood pressure 95 mm[Hg] Aspen Kezia Other [facility] Other 10-19-2022 17:30-0400 Respiratory rate 18 /min Aspen Kezia Other [facility] Other 10-19-2022 17:30-0400 SaO2% (BldA) [Mass fraction] 97 % Aspen Kezia Other [facility] Other 10-19-2022 17:30-0400 Systolic blood pressure 164 mm[Hg] Aspen Mast Other [facility] Other 2022 10:00-0500 Body height 154.94 cm Joanie Mujica Other [facility] Other 2022 10:00-0500 Body mass index (BMI) [Ratio] 30.98 kg/m2 Joanie Mujica Other [facility] Other 2022 10:00-0500 Body weight 74.39 kg Joanie Mujica Other [facility] Other 2022 10:00-0500 Respiratory rate 18 /min Joanie Mujica Other [facility] Other 05-17-2022 09:25-0500 Diastolic blood pressure 76 mm[Hg] DO Sarwat Pang Work Phone: [facility] 05-17-2022 09:25-0500 Heart rate 51 /min DO Sarwat Pang Work Phone: [facility] 05-17-2022 09:25-0500 Respiratory rate 16 /min DO Sarwat Pang Work Phone: [facility] 05-17-2022 09:25-0500 SaO2% (BldA) [Mass fraction] 96 % DO Sarwat Pang Work Phone: [facility] 05-17-2022 09:25-0500 Systolic blood pressure 117 mm[Hg] DO Sarwat Pang Work Phone: [facility] 05-17-2022 06:58-0500 Body height 154.94 cm DO Sarwat Pang Work Phone: [facility] 05-17-2022 06:58-0500 Body temperature 97.7 [degF] DO Sarwat Pang Work Phone: [facility] 05-17-2022 06:58-0500 Body weight 78.01 kg DO Sarwat Pang Work Phone: [facility] 02-08-2022 12:20-0400 Body height 154.94 cm Joanie Mujica Other [facility] Other 02-08-2022 12:20-0400 Body mass index (BMI) [Ratio] 30.98 kg/m2 Joanie Mujica Other [facility] Other 02-08-2022 12:20-0400 Body weight 74.39 kg Joanie Mujica Other [facility] Other 12-19-2021 12:00-0400 Body height 154.94 cm Joanie Mujica Other [facility] Other 12-19-2021 12:00-0400 Body mass index (BMI) [Ratio] 30.98 kg/m2 Joanie Mujica Other [facility] Other 12-19-2021 12:00-0400 Body weight 74.39 kg Joanie Mujica Other [facility] Other 09-21-2021 14:20-0400 Body height 154.94 cm Joanie Mujica Other [facility] Other 09-21-2021 14:20-0400 Body mass index (BMI) [Ratio] 30.61 kg/m2 Joanie Mujica Other [facility] Other 09-21-2021 14:20-0400 Body weight 73.48 kg Joanie Mujica Other [facility] Other 08-29-2021 10:05-0500 Body height 154.94 cm Aspen Mast Other [facility] Other 08-29-2021 10:05-0500 Body mass index (BMI) [Ratio] 30.61 kg/m2 Aspen Mast Other [facility] Other 08-29-2021 10:05-0500 Body temperature 98.4 [degF] Aspen Mast Other [facility] Other 08-29-2021 10:05-0500 Body weight 73.48 kg Aspen Mast Other [facility] Other 08-29-2021 10:05-0500 SaO2% (BldA) [Mass fraction] 98 % Aspen Mast Other [facility] Other Encounters Encounter Date Encounter Type Care Provider Facility Start: 02-24-2025 End: 02-24-2025 Telephone encounter Petra Krishnamurthy CMA [facility] Start: 02-20-2025 End: 02-25-2025 Refill Carmelo Oconnor MD Work Phone: [facility] Comment on above: Med Refill Start: 02-10-2025 End: 02-10-2025 ambulatory PHYSICIAN [facility] Work Phone: Start: 02-10-2025 End: 02-10-2025 Patient encounter procedure Vamsi Nuñez [facility] Work Phone: Start: 02-01-2025 End: 02-01-2025 ambulatory Néstor Maradiaga Facility:[facility] Start: 01-15-2025 End: 01-15-2025 ambulatory Néstor Maradiaga Facility:[facility] Start: 01-13-2025 End: 01-13-2025 [facility] Start: 11-05-2024 End: 11-05-2024 Bamboo flowsheet Vamsi Alonzo DO Work Phone: [facility] Start: 11-05-2024 End: 11-05-2024 Bamboo flowsheet Vamsi Alonzo DO Work Phone: [facility] Start: 11-05-2024 End: 11-05-2024 Office outpatient new 45 minutes Koletree Cheri DO Work Phone: [facility] Comment on above: Paresthesia (Primary Dx); Degeneration of intervertebral disc of lumbar region with discogenic back pain and lower extremity pain; Myalgia; Weakness; Polyneuropathy Start: 11-05-2024 End: 11-05-2024 ambulatory VAMSI ALONZO Not Available Start: 10-28-2024 End: 10-28-2024 Office outpatient visit 15 minutes Carmelo Oconnor MD Work Phone: [facility] Comment on above: Primary hypertension (Primary Dx) Start: 10-28-2024 End: 10-28-2024 ambulatory [facility] Start: 10-22-2024 End: 10-22-2024 Telephone encounter Mari Gramajo RN [facility] Comment on above: Results Start: 10-19-2024 End: 10-19-2024 ambulatory [facility] Start: 10-02-2024 End: 10-02-2024 ambulatory [facility] Facility:[facility] Start: 10-02-2024 End: 10-02-2024 Office outpatient visit 15 minutes Carmelo Oconnor MD Work Phone: [facility] Comment on above: Primary hypertension (Primary Dx) Start: 10-02-2024 End: 10-02-2024 ambulatory [facility] Start: 10-01-2024 End: 10-01-2024 Telephone encounter Petra Krishnamurthy CMA [facility] Start: 08-12-2024 End: 08-12-2024 Telephone encounter Marya Roque CMA [facility] Start: 08-12-2024 End: 09-03-[address] [facility] Facility:[facility] Start: 07-30-2024 End: 07-30-2024 Bamboo flowsheet Wayne Addison DPM Work Phone: [facility] Start: 07-30-2024 End: 07-30-2024 Bamboo flowsheet Wayne Addison DPM Work Phone: [facility] Start: 07-30-2024 End: 07-30-2024 Office outpatient visit 15 minutes Wayne Addison DPM Work Phone: [facility] Comment on above: Neuritis (Primary Dx ); Capsulitis of metatarsophalangeal (MTP) joint of left foot; Other polyneuropathy Start: 07-30-2024 End: 07-30-2024 ambulatory WAYNE ADDISON Not Available Start: 07-23-2024 End: 07-23-2024 Bamboo flowsheet Wayne Addison DPM Work Phone: [facility] Start: 07-23-2024 End: 07-23-2024 Bamboo flowsheet Wayne Addison DPM Work Phone: [facility] Start: 07-23-2024 End: 07-23-2024 Office outpatient visit 15 minutes Wayne Addison DPM Work Phone: [facility] Comment on above: Neuritis (Primary Dx ); Other polyneuropathy; Capsulitis of metatarsophalangeal (MTP) joint of left foot Start: 07-23-2024 End: 07-23-2024 ambulatory WAYNE ADDISON Not Available Start: 07-09-2024 End: 07-09-2024 Bamboo flowsheet Wayne Addison DPM Work Phone: [facility] Start: 07-09-2024 End: 07-09-2024 Bamboo flowsheet Wayne Fitzgerald Brown DPM Work Phone: [facility] Start: 07-09-2024 End: 07-09-2024 Office outpatient visit 15 minutes Wayne Addison DPM Work Phone: [facility] Comment on above: Neuritis (Primary Dx ); Capsulitis of metatarsophalangeal (MTP) joint of left foot; Other polyneuropathy Start: 07-09-2024 End: 07-09-2024 ambulatory WAYNE ADDISON Not Available Start: 06-25-2024 End: 06-25-2024 Bamboo flowsheet Wayne Addison DPM Work Phone: [facility] Start: 06-25-2024 End: 06-25-2024 Bamboo flowsheet Wayne Addison DPM Work Phone: [facility] Start: 06-25-2024 End: 06-25-2024 Office outpatient new 30 minutes Wayne Addison DPM Work Phone: [facility] Comment on above: Neuritis (Primary Dx ); Capsulitis of metatarsophalangeal (MTP) joint of left foot; Other polyneuropathy Start: 06-25-2024 End: 06-25-2024 ambulatory WAYNE ADDISON Not Available Start: 06-02-2024 End: 06-02-2024 ambulatory Néstor Maradiaga Facility:[facility] Start: 06-02-2024 End: 06-02-2024 Pain Management Néstor Maradiaga [facility] Start: 05-18-2024 End: 07-07-2024 Pre-admission assessment Ruba Frias [facility] Start: 05-13-2024 End: 05-13-2024 ambulatory Néstor Maradiaga Facility:[facility] Start: 05-13-2024 End: 05-13-2024 Patient encounter procedure Néstor Maradiaga [facility] Start: 12-04-2023 End: 12-04-2023 ambulatory [place] Work Phone: Start: 12-04-2023 End: 12-04-2023 Patient encounter procedure [facility] Work Phone: Start: 11-07-2023 End: 11-07-2023 Telephone encounter Janice Johnson [facility] Start: 10-29-2023 End: 10-29-2023 ambulatory MAYITO PLASCENCIA [facility] Start: 10-03-2023 End: 10-03-2023 Office outpatient new 45 minutes Mayito Plascencia MD Work Phone: [facility] Comment on above: Mitral valve prolaps e (Primary Dx); Hypertension, unspecified type Start: 10-01-2023 Telephone encounter Marya [facility]ino [facility] Start: 08-28-2023 End: 08-28-2023 Pain Management Néstor Maradiaga [facility] Start: 07-15-2023 End: 07-15-2023 Pain Management Ruba Frias [facility] Start: 06-18-2023 End: 06-18-2023 Pain Management Abel Ruggiero [facility] Start: 05-21-2023 End: 05-21-2023 Pain Management Abel Ruggiero [facility] Start: 05-14-2023 End: 05-14-2023 Patient encounter procedure Abel Ruggiero [facility] Start: 05-14-2023 End: 05-14-2023 Pain Management Abel Ruggiero [facility] Start: 04-02-2023 End: 04-02-2023 Pain Management Abel Ruggiero [facility] Start: 03-26-2023 End: 03-26-2023 Pain Management Abel Ruggiero [facility] Start: 03-20-2023 End: 03-20-2023 Pain Management Abel Ruggiero [facility] Start: 01-21-2023 End: 01-21-2023 Pain Management Abelthom Ruggiero [facility] Start: 12-11-2022 End: 12-11-2022 ambulatory Joanie Mujica Other [facility] [employer] Other Start: 12-11-2022 Telephone encounter Joanie Mujica [facility] Start: 11-03-2022 End: 11-03-2022 ambulatory Joanie Mujica Facility:[facility] Start: 11-03-2022 End: 11-03-2022 ambulatory PHYSICIAN [facility] Work Phone: Start: 11-03-2022 End: 11-03-2022 Patient encounter procedure PHYSICIAN NO [facility] [place] Work Phone: Start: 10-26-2022 End: 10-26-2022 ambulatory Joanie Mujica Other [employer] [facility] [employer] Other Start: 10-26-2022 Office outpatient vi sit 15 minutes Joanie Mujica [facility] Start: 10-26-2022 Telephone encounter Joanie Mujica [facility] Start: 10-19-2022 End: 10-19-2022 ambulatory Aspen Mast Facility:[facility] Start: 10-19-2022 End: 10-19-2022 Departed Referred SAW STRAIGHTENER-C Asp[facility] Work Phone: [facility] [address] [place] Work Phone: Start: 10-19-2022 End: 10-19-2022 ambulatory SAW STRAIGHTENER-C Asp[facility] Work Phone: [facility] Work Phone: Start: 10-19-2022 Office outpatient vi sit 15 minutes Aspen Mast [facility] Start: 2022 End: 2022 ambulatory Joaniedouglas Mujica Other [facility] Other Start: 2022 Office outpatient vi sit 15 minutes Joanie Mujica [facility] Start: 08-21-2022 End: 08-21-2022 ambulatory Joanie Mujica Other [facility] Other Start: 08-21-2022 Telephone encounter Joanie Mujica [facility] Start: 06-12-2022 End: 06-12-2022 ambulatory Joanie Mujica Other [employer] Other Start: 06-12-2022 Telephone encounter Joanie Mujica [facility] Neurosurgery Start: 06-04-2022 End: 06-04-2022 ambulatory Joanie Mujica Facility:[facility] Start: 06-04-2022 End: 06-04-2022 Patient encounter procedure DO Sarwat Pang Work Phone: [facility]-XRay [facility] [place] Start: 06-04-2022 End: 06-04-2022 ambulatory DO Sarwat Braye Work Phone: [facility] Work Phone: Start: 06-04-2022 Telephone encounter Joanie Mujica [facility] Neurosurgery Start: 05-29-2022 End: 05-29-2022 ambulatory Joanie Mujica Other [employer] Other Start: 05-29-2022 Office outpatient vi sit 15 minutes Joanie Mujica [facility] Neurosurgery Start: 05-28-2022 End: 05-28-2022 ambulatory Joanie Mujica Facility:[facility] Start: 05-28-2022 End: 05-28-2022 ambulatory DO Sarwat Pang Work Phone: [facility] Work Phone: Start: 05-28-2022 End: 05-28-2022 Patient encounter procedure DO Sarwat Pang Work Phone: [facility]-XRay [facility] Start: 05-17-2022 End: 05-17-2022 ambulatory Campbell Shelton Facility:[facility] Start: 05-17-2022 End: 05-17-2022 Admission to same day surgery center DO Sarwat Pang Work Phone: [facility]-Digestive [facility] Start: 05-17-2022 End: 05-17-2022 ambulatory DO Sarwat Pang Work Phone: [facility] Work Phone: Start: 05-15-2022 End: 05-15-2022 ambulatory Campbell Shelton Facility:[facility] Start: 05-15-2022 End: 05-15-2022 ambulatory DO Sarwat Pang Work Phone: [facility] Work Phone: Start: 05-15-2022 End: 05-15-2022 Patient encounter procedure DO Sarwat Pang Work Phone: [facility] Testing Start: 03-21-2022 End: 03-21-2022 ambulatory Campbell Shelton Other [facility] [employer] Other Start: 03-21-2022 Telephone encounter Campbell SPENCER [facility] Start: 02-09-2022 End: 02-09-2022 ambulatory Joanie Mujica Other [facility] [employer] Other Start: 02-09-2022 Telephone encounter Joanie Mujica [facility] Neurosurgery Start: 02-08-2022 Postop follow up vis it related to original px Joanie Mujica [facility] Neurosurgery Start: 02-08-2022 End: 02-08-2022 ambulatory Joanie Mujica [facility] [employer] Other Start: 02-08-2022 End: 02-08-2022 Patient encounter procedure DO Sarwat Pang Work Phone: [facility] Start: 01-04-2022 End: 01-04-2022 ambulatory Joanie Mujica Other [facility] [employer] Other Start: 01-04-2022 Telephone encounter Joanie Mujica [facility] Neurosurgery Start: 01-03-2022 End: 01-04-[address] Facility: Start: 12-19-2021 Postop follow up vis it related to original px Joanie Mujica [facility] Neurosurgery Start: 12-19-2021 End: 12-19-2021 ambulatory Joanie Mujica [facility] [employer] Other Start: 12-19-2021 End: 12-19-2021 Patient encounter procedure DO Sarwat Pang Work Phone: [facility] Start: 12-18-2021 End: 12-18-2021 ambulatory Joanie Mujica Other [facility] [employer] Other Start: 12-18-2021 Telephone encounter Joanie Mujica [facility] Neurosurgery Start: 12-07-2021 End: 12-07-2021 ambulatory Joanie Mujica Other [facility] [employer] Other Start: 12-07-2021 Telephone encounter Joanie Mujica [facility] Neurosurgery Start: 12-05-2021 End: 12-05-2021 ambulatory Joanie Mujica Other [facility] [employer] Other Start: 12-05-2021 Telephone encounter Joanie Mujica [facility] Neurosurgery Start: 11-27-2021 Admission to same da y surgery center Joanie Mujica [facility] Start: 11-27-2021 End: 11-29-2021 ambulatory Joanie Mujica [facility] [employer] Other Start: 11-23-2021 End: 11-23-2021 ambulatory Joanie Mujica Facility:[facility] Start: 09-21-2021 End: 09-21-2021 ambulatory Joanie Mujica Other [facility] [employer] Other Start: 09-21-2021 Office outpatient vi sit 15 minutes Joanie Mujica [facility] Neurosurgery Start: 08-29-2021 End: 08-29-2021 ambulatory Aspen Mast Other [facility] [employer] Other Start: 08-29-2021 Office outpatient vi sit 15 minutes Aspen Mast [facility] Procedures Date Procedure Procedure Detail Performing Clinician Start: 10-28-2024 Follow-up visit Follow-up CARMELO OCONNOR Start: 08-28-2023 Injection of sacroiliac joint using fluoroscopic guidance Néstor Maradiaga Start: 03-26-2023 Implantation of temporary spinal cord stimulator Abel Ruggiero Comment on above: 60% relief Start: 01-21-2023 Local anesthetic sacral epidural block Abel Ruggiero Comment on above: caudal elizabeth 0% relief Start: 06-04-2022 X-ray of lumbar spine, six views including bending views DO Sarwat Pang Work Phone: Start: 05-28-2022 X-ray of lumbar spine, four views DO Garett Pang Work Phone: Start: 05-17-2022 Esophagogastroduodenoscopy DO Sarwat Bray e Work Phone: Start: 02-08-2022 X-ray of lumbar spine, two or three views DO Sarwat Braye Work Phone: Start: 12-19-2021 X-ray of lumbar [...] Treatment Date Care Activity Detail Author Start: 10-28-2025 Adult BMI Screening Adult BMI Screening [facility] [employer] Start: 10-02-2025 Adult BMI Screening Adult BMI Screening [facility] [employer] Start: 10-02-2025 Tobacco Screening Tobacco Screening [facility] Start: 05-20-2025 End: 05-20-2025 Patient encounter procedure 05/20/2025 1:00 PM EST Office Visit [facility] [address] [place] [phone] Carmelo Oconnor MD [facility] [place] [address] [facility] Start: 03-08-2025 Influenza vaccination Influenza Vaccine [facility] Start: 02-10-2025 Patient referral [facility] Work Phone: Start: 01-25-2025 End: 01-25-2025 Patient encounter procedure 01/25/2025 9:45 AM EDT Office Visit [facility] [address] [place] [phone] Vamsi Alonzo DO [address] [place] [phone] [facility] Start: 01-14-2025 End: 01-14-2025 Patient encounter procedure 01/14/2025 1:30 PM EDT Office Visit [facility] [address] [place] [phone] Alicia Shook MD [address] [place] [address] [facility] Start: 12-24-2024 End: 12-24-2024 Patient encounter procedure 12/24/2024 10:00 AM EDT Procedure Visit [facility] [address] [place] [phone] Vamsi Alonzo DO [address] [place] [phone] [facility] Start: 11-27-2024 End: 11-27-2024 Patient encounter procedure 11/27/2024 10:00 AM EDT Office Visit [facility] [address] [place] [phone] Carmelo Oconnor MD [address] [place] [address] [facility] Start: 11-05-2024 End: 11-05-2025 Creatine kinase [Enzymatic activity/volume] in Serum or Plasma CK Lab Routine Myalgia Expected: 11/05/2024 (Approximate), Expires: 11/05/2025 [facility] Comment on above: Expected: 11/05/2024 (Approximate), Expi res: 11/05/2025 Start: 11-05-2024 End: 11-05-2025 EMG 2 Extremities EMG 2 Extremities Neurology Routine Paresthesia Expected: 11/05/2024, Expires: 11/05/2025 [facility] Work Phone: Comment on above: Expected: 11/05/2024, Expires: Start: 11-05-2024 End: 11-05-2025 Nuclear Ab [Titer] in Serum by Immunofluorescence [facility] Lab Routine Myalgia Expected: 11/05/2024 (Approximate), Expires: 11/05/2025 [facility] Comment on above: Expected: 11/05/2024 (Approximate), Expi res: 11/05/2025 Start: 11-05-2024 End: 11-05-2024 Patient encounter procedure 11/05/2024 11:30 AM EDT Office Visit [facility] [address] [place] [phone] Vamsi Alonzo DO [address] [place] [phone] Neuritis; Other polyneuropathy [facility] Comment on above: Neuritis; Other polyneuropathy Start: 10-28-2024 Adult BMI Screening Adult BMI Screening [facility] Start: 10-02-2024 Tobacco Screening Tobacco Screening [facility] Start: 10-02-2024 End: 10-02-2025 US.doppler Renal vessels - bilateral Vas renal artery duplex complete Vascular Ultrasound Routine Primary hypertension Expected: 10/02/2024, Expires: 10/02/2025 [facility] Comment on above: Expected: 10/02/2024, Expires: Start: 10-02-2024 End: 10-02-2024 Patient encounter procedure 10/02/2024 10:00 AM EDT Office Visit [facility] [address] [place] [phone] Carmelo Oconnor MD [address] [place] [address] [facility] Start: 09-23-2024 Tobacco Screening Tobacco Screening [facility] Start: 08-13-2024 End: 08-13-2024 Patient encounter procedure 08/13/2024 10:30 AM EST Office Visit [facility] [address] [place] [phone] Mayito Plascencia MD [address] [place] [address] [facility] Start: 07-30-2024 End: 07-30-2024 Patient encounter procedure 07/30/2024 8:30 AM EST Office Visit [facility] [address] [facility] [address] [place] [phone] Wayne Addison DPM [address] [address] Neuritis (Primary Dx); Capsulitis of metatarsophalangeal (MTP) joint of left foot; Other polyneuropathy [facility] Comment on above: Neuritis (Primary Dx); Capsulitis of metatarsophalangeal (MTP) joint of left foot; Other polyneuropathy Start: 07-23-2024 End: 07-23-2024 Patient encounter procedure [facility] Comment on above: Neuritis (Primary Dx); Other polyneuropathy; Capsulitis of metatarsophalangeal (MTP) joint of left foot Start: 07-09-2024 End: 07-09-2024 Patient encounter procedure [facility] Comment on above: Neuritis (Primary Dx); Capsulitis of metatarsophalangeal (MTP) joint of left foot; Other polyneuropathy Start: 06-25-2024 End: 06-25-2024 Patient encounter procedure 06/25/2024 8:50 AM EST Office Visit [facility] [address] [facility] [address] [place] [phone] Wayne Addison DPM [address] [address] Arrived [facility] Comment on above: Arrived Start: 03-08-2024 Influenza vaccination Influenza Vaccine [facility] Start: 10-17-2023 End: 10-02-2024 Basic metabolic 2000 panel - Serum or Plasma Basic Metabolic Panel Lab Routine Hypertension, unspecified type Mitral valve prolapse Expected: 10/17/2023 (Approximate), Expires: 10/02/2024 [facility] Work Phone: Comment on above: Expected: 10/17/2023 (Approximate), Expi res: 10/02/2024 Start: 10-17-2023 End: 10-02-2024 Lipid panel Lipid panel Lab Routine Hypertension, unspecified type Mitral valve prolapse Expected: 10/17/2023 (Approximate), Expires: 10/02/2024 [facility]: Expected: 10/17/2023 (Approximate), Expi res: 10/02/2024 Start: 10-03-2023 End: 10-02-2024 Echo complete W/O contrast Echo complete W/O contrast Echocardiography Routine Hypertension, unspecified type Mitral valve prolapse Expected: 10/03/2023, Expires: 10/02/2024 [facility] Comment on above: Expected: 10/03/2023, Expires: Start: 10-02-2023 End: 10-02-2023 Patient encounter procedure 10/02/2023 9:30 AM EDT [facility] [address] [place] [phone] Carmelo Oconnor MD [facility] [place] [address] [facility] Start: 2023 Administration of varicella zoster vaccine Zoster (Shingles) Vaccine (1 of 2) [facility] Start: 03-08-2023 Influenza vaccination Influenza Vaccine [facility] Start: 11-03-2022 MR Lumbar spine WO and W contrast IV [facility] Start: 11-03-2022 MRI of lumbar spine with contrast MR lumbar spine wo/w con [facility] Start: 07-04-2022 Adult BMI Screening Adult BMI Screening [facility] Start: 05-17-2022 [facility] Start: 1994 Screening for malignant neoplasm of cervix Pap Smear [facility] Start: 1992 DTaP,Tdap and Td Vaccines (1 - Tdap) DTaP,Tdap and Td Vaccines (1 - Tdap) [facility] Start: 1991 Adult BMI Follow Up Plan Adult BMI Follow Up Plan [facility] Start: 1985 Depression Screening Depression Screening [facility] Chlamydia trachomati s DNA [Presence] in Unspecified specimen by ROSALVA with probe detection [facility] ECG, Hospital Report Scan ECG, H ospital Report Scan ECG Routine Primary hypertension Ordered: 10/02/2024 [facility] Work Phone: Comment on above: Ordered: 10/02/2024 Myoglobin, serum Myoglobin, seru m Lab Routine Weakness Ordered: 11/05/2024 [facility] Comment on above: Ordered: 11/05/2024 Neisseria gonorrhoea e DNA [Presence] in Unspecified specimen by ROSALVA with probe detection [facility] Patient referral [facility] Work Phone: Trichomonas vaginali s DNA [Presence] in Unspecified specimen by ROSALVA with probe detection [facility] Immunizations Immunization Date Immunization Notes Care Provider Gene woodard 10-27-2020 COVID-19 mRNA, Comirnaty (Pfizer) DO Sarwat Pang Work Phone: [facility] 10-06-2020 COVID-19 mRNA, Comirnaty (Pfizer) DO [employer] Work Phone: [facility] Payers Date Payer Category Payer Unknown [id number] 2024 Managed Care Other (unspecified) [employer] [id number] 2024 Private Health Insurance [id number] 2023 Private Health Insurance [id number] 2023 Private Health Insurance [id number] 2021 Self-pay [id number] 2020 [employer] - O ANTHEM [id number] 2020 Unknown NAWAF FAULKNER MARLENA ANKUSH (PPO) [id number] 2020-Present [id number] [place], [place] [id number] [id number]. [id number] 1973 Unknown [id number] 2.16.840.1.498961.3.579.2. 593 1973 Unknown [id number] 2.16.840.1.352545.3.579.2. 718 1973 Unknown [id number] 2.16.840.1.495665.3.579.2. 718 1973 Unknown [id number] 2.16.840.1.641606.3.579.2. 1286 1973 Unknown [id number] 2.16.840.1.572749.3.579.2. 1286 1973 Unknown [id number] 2.16.840.1.277332.3.579.2. 1286 1973 Unknown [id number] 2.16.840.1.058798.3.579.2. 1286 1973 Unknown [id number] 2.16.840.1.275333.3.579.2. 9 1973 Unknown [id number] 2.16.840.1.196116.3.579.2. 9 1973 Unknown [id number] .840.1.649952.3.579.2. 1258 1973 Unknown [id number] .840.1.917097.3.579.2. 9 1973 Unknown [id number] .840.1.468417.3.579.2. 1258 1973 Unknown [id number] .840.1.240358.3.579.2. 1973 Unknown [id number] ..840.1.303420.3.579.2. 1973 Unknown [id number] .840.1.295374.3.579.2. 7 1973 Unknown [id number] 840.1.763604.3.579.2. [address] [facility]70 [id number] 2.16.840.1.097697.19 Unknown [id number] 2.16.840.1.476741.3.579.2. 531 Unknown [id number] 2.16.840.1.096202.3.579.2. 531 Unknown [id number] 2.16.840.1.349423.3.579.2. 531 Unknown [id number] 2.16.840.1.035614.3.579.2. 531 Unknown [id number] 2.16.840.1.727563.3.579.2. 531 Unknown [id number] 2.16.840.1.568150.3.579.2. 531 Unknown [id number] 2.16.840.1.707759.3.579.2. 531 Unknown [id number] 2.16.840.1.789681.3.579.2. 531 Unknown [id number] 2.16.840.1.512575.3.579.2. 531 Unknown [id number] 2.16.840.1.780772.3.579.2. 531 Social History Date Type Detail Facility Unknown if ever smoked [employer] Other Start: 07-19-2020 End: 06-25-2024 Sex Assigned At [facility] Start: 11-27-2021 End: 10-03-2023 Tobacco smoking status MAIS Never smoked tobacco (finding) [facility] Start: 1975 Sex Assigned At Female F [facility] Tobacco smoking status No Smoking Status Entered [facility] Start: 06-25-2024 End: 07-30-2024 Alcoholic beverage intake Defer [facility] Start: 07-19-2020 End: 06-25-2024 History of Social function [facility] Start: 07-25-2023 Gender identity Identifies as female gender (finding) [facility] Tobacco smoking status [facility] Tobacco smoking consumption unknown [facility] Start: 04-29-2020 End: 10-03-2023 Tobacco use and exposure Smokeless tobacco non-user [facility] Start: 10-03-2023 End: 10-02-2024 Alcoholic beverage intake Ex-drinker (finding) [facility] Childcare Unknown [facility] Start: 09-24-2023 Alcohol Comment 10 yrs ago [facility] Start: 1975 Sex assigned at Not on file [facility] Start: 02-08-2015 Sex Female (finding) [facility] Medical Equipment Procedure Code Equipment Code Equipment Origin al Text Equipment Identifier Dates Spinal fusion gr aft kit )[id number] [id number] FDA Start: 11-27-2021 Bone-screw inter nal spinal fixation system, non-sterile [id number] FDA Start: 11-27-2021 Bone-screw inter nal spinal fixation system, non-sterile [id number] FDA Start: 11-27-2021 Polymeric spinal fusion cage, non-sterile [id number] [id number] FDA Start: 11-27-2021 Bone-screw inter nal spinal fixation system, non-sterile +[id number] FDA Start: 11-27-2021 Bone-screw inter nal spinal fixation system, non-sterile +[id number] FDA Start: 11-27-2021 Bone-screw inter nal spinal fixation system, non-sterile +[id number] FDA Start: 11-27-2021 Bone-screw inter nal spinal fixation system, non-sterile +[id number] FDA Start: 11-27-2021 Goals Date Patient Goal Desired Activity /State Functional Status Date Assessment Result Facility 06-02-2024 Functional Status N/A [facility] 05-13-2024 Functional Status N/A [facility] 08-28-2023 Functional Status N/A [facility] 07-15-2023 Functional Status N/A [facility] 06-18-2023 Functional Status N/A [facility] 05-21-2023 Functional Status N/A [facility] 05-14-2023 Functional Status N/A [facility] 04-02-2023 Functional Status N/A [facility] 03-26-2023 Functional Status N/A [facility] 03-20-2023 Functional Status N/A [facility] 01-21-2023 Functional Status N/A [facility] Clinical Notes 08-29-2021 to 02-24-2025 Telephone Encounter - Petra Krishnamurthy CMA - 02/24/2025 8:42 AM EDTTelephone Encounter - Petra Krishnamurthy CMA - 02/24/2025 8:42 AM EDTTelephone Encounter - Kayla Quiles LPN - 02/20/2025 9:34 AM EDT Note Date & Type Note Facility 02-24-2025 Miscellaneous Notes Called patient to remind them to bring their most current copy of their medication list with them to their appt. Patient verbalizes understanding. Pt rescheduled appt due to prior medical appt. documented in this encounter [facility] 02-24-2025 Telephone encounter Note Called patient to remind them to bring their most current copy of their medication list with them to their appt. Patient verbalizes understanding. Pt rescheduled appt due to prior medical appt. [facility] 02-20-[address] [facility] 10/28/24 documented in this encounter [facility] 02-20-[address] [facility] 10/28/24 [facility] 02-10-2025 Hospital Discharge instructions Ambulatory OrdersReferral to Neurosurgery Time Frame: 02/10/25, Location: None [facility] Work Phone: 01-15-2025 Note Consultation Note Patient is presenting with history of postlaminectomy pain syndrome as well as chronic pain syndrome and left foot pain. Her left foot pain is improved. She has axial lumbar pain that was treated well in the past with a caudal epidural steroid injection 06/02/2024 with 80% treatment for about 5 months. Unfortunately her pain is returning. She would also like to discuss a prominence on her back that appears to be her spinal cord stimulator based on palpation. Occasionally this is uncomfortable sitting against it. Otherwise after reprogramming she feels significantly better but would like to discuss repeating a caudal as this was beneficial for her in the past. AGUSTO Score: 44% PHQ-2: 4 Patient denies any symptoms of progressively worsening upper/lower extremity weakness, progressively worsening gait abnormality, new onset bowel/bladder incontinence/ urinary retention, or saddle anesthesia. No new or worsening symptoms of fever, chills, night sweats. 14 Point Review of systems negative unless otherwise noted. General: No acute distress. Patient appears well-nourished. HEENT: Head is normocephalic and external ears are normal in appearance. Cardiovascular: No signs of poor perfusion and no peripheral edema Pulmonary: Nonlabored breathing, symmetric chest movement. GI: Abdomen nondistended Integumentary: No lesions Neurologic: Alert, oriented x3. 5/5 strength grossly in the bilateral upper extremities. Sensation intact to light touch in the bilateral upper extremities. 5/5 strength grossly in the bilateral lower extremities. Sensation intact to light touch in the bilateral lower extremities. MSK/Special Testing: Negative Medina sign bilaterally. History, physical examination, and personal review of pertinent imaging results indicate a diagnosis of: - Lumbar postlaminectomy pain syndrome - Chronic pain syndrome - Left foot pain, improved Plan: - We will schedule her for a caudal epidural steroid injection under fluoroscopic guidance and follow-up 1 month postinjection Patient was counseled on the above diagnosis and treatment, all questions were answered and patient agrees to adhere to the plan above. Risk and benefits of appropriate procedures and medications were reviewed as well with patient, who voiced understanding and agreeance. Patient was counseled on appropriate use of opioids if prescribed or renewed today and naloxone was offered to patient if opioids were prescribed or maintained at this visit. PHQ-2 scoring reviewed with patient and discussed seeking treatment for depression or mood disorder as appropriate. Patient was counseled on smoking cessation and/or continuing to abstain from nicotine/tobacco products as appropriate based on history for greater than 3 minutes if appropriate; as smoking/nicotine can contribute to increased pain overall and decreased wound healing, counseling performed for smoking cessation when appropriate for F17.200 nicotine dependence. AGUSTO reviewed and discussed during encounter. Patient counseled on maintaining a healthy BMI as part of the total treatment of their pain and to reduce stress/strain on joints. Patient invited to return or call with any questions or concerns that arise. [facility] Comment on above: Result Comment: Elec tronically Signed By: Néstor Maradiaga DO.valdo\Date and Time Signed: 01/15/25 13:18 EDT 01-13-2025 Miscellaneous Notes No answer; unable to leave a message. documented in this encounter [facility] 01-13-2025 Telephone encounter Note No answer; unable to leave a message. [facility] 11-05-2024 History of Present illness Narrative Images from the original note were not included. Chief Complaint: paresthesia Subjective Aaron Brennan, 49 y.o., female Patient presents today for a neurologic consult at the request of Dr. Addison for neuritis, hx of spinal cord stimulator. Patient states she is having numbness, tingling and pain in bilateral feet. The left foot is worse. She states this is very painful to wear shoes. She admits to swelling in bilateral feet. 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 She states podiatry told her she has neuropathy. She denies any prior EMG. She reports multiple back surgeries and injections. She has a spinal cord stimulator. After her major back surgery in 11/2022 she states she woke up and originally thought she was paralyzed. Since then she has been having the extreme numbness, tingling and pain. She ambulates with a cane or knee scooter. She is unable to walk for long periods of time. Review of Systems Constitutional: Negative for appetite change, fatigue and fever. Respiratory: Negative for cough, shortness of breath and wheezing. Cardiovascular: Negative for chest pain, palpitations and leg swelling. Gastrointestinal: Negative for abdominal pain, constipation, diarrhea and nausea. Musculoskeletal: Positive for gait problem. Negative for arthralgias and myalgias. Neurological: Positive for numbness. Negative for dizziness, tremors and headaches. Past Medical History: Diagnosis Date Asthma (CMS/HCC) Chronic mental illness Hypertension (CMS/HCC) Past Surgical History: Procedure Laterality Date APPENDECTOMY N/A BACK SURGERY GALLBLADDER SURGERY N/A Family History Problem Relation Name Age of Onset Arthritis Mother Arthritis Father Cancer Father Diabetes Father Heart disease Father Hypertension Father Social History Tobacco Use Smoking status: Never Smokeless tobacco: Not on file Substance Use Topics Alcohol use: Defer Allergies: Codeine and Lamotrigine Vitals: 11/05/24 1124 BP: 126/84 Pulse: 103 SpO2: 97% Body mass index is 32.35 kg/m . Weight: 171 lb 3.2 oz Neurologic exam: Mental status: Awake, alert to person, place and time. Recent and remote memory are intact. Language is fluent without aphasia. Attention and concentration are normal. Fund of knowledge is appropriate for level of education. Cranial nerves: CN II: Visual acuity is normal. Visual navas full to confrontation. CN III, IV, : pupils equal round and reactive to light. Extraocular movements intact. No ptosis present. CN V: Facial sensation is normal. CN VII: Full and symmetric facial movement. CN VIII: Hearing is normal to finger rub bilaterally: CN IX and X: Palate elevates symmetrically. CN XI: Shoulder shrug is normal bilaterally. CN XII: Tongue is midline without atrophy or fasciculation. Motor: RUE Strength deltoid, , biceps , triceps , wrist extensors , wrist flexor , optical instrument inspector strength 5/5. LUE Strength deltoid , biceps , triceps , wrist extensors , wrist flexor , optical instrument inspector strength 5/5. RLE Strength illopsoas, quadriceps, tibialis anterior, and gastrocnemius strength 5/5. LLE Strength illopsoas, quadriceps, tibialis anterior, and gastrocnemius strength 5/5. other than weakness in dorsiflexion bilaterally. This may be somewhat exaggerated but I do see the tibialis anterior activate Normal tone x4 extremities. Bulk is normal. Sensory: Sensation is intact to light touch throughout Four extremities. Reflexes: RUE biceps reflex 2+ brachioradialis reflex 2+ . LUE biceps reflex 2+ brachioradialis reflex 2+ . RLE knee reflex 1+ . LLE knee reflex 1+ . Santiago's sign negative. Coordination: [id number] testing and rapid alternating movements are normal Gait: Patient ambulates with a cane Review and summary of old records: MRI of the brain without contrast on 07/31/2023: There are no acute intracranial changes, no evidence of ischemia or hemorrhage. There are few foci of increased T2 and FLAIR signal which are nonspecific and may be associated with micro angiopathy versus migraine headaches or other etiologies. 07/04/21: 1. Bilateral spondylolysis with grade 2 spondylolisthesis L5 upon S1 with associated severe bilateral neural foraminal stenosis. 2. Changes of prior left hemilaminectomy at L2-L3 with left lateral recess stenosis due to low and intermediate signal which may represent recurrent or residual disc herniation versus epidural scar. Follow-up with post gadolinium enhanced imaging of lumbar spine recommended to differentiate between these 2 entities. Assessment/Plan Diagnoses and all orders for this visit: Paresthesia Degeneration of intervertebral disc of lumbar region with discogenic back pain and lower extremity pain It is my impression that the patient has pain and paresthesias in the bilateral lower extremities. She states she has abnormal sensations that it is numb it is so painful that no one can touch her feet. She states she has trouble with dorsiflexion. Examination shows weakness in dorsiflexion. She has seen pain management for this. She has trialed multiple injections and has a spinal cord stimulator and was not successful and having relief. Additionally she has tried multiple medications with pain management. Recent MRI of the brain secondary to her severe headaches was unremarkable as an aside. Plan: EMG of the bilateral lower extremities to assess for pathology as above in determine type and severity Check BLANKA, myoglobin and CK May need MRI L spine, but given surgical intervention I would leave this to her neurosurgical team at this time Continue management of chronic pain through a management in [place] If outside pain management referral is needed this would need to be done through a tertiary care center Pt has been fully educated on their diagnosis, lab results, treatment options, follow up plan, and return instructions documented in this encounter [facility] 10-28-2024 History of Present illness Narrative Aaron Brennan Date of visit: 10/28/2024 Date of : 1975 Age: 49 y.o. Patient Active Problem List Diagnosis Anxiety Mitral valve prolapse Seasonal allergies Lumbosacral spondylosis without myelopathy Disorder of sacrum Lumbar neuritis Hypertension Allergies Allergen Reactions Codeine Hives Lamotrigine Current Outpatient Medications Medication Sig Dispense Refill amphetamine-dextroamphetamine XR (ADDERALL XR) 30 mg 24 hr capsule 1 capsule (30 mg total) every morning. dextroamphetamine-amphetamine (ADDERALL) 20 mg tablet in the morning. levothyroxine (SYNTHROID, LEVOTHROID) 50 MCG tablet Take 1 tablet (50 mcg total) by mouth in the morning. losartan (COZAAR) 100 mg tablet Take 1 tablet (100 mg total) by mouth in the morning. 90 tablet 3 lurasidone (LATUDA) 80 mg tablet 1 tablet (80 mg total) in the morning. metoprolol succinate XL (TOPROL XL) 50 mg 24 hr tablet Take 1.5 tablets (75 mg total) by mouth in the morning and 1.5 tablets (75 mg total) before bedtime. 270 tablet 3 NIFEdipine XL (PROCARDIA XL) 60 mg 24 hr tablet Take 1 tablet (60 mg total) by mouth 2 (two) times a day. 60 tablet 3 OXcarbazepine (TRILEPTAL) 600 mg tablet Take 1 tablet (600 mg total) by mouth in the morning and 1 tablet (600 mg total) at noon and 1 tablet (600 mg total) before bedtime. spironolactone (ALDACTONE) 25 mg tablet Take 1 tablet (25 mg total) by mouth in the morning. 90 tablet 3 traZODone (DESYREL) 50 mg tablet Take 2 tablets (100 mg total) by mouth nightly. vilazodone (VIIBRYD) 40 mg tablet Take 1 tablet (40 mg total) by mouth in the morning. zolpidem CR (AMBIEN CR) 12.5 mg CR tablet nightly. No current facility-administered medications for this visit. Chief Complaint Patient presents with Follow-up Hypertension History of Present Illness Aaron Douglas Brennan was seen in follow-up in the [facility] office. Records are reviewed. She is a pleasant 49-year-old woman with longstanding history of essential hypertension. She is severely limited with ongoing back pain with peripheral neuropathy forcing her in to a chronic wheeled device. There have been increasing problems controlling her blood pressure. Some of this is often related to spasms of back pain. She nonetheless has had increasing medications with somewhat poor response. She has normal renal function. She has put on some weight as she has been more inactive with her back pain recently. She was seen 3 or 4 weeks ago and her Norvasc was switched to Procardia XL and subsequently increased. She reports with multiple blood pressures at home which are much better generally but still not quite at goal. She otherwise seems to be tolerating her current medications. Renal arterial duplex ultrasound does not suggest significant renal artery stenosis. Past Medical History: Diagnosis Date Accidental fall Anxiety Asthma Breathlessness lying flat Congenital heart disease Depression Essential hypertension Heart valve problem Herniated lumbar intervertebral disc High blood pressure History of cardiovascular stress test History of echocardiogram History of heart attack History of [place] vitro fertilization [place] (myocardial infarction) ([facility]) at age 28 No data recorded No data recorded No data recorded Past Surgical History: Procedure Laterality Date APPENDECTOMY BACK SURGERY CHOLECYSTECTOMY INJECTION BLOCK EPIDURAL STEROID LUMBAR/SACRAL Right L 5, 1 NR Right 07/29/2020 Performed by Contreras Chaparro MD at [facility] INJECTION MEDIAL BRANCH NERVE BLOCK Bilateral L 4/5, 5/1 Bilateral 04/29/2020 Performed by Contreras Chaparro MD at [facility] INJECTION SI JOINT Bilateral SI Joint Bilateral 06/20/2020 Performed by Contreras Chaparro MD at [facility] INJECTION SI JOINT Bilateral SI Joint Bilateral 05/27/2020 Performed by Contreras Chaparro MD at [facility] TUBAL LIGATION Family History Problem Relation Age of Onset Breast cancer Mother 50 Hyperlipidemia Father Kidney cancer Father renal carcinoma Mitral valve prolapse Father Breast cancer Maternal Aunt 38 Breast cancer Maternal Aunt 54 Social History Socioeconomic History Marital status: Spouse name: Not on file Number of children: Not on file Years of education: Not on file Highest education level: Not on file Occupational History Not on file Tobacco Use Smoking status: Never Smokeless tobacco: Never Vaping Use Vaping status: Never Used Substance and Sexual Activity Alcohol use: Not Currently Alcohol/week: 4.0 standard drinks of alcohol Types: 4 Glasses of wine per week Comment: 10 yrs ago Drug use: Not Currently Comment: prior addict, 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 Sexual activity: Defer Other Topics Concern Caffeine Use Yes Social History Narrative Not on file Social Drivers of Health Financial Resource Strain: Not on file Food Insecurity: No Food Insecurity (10/02/2024) Hunger Screening Food Insecurity - Worry: Never True Food Insecurity - Inability: Never True Transportation Needs: Not on file Physical Activity: Not on file Stress: Not on file Social Connections: Not on file Interpersonal Safety: Unknown (08/29/2023) Received from [facility] Safety & Environment Fear of Current or Ex-Partner: Not on file Emotionally Abused: Not on file Physically Abused: Not on file Sexually Abused: Not on file Physically or Sexually Abused: Not on file Housing Instability: Not on file Review of Systems Review of Systems Constitutional: Negative for chills, fever and malaise/fatigue. HENT: Negative for hearing loss, hoarse voice and nosebleeds. Eyes: Negative for blurred vision, double vision and redness. Respiratory: Negative for shortness of breath and sleep disturbances due to breathing. Endocrine: Negative for cold intolerance and heat intolerance. Hematologic/Lymphatic: Negative for bleeding problem. Does not bruise/bleed easily. Skin: Negative for color change, flushing, itching and nail changes. Musculoskeletal: Negative for falls, joint pain, joint swelling and myalgias. Gastrointestinal: Negative for heartburn, hematochezia and melena. Genitourinary: Negative for dysuria, frequency and hematuria. Neurological: Positive for dizziness and light-headedness. Negative for focal weakness, loss of balance and weakness. Psychiatric/Behavioral: Negative for altered mental status and memory loss. CARDIOVASCULAR: Please review HPI. Physical Examination General appearance: Alert, oriented and cooperative. In no acute distress. Skin: Warm and dry to touch. Head: Normocephalic, without obvious abnormality, atraumatic. Ears, Nose, Mouth, Throat: Throat clear without erythema or exudate. Dentition intact. Eyes: Conjunctivae unremarkable, EOM intact. Neck: No JVD, No carotid bruit. Neck supple, trachea midline. Respiratory: Clear to auscultation bilaterally, no use of accessory muscles. Cardiovascular: RRR with normal S1 and S2 with no murmurs. Gastrointestinal: Soft, non-tender. Bowel sounds normal. Musculoskeletal: No peripheral edema. Neurologic: Oriented to time, person and place, affect appropriate. No focal/major motor defects noted. Psychiatric: Appropriate mood, memory and judgement. VITAL SIGNS: BP (!) 148/92 Pulse 80 Ht 154.9 cm (5' 1 ) Wt 78.9 kg (174 lb) BMI 32.88 kg/m No orders of the defined types were placed in this encounter. There are no discontinued medications. IMPRESSIONS/PLAN There are no diagnoses linked to this encounter. 1. Essential hypertension. She l has severe essential hypertension. She is not quite at goal and I have discontinued her Toprol and started labetalol . She will continue to keep a log. 2. She has previous diagnosis of mitral valve prolapse which is not really evident on echocardiogram last year. She does not have significant mitral regurgitation. TODAYS ORDERS No orders of the defined types were placed in this encounter. FOLLOW UP No follow-ups on file. PCP: LESLI Wang Referring Physician: LESLI Wang [address] [place] [address] documented in this encounter [facility] 10-22-2024 Miscellaneous Notes ----- Message from Kileybecky Person DO sent at 10/20/2024 3:59 PM EDT ----- Doppler looks healthy. Please have her increase Nifedipine to BID dosing. Check BP daily. Avoid caffeine and NSAIDs and sodium 1. Continue [place] [employer] Diet. Please visit [email or web address] for more information. 2. Recommend regular walking / equivalent aerobic activity for at least 150 total minutes per week. 3. Avoid NSAIDs as much as possible. 4. Minimize sodium, caffeine, sugar, and alcohol intake (any / all that are applicable) as much as possible. 5. Continue current medications as prescribed. 6. Follow up as advised. 7. Please contact us (via phone or MyChart) if any new questions / concerns arise before the next visit. 8. Please go to the nearest ER if any symptoms persist or worsen. Thank you, - HM documented in this encounter [facility] 10-22-2024 Telephone encounter Note ----- Message from Rama Person DO sent at 10/20/2024 3:59 PM EDT ----- Doppler looks healthy. Please have her increase Nifedipine to BID dosing. Check BP daily. Avoid caffeine and NSAIDs and sodium 1. Continue [place] [employer] Diet. Please visit [email or web address] for more information. 2. Recommend regular walking / equivalent aerobic activity for at least 150 total minutes per week. 3. Avoid NSAIDs as much as possible. 4. Minimize sodium, caffeine, sugar, and alcohol intake (any / all that are applicable) as much as possible. 5. Continue current medications as prescribed. 6. Follow up as advised. 7. Please contact us (via phone or MyChart) if any new questions / concerns arise before the next visit. 8. Please go to the nearest ER if any symptoms persist or worsen. Thank you, - HM [facility] 10-02-2024 History of Present illness Narrative Aaron Brennan Date of visit: 10/02/2024 Date of : 1975 Age: 49 y.o. Patient Active Problem List Diagnosis Anxiety Mitral valve prolapse Seasonal allergies Lumbosacral spondylosis without myelopathy Disorder of sacrum Lumbar neuritis Hypertension Allergies Allergen Reactions Codeine Hives Lamotrigine Current Outpatient Medications Medication Sig Dispense Refill amLODIPine (NORVASC) 5 mg tablet Take 1 tablet (5 mg total) by mouth in the morning and 1 tablet (5 mg total) before bedtime. levothyroxine (SYNTHROID, LEVOTHROID) 50 MCG tablet Take 1 tablet (50 mcg total) by mouth in the morning. losartan (COZAAR) 100 mg tablet Take 1 tablet (100 mg total) by mouth in the morning. 90 tablet 3 lurasidone (LATUDA) 80 mg tablet 1 tablet (80 mg total) in the morning. metoprolol succinate XL (TOPROL XL) 50 mg 24 hr tablet Take 1.5 tablets (75 mg total) by mouth in the morning and 1.5 tablets (75 mg total) before bedtime. OXcarbazepine (TRILEPTAL) 600 mg tablet Take 1 tablet (600 mg total) by mouth 3 (three) times a day. spironolactone (ALDACTONE) 25 mg tablet Take 1 tablet (25 mg total) by mouth in the morning. 90 tablet 2 traZODone (DESYREL) 50 mg tablet Take 2 tablets (100 mg total) by mouth nightly. vilazodone (VIIBRYD) 40 mg tablet Take 1 tablet (40 mg total) by mouth in the morning. zolpidem CR (AMBIEN CR) 12.5 mg CR tablet nightly. amphetamine-dextroamphetamine XR (ADDERALL XR) 30 mg 24 hr capsule 1 capsule (30 mg total) every morning. APPLE CIDER VINEGAR ORAL Take by mouth daily. (Patient not taking: Reported on 10/02/2024) BIOTIN ORAL Take by mouth daily. (Patient not taking: Reported on 10/02/2024) CRANBERRY ORAL Take by mouth daily. (Patient not taking: Reported on 10/02/2024) dextroamphetamine-amphetamine (ADDERALL) 20 mg tablet daily. docosahexaenoic acid/epa (FISH OIL ORAL) Take by mouth 3 (three) times a day. (Patient not taking: Reported on 10/02/2024) gabapentin (NEURONTIN) 300 mg capsule Take 1 capsule (300 mg total) by mouth See Admin Instructions. Take 1 tablet by mouth at bedtime for 3 nights, then take 1 tablet by mouth twice daily for 3 days, then take 1 tablet by mouth three times daily thereafter (Patient not taking: Reported on 10/02/2024) 81 capsule 0 ibuprofen (ADVIL,MOTRIN) 800 mg tablet Take 800 mg by mouth every 6 (six) hours as needed for pain. (Patient not taking: Reported on 10/02/2024) PNV no.95/ferrous fum/folic ac ( ORAL) Take by mouth daily. (Patient not taking: Reported on 10/02/2024) No current facility-administered medications for this visit. Chief Complaint Patient presents with Hypertension Family doctor wants to see what might be causing her high BP. History of Present Illness Aaron Brennan was seen in follow-up in the [place] office. Records are reviewed. She is a pleasant 49-year-old woman with longstanding history of essential hypertension. She is severely limited with ongoing back pain with peripheral neuropathy. There have been increasing problems controlling her blood pressure. Some of this is often related to spasms of back pain. She nonetheless has had increasing medications with somewhat poor response. She has normal renal function. She has put on some weight as she has been more inactive with her back pain recently. Past Medical History: Diagnosis Date Accidental fall Anxiety Asthma Breathlessness lying flat Congenital heart disease Depression Essential hypertension Heart valve problem Herniated lumbar intervertebral disc High blood pressure History of cardiovascular stress test History of echocardiogram History of heart attack History of [place] ([place]) ([facility]) at age 28 No data recorded No data recorded No data recorded Past Surgical History: Procedure Laterality Date APPENDECTOMY BACK SURGERY CHOLECYSTECTOMY INJECTION BLOCK EPIDURAL STEROID LUMBAR/SACRAL Right L 5, 1 NR Right 07/29/2020 Performed by Contreras Chaparro MD at [facility] INJECTION MEDIAL BRANCH NERVE BLOCK Bilateral L 4/5, 5/1 Bilateral 04/29/2020 Performed by Contreras Chaparro MD at [facility] INJECTION SI JOINT Bilateral SI Joint Bilateral 06/20/2020 Performed by Contreras Chaparro MD at [facility] INJECTION SI JOINT Bilateral SI Joint Bilateral 05/27/2020 Performed by Contreras Chaparro MD at [facility] TUBAL LIGATION Family History Problem Relation Age of Onset Breast cancer Mother 50 Hyperlipidemia Father Kidney cancer Father renal carcinoma Mitral valve prolapse Father Breast cancer Maternal Aunt 38 Breast cancer Maternal Aunt 54 Social History Socioeconomic History Marital status: Spouse name: Not on file Number of children: Not on file Years of education: Not on file Highest education level: Not on file Occupational History Not on file Tobacco Use Smoking status: Never Smokeless tobacco: Never Vaping Use Vaping status: Never Used Substance and Sexual Activity Alcohol use: Not Currently Alcohol/week: 4.0 standard drinks of alcohol Types: 4 Glasses of wine per week Comment: 10 yrs ago Drug use: Not Currently Comment: prior addict, 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 Sexual activity: Defer Other Topics Concern Caffeine Use Yes Social History Narrative Not on file Social Drivers of Health Financial Resource Strain: Not on file Food Insecurity: No Food Insecurity (10/02/2024) Hunger Screening Food Insecurity - Worry: Never True Food Insecurity - Inability: Never True Transportation Needs: Not on file Physical Activity: Not on file Stress: Not on file Social Connections: Not on file Interpersonal Safety: Unknown (08/29/2023) [facility] from [facility] Safety & Environment Fear of Current or Ex-Partner: Not on file Emotionally Abused: Not on file Physically Abused: Not on file Sexually Abused: Not on file Physically or Sexually Abused: Not on file Housing Instability: Not on file Review of Systems Review of Systems Constitutional: Positive for malaise/fatigue. Eyes: Positive for blurred vision. Hematologic/Lymphatic: Bruises/bleeds easily. Musculoskeletal: Positive for back pain, joint swelling and muscle weakness. Gastrointestinal: Positive for change in bowel habit. Neurological: Positive for dizziness, headaches, light-headedness and loss of balance. Psychiatric/Behavioral: Positive for depression. Allergic/Immunologic: Positive for environmental allergies. CARDIOVASCULAR: Please review HPI. Physical Examination General appearance: Alert, oriented and cooperative. In no acute distress. Skin: Warm and dry to touch. Head: Normocephalic, without obvious abnormality, atraumatic. Ears, Nose, Mouth, Throat: Throat clear without erythema or exudate. Dentition intact. Eyes: Conjunctivae unremarkable, EOM intact. Neck: No JVD, No carotid bruit. Neck supple, trachea midline. Respiratory: Clear to auscultation bilaterally, no use of accessory muscles. Cardiovascular: RRR with normal S1 and S2 with no murmurs. Gastrointestinal: Soft, non-tender. Bowel sounds normal. Musculoskeletal: No peripheral edema. Neurologic: Oriented to time, person and place, affect appropriate. 4+/5 muscle strength symmetrically in her legs Psychiatric: Appropriate mood, memory and judgement. VITAL SIGNS: BP (!) 142/94 Pulse 65 Ht 154.9 cm (5' 1 ) Wt 78.3 kg (172 lb 11.2 oz) SpO2 95% BMI 32.63 kg/m No orders of the defined types were placed in this encounter. Medications Discontinued During This Encounter Medication Reason OXcarbazepine (TRILEPTAL) 300 mg tablet VRAYLAR 1.5 mg capsule IMPRESSIONS/PLAN 1. Primary hypertension 1. Essential hypertension. She likely has severe essential hypertension. She is not quite at goal and I have discontinued her Norvasc and switch to Procardia XL. She will continue to keep a log. We maybe able to push the Procardia more and or switch the Toprol to labetalol if necessary. I have scheduled her for renal arterial duplex ultrasound to exclude significant renal artery obstruction 2. She has previous diagnosis of mitral valve prolapse which is not really evident on echocardiogram last year. She does not have significant mitral regurgitation. TODAYS ORDERS No orders of the defined types were placed in this encounter. FOLLOW UP No follow-ups on file. PCP: LESLI Wang Referring Physician: LESLI Wang [address] [place] [id number] documented in this encounter [facility] 10-01-2024 Miscellaneous Notes Called patient to remind them to bring their most current copy of their medication list with them to their appt. Patient verbalizes understanding. documented in this encounter [facility] 10-01-2024 Telephone encounter Note Called patient to remind them to bring their most current copy of their medication list with them to their appt. Patient verbalizes understanding. [facility] 08-12-2024 Miscellaneous Notes Called patient to remind them to bring their most current copy of their medication list with them to their appt. Patient verbalizes understanding. documented in this encounter [facility] 08-12-2024 Telephone encounter Note Called patient to remind them to bring their most current copy of their medication list with them to their appt. Patient verbalizes understanding. [facility] History of Present illness Narrative Patient: Aaron Brennan : 1975 PCP: Sarwat Pang MD SUBJECTIVE This is a 48 y.o. female that presents today for a chief complaint of burning tingling and stinging to her bilateral feet. States been happening for the past few years post back surgery in the past. She states she had spinal surgery due to herniated disc in the past and had symptoms at that point. She has tried Neurontin and Lyrica with negative improvement and is in pain manageable for spinal injections and has spinal stimulator implant as well from pain management with minimal relief in the past. Pt was placed on medrol dose pack with negative improvement in the past and was advised to use Voltaren gel and states that she has been using gel with negative relief Patient presents today for follow up of capsulitis and synovitis to the left 2nd MPJ capsule Currently they rate their pain on a 1-10 scale a 10 States prior treatments of 2nd steroid injection and nsaids with negative relief in the past States pain is aggrevated with WB. Patient currently is not covered for custom orthotics She states that she has been using knee scooter with minimal improvement Allergies: Allergies Allergen Reactions Codeine GI intolerance, Hives and Unknown Lamotrigine Rash and Unknown Past Medical History: Past Medical History: Diagnosis Date Asthma ([facility]) Chronic mental illness Hypertension ([facility]) Medications: Current Outpatient Medications: Adderall 20 MG tablet, every 12 (twelve) hours, Disp: , Rfl: amphetamine-dextroamphetamine (Adderall) 15 MG tablet, every 12 (twelve) hours, Disp: , Rfl: lurasidone (Latuda) 120 MG tablet, 1 (one) time each day at the same time, Disp: , Rfl: methylPREDNISolone (Medrol Dospak) 4 MG tablets, Follow schedule on MEDROL PACK package instructions to be used as directed, Disp: 21 tablet, Rfl: 0 traZODone (Desyrel) 50 MG tablet, , Disp: , Rfl: Trileptal 600 MG tablet, every 12 (twelve) hours, Disp: , Rfl: vilazodone (Viibryd) 20 MG tablet, 1 (one) time each day at the same time, Disp: , Rfl: Social History: Social History Socioeconomic History Marital status: Spouse name: Not on file Number of children: Not on file Years of education: Not on file Highest education level: Not on file Occupational History Not on file Tobacco Use Smoking status: Never Smokeless tobacco: Not on file Substance and Sexual Activity Alcohol use: Defer Drug use: Defer Sexual activity: Not on file Other Topics Concern Not on file Social History Narrative Not on file Social Drivers of Health Financial Resource Strain: Not on file Food Insecurity: Not on file Transportation Needs: Not on file Physical Activity: Not on file Stress: Not on file Social Connections: Not on file Intimate Partner Violence: Not on file Housing Stability: Not on file ROS: General: denies fever, chills, fatigue, malaise Gastrointestinal: denies abdominal pain, ulcers, or changes in appetite or bowel habits Musculoskeletal: denies arthritis, denies loss of strength, pain to hip, positive history of arthritis and multiple back surgeries and spinal stimulator and in pain management Cardiovascular: denies CP, palpitations, positive history of heart issue in the past OBJECTIVE LE EXAM: DERM: Positive hair growth to b/l feet with good skin turgor noted. Negative openings in skin VASC: Palpable pedal pulsed b/l with warm to cool tibia to toes b/l NEURO: 5.07 [place] Eli monofilament test diminished to digits and forefoot bilaterally 125Hz tuning fork diminished to 1st MPJ bilaterally ORTHO: +5/5 DF/PF/IN/EV right, +5/5 DF/PF/IN/EV left. 20 degrees inversion and 10 degrees eversion STJ b/l. Ankle ROM less than 10 degrees b/l. 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 Neuritis 2. Capsulitis of metatarsophalangeal (MTP) joint of left foot 3. Other polyneuropathy PLAN Reviewed previous MRI results with patient. Advised her to continue with Voltaren gel daily for peripheral neuropathy type pain Continue with knee scooter Patient have consultation referral to Neurology as she has had spine stimulator in the past and may need tertiary care center like [facility] for possible chronic pain management and nerve related type condition Did discuss social security disability with patient she may be interested in pursuing this in the future Wayne Addison DPM documented in this encounter [facility] 07-23-2024 History of Present illness Narrative Patient: Aaron Brennan : 1975 PCP: Sarwat Pang MD SUBJECTIVE This is a 48 y.o. female that presents today for a chief complaint of burning tingling and stinging to her bilateral feet. States been happening for the past few years post back surgery in the past. She states she had spinal surgery due to herniated disc in the past and had symptoms at that point. She has tried Neurontin and Lyrica with negative improvement and is in pain manageable for spinal injections and has spinal stimulator implant as well from pain management with minimal relief in the past. Pt was placed on medrol dose pack with negative improvement. Patient presents today for follow up of capsulitis and synovitis to the left 2nd MPJ capsule Currently they rate their pain on a 1-10 scale a 10 States prior treatments of 2nd steroid injection and nsaids with negative relief States pain is aggrevated with WB. Patient still has burning and tingling to toes particularly the right-sided has tried Voltaren gel with negative improvement Pt is not covered for custom orthotics at this time and needs to be pre-certify Allergies: Allergies Allergen Reactions Codeine GI intolerance, Hives and Unknown Lamotrigine Rash and Unknown Past Medical History: Past Medical History: Diagnosis Date Asthma ([facility]) Chronic mental illness Hypertension ([facility]) Medications: Current Outpatient Medications: Adderall 20 MG tablet, every 12 (twelve) hours, Disp: , Rfl: amphetamine-dextroamphetamine (Adderall) 15 MG tablet, every 12 (twelve) hours, Disp: , Rfl: lurasidone (Latuda) 120 MG tablet, 1 (one) time each day at the same time, Disp: , Rfl: methylPREDNISolone (Medrol Dospak) 4 MG tablets, Follow schedule on MEDROL PACK package instructions to be used as directed, Disp: 21 tablet, Rfl: 0 traZODone (Desyrel) 50 MG tablet, , Disp: , Rfl: Trileptal 600 MG tablet, every 12 (twelve) hours, Disp: , Rfl: vilazodone (Viibryd) 20 MG tablet, 1 (one) time each day at the same time, Disp: , Rfl: Social History: Social History Socioeconomic History Marital status: Spouse name: Not on file Number of children: Not on file Years of education: Not on file Highest education level: Not on file Occupational History Not on file Tobacco Use Smoking status: Never Smokeless tobacco: Not on file Substance and Sexual Activity Alcohol use: Defer Drug use: Defer Sexual activity: Not on file Other Topics Concern Not on file Social History Narrative Not on file Social Drivers of Health Financial Resource Strain: Not on file Food Insecurity: Not on file Transportation Needs: Not on file Physical Activity: Not on file Stress: Not on file Social Connections: Not on file Intimate Partner Violence: Not on file Housing Stability: Not on file ROS: General: denies fever, chills, fatigue, malaise Gastrointestinal: denies abdominal pain, ulcers, or changes in appetite or bowel habits Musculoskeletal: denies arthritis, denies loss of strength, pain to hip, positive history of arthritis and multiple back surgeries and spinal stimulator and in pain management Cardiovascular: denies CP, palpitations, positive history of heart issue in the past OBJECTIVE LE EXAM: DERM: Positive hair growth to b/l feet with good skin turgor noted. Negative openings in skin VASC: Palpable pedal pulsed b/l with warm to cool tibia to toes b/l NEURO: 5.07 [place] Eli monofilament test diminished to digits and forefoot bilaterally 125Hz tuning fork diminished to 1st MPJ bilaterally ORTHO: +5/5 DF/PF/IN/EV right, +5/5 DF/PF/IN/EV left. 20 degrees inversion and 10 degrees eversion STJ b/l. Ankle ROM less than 10 degrees b/l. Positive pain on palpation to left 2nd MPJ capsule with negative Edelmira test ASSESSMENT 1. Neuritis 2. Other polyneuropathy 3. Capsulitis of metatarsophalangeal (MTP) joint of left foot PLAN Discussed possible treatment options for neuritis and peripheral neuropathy type symptoms including medications and did recommend [id number] diclofenac cream to apply twice daily to the feet as this is used sometimes used in multiple compounded formulas Discussed most likely origin is lower spinal segments and still having issues with post back surgery issues. Did recommend possible 2nd opinion at tertiary hospital. Discussed peripheral neuropathy in detail with patient and causative factors of spinal impingement. Will attempt to anu down MRI at [facility] done in May of 2024 according to patient Advised knee scooter at this time Wayne Addison DPM documented in this encounter [facility] 07-09-2024 History of Present illness Narrative Patient: Aaron Cole Anu : 1975 PCP: Sarwat Pang MD SUBJECTIVE This is a 48 y.o. female that presents today for a chief complaint of burning tingling and stinging to her bilateral feet. States been happening for the past few years post back surgery in the past. She states she had spinal surgery due to herniated disc in the past and had symptoms at that point. She has tried Neurontin and Lyrica with negative improvement and is in pain manageable for spinal injections and has spinal stimulator implant as well from pain management with minimal relief Patient presents today for follow up of capsulitis and synovitis to the left 2nd MPJ capsule Currently they rate their pain on a 1-10 scale a 8 States prior treatments of steroid injection and nsaids with negative relief States pain is aggrevated with WB. Patient still has burning and tingling to toes particularly the right-sided has tried Voltaren gel with negative improvement Allergies: Allergies Allergen Reactions Codeine GI intolerance, Hives and Unknown Lamotrigine Rash and Unknown Past Medical History: Past Medical History: Diagnosis Date Asthma ([facility]) Chronic mental illness Hypertension ([facility]) Medications: Current Outpatient Medications: Adderall 20 MG tablet, every 12 (twelve) hours, Disp: , Rfl: amphetamine-dextroamphetamine (Adderall) 15 MG tablet, every 12 (twelve) hours, Disp: , Rfl: lurasidone (Latuda) 120 MG tablet, 1 (one) time each day at the same time, Disp: , Rfl: traZODone (Desyrel) 50 MG tablet, , Disp: , Rfl: Trileptal 600 MG tablet, every 12 (twelve) hours, Disp: , Rfl: vilazodone (Viibryd) 20 MG tablet, 1 (one) time each day at the same time, Disp: , Rfl: Social History: Social History Socioeconomic History Marital status: Spouse name: Not on file Number of children: Not on file Years of education: Not on file Highest education level: Not on file Occupational History Not on file Tobacco Use Smoking status: Never Smokeless tobacco: Not on file Substance and Sexual Activity Alcohol use: Defer Drug use: Defer Sexual activity: Not on file Other Topics Concern Not on file Social History Narrative Not on file Social Drivers of Health Financial Resource Strain: Not on file Food Insecurity: Not on file Transportation Needs: Not on file Physical Activity: Not on file Stress: Not on file Social Connections: Not on file Intimate Partner Violence: Not on file Housing Stability: Not on file ROS: General: denies fever, chills, fatigue, malaise Gastrointestinal: denies abdominal pain, ulcers, or changes in appetite or bowel habits Musculoskeletal: denies arthritis, denies loss of strength, pain to hip, positive history of arthritis and multiple back surgeries and spinal stimulator and in pain management Cardiovascular: denies CP, palpitations, positive history of heart issue in the past OBJECTIVE LE EXAM: DERM: Positive hair growth to b/l feet with good skin turgor noted. Negative openings in skin VASC: Palpable pedal pulsed b/l with warm to cool tibia to toes b/l NEURO: 5.07 [place] Eli monofilament test diminished to digits and forefoot bilaterally 125Hz tuning fork diminished to 1st MPJ bilaterally ORTHO: +5/5 DF/PF/IN/EV right, +5/5 DF/PF/IN/EV left. 20 degrees inversion and 10 degrees eversion STJ b/l. Ankle ROM less than 10 degrees b/l. Positive pain on palpation to left 2nd MPJ capsule with negative Edelmira test ASSESSMENT 1. Neuritis 2. Capsulitis of metatarsophalangeal (MTP) joint of left foot 3. Other polyneuropathy PLAN Discussed possible treatment options for neuritis and peripheral neuropathy type symptoms including medications and did recommend [id number] diclofenac cream to apply twice daily to the feet as this is used sometimes used in multiple compounded formulas Discussed most likely origin is lower spinal segments and still having issues with post back surgery issues. Did recommend possible 2nd opinion at tertiary hospital. Discussed peripheral neuropathy in detail with patient and causative factors of spinal impingement. Patient will be placed on Medrol Dosepak Pre-certify for inserts Pt was given steroid injection to the medial and lateral capsular ligaments of the left 2nd MPJ under US guidance with visualization of injected fluid into area of concern per imaging. Injection consisted of a 2:1 mixture of xylocaine 2%plain and kenalog 10 for a total of 3ccs. Informed pt of risks and benefits of procedure including infection,damage or rupture to soft tissue structures and steroid flare. Pt understood and consented. This is the patients 2nd injection Wayne Addison DPM documented in this encounter [facility] 06-25-2024 History of Present illness Narrative Patient: Aaron Brennan : 1975 PCP: Sarwat Pang MD SUBJECTIVE This is a 48 y.o. female that presents today for a chief complaint of burning tingling and stinging to her bilateral feet. States been happening for the past few years post back surgery in the past. She states she had spinal surgery due to herniated disc in the past and had symptoms at that point. She has tried Neurontin and Lyrica with negative improvement and is in pain manageable for spinal injections and has spinal stimulator implant as well from pain management with minimal relief Patient also states she has pain to the left plantar forefoot region and points around the 2nd digit area that is painful primarily with ambulation very sharp up to a 8/10 at times with no relief with medication. Allergies: Allergies Allergen Reactions Codeine GI intolerance, Hives and Unknown Lamotrigine Rash and Unknown Past Medical History: Past Medical History: Diagnosis Date Asthma ([facility]) Chronic mental illness Hypertension ([facility]) Medications: Current Outpatient Medications: traZODone (Desyrel) 50 MG tablet, , Disp: , Rfl: Adderall 20 MG tablet, every 12 (twelve) hours, Disp: , Rfl: amphetamine-dextroamphetamine (Adderall) 15 MG tablet, every 12 (twelve) hours, Disp: , Rfl: lurasidone (Latuda) 120 MG tablet, 1 (one) time each day at the same time, Disp: , Rfl: Trileptal 600 MG tablet, every 12 (twelve) hours, Disp: , Rfl: vilazodone (Viibryd) 20 MG tablet, 1 (one) time each day at the same time, Disp: , Rfl: Social History: Social History Socioeconomic History Marital status: Spouse name: Not on file Number of children: Not on file Years of education: Not on file Highest education level: Not on file Occupational History Not on file Tobacco Use Smoking status: Never Smokeless tobacco: Not on file Substance and Sexual Activity Alcohol use: Defer Drug use: Defer Sexual activity: Not on file Other Topics Concern Not on file Social History Narrative Not on file Social Drivers of Health Financial Resource Strain: Not on file Food Insecurity: Not on file Transportation Needs: Not on file Physical Activity: Not on file Stress: Not on file Social Connections: Not on file Intimate Partner Violence: Not on file Housing Stability: Not on file ROS: General: denies fever, chills, fatigue, malaise Gastrointestinal: denies abdominal pain, ulcers, or changes in appetite or bowel habits Musculoskeletal: denies arthritis, denies loss of strength, pain to hip, positive history of arthritis and multiple back surgeries and spinal stimulator and in pain management Cardiovascular: denies CP, palpitations, positive history of heart issue in the past OBJECTIVE LE EXAM: DERM: Positive hair growth to b/l feet with good skin turgor noted. Negative openings in skin VASC: Palpable pedal pulsed b/l with warm to cool tibia to toes b/l NEURO: 5.07 [place] Eli monofilament test diminished to digits and forefoot bilaterally 125Hz tuning fork diminished to 1st MPJ bilaterally ORTHO: +5/5 DF/PF/IN/EV right, +5/5 DF/PF/IN/EV left. 20 degrees inversion and 10 degrees eversion STJ b/l. Ankle ROM less than 10 degrees b/l. Positive pain on palpation to left 2nd MPJ capsule with negative Edelmira test XRAY: US: DIAGNOSTIC ULTRASOUND REPORT: Verbal order for ultrasound today The 2nd MPJ capsule of the left foot was examined with a 12 MHz linear probe in the transverse and sagital planes on the capsular regions of the MPJ. Images obtained. FINDINGS: Ultrasound exam demonstrates capsulitis/inflammation and a hypoechoic signal at plantar capsule on a series of sagittal and transverse images. The plantar plate examined as well with plantar joint capsule intact. IMPRESSION: Ultrasound findings indicated capsulitis of the left 2nd MPJ. ASSESSMENT 1. Neuritis 2. Capsulitis of metatarsophalangeal (MTP) joint of left foot 3. Other polyneuropathy PLAN Discussed possible treatment options for neuritis and peripheral neuropathy type symptoms including medications and did recommend tmvb-lov-soertaq diclofenac cream to apply twice daily to the feet as this is used sometimes used in multiple compounded formulas Discussed most likely origin is lower spinal segments and still having issues with post back surgery issues. Did recommend possible 2nd opinion at tertiary hospital. Discussed peripheral neuropathy in detail with patient and causative factors of spinal impingement. Reviewed ultrasound today with patient Pt was given steroid injection to the medial and lateral capsular ligaments of the left 2nd MPJ under US guidance with visualization of injected fluid into area of concern per imaging. Injection consisted of a 2:1 mixture of xylocaine 2%plain and kenalog 10 for a total of 3ccs. Informed pt of risks and benefits of procedure including infection,damage or rupture to soft tissue structures and steroid flare. Pt understood and consented. This is the patients 1st injection Discussed possible orthotics in future Wayne Addison DPM documented in this encounter [facility] 06-02-2024 Evaluation + Plan note Extrac carmelo from: Title:Caudal epidural steroid injection Author:Nsétor Smith DO Date:06/02/24 Diagnosis: M96.1 Lumbar post laminectomy pain syndrome Procedure: Caudal epidural steroid injection under fluoroscopic guidance Anesthesia: Local Complications: None After informed consent was obtained, the patient was brought back to the procedure room and placed in the prone position. Back areas prepped and draped in the usual sterile fashion using fluoroscopic guidance, the skin and subcutaneous tissues overlying the needle trajectory over the sacral hiatus was anesthetized with 2% lidocaine. The 22-gauge Quincke needle was then introduced in the lower aspect of the sacral hiatus. Injection of contrast under fluoroscopy revealed appropriate epidural spread in both the lateral and AP views without vascular uptake. Negative aspiration for blood. Thereafter, 9 mL of normal saline with 40 mg of methylprednisolone was injected into the epidural space the needle was then removed. The patient tolerated procedure well. Patient was then transferred to the recovery room in stable condition. Follow-up: The patient will update us on the response to this procedure, and agrees to continue currently prescribed/recommended therapies. Future Appointments Appointment Date:07/06/2024 09:00:00 AM Scheduled Provider:Ruba Frias PA-C Location:.[facility] Appointment Type:Pain Management - Follow Up (FT) [facility] 11-06-2024 NoteConsultation Note Patient is presenting with history of lumbar postlaminectomy pain syndrome, chronic pain syndrome and left foot pain. At present she rates her pain as an 8/10 predominantly in her low back. She believes that her spinal cord stimulator is helping with some of her pain however she would like know if anything else can be done about her current pain levels. She states that her pain is present all thetime and is described as a sharp/stabbing sensation at its worst but can be a achy sensation as well. Nothing has significantly alleviated her pain thus far. She would like to know what else can be done. In addition she has left foot pain she has had persistent left-sided lower extremity numbness but has pain all across her toes on the left side. She states that when walking it feels like she is walking on rocks and occasionally she has a sharp sensation in this region. She has not had any imaging studies performed of her foot. AGUSTO Score: 40% PHQ-2: 1 Patient denies any symptoms of progressively worsening upper/lower extremity weakness, progressively worsening gait abnormality, new onset bowel/bladder incontinence/ urinary retention, or saddle anesthesia. No new or worsening symptoms of fever, chills, night sweats. 14 Point Review of systems negative unless otherwise noted. General: No acute distress. Patient appears well-nourished. HEENT: Head is normocephalic and external ears are normal in appearance. Cardiovascular: No signs of poor perfusion and no peripheral edema Pulmonary: Nonlabored breathing, symmetric chest movement. GI: Abdomen nondistended Integumentary: No lesions Neurologic: Alert, oriented x3. 5/5 strength grossly in the bilateral upper extremities. Sensation intact to light touch in the bilateral upper extremities. 5/5 strength grossly in the bilateral lower extremities. Sensation intact to light touch in the bilateral lower extremities, diminished in the left L3, L4 and L5 dermatomal distribution compared to the contralateral side. MSK/Special Testing: Negative Medina sign bilaterally. Tenderness to palpation on the dorsal and plantar aspects of the left foot across all the metatarsal phalangeal heads. History, physical examination, and personal review of pertinent imaging results indicate a diagnosis of: -Lumbar postlaminectomy pain syndrome -Chronic pain syndrome -Left foot pain Plan: -Will schedule the patient for caudal epidural steroid injection under fluoroscopic guidance to address symptoms of postlaminectomy pain syndrome in the lumbar spine -For her left foot pain this may represent a Alaniz's neuroma as she has increased pain in her leftfoot metatarsophalangeal region with diminished sensation proximal to this area, we will obtain an x-ray and MRI of her for to better delineate this pain -Follow-up 1 month post caudal injection or sooner if any issues arise Patient was counseled on the above diagnosis and treatment, all questions were answered and patientagrees to adhere to the plan above. Risk and benefits of appropriate procedures and medications were reviewed as well with patient, who voiced understanding and agreeance. Patient was counseled on appropriate use of opioids if prescribed or renewed today and naloxone was offered to patient if opioids were prescribed or maintained at this visit. PHQ-2 scoring reviewed with patient and discussed seeking treatment for depression or mood disorder as appropriate. Patient was counseled on smoking cessation and/or continuing to abstain from nicotine/tobacco products as appropriate based on history; as smoking/nicotine can contribute to increased pain overall and decreased wound healing. Patient counseled on maintaining a healthy BMI as part of the total treatment of their pain and to reduce stress/strain on joints. Patient invited to return or call with any questions or concerns that arise.[facility] HospitalComment on above:Result Comment: Electronically Signed By: Néstor Maradiaga DO\.br\Date and Time Signed: 05/13/24 18:39 [id number] Evaluation + Plan noteExtracted from: Title:chronic pain Author:Néstor Maradiaga DO Date:05/13/24 Patient is presenting with h istory of lumbar postlaminectomy pain syndrome, chronic pain syndrome and left foot pain. At present she rates her pain as an 8/10 predominantly in her low back. She believes that her spinal cord stimulator is helping with some of her pain however she would like know if anything else can be done about her current pain levels. She states that her pain is present all the time and is described as a sharp/stabbing sensation at its worst but can be a achy sensation as well. Nothing has significantly alleviated her pain thus far. She would like to know what else can be done. In addition she has left foot pain she has had persistent left-sided lower extremity numbness but has pain all across her toes on the left side. She states that when walking it feels like she is walking on rocks and occasionally she has a sharp sensation in this region. She has not had any imaging studies performed of her foot. AGUSTO Score: 40% PHQ-2: 1 Patient denies any symptoms of progressively worsening upper/lower extremity weakness, progressively worsening gait abnormality, new onset bowel/bladder incontinence/ urinary retention, or saddle anesthesia. No new or worsening symptoms of fever, chills, night sweats. 14 Point Review of systems negative unless otherwise noted. General: No acute distress. Patient appears well-nourished. HEENT: Head is normocephalic and external ears are normal in appearance. Cardiovascular: No signs of poor perfusion and no peripheral edema Pulmonary: Nonlabored breathing, symmetric chest movement. GI: Abdomen nondistended Integumentary: No lesions Neurologic: Alert, oriented x3. 5/5 strength grossly in the bilateral upper extremities. Sensation intact to light touch in the bilateral upper extremities. 5/5 strength grossly in the bilateral lower extremities. Sensation intact to light touch in the bilateral lower extremities, diminished in the left L3, L4 and L5 dermatomal distribution compared to the contralateral side. MSK/Special Testing: Negative Medina sign bilaterally. Tenderness to palpation on the dorsal and plantar aspects of the left foot across all the metatarsal phalangeal heads. History, physical examination, and personal review of pertinent imaging results indicate a diagnosis of: -Lumbar postlaminectomy pain syndrome -Chronic pain syndrome -Left foot pain Plan: -Will schedule the patient for caudal epidural steroid injection under fluoroscopic guidance to address symptoms of postlaminectomy pain syndrome in the lumbar spine -For her left foot pain this may represent a Alainz's neuroma as she has increased pain in her left foot metatarsophalangeal region with diminished sensation proximal to this area, we will obtain an x-ray and MRI of her for to better delineate this pain -Follow-up 1 month post caudal injection or sooner if any issues arise Patient was counseled on the above diagnosis and treatment, all questions were answered and patient agrees to adhere to the plan above. Risk and benefits of appropriate procedures and medications were reviewed as well with patient, who voiced understanding and agreeance. Patient was counseled on appropriate use of opioids if prescribed or renewed today and naloxone was offered to patient if opioids were prescribed or maintained at this visit. PHQ-2 scoring reviewed with patient and discussed seeking treatment for depression or mood disorder as appropriate. Patient was counseled on smoking cessation and/or continuing to abstain from nicotine/tobacco products as appropriate based on history; as smoking/nicotine can contribute to increased pain overall and decreased wound healing. Patient counseled on maintaining a healthy BMI as part of the total treatment of their pain and to reduce stress/strain on joints. Patient invited to return or call with any questions or concerns that arise. [facility] 05-02-2024 Miscellaneous Notes* Telephone Encounter - Janice Johnson RN - 11/07/2023 11:57 AM EDT Pt calls stating that she was in the [facility] ER last night due to high heart rates. She states that when she woke up it was in the 80's, by midmorning it was in the 90's. She states it is accompanied by a slight pain under her left breast. BP this morning was 150/104. Headaches do occur when her BP is elevated. States the ER was not able to find anything and sent her home, no changes in meds. Attempting to obtain records from [facility] to have scanned in chart. Pt was last seen by Dr. Plascencia, job specification writer will message him to advise. * Telephone Encounter - Mayito Plascencia MD - 11/07/2023 11:57 AM EDT Unless there are surprising findings on the records, metoprolol 75 b.i.d. would go ahead and increase this this will take care of the tachycardia and the hypertension hopefully * Telephone Encounter - Janice Johnson RN - 11/07/2023 11:57 AM EDT Pt updated on RBP response, [facility] records obtained, nothing alarming on that, will have scanned in. She will increase Metoprolol to 75 mg BID and call office if any further issues arise. She does not need a refill at this time [facility] Telephone encounter Note* Telephone Encounter - Janice Johnson RN - 11/07/2023 11:57 AM EDT Pt calls stating that she was in the [facility] ER last night due to high heart rates. She states that when she woke up it was in the 80's, by midmorning it was in the 90's. She states it is accompanied by a slight pain under her left breast. BP this morning was 150/104. Headaches do occur when her BP is elevated. States the ER was not able to find anything and sent her home, no changes in meds. Attempting to obtain records from [facility] to have scanned in chart. Pt was last seen by Dr. Plascencia, job specification writer will message him to advise. [facility] Telephone encounter Note* Telephone Encounter - Mayito Plascencia MD - 11/07/2023 11:57 AM EDT Unless there are surprising findings on the records, metoprolol 75 b.i.d. would go ahead and increase this this will take care of the tachycardia and the hypertension hopefully [facility]-02[facility] Telephone encounter Note* Telephone Encounter - Janice Johnson RN - 11/07/2023 11:57 AM EDT Pt updated on RBP response, [facility] records obtained, nothing alarming on that, will have scanned in. She will increase Metoprolol to 75 mg BID and call office if any further issues arise. She does not need a refill at this time [facility]03-28-2024 History of Present illness Narrative* Mayito Plascencia MD - 10/03/2023 9:45 AM EDT Aaron Brennan Date of visit: 10/03/2023 Date of : 1975 Age: 48 y.o. Patient Active Problem List Diagnosis Anxiety Mitral valve prolapse Seasonal allergies Lumbosacral spondylosis without myelopathy Disorder of sacrum Lumbar neuritis Hypertension Allergies Allergen Reactions Codeine Hives Lamotrigine Current Outpatient Medications Medication Sig Dispense Refill amLODIPine (NORVASC) 5 mg tablet Take 1 tablet (5 mg total) by mouth in the morning and 1 tablet (5mg total) before bedtime. amphetamine-dextroamphetamine XR (ADDERALL XR) 30 mg 24 hr capsule 1 capsule (30 mg total) every morning. APPLE CIDER VINEGAR ORAL Take by mouth daily. BIOTIN ORAL Take by mouth daily. CRANBERRY ORAL Take by mouth daily. dextroamphetamine-amphetamine (ADDERALL) 20 mg tablet daily. docosahexaenoic acid/epa (FISH OIL ORAL) Take by mouth 3 (three) times a day. levothyroxine (SYNTHROID, LEVOTHROID) 25 MCG tablet Take 1 tablet (25 mcg total) by mouth in the morning. lurasidone (LATUDA) 80 mg tablet 1 tablet (80 mg total) in the morning. metoprolol succinate XL (TOPROL XL) 50 mg 24 hr tablet Take 1 tablet (50 mg total) by mouth in the morning and 1 tablet (50 mg total) before bedtime. OXcarbazepine (TRILEPTAL) 600 mg tablet Take 1 tablet (600 mg total) by mouth 3 (three) times a day. PNV no.95/ferrous fum/folic ac ( ORAL) Take by mouth daily. traZODone (DESYREL) 50 mg tablet Take 2 tablets (100 mg total) by mouth nightly. vilazodone (VIIBRYD) 40 mg tablet Take 1 tablet (40 mg total) by mouth in the morning. zolpidem CR (AMBIEN CR) 12.5 mg CR tablet nightly. gabapentin (NEURONTIN) 300 mg capsule Take 1 capsule (300 mg total) by mouth See Admin Instructions. Take 1 tablet by mouth at bedtime for 3 nights, then take 1 tablet by mouth twice daily for 3 days, then take 1 tablet by mouth three times daily thereafter (Patient not taking: Reported on 10/03/2023) 81 capsule 0 ibuprofen (ADVIL,MOTRIN) 800 mg tablet Take 800 mg by mouth every 6 (six) hours as needed for pain.(Patient not taking: Reported on 10/03/2023) OXcarbazepine (TRILEPTAL) 300 mg tablet Take 300 mg by mouth daily. (Patient not taking: Reported on 10/03/2023) VRAYLAR 1.5 mg capsule 3 mg. (Patient not taking: Reported on 10/03/2023) No current facility-administered medications for this visit. Chief Complaint Patient presents with New Patient SAW STRAIGHTENER HYPERTENSION, LABS DONE, PT RECENTLY IN [facility] History of Present Illness 48yo here with symptoamtic HTN She went to [facility] BP 200s/100s Cardiac w/u negative, including only CE's Occasional sharp cp with HTN Pleuritic in nature MELENDEZ and dizziness most common with HTN over last 1 year Nonsmoker EKG normal Was told in her 30s that she had MVP Then was told some sort of story She has back stimulator but does not have significant back pain provoking HTN Past Medical History: Diagnosis Date Accidental fall Anxiety Asthma Breathlessness lying flat Congenital heart disease Depression Essential hypertension Heart valve problem Herniated lumbar intervertebral disc High blood pressure History of cardiovascular stress test History of echocardiogram History of heart attack History of in vitro fertilization [place] (myocardial infarction) ([facility]) at age 28 No data recorded No data recorded No data recorded Past Surgical History: Procedure Laterality Date APPENDECTOMY BACK SURGERY CHOLECYSTECTOMY INJECTION BLOCK EPIDURAL STEROID LUMBAR/SACRAL Right L 5, 1 NR Right 07/29/2020 Performed by Contreras Chaparro MD at [facility] INJECTION MEDIAL BRANCH NERVE BLOCK Bilateral L 4/5, 5/1 Bilateral 04/29/2020 Performed by Contreras Chaparro MD at [facility] INJECTION SI JOINT Bilateral SI Joint Bilateral 06/20/2020 Performed by Contreras Chaparro MD at [facility] INJECTION SI JOINT Bilateral SI Joint Bilateral 05/27/2020 Performed by Contreras Chaparro MD at [facility] TUBAL LIGATION Family History Problem Relation Age of Onset Breast cancer Mother 50 Hyperlipidemia Father Kidney cancer Father renal carcinoma Mitral valve prolapse Father Breast cancer Maternal Aunt 38 Breast cancer Maternal Aunt 54 Social History Socioeconomic History Marital status: Spouse name: Not on file Number of children: Not on file Years of education: Not on file Highest education level: Not on file Occupational History Not on file Tobacco Use Smoking status: Never Smokeless tobacco: Never Vaping Use Vaping Use: Never used Substance and Sexual Activity Alcohol use: Not Currently Alcohol/week: 4.0 standard drinks of alcohol Types: 4 Glasses of wine per week Comment: 10 yrs ago Drug use: Not Currently Comment: prior addict, 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 Negative for weight gain. HENT: Negative for hearing loss and nosebleeds. Eyes: Negative for blurred vision and double vision. Respiratory: Positive for shortness of breath (with exertion). Negative for sleep disturbances due to breathing and wheezing. Endocrine: Negative for polydipsia. Hematologic/Lymphatic: Negative for bleeding problem. Bruises/bleeds easily. Skin: Negative for color change, itching and rash. Musculoskeletal: Positive for muscle cramps. Negative for back pain, falls, joint swelling and muscle weakness. Gastrointestinal: Negative for heartburn, hematochezia and melena. Genitourinary: Negative for hematuria. Neurological: Positive for headaches. Negative for dizziness, light-headedness, loss of balance, numbness, seizures and tremors. Psychiatric/Behavioral: Negative for altered mental status, depression and memory loss. Allergic/Immunologic: Negative for persistent infections. CARDIOVASCULAR: Please review HPI. Physical Examination General appearance: Alert, oriented and cooperative. In no acute distress. Skin: Warm and dry to touch. Head: Normocephalic, without obvious abnormality, atraumatic. Ears, Nose, Mouth, Throat: Throat clear without erythema or exudate. Dentition intact. Eyes: Conjunctivae unremarkable, EOM intact. Neck: No JVD, No carotid bruit. Neck supple, trachea midline. Respiratory: Clear to auscultation bilaterally, no use of accessory muscles. Cardiovascular: RRR with normal S1 and S2 with no murmurs. Gastrointestinal: Soft, non-tender. Bowel sounds normal. Musculoskeletal: No peripheral edema. Neurologic: Oriented to time, person and place, affect appropriate. No focal/major motor defects noted. Psychiatric: Appropriate mood, memory and judgement. VITAL SIGNS: BP 134/88 (BP Site: Left Arm) Pulse 65 Ht 154.9 cm (5' 1 ) Wt 80.7 kg (178 lb) SpO2 98% BMI 33.63 kg/m Orders Placed or Reconciled This Encounter Medications amLODIPine (NORVASC) 5 mg tablet Sig: Take 1 tablet (5 mg total) by mouth in the morning and 1 tablet (5 mg total) before bedtime. levothyroxine (SYNTHROID, LEVOTHROID) 25 MCG tablet Sig: Take 1 tablet (25 mcg total) by mouth in the morning. metoprolol succinate XL (TOPROL XL) 50 mg 24 hr tablet Sig: Take 1 tablet (50 mg total) by mouth in the morning and 1 tablet (50 mg total) before bedtime. docosahexaenoic acid/epa (FISH OIL ORAL) Sig: Take by mouth 3 (three) times a day. PNV no.95/ferrous fum/folic ac ( ORAL) Sig: Take by mouth daily. CRANBERRY ORAL Sig: Take by mouth daily. BIOTIN ORAL Sig: Take by mouth daily. APPLE CIDER VINEGAR ORAL Sig: Take by mouth daily. There are no discontinued medications. IMPRESSIONS/PLAN 1. Hypertension, unspecified type - Ambulatory referral to Cardiology (Non[facility]) 2. Mitral valve prolapse Impression HTN, symptomatic (MELENDEZ/Dizziness/nausea). CT imaging with contrast negative Now on norvasc 5bid Metop 50bid Losartan 50mg daily On adderal (started 3 years ago) Bp still high at home, 160s 2. MVP?, obtain echo this will definitively r/o 3. ADHD on adderal 4. Pleuritic cp with HTN, nonanginal quality. TODAYS ORDERS No orders of the defined types were placed in this encounter. FOLLOW UP No follow-ups on file. PCP: LESLI Wang Referring Physician: LESLI Wang [address] [place] [address] documented [facility] Miscellaneous Notes* Telephone Encounter - Marya Roque CMA - 10/01/2023 8:52 AM EDT Called patient to remind them to bring their most current copy of their medication list with them to their appt. Patient verbalizes understanding. documented in this encounter[facility] Telephone encounter Note* Telephone Encounter - Marya Roque CMA - 10/01/2023 8:52 AM EDT Called patient to remind them to bring their most current copy of their medication list with them to their appt. Patient verbalizes understanding. [facility]02-[facility] Evaluation + Plan noteExtracted from: Title:Bilateral sacroiliac joint injections Auth or:Néstor Maradiaga DO Date:08/28/23 Diagnosis: M46.1, bilateral sacroiliitis Procedure: Bilateral diagnostic and therapeutic sacroiliac Joint injections under fluoroscopic guidance Anesthesia: Local Complications: none After informed consent was obtained, the patient was brought back to the procedure room and placed in the prone position. Back areas prepped and draped in the usual sterile fashion using fluoroscopic guidance, the skin and subcutaneous tissues overlying the needle trajectory over the lower aspect of sacroiliac joints were anesthetized with 2% lidocaine. The 22-gauge Quincke needles were then introduced in the lower aspect of the sacroiliac joint. Injection of contrast under fluoroscopy revealed appropriate intra-articular spread with confirmation in at least 2 views. Thereafter, 2 mL of 0.5% bupivacaine with 20 mg of methylprednisolone was injected into each sacroiliac joint. The needles were then removed. The patient tolerated procedure well. Patient was then transferred to the recovery room in stable condition. Follow-up: The patient will update us on the response to this procedure, and agrees to continue currently prescribed/recommended therapies. Future Appointments Appointment Date:09/13/2023 08:30:00 AM Scheduled Provider:Ruba Frias PA-C Location:FT.[facility] Appointment Type:Pain Management - Follow Up (FT) [facility]01-08-2024 Evaluation + Plan noteExtracted from: Title:Pain Managment Follow up Author:Ruba Lo [...] if necessary. AGUSTO score: 16% OARRS reviewed [facility]12-12-2023 Evaluation + Plan noteExtracted from: Title:FUV Author:Monik SANTIAGO, Abel Melo Date :06/18/23 Impression and Plan 47-year-old female [...] Date:07/15/2023 10:30:00 AM Scheduled Provider:Ruba Frias PA-C Location:[facility] Appointment Type:Pain Management - Follow Up (FT) [facility]11-14-2023 Evaluation + Plan noteExtracted from: Title:ANES Post-operative Note - MAC Author:Jhony Weiner Jr., DO Date:05/21/23 Plan Transfer/Discharge: Transfer/Discharge Discharge when meets criteria. Extracted from: Title:ANES Pre-operative Note - Pain Mgt Author: Jhony Cano Jr., DO Date:05/21/23 Plan [place] [employer] (ASA) physical status classification: Class III. Future Appointments Appointment Date:05/28/2023 10:30:00 AM Scheduled Provider:Abel Ruggiero MD Location:.[facility] Appointment Type:Pain Management - Follow Up (FT) [facility]09-26-2023 Evaluation + Plan noteExtracted from: Title:FUV Author:Abel [...] agrees with plan of care. [facility]09-19-2023 Evaluation + Plan noteExtracted from: Title:CSB post op Author:Keo Cm MD Date:03/26/23 Plan Transfer/Discharge: Transfer/Discharge Discharge when meets criteria ( To home ). Extracted from: Title:CSB Preop Author:Toi SANTIAGO, Keo Mehta Date:03/26/23 Plan [place] [employer] (ASA) physical status classification: Class II. Anesthetic Preoperative Plan: Anesthesia General. Future Appointments Appointment Date:04/02/2023 02:45:00 PM Scheduled Provider:Abel Ruggiero MD Location:.[facility] Appointment Type:Pain Management - Follow Up (FT) [facility]04-21-2023 Evaluation note* Encounter Date Diagnosis Assessment Notes [...] History of lumbar fusion (ICD-10 - Z98.1) [facility] Other 04-14-2023 Evaluation note* Encounter Date Diagnosis [...] intercourse for 2 weeks. Always use condoms. [facility] Other 02-16-2023 Evaluation note* Encounter Date Diagnosis [...] History of lumbar fusion (ICD-10 - Z98.1) [facility] Other 12-06-2022 Evaluation note* Encounter Date Diagnosis Assessment Notes Treatment Notes Treatment Clinical Notes Jun, Left lumbar radiculopathy (ICD-10 - M54.16) [facility] Other 11-22-2022 Evaluation note* Encounter Date Diagnosis [...] medication. May, Lumbar spondylolysis (ICD-10 - M43.06) [facility]* Encounter Date Diagnosis Assessment Notes Treatment Notes Treatment Clinical Notes Mar, Gastroesophageal ref lux disease, unspecified whether esophagitis present (ICD-10 - K21.9) [facility] Other 08-04-2022 Evaluation note* Encounter Date Diagnosis [...] Feb, Left lumbar radiculopathy (ICD-10 - M54.16) [facility] Other 06-14-2022 Evaluation note* Encounter Date Diagnosis [...] her back in 4 to 6 weeks. [facility] Other 03-17-2022 Evaluation note* Encounter Date Diagnosis [...] but has not had recent therapy since 2019 so we will send her for physical therapy of the low back and obtain a dynamic flexion and extension view of the back along with a AP lateral pelvis and reevaluate the patient in about 4 to 6 weeks. Consideration will be given to surgical intervention once these results are available for review Sep, Left lumbar radiculopathy (ICD-10 - M54.16) [facility] Other 02-22-2022 Evaluation note* Encounter Date Diagnosis [...] Patient care instructions given in writting by [facility] Care At Home document. [facility] Other Evaluation + Plan note Future Appointments Appointment Date:02/05/2023 03:30:00 PM Scheduled Provider:Abel Ruggiero MD Location:[facility] [place] Appointment Type:Pain Management - Follow Up ([facility]) [facility] Future Appointments Appointment Date:03/26/2023 07:30:00 AM Scheduled Provider: Location:[facility] Appointment Type:Surgery FT Appointment Date:04/02/2023 02:45:00 PM Scheduled Provider:Abel Ruggiero MD Location:[facility] [place] Appointment Type:Pain Management - Follow Up (FT) [facility] Future Appointments Appointment Date:05/21/2023 08:45:00 AM Scheduled Provider: Location:[facility] Appointment Type:Surgery FT Appointment Date:05/28/2023 01:30:00 PM Scheduled Provider:Abel Ruggiero MD Location:[facility] [place] Appointment Type:Pain Management - Follow Up (FT) [facility] Future Appointments Appointment Date:05/21/2023 08:45:00 AM Scheduled Provider: Location:[facility] Appointment Type:Surgery FT Appointment Date:05/28/2023 01:30:00 PM Scheduled Provider:Abel Ruggiero MD Location:[facility] [place] Appointment Type:Pain Management - Follow Up (FT) Diagnostic Tests Pending * MRSA Screen 05/14/23 [facility] noteNo InformationNort New Relic Other evaluation noteNo assessment information available [facility] Work Phone: [facility]hing [facility] New Relic Other evaluation note* Diagnosis Neuritis- Primary Unspecified neuralgia, neuritis, and radiculitis Capsulitis of metatarsophalangeal (MTP) joint of left foot Other polyneuropathy documented in this encounter [facility]* Diagnosis Neuritis- Primary Unspecified neuralgia, neuritis, and radiculitis Capsulitis of metatarsophalangeal (MTP) joint of left foot Other polyneuropathy documented in this encounter [facility] note* Diagnosis Neuritis- Primary Unspecified neuralgia, neuritis, and radiculitis Other polyneuropathy Capsulitis of metatarsophalangeal (MTP) joint of left foot documented in this encounter [facility] note* Diagnosis Neuritis- Primary Unspecified neuralgia, neuritis, and radiculitis Capsulitis of metatarsophalangeal (MTP) joint of left foot Other polyneuropathy documented in this encounter [facility] note* Diagnosis Mitral valve prolapse- Primary Mitral valve disorders Hypertension, unspecified type [facility] Diagnosis Primary hypertension- Primary Unspecified essential hypertension documented in this encounter [facility] [place] [facility] System[facility] note* Diagnosis Primary hypertension- Primary Unspecified essential hypertension documented in this encounter [facility] [place] [facility]* Diagnosis Paresthesia- Primary Disturbance of skin sensation Degeneration of intervertebral disc of lumbar region with discogenic back pain and lower extremity pain Myalgia Unspecified myalgia and myositis Weakness Other malaise and fatigue Polyneuropathy Unspecified hereditary and idiopathic peripheral neuropathy documented in this encounter [facility] HealthcareEvaluation note* Diagnosis Onset Date Resolution Status Admit Date Lumbosacral radiculopathy acute February 10, 2025 1:27pm [facility] Work Phone: History and physical note Author Campbell Shelton [facility] May 17, 2022 8:44am Note Date/Time May 17, 2022 8:44am [facility] [address] [place] [address] Gastroenterology H&P Signed Patient: Aaron Brennan MR#: [id number] : 1975 Acct:[id number] Age/Sex: 46 / F Adm Date: 2 Loc: Room: Type: [facility] Attending Dr: Campbell Shelton MD Copies to: [...] Shelton MD Documented By: Campbell Shelton MD 05/17/22 0843 Signed By: <Electronically signed by Campbell Shelton MD> 05/17/22 0844 [facility] Work Phone: History general Narrative - Reported* Type Description Date Medical History bipolar Medical History schizophrenia Evoz Other History general Narrative - Reported* Type Description Date Medical History bipolar Medical History schizophrenia Medical History Prolapsing left ventricle Surgical History back surgery-[facility] Hospitalization History See Above Evoz Other History general Narrative - ReportedNortEverwise Other Hospital course Narrative No data available for this section [facility] Dis[facility] instructions Additional Instructions DISCHARGE INSTRUCTIONS FOR [...] NOT operate machinery such as power tools, [employer] mowers, snow blowers, sewing machines, etc. for [...] stomach, liquids high in sugar content (soda, Mekhi-Aid, non-acid juices) are recommended. - Do NOT smoke. - Do take it easy today. You need not stay in bed, but avoid strenuous activities such as jogging or working out. FOLLOW UP & RECOMMENDATIONS: - Follow-up with Dr. Shelton as needed - Notify the doctor if you have any problems. - Follow up with PCP. - Office number [phone].[facility] Work Phone: Hospital Discharge instructions No data available for this section [facility] HospitalInstructionsNot on filedocumented in this encounter [facility]ructionsNot on filedocumented in this encounter [facility] on filedocumented in this encounter [facility] on filedocumented in this encounter [facility]ructionsNot on filedocumented in this encounter [facility]ructionsNot on filedocumented in this encounter [facility]ructionsNot on filedocumented in this encounter [facility] System[facility]ructionsNot on filedocumented in this encounter [facility] note No data available for this section [facility] HospitalReason for visit NarrativeReferral Dr. Pinto Lumbar SpondylolysisKernersville New Relic Other reason for visit Narrative* Consultation (Routine) - Closed Specialty Diagnoses / Procedures Referred By Haseeb carrillo Referred To Contact Neurology Diagnoses Neuritis Other polyneuropathy Procedures [place] [facility] 60 MINUTES Wayne Addison DPM [address] [address] Phone: tel: fax: Arnel [place] MD [address] [place] [address] Phone: tel: fax: Referral ID Status Reason Start Date Expiration Date V isits Requested Visits Authorized [id number] Closed Consult and Treat 07/30/2024 01/26/2025 1 1 [facility] Healthcare Reason for Referral Specialty Diagnoses / Procedures Referred By Haseeb carrillo Referred To Contact Diagnoses Hypertension, unspecified type Mitral valve prolapse Procedures Echo complete W/O contrast Mayito Plascencia MD [address] [place] [address] Referral ID Status Reason Start Date Expiration Date V isits Requested Visits Authorized [id number] Pending Review 10/03/2023 10/02/2024 1 1 Reason *FU 11/08 RSD Bila t foot stimulator ; Right sacroiliac pain Diagnosis 1 Left lumbar radiculo sarah (M54.16) Referral Organization [facility] Ne urosurgery Referring Provider First Name Joanie Referring Provider Last Name Sil Referring Provider Specialty Neurologica l Surgery Referred Organization [facility] Referred Provider Abel Ruggiero Referred Address [address] [place],[address] Referred Provider Specialty Pain Medicin e Referral Priority Routine General Notes Bee Gray 023 11:15:48 AM >Received today and waiting for office notes to be locked before sending Bee Gray 11/01/2022 11:10:53 AM >Office notes are locked. [facility] 's office request us to fill out form and fax referral to them and they will review the referral and call patient. Referral was fax Reason Severe Persistent Mya mbar Radiculopathy with Severe Leg Pain with Zacarias Charly Please send PT notes as soon as available for MRI prior auth Diagnosis 1 Left lumbar radiculo sarah (M54.16) Ref[facility] Referring Provider First Name Joanie Referring Provider Last Name Sil Referring Provider Specialty Neurologica l Surgery Referred Organization [facility] Referred Address ,[place], [place],[address] Referred Provider Specialty Physical The rapist Referral Priority Routine General Notes Harjinder Cornell trev 09/14/2022 11:32:48 AM > PT notes in chart Reason Evaluate and Treat f or Leg Strengthening and Gait Training Diagnosis 1 Left lumbar radiculo sarah (M54.16) Referral Organization [facility] Referring Provider First Name Joanie Referring Provider Last Name Sil Referring Provider Specialty Neurologica l Surgery Referred Organization [facility] Referred Address [address] [place], [place],[address] Referred Provider Specialty Physical The rapist Referral Priority Routine Reason Evaluate and Treat Diagnosis 1 Lumbar spondylolysis (M43.06) Diagnosis 2 Left lumbar radiculo sarah (M54.16) Referral Organization [facility] Referring Provider First Name Joanie Referring Provider Last Name Sil Referring Provider Specialty Neurologica l Surgery Referred Organization [facility] Referred Address ,[place], [place],[address] Referred Provider Specialty Physical The rapist Referral Priority Routine Chief Complaint and Reason for Visit Chief Complaint M43.06 M43.06 Chief Complaint GERD Chief Complaint GERD GERD Chief Complaint GERD GERD m54.16 Chief Complaint GERD GERD m54.16 m43.06 Chief Complaint High risk sexual beh avior Chief Complaint Z72.51 m54.16 Chief Complaint Chest congestion Chief Complaint Admit Date EMG BLE per CH February 10, 2025 1:2 7pm Reason for Visit Admit Date Lumbosacral radiculopathy February 10 1:27pm Family History Relationship Condition Age at Onset Recorded Date/T armando Not Specified Depression Unknown Malignant neoplasm of breast Unknown father Diabetes mellitus Unknown History of coronary artery stent placement Unknown Coronary artery disease Unknown Schizophrenia Unknown Malignant neoplasm of kidney Unknown brother Diabetes mellitus Unknown Depression Unknown Hypertension Unknown sister Schizophrenia Unknown Diabetes mellitus Unknown Bipolar disorder Unknown Relationship Condition Age at Onset Recorded Date/T armando mother Depression Unknown Malignant neoplasm of breast Unknown father Diabetes mellitus Unknown History of coronary artery stent placement Unknown Coronary artery disease Unknown Schizophrenia Unknown Malignant neoplasm of kidney Unknown brother Diabetes mellitus Unknown Depression Unknown Hypertension Unknown sister Schizophrenia Unknown Diabetes mellitus Unknown Bipolar disorder Unknown Advance Directives Advance Directive Response Recorded Date/ Time Advance Directives No September 21 2:12pm Advance Directive Response Recorded Date/ Time Advance Directives No September 21 1:12pm Summary Purpose Additional Source Comments REASON FOR VISIT (unrecogniz ed section and content) Reason Comments Foot Problem Tingling/foot pain Reason Comments Injections Left cap 1 Reason Comments Follow-up Left 2nd cap Reason Comments Follow-up Mri results Reason Comments New Patient SAW STRAIGHTENER HYPERTENSION, LAB S DONE, PT RECENTLY [facility] Specialty Diagnoses / Procedures Referred By Haseeb carrillo Referred To Contact Cardiology Diagnoses Hypertension, unspecified type [facility] [address] [place] [phone] [facility] [address] [place] [phone] Referral ID Status Reason Start Date Expiration Date Visits Requested Visits Authorized [id number] Pending Review Specialty Services Required 09/06/2023 09/05/2024 1 1 Reason Comments Hypertension Family doctor wants to see what might be causing her high BP. Reason Onset Date Comments Results 10/22/2024 Reason Comments Follow-up Hypertension Reason Comments Med Refill Care Teams (unrecognized sec tion and content) [...] Team Status: Inactive Member Role Status Dates PHYSICIAN NO FAMILY Primary Care Provider Active Start: December 04, 2023 End: December 04, 2023 Flores Monique PA-C Attending Provider Active St art: December 04, 2023 End: December 04, 2023 Data Entry Analyst Relationship Specialty Start Date End Date Sarwat Pang MD [address] [place] [address] PCP - General Family Medicine 07/24/23 Data Entry Analyst Relationship Specialty Start Date End Date Sarwat Pang MD [address] [place] [address] PCP - General Family Medicine 07/24/23 Data Entry Analyst Relationship Specialty Start Date End Date Sarwat Pang MD [address] [place] [address] PCP - General Family Medicine 07/24/23 Data Entry Analyst Relationship Specialty Start Date End Date Sarwat Pang MD [address] [place] [address] PCP - General Family Medicine 07/24/23 Data Entry Analyst Relationship Specialty Start Date End Date Sarwat Pagn MD [address] [place] [address] PCP - General Family Medicine 07/24/23 Data Entry Analyst Relationship Specialty Start Date End Date Sarwat Pang MD [address] [place] [address] PCP - General Family Medicine 07/24/23 Data Entry Analyst Relationship Specialty Start Date End Date Sarwat Pang MD [address] [place] [address] PCP - General Family Medicine 07/24/23 Data Entry Analyst Relationship Specialty Start Date End Date Jemma Singletary SEXUAL HEALTH PHYSICIAN-TONSORIAL ARTIST [address] [place] [address] PCP - General Family Medicine 12/05/17 Data Entry Analyst Relationship Specialty Start Date End Date Jemma Singletary APRN-TONSORIAL ARTIST [address] [place] [address] PCP - General Family Medicine 12/05/17 Data Entry Analyst Relationship Specialty Start Date End Date Jemma Singletary SEXUAL HEALTH PHYSICIAN-TONSORIAL ARTIST [address] [place] [address] PCP - General Family Medicine 12/05/17 Data Entry Analyst Relationship Specialty Start Date End Date Jemma Singletary APRN-TONSORIAL ARTIST [address] [place] [address] PCP - General Family Medicine 12/05/17 Data Entry Analyst Relationship Specialty Start Date End Date Jemma Singletary SEXUAL HEALTH PHYSICIAN-TONSORIAL ARTIST [address] [place] [address] PCP - General Family Medicine 12/05/17 Data Entry Analyst Relationship Specialty Start Date End Date Jemma Singletary SEXUAL HEALTH PHYSICIAN-TONSORIAL ARTIST [address] [place] [address] PCP - General Family Medicine 12/05/17 Data Entry Analyst Relationship Specialty Start Date End Date Jemma Singletary APRN-CNP [address] [place] [address] PCP - General Family Medicine 12/05/17 Data Entry Analyst Relationship Specialty Start Date End Date Sarwat Pang MD [address] [place] [address] PCP - General Family Medicine 07/24/23 Data Entry Analyst Relationship Specialty Start Date End Date Sarwat Pang MD [address] [place] [address] PCP - General Family Medicine 07/24/23 Data Entry Analyst Relationship Specialty Start Date End Date Jemma Singletary APRN-CNP [address] [place] [address] PCP - General Family Medicine 12/05/17 Team Status: Inactive Member Role Status Dates PHYSICIAN NO FAMILY Primary Care Provider Active Start: February 10, 2025 End: February 10, 2025 Vamsi Alonzo DO Attending Provider Active Start: February 10, 2025 End: February 10, 2025 Data Entry Analyst Relationship Specialty Start Date End Date Jemma Singletary APRN-CNP [address] [place] [phone] PCP - General Family Medicine 12/05/17 Goals (unrecognized section and content) Goals may be documented in a n alternate section INFORMATION SOURCE (unrecogn ized section and content) DATE CREATED AUTHOR 07/03/2022 [facility] DATE CREATED AUTHOR AUTHOR'S ORGANIZ ATION 11/14/2022 [facility] DATE CREATED AUTHOR AUTHOR'S ORGANIZ ATION 10/10/2024 [facility] DATE CREATED AUTHOR AUTHOR'S ORGANIZ ATION 10/21/2024 [facility] DATE CREATED AUTHOR AUTHOR'S ORGANIZ ATION 10/29/2024 [facility] DATE CREATED AUTHOR AUTHOR'S ORGANIZ ATION 11/10/2024 [facility] EPIC DATE CREATED AUTHOR AUTHOR'S ORGANIZ ATION 02/04/2025 [facility] FOR RECORDS PERTAINING TO PATIENTS WHO ARE [...] BE BASED ON THE PRIMARY CLINICAL RECORDS. [facility] [employer] [facility]. provides no warranty or guarantee of the accuracy or completeness of information in this document.
--- NOTE | 2025-03-23 07:32 | MR_ITS ---
The [address] [address] Patient Name: BETO BRENNAN MRN: [id number] date: 1975 Sex: F Assigned Patient Location: MRI Current Patient Location: MRI Accession/Order Number: [id number] Exam Date: 03/23/2025 07:45 Report Date: 03/23/2025 12:54 At the request of: IRMA LAI Procedure: MR lumbar spine wo/w con MRI lumbar spine performed without with contrast No recent comparisons INDICATION: Chronic lumbar pain with left sided radiculopathy FINDINGS: Evaluation degraded due to motion artifact. Repeat imaging could not be obtained due to scan limitations related to the stimulator device. Prior L5-S1 discectomy and interbody fusion with spacer device. Posterior pedicle screws noted. There is 7 mm of anterolisthesis of L5 5 on S1. Endplate marrow changes, T1 and T2 hyperintensity identified L5-S1. Otherwise bone marrow signal is unremarkable elsewhere. Mild intervertebral space narrowing L4-5 mild to moderate diffuse disc narrowing L1-L3. Conus medullaris terminates normally at L1-L2. T12-L1: No central disease disc protrusion central canal or neural foraminal narrowing identified. L1-2: Right subarticular to foraminal zone protrusion. Facet arthropathy. Aoaf-fj-vxoyranm right neural from narrowing and mild left from narrowing. Mild canal narrowing. L2-3: Broad-based disc bulge with left central annular fissure. There is crowding left surgical zone and likely mild mass effect on the traversing left L3 nerve root. Otherwise mild foraminal narrowing and mild stenosis. L3-4: No significant disease, canal or neural from narrowing identified. Mild facet arthropathy. L4-5 circumferential disc bulge with facet arthropathy. Mild rights moderate left-sided neural from narrowing. Canal is patent. L5-S1: Slight uncovering the posterior disc. There is low T1 and T2 signal left subarticular and foraminal zone along the left L5 nerve root. Moderate severe right neural foraminal narrowing and severe left neural foraminal narrowing identified. Following contrast administration, the abnormal signal surrounding the left L5 nerve root appears to demonstrate slightly heterogeneous enhancement. Canal decompressed. Likely fibroid uterus within the within the pelvis. MR/MR lumbar spine wo/w con IMPRESSION: Prior L5-S1 decompression and discectomy and posterior fusion. Abnormally diminished signal left subarticular zone and left foraminal zone with heterogeneous enhancement represent granulation tissue, epidural fibrosis versus versus L5 neuritis. Left subarticular zone protrusion L2-3, correlate with possible left L3 radiculopathy. Impression dictated by: Luther Pearson M.D. 03/23/2025 12:54 PM Dictation Location: [place] [address] Electronically authenticated by: [id number] Date: 03/23/2025 12:54
== END 2025-03-23 07:23 | disposition home or self-care (01) ==
LOC: MRI 07:25
PROVIDERS: PCP Family Medicine; Visit Provider Nurse Practitioner Family
DX: M54.16 Radiculopathy, lumbar region (principal)
CPT/HCPCS: 72158; A9575

== ENCOUNTER 2025-05-11 16:21 | Emergency (ER) | payer OTHER, SELFPAY ==
[2025-05-11 16:31] VITALS: BP 178/106; PULSE 66; TEMP 37.2; O2SAT 99; BMI 26.1
--- OUTSIDE RECORDS SUMMARY | 2025-05-11 16:55 | XMS_ITS | Clinical Summary ---
Author Organization [facility] Address [address] [place] [address] Care Team Providers Care Asbestos Wire Finisher Name Role Phone Marco Alonzo DO Unavailable [phone] Allergies Active AllergyReactionsCriticalityNoted DateCommentsCodeineGI Upset,Hives, Fwksirku97/08/7949HricebsytheJujzVdo40/14/2020 Medications MedicationSigDispense QuantityRefillsLast FilledStart DateEnd DateStatus OXcarbazepine (TRILEPTAL) 600 mg tablet Take 600 mg by mouth three times a day.Active buPROPion SR (WELLBUTRIN SR) 150 mg 12 hr tablet Take 1 tablet by mouth once daily.5Active amphetamine-dextroamphetamine XR (ADDERALL XR) 30 mg capsule Take 30 mg by mouth every morning.5Active dextroamphetamine-amphetamine (ADDERALL) 20 mg tablet Take 20 mg by mouth daily in the late afternoon.Active losartan (COZAAR) 100 mg tablet Take 100 mg by mouth once daily.Active spironolactone (ALDACTONE) 25 mg tablet Take 25 mg by mouth once daily.Active NIFEdipine ER (PROCARDIA XL) 60 mg 24 hr tablet Take 60 mg by mouth two times a day.Active labetalol (TRANDATE) 200 mg tablet Take 200 mg by mouth two times a day.Active levothyroxine (SYNTHROID) 50 mcg tablet Take 50 mcg by mouth once daily.Active liothyronine 5 mcg tablet Take 5 mcg by mouth once daily.Active traZODone (DESYREL) 50 mg tablet Take 50 mg by mouth daily at bedtime.Active lurasidone (LATUDA) 80 mg tablet Take 80 mg by mouth daily at bedtime.Active albuterol-budesonide HFA (AIRSUPRA) 90-80 mcg/actuation inhaler Inhale 2 puffs as instructed once daily. Do not take more than 12 inhalations in a 24 hour period.Active dsmmpwuhduz-kyhmxibtq-qxsclwoq (TRELEGY ELLIPTA) 100-62.5-25 mcg inhalation powder Inhale 1 puff as instructed once daily.Active pregabalin (LYRICA) 100 mg capsule Indications:Radiculopathy of lumbar region,S/P lumbar spinal fusion,Neuropathic pain of both feetTake 1 capsule twice daily for 5 days. If tolerated, okay to increase to 3 capsules daily for 5 days. Ultimately, will titrate to 4 capsules daily. 90 capsule 5Active Encounters DateTypeDepartmentCare DxecGanfgymngat68/17/2025 11:00 AM EDTOffice Visit [facility] [address] [place] [address] Gloria Gonzalez PA-C Radiculopathy of lumbar region (Primary Dx); S/P lumbar spinal fusion; Neuropathic pain of both feet04/23/2025 10:05 AM EDT - 04/23/2025 11:59 PM EDT Hospital Encounter Radiology [address] [place] [address] S/P lumbar fusion [Z98.1] Discharge Disposition: Home04/23/2025 8:30 AM EDTOffice Visit Neurology Pain [address] [place] [address] Demetria Dewitt, Chronic right-sided low back pain with left-sided sciatica (Primary Dx); History of lumbar surgery; Uncontrolled ffydblvclweu02/17/2025Telephone [facility] [address] [place] [address] Glorai Gonzalez PA-C 04/23/20254772Vekspk89/15/2025bstract Neurology [address] [place] [address] (Historical), None 02/15/2025Telephone Neurology [address] [place] [address] Provider, Neurology Received Outside Medical Records (External referral to [facility]/) from Last 3 Months Social History Tobacco UseTypesPacks/DayYears UsedDateSmoking Tobacco: NeverSmokeless Tobacco: NeverAUDIT-CAnswerDate RecordedFrequency of Alcohol ConsumptionNot on file 04/23/2025Q2: How many drinks containing alcohol do you have on a typical day when you are drinking?Patient does not drink04/23/2025Frequency of Binge DrinkingNot on file04/23/2025rea Deprivation IndexAnswerDate RecordedNational Score (1-100), lower number is lower mjdi363304/23/2025State Score (1-10), lower number is lower hxqv688Data from: https://www.neighborhoodatlas.medicine.[facility].edu/. Last address used for smudftuatoe[address] [facility]04/23/2025CommentsNoSex and Gender Information ValueDate RecordedSex Assigned at QmurbRepodu82/24/2025 6:04 AM EDTLegal Sex Qoopvi8602/19/2025 2:21 PM EDTGender UtwuldgsZyzvmw59/24/2025 6:04 AM EDTSexual NnxyrtruehlCiaiidzh44/24/2025 6:04 AM EDT Last Filed Vital Signs Vital SignReadingTime TakenCommentsBlood Ssgekkez292/9804/23/2025 10:33 AM EDT Kbpte860504/23/2025 10:33 AM EDTTemperature--Respiratory Rffp8363 10:33 AM EDTOxygen Svujeockht57%04/23/2025 10:33 AM EDTInhaled Oxygen Concentration-- Doszkk16.6 kg (138 lb)04/23/2025 10:33 AM YSXEzdzdq491.9 cm (5' 1 )04/23/2025 10:33 AM EDTBody Mass Index26.0704/23/2025 10:33 AM EDT Plan of Treatment DateTypeDepartmentCare Team (Latest Contact Info)Cjxwubspxrc65/19/2026 10:30 AM ESTOffice Visit Neurology Pain [address] [place] [address] [place] [address] [place] [address] History of lumbar surgery [Z98.890]08/16/2025 1:[facility] [address] [place] [address] Moisés Muller, Therapist [address] [place] [address] History of lumbar surgery [Z98.890]Health MaintenanceDue DateLast DoneComments Anxiety Hndrnptwk57/16/1992Depression Lwtkeyzqn99/16/1992HIV Qtnqcklle21/16/1992 Hepatitis C Smcafwdqv06/16/1992DTaP,Tdap,Td Vaccine (1 - Tdap)1992 Hepatitis B Vaccine (1 of 3 - 19+ 3-dose series)1992Cervical Cancer Txeigrpdr94/16/1995CT Jaxrchuxfudf59/16/2019Cologuard (FIT-DNA)2018 Dhzomrbnfub21/16/2019Colorectal Cancer Ppnsowjbf87/16/2019Diabetes Screening 2018Fecal Occult Blood2018Lipid Ygfjdsiki91/16/2019Sigmoidoscopy 2018Mammogram Bzcimfirw71Pneumococcal Vaccine: 50+ (1 of 1 - PCV)2023Shingrix Vaccine (1 of 2)4Covid-19 Vaccine (1 - season)2025Influenza Vaccine (#1)2025 Procedures Procedure NamePriorityDate/TimeAssociated DiagnosisCommentsXR LUMBAR MOTION 4V AP/LAT/ FLEX/QZBOjcfbmj89/17/2025 10:24 AM EDT S/P lumbar fusion Chronic bilateral low back pain with sciatica, sciatica laterality unspecified EXTERNAL CJSFRNT9403/24/2025 11:55 AM EDT MRI OUTSIDE CD DICOM ERFNHH4903/23/2025 EXTERNAL TJGWMKV9802/19/2025 2:29 PM EDT from Last 3 Months Results * XR LUMBAR MOTION 4V AP/LAT/ FLEX/EXT (04/23/2025 10:24 AM EDT)Anatomical RegionLateralityModalityL-spineOtherSpecimen (Source)Anatomical Location / LateralityCollection Method / VolumeCollection TimeReceived Time04/23/2025 10:14 AM EDT Impressions 04/23/2025 11:35 AM EDT IMPRESSION: POSTOPERATIVE AND DEGENERATIVE CHANGES WITHOUT RADIOGRAPHICALLY DEMONSTRATED INSTABILITY. SPINAL CORD STIMULATOR LEADS WITH MULTIPLE TRANSVERSE LUCENCIES OF INDETERMINATE ETIOLOGY. ??COMPARISON WITH ANY PRIOR RADIOGRAPHS MIGHT BE HELPFUL. Immersion Metalcleaner: PSCB ?? Transcribe Date/Time: Apr 23 2025 11:28A Dictated by : JUANCHO HALL MD This examination was interpreted and the report reviewed and electronically signed by: JUANCHO HALL MD on Apr 23 2025 11:33AM ??EST Narrative 04/23/2025 11:35 AM EDT * * *Final Report* * * DATE OF EXAM: Apr 23 2025 10:14AM ?? JIX ?? [id number] ??- ??XR LUMBAR 4V AP/LAT/ FLEX/EXT ??/ PROCEDURE REASON: multiple diagnoses ? * * * * Physician Interpretation * * * * HISTORY: ??S/P lumbar fusion Chronic bilateral low back pain with sciatica, sciatica laterality unspecified Chronic bilateral low back pain with sciatica, sciatica laterality unspecified Chronic bilateral low back pain with sciatica, sciatica laterality unspecified TECHNOLOGIST PROVIDED HISTORY (if applicable): FUSION 3 1/2 YEARS AGO. ?? SINCE SURGERY PT WITH SEVERE LUMBAR PAIN RADIATING INTO LEFT LEG. ?? BILATERAL FEET TINGLING AND PAIN. TECHNIQUE: XR LUMBAR 4V AP/LAT/ FLEX/EXT RESULT: Lumbar spine 4 views. ?? Counting reference: ??Lumbosacral junction. ??For the purposes of this report, L5-S1 is considered the most caudal well formed disc space. Status post L5-S1 posterior decompression and fusion with pedicle screws and rods as well as anterior fusion with incorporated graft. ??Grade 2 anterolisthesis at this level with posterior vertebral body wedging. The lordosis is preserved. Minimal disc space narrowing and osteophyte formation at the L1-2 level. ?? Interspinous crowding at the L3-4 level. With flexion and extension there is no radiographically demonstrated instability. RIGHT low back generator with spinal cord stimulator leads which extend to the T10 and T10-11 levels. ??No definite kink or discontinuity although small transverse lucencies are seen at multiple sites, for example to the LEFT at L2 and to the RIGHT at L3-4 which are nonspecific but favored to be artifacts Sacroiliac joints and visualized hip joint spaces are preserved with small acetabular subchondral cysts. RIGHT upper quadrant surgical clips. Procedure Note Provider, [facility] - 04/23/2025 * * *Final Report* * * DATE OF EXAM: Apr 23 2025 10:14AM JIX [id number] - XR LUMBAR 4V AP/LAT/ FLEX/EXT / PROCEDURE REASON: multiple diagnoses * * * * Physician Interpretation * * * * HISTORY: S/P lumbar fusion Chronic bilateral low back pain with sciatica, sciatica laterality unspecified Chronic bilateral low back pain with sciatica, sciatica laterality unspecified Chronic bilateral low back pain with sciatica, sciatica laterality unspecified TECHNOLOGIST PROVIDED HISTORY (if applicable): FUSION 3 1/2 YEARS AGO. SINCE SURGERY PT WITH SEVERE LUMBAR PAIN RADIATING INTO LEFT LEG. BILATERAL FEET TINGLING AND PAIN. TECHNIQUE: XR LUMBAR 4V AP/LAT/ FLEX/EXT RESULT: Lumbar spine 4 views. Counting reference: Lumbosacral junction. For the purposes of this report, L5-S1 is considered the most caudal well formed disc space. Status post L5-S1 posterior decompression and fusion with pedicle screws and rods as well as anterior fusion with incorporated graft. Grade 2 anterolisthesis at this level with posterior vertebral body wedging. The lordosis is preserved. Minimal disc space narrowing and osteophyte formation at the L1-2 level. Interspinous crowding at the L3-4 level. With flexion and extension there is no radiographically demonstrated instability. RIGHT low back generator with spinal cord stimulator leads which extend to the T10 and T10-11 levels. No definite kink or discontinuity although small transverse lucencies are seen at multiple sites, for example to the LEFT at L2 and to the RIGHT at L3-4 which are nonspecific but favored to be artifacts Sacroiliac joints and visualized hip joint spaces are preserved with small acetabular subchondral cysts. RIGHT upper quadrant surgical clips. IMPRESSION IMPRESSION: POSTOPERATIVE AND DEGENERATIVE CHANGES WITHOUT RADIOGRAPHICALLY DEMONSTRATED INSTABILITY. SPINAL CORD STIMULATOR LEADS WITH MULTIPLE TRANSVERSE LUCENCIES OF INDETERMINATE ETIOLOGY. COMPARISON WITH ANY PRIOR RADIOGRAPHS MIGHT BE HELPFUL. Immersion Metalcleaner: MALLIKA Transcribe Date/Time: Apr 23 2025 11:28A Dictated by : JUANCHO HALL MD This examination was interpreted and the report reviewed and electronically signed by: JUANCHO HALL MD on Apr 23 2025 11:33AM EST Authorizing ProviderResult TypeResult StatusMarina Tudico HM-RSZI-HDNJTrygt Result * EXTERNAL IMAGING (03/24/2025 11:55 AM EDT)Anatomical RegionLateralityModality Other Narrative Authorizing ProviderResult TypeResult StatusExternal Provider PA-CRADIOLOGYFinal Result * KO-MR LUMBAR SPINE WO/W CON IMPORT (03/23/2025)Anatomical RegionLaterality ModalityOtherSpecimen (Source)Anatomical Location / LateralityCollection Method / VolumeCollection TimeReceived Time03/23/2025 Narrative 03/24/2025 3:23 PM EDT Images were obtained outside of [facility] Procedure Note Provider, [facility] - 03/24/2025 Images were obtained outside of [facility] Authorizing ProviderResult TypeResult StatusCcf ProviderMRIFinal Result * EXTERNAL IMAGING (02/19/2025 2:29 PM EDT)Anatomical RegionLateralityModality Other Narrative Authorizing ProviderResult TypeResult StatusExternal Provider PA-CRADIOLOGYFinal Result from Last 3 Months Insurance Care Teams Team MemberRelationshipSpecialtyStart DateEnd Date Marco Alonzo DO NI Referring TeamNeurology02/19/25
--- OUTSIDE RECORDS SUMMARY | 2025-05-11 16:55 | XMS_ITS | Clinical Summary ---
Author Organization [facility] Address [address] [place] [address] Care Team Providers Care Diamond Die Driller Name Role Phone Sarwat Merino MD Primary Care Provider [phone] Allergies Active AllergyReactionsCriticalityNoted DateCommentsCodeineGI intolerance,Hives, Dorzsnb1705/15/2010LamotrigineRash,VylrccpDhs57/14/2020 Medications MedicationSigDispense QuantityRefillsLast FilledStart DateEnd DateStatus Trileptal 600 MG tablet every 12 (twelve) hoursActive lurasidone (Latuda) 120 MG tablet Take 80 mg by mouth in the eveningActive vilazodone (Viibryd) 20 MG tablet Take 40 mg by mouth in the morning. Take with meals.Active Adderall 20 MG tablet every 12 (twelve) hoursActive amphetamine-dextroamphetamine (Adderall) 15 MG tablet every 12 (twelve) hoursActive traZODone (Desyrel) 50 MG tablet 4Active methylPREDNISolone (Medrol Dospak) 4 MG tablets Indications:NeuritisFollow schedule on MEDROL PACK package instructions to be used as directed 21 tablet 5Active Additional Information Patient not taking.Reported on 11/05/2024 NIFEdipine CC (Adalat CC) 60 MG 24 hr tablet Take 60 mg by mouth in the morning. Take before meals. Do not crush, chew, or split.Active spironolactone (Aldactone) 25 MG tablet Take 25 mg by mouth DailyActive losartan (Cozaar) 50 MG tablet Take 100 mg by mouth DailyActive zolpidem CR (Ambien CR) 12.5 MG ER tablet Take 12.5 mg by mouth as needed at bedtime for sleep Do not crush, chew, or split.Active Active Problems No known active problems Family History Medical HistoryRelationNameCommentsArthritisFatherCancerFatherDiabetesFather Heart diseaseFatherHypertensionFatherArthritisMotherRelationNameStatusComments FatherAliveMotherAlive Social History Tobacco UseTypesPacks/DayYears UsedDateSmoking Tobacco: Never Tobacco Cessation:Counseling Given: Yes Alcohol UseStandard Drinks/WeekCommentsDefer0 (1 standard drink = 0.6 oz pure alcohol)CommentsUnknownSex and Gender InformationValueDate RecordedSex Assigned at FclrhBlgwnb91/18/2024 8:38 AM ESTLegal OryOwfpzb08/15/2023 9:28 PM EDTGender UstpxmmcRptgyj65/18/2024 8:38 AM ESTSexual OrientationNot on file Last Filed Vital Signs Vital SignReadingTime TakenCommentsBlood Tcmvoyae469/8411/05/2024 11:24 AM EDT Fahjx40375/01/2025 11:24 AM EDTTemperature--Respiratory Avdk220407/30/2024 8:31 AM ESTOxygen Wlahzsumhs71%11/05/2024 11:24 AM EDTInhaled Oxygen Concentration-- Adscvj25.7 kg (171 lb 3.2 oz)11/05/2024 11:24 AM YHWRllzwr385.9 cm (5' 1 ) 07/30/2024 8:31 AM ESTBody Mass Index32.35007/30/2024 8:31 AM EST Plan of Treatment Not on file Insurance Care Teams Team MemberRelationshipSpecialtyStart DateEnd Date Sarwat Merino MD [address] [place], [place] [id number] PCP - [facility]07/24/23
--- OUTSIDE RECORDS SUMMARY | 2025-05-11 16:55 | XMS_ITS | Clinical Summary ---
Author Organization [facility] tem Address [id number] [address] [place] [address] Care Team Providers Care Final Assembly Worker Name Role Phone Jemma Singletary APRN-[employer]ONE POLISHER HAND Primary Care Provi kristine Allergies Active AllergyReactionsCriticalityNoted LivsQfbfgcwwWuhkximXvjrj91/08/2010 Yzmprdipqtg19/14/2020 Medications MedicationSigDispense QuantityRefillsLast FilledStart DateEnd DateStatus OXcarbazepine (TRILEPTAL) 600 mg tablet Take 1 tablet (600 mg total) by mouth in the morning and 1 tablet (600 mg total) at noon and 1 tablet (600 mg total) before bedtime.04/12/2020Active vilazodone (VIIBRYD) 40 mg tablet Take 1 tablet (40 mg total) by mouth in the morning.04/19/2020Active traZODone (DESYREL) 50 mg tablet Take 2 tablets (100 mg total) by mouth nightly.04/12/2020Active dextroamphetamine-amphetamine (ADDERALL) 20 mg tablet in the morning.06/16/2021ctive amphetamine-dextroamphetamine XR (ADDERALL XR) 30 mg 24 hr capsule 1 capsule (30 mg total) every morning.05/16/2021ctive lurasidone (LATUDA) 80 mg tablet 1 tablet (80 mg total) in the morning.06/19/2021ctive zolpidem CR (AMBIEN CR) 12.5 mg CR tablet nightly.05/31/2021ctive levothyroxine (SYNTHROID, LEVOTHROID) 50 MCG tablet Take 1 tablet (50 mcg total) by mouth in the morning.5Active losartan (COZAAR) 100 mg tablet Take 1 tablet (100 mg total) by mouth in the morning. 90 tablet 5Active metoprolol succinate XL (TOPROL XL) 50 mg 24 hr tablet Take 1.5 tablets (75 mg total) by mouth in the morning and 1.5 tablets (75 mg total) before bedtime. 270 tablet 5Active spironolactone (ALDACTONE) 25 mg tablet Take 1 tablet (25 mg total) by mouth in the morning. 90 tablet 5Active NIFEdipine XL (PROCARDIA XL) 60 mg 24 hr tablet Take 1 tablet (60 mg total) by mouth 2 (two) times a day. 60 tablet 5Active labetaloL (NORMODYNE) 200 mg tablet TAKE 1 TABLET (200 MG TOTAL) BY MOUTH IN THE MORNING AND BEFORE BEDTIME 180 tablet 5Active Active Problems ProblemNoted DateDiagnosed ActnDimylrdriuto99/28/2024Lumbar kcanqgol45/12/2021 Overview (07/19/2020): Added automatically from request for surgery [id number] Hvqwdna4404/20/2020Mitral valve vbqnorlw72/14/2020Seasonal ocjxlivon94/14/2020 Lumbosacral spondylosis without kshwbgybqh85/14/2020Disorder of rcvoee5404/20/2020 Encounters DateTypeDepartmentCare SovcOslouclfwwp97/20/4494Tdhwnf02/20/2025Telephone [facility] [address] [place] [phone] Petra Krishnamurthy CMA 02/20/2025Refill [facility] [address] [place] [phone] Franko Osman MD Med Refillfrom Last 3 Months Family History Medical HistoryRelationNameCommentsHyperlipidemiaFatherKidney cancerFatherrenal carcinomaMitral valve prolapseFatherBreast cancerMaternal Aunt 1Breast cancer Maternal Aunt 2Breast cancerMotherRelationNameStatusCommentsFatherAliveMaternal Aunt 1Maternal Aunt 2MotherAlive Social History Tobacco UseTypesPacks/DayYears UsedDateSmoking Tobacco: NeverSmokeless Tobacco: Never Tobacco Cessation:Counseling Given: Not Answered Alcohol UseStandard Drinks/WeekCommentsNot Currently4 (1 standard drink = 0.6 oz pure alcohol)10 yrs agoChildcareAnswerDate BmutyvbeTskfsauslLziypbk43/10/2019 EmploymentAnswerDate DqmnqjgiToovqsercmFfawmit66/10/2019Hunger ScreeningAnswer Date RecordedWithin the past 12 months we worried whether our food would run out before we got money to buy more.Never True10/28/2024Within the past 12 months the food we bought just didn't last and we didn't have money to get more.Never True10/28/2024Purpose - LifeAnswerDate RecordedPurpose and direction in life Zjhfrja37/12/2021CommentsNoSex and Gender InformationValueDate Recorded Sex Assigned at BirthNot on fileLegal XeqEdkedt24/04/2015 4:29 PM EDTGender IdentityNot on fileSexual OrientationNot on file Last Filed Vital Signs Vital SignReadingTime TakenCommentsBlood Ahbgrgks340/9204 10:16 AM EDT Oxnqk8575/23/2025 10:16 AM HKXRnugdvtjonr07.9 ??C (98.4 ??F)07/29/2020 9:18 AM ESTRespiratory Izhy248608/01/2021 9:13 AM ESTOxygen Ezbcbvfawf68%10/02/2024 9:52 AM EDTInhaled Oxygen Concentration--Pbnodw67.9 kg (174 lb)10/28/2024 10:16 AM LIOGbdzbt041.9 cm (5' 1 )10/28/2024 10:16 AM EDTBody Mass Index32.8810/28/2024 10:16 AM EDT Plan of Treatment DateTypeDepartmentCare Team (Latest Contact Info)Rzyxiflmfaj59/13/2025 1:00 PM ESTOffice Visit [facility] [address] [place] [phone] Franko Osman MD [address] [place] [address] Health MaintenanceDue DateLast DoneCommentsDepression Auddmyiuw38/16/1986Adult BMI Follow Up Plan1991DTaP,Tdap and Td Vaccines (1 - Tdap)1992Pap Smear1994Zoster (Shingles) Vaccine (1 of 2)2023Influenza Vaccine 03/08/2025Tobacco Mnqimnznu41dult BMI Tbruqevth74/23/2026 10/28/2024 Medical Devices Not on file Insurance Care Teams Team MemberRelationshipSpecialtyStart DateEnd Date Jemma Singletary APRN-[employer] HAND [address] [place] [address] PCP - GeneralFamily Medicine12/05/17
--- OUTSIDE RECORDS SUMMARY | 2025-05-11 16:55 | XMS_ITS | Clinical Summary ---
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 Primary Care Pro vider Allergies Active AllergyReactionsCriticalityNoted BficPgbrlozuGxndwvcMwgzz95/08/2010 LamotrigineRash,Other (See Comments)Low04/20/2020 Medications MedicationSigDispense QuantityRefillsLast FilledStart DateEnd DateStatus Metoprolol Tartrate (LOPRESSOR PO) Take by mouth 2 times daily05/15/2010ctive citalopram (CELEXA) 20 MG tablet Take 4 tablets by mouth dailyActive BuPROPion HCl (WELLBUTRIN PO) Take 150 mg by mouth daily05/15/2010ctive levothyroxine (SYNTHROID) 25 MCG tablet Take 1 tablet by mouth in the morning and at bedtimeActive amphetamine-dextroamphetamine (ADDERALL) 15 MG tablet every 12 hours.Active labetalol (NORMODYNE) 200 MG tablet TAKE 1 TABLET (200 MG TOTAL) BY MOUTH IN THE MORNING AND BEFORE BEDTIMEActive liothyronine (CYTOMEL) 5 MCG tablet Take 1 tablet by mouth daily5Active spironolactone (ALDACTONE) 25 MG tablet Take 1 tablet by mouth daily5Active vilazodone HCl (VIIBRYD) 20 MG TABS Take 2 tablets by mouth daily (with breakfast)Active NIFEdipine (PROCARDIA XL) 60 MG extended release tablet Take 1 tablet by mouth dailyActive lurasidone (LATUDA) 40 MG TABS tablet Take by mouth Daily with supperActive Social History Tobacco UseTypesPacks/DayYears UsedDateSmoking Tobacco: NeverAlcohol UseStandard Drinks/WeekCommentsNo0 (1 standard drink = 0.6 oz pure alcohol)Comments UnknownSex and Gender InformationValueDate RecordedSex Assigned at BirthNot on fileLegal OskOqsmih21/10/2013 2:58 AM ESTGender IdentityNot on fileSexual OrientationNot on file Last Filed Vital Signs Vital SignReadingTime TakenCommentsBlood Yawulxkg478/85012/22/2024 10:42 AM EDT Jgrry608712/22/2024 10:42 AM QFGAtkfnvpwhrw35.7 ??C (98 ??F)05/15/2010 9:58 AM EST Respiratory Vrtw316607/15/2009 9:58 AM ESTOxygen Eshulucgli609%05/15/2010 9:58 AM ESTInhaled Oxygen Concentration--Xnijjg61.8 kg (165 lb)12/22/2024 10:42 AM EDT Xhjjlq705 cm (5' 3 )12/22/2024 10:42 AM EDTBody Mass Index29.23012/22/2024 10:42 AM EDT Plan of Treatment Health MaintenanceDue DateLast DoneCommentsDepression Ziqfoi8008/23/1985HIV screen 1988Hepatitis C lzoash0808/23/1991DTaP/Tdap/Td vaccine (1 - Tdap)1992 Hepatitis B vaccine (1 of 3 - 19+ 3-dose series)1992Pap smear1994 Cervical cancer cfiqyq6808/23/2003HPV (without or with Pap)2003Diabetes qlfpvh5908/23/20089796Eqfzpb61/16/6305Szblscprisj11/16/2019Colorectal Cancer Screen 2018FIT/FOBT: Average risk2018Fecal-DNA (Cologuard): Average risk 2018Sigmoidoscopy/CT xjsczqoqdtkk51/16/2019Breast cancer pibgqi7912/07/2019 12/06/2017Pneumococcal 50+ years Vaccine (1 of 1 - PCV)2023Shingles vaccine (1 of 2)2023Flu vaccine (#1)5COVID-19 Vaccine ( season)2025Hepatitis A vaccineAged OutNo longer eligible based on patient's age to complete this topicHib vaccineAged OutNo longer eligible based on patient's age to complete this topicMeningococcal (ACWY) vaccineAged OutNo longer eligible based on patient's age to complete this topicMeningococcal B vaccineAged OutNo longer eligible based on patient's age to complete this topic Polio vaccineAged OutNo longer eligible based on patient's age to complete this topic Insurance Care Teams Team MemberRelationshipSpecialtyStart DateEnd Date Jmema Singletary APRN - JUAN [address] [place] [address] PCP - GeneralFamily Medicine10/29/24
--- OUTSIDE RECORDS SUMMARY | 2025-05-11 16:55 | XMS_ITS | Continuity of Care Document ---
Author Organization [facility] Address [address] [place] [address] Problems Unknown Problems Results Test Value / Unit Interpretation Reference Ran ge SARS-COV-2 (COVID19), NAAT[[id number]] Collected: 07/26/2020 03:45 PM Specimen Received: 07/27/2020 05:39 PM SARS-CoV-2 INTERPRETATION [[id number]] Negative Rosa l See Note SARS-CoV-2 RNA NOT DETECTEDN egative results do not preclude SARS-CoV-2 infection and should notbe used as the sole basis for patient management decisions. Negativeresults must be combined with clinical observations, patient history,and epidemiological information. Optimum specimen types and timingfor peak viral levels during infections caused by SARS-CoV-2 have notbeen determined. Collection of multiple specimens or types ofspecimens may be necessary to detect virus. Improper specimencollection and handling, sequence variability under primers/probes,or organism present below the limit of detection may lead to falsenegative results. Positive and negative predictive values oftesting are highly dependent on prevalence. False negative testresults are more likely when prevalence is high. SOURCE [[id number]] NOT SPECIFIED Normal Note: Methodology is [employer] Real-Time RT-PCR. The expectedresult or reference range is NEGATIVE (Not Detected). For more information regarding COVID-19 testing to include clinicalinformation, methodology detail, intended use, FDA authorization andrecommended fact sheets for patients or healthcare providers, see [employer] Announcement: SARS-CoV-2 (COVID-19) by NAAT at URL below (note,fact sheets are provided by method given in report:[email or web address], see downloadable PDF fact sheet at:[email or web address] Allergies, adverse reactions, alerts No known allergies and adverse reactions Medications No administered medications reported Vital Signs No vital signs reported Social History No smoking Hx information available
--- OUTSIDE RECORDS SUMMARY | 2025-05-11 16:56 | XMS_ITS | CCD ---
Author Organization [facility] Care Team Providers Care Hiv Cts Specialist Name Role Phone Aspen Mast Unavailable Joanie Mujica Unavailable DO Sarwat Pang Primary Care Provider MD Joanie Mujica Attending Provider Campbell Shelton Unavailable DO Sarwat Pang Primary Care Provider MD Campbell Shelton Attending Provider MD Joanie Mujica Attending Provider [facility] [place] Primary Care Unavailable SIL, DR NAIR Admitting Unavailable DR JOANIE MUJICA Attending Unavailable Kezia, MACHINE TRY OUT SETTER-C Aspen Attending Provider MD Joanie Mujica Attending Provider NO FAMILY, PHYSICIAN Primary Care Provider Unava ilable Aspen Mast Attending Unavailable Aspen Mast Admitting Unavailable Joanie Mujica Attending Unavailable Joanie Mujica Admitting Unavailable PangSarwat Primary Care Unavailable Joanie Mujica E Admitting Unavailable NO FAMILY, PHYSICIAN Primary Care Unavailable Joanie Mujica E Attending Unavailable Joanie Mujica Attending Unavailable Joanie Mujica Admitting Unavailable Sarwat Pang Primary Care Unavailable Campbell Shelton Admitting Unavailable Campbell Shelton Attending Unavailable Sarwat Pang Primary Care Unavailable Campbell Shelton Admitting Unavailable Campbell Shelton Attending Unavailable Pang, Sarwat Primary Care Unavailable Michael Mujicae E Admitting Unavailable Pang, Sarwat Primary Care Unavailable Joanie Mujica Attending Unavailable Michael Mujicae E Admitting Unavailable Pang, Sarwat Primary Care Unavailable Joanie Mujica E Attending Unavailable Sil Joanie E Admitting Unavailable Pang, Sarwat Primary Care Unavailable Joanie Mujica Attending Unavailable Joanie Mujica E Admitting Unavailable PangSarwat cole Primary Care Unavailable Joanie Mujica Attending Unavailable SARWAT PANG Primary Care Physician Unavailab Sarwat Kim MD Primary Care Provider Eisenstein VICE PRESIDENT 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-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, [facility] Provi kristine Eisenstein VICE PRESIDENT TALENT MANAGEMENT-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, [facility] Provi kristine Carmelo Oconnor Admitting Unavailabl e Carmelo Oconnor Attending Unavailabl e Eisenstein, Jemma Primary Care Unavailable Eisenstein, Jemma Primary Care Unavailable Eisenstein, Jemma Admitting Unavailable Eisenstein, Jemma Attending Unavailable MAYITO PLASCENCIA Attending Unavailable MAYITO PLASCENCIA Referring Unavailable EISENSTEIN, JEMMA Primary Care Unavailable CARMELO OCONNOR Attending Unavailabl e CARMELO OCONNOR Referring Unavailabl e EISENSTEIN, JEMMA Primary Care [...] Unava ilable Vamsi Alonzo DO Attending Provider Vamsi Alonzo DO Unavailable PANCHITO DEWITT Attending Unavailable VAMSI ALONZO Referring Unavailab le WON MEEK Referring Unavailable SERA VILLAREAL Attending Unavailable VAMSI ALONZO Referring Unavailab le Allergies Allergy ClassificationReported Allergen(s)Allergy TypeDate of OnsetReaction(s) FacilityAnti-Epileptic Agents (1 source)lamoTRIgineDrug Updcfur10-33-6254WxgfCewszuvzrAultman [facility] Hospital Opioid Agonists (1 source)CodeineDrug Ehyczia25-02-7075Fwhlytyv, rashAultman Orrville Hospital (20 sources)Codeine; Translations: [codeine]Drug Uaoovpi97-36-0118ilug, Vomiting (disorder), GI intolerance, Hives, UnknownAultman Orrville Hospital (20 sources)lamoTRIgine; Translations: [lamotrigine]Drug Rnfxgcl38-65-5561lnkb, Eruption of skin (disorder)[facility] (1 source)CodeineDrug Xapedxt40-90-1776MzdSt. [facility] (2 sources)lamoTRIgine; Translations: [LaMICtal]Drug Avqsilv32-87-8476CmdSt. Mary'S [facility] (1 source)CodeineDrug Gkmctgg53-51-9435IpxhxxvyeAultman Orrville Hospital Repository (1 source)lamoTRIgineDrug Wpvkkho19-06-6763AifieefqeAultman Orrville Hospital [facility]ository (14 sources)LamotriginePropensity to adverse crqodxlvn81-18-4801Xfkl, Unknown [facility] Medications Current Medications MedicationDrug Class(es)DatesSig (Normalized)Sig (Original)acetaminophen 325 mg / oxyCODONE hydrochloride 5 mg oral tablet (3 sources)Opioid AgonistStart: 04-50-3685Syqvbvsl 5 mg-325 mg oral tablet 1 tab(s), Oral, q6hr, 28 tab(s), Refill(s) 0, prn pain, [id number], 155, cm, 05/21/23 7:14:00 EST, Height/Length Dosing, 77.5, kg, 11/27/22 9:07:00 EDT, Weight Dosing Start Date: 05/21/23 Status: [id number] 200 actuat albuterol 0.09 mg/actuat metered dose inhaler (2 sources)beta2-Adrenergic AgonistStart: 46-51-5038uryz 1 puff(s) by inhalation every four hours as needed for wheezingStart: 42-95-3220glqs 2 puff(s) by inhalation every four hours as neededAlbuterol Sulfate HFA 108 (90 Base) MCG/ACT 2 puffs as needed Inhalation every 4 hrs November, Not-TakingamLODIPine 5 mg oral tablet (5 sources)Dihydropyridine Calcium Channel BlockerStart: 09-16-2023 End: 44-30-1315zwjm 1 tablet by mouth in the morning, then take 1 tablet by mouth at bedtimeamLODIPine (NORVASC) 5 mg tablet Take 1 tablet (5 mg total) by mouth in the morning and 1 tablet (5mg total) before bedtime. 09/16/2023 10/02/2024 DiscontinuedAmphetamine / Dextroamphetamine (1 source)Central Nervous System StimulantAdderall XR Activeamphetamine aspartate 3.75 mg / amphetamine sulfate 3.75 mg / dextroamphetamine saccharate 3.75 mg / dextroamphetamine sulfate 3.75 mg oral tablet (20 sources)Central Nervous System StimulantStart: 10-60-4732tgda 2 tablets by mouth once daily in the eveningStart: 30-23-2317wata 30 mg by mouth once daily in the eveningDextroamphetamine-Amphetamine Active 30 MG PO Every evening December 04, 2023 11:01am Takes at 2 PMStart: 52-48-4041qsph 1 tablet by mouth in the morningamphetamine-dextroamphetamine 30 mg oral tablet Refill(s) 0, TAKE 1 TABLET BY MOUTH IN THE MORNING IN ADDITION TO 30 MG IN THE AFTERNOON Start Date: 11/27/22 Status: OrderedStart: 82-86-2196uxwb 1 capsule by mouth once daily in the morningStart: 11-13-2021 End: 21-39-6411sllz 1 tablet by mouth once daily in the evening Dextroamphetamine-Amphetamine 15 mg tablet Discontinued 15 MG PO Every evening November 13, 2021 12:00am December 04, 2023 11:04am Takes at 2 PMStart: 11-13-2021 End: 67-74-3710Riaqslsytbcvjaorm-Amphetamine 15 mg tablet Discontinued 0 .ROUTE .COMPLEX November 13, 2021 12:00am 2021 1:30pm 15 mg orallyStart: 06-16-2021 dextroamphetamine-amphetamine (ADDERALL) 20 mg tablet in the morning. 06/16/2021 ActiveStart: 83-37-6488dmdupwhitta-dextroamphetamine XR (ADDERALL XR) 20 mg 24 hr capsuleStart: 90-64-6944smdqpjfxoml-dextroamphetamine XR (ADDERALL XR) 30 mg 24 hr capsule 1 capsule (30 mg total) every morning. 05/16/2021 ActiveStart: 91-07-2838ndivzvjmxvp-dextroamphetamine XR (ADDERALL XR) 15 mg 24 hr capsule amphetamine-dextroamphetamine (Adderall) 15 MG tablet every 12 (twelve) hours ActiveAdderall 20 MG tablet every 12 (twelve) hours ActiveApple Cider Vinegar (5 sources) End: 61-35-8800HFVVR CIDER VINEGAR ORAL Take by mouth daily. 10/02/2024 Discontinued (Discontinued by another clinician)APPLE CIDER VINEGAR ORAL Take by mouth daily. ActiveAPPLE CIDER VINEGAR ORAL Take by mouth daily. 0 Active Ascorbic Acid-Vitamin E-Biotin (Hair, Skin, Nails With Biotin) 7.5-7.5-1,250 mg-unit-mcg Tablet,Chewable (9 sources)Start: 14-05-6246Tlhpm: 79-51-2294Adsfxygq Acid-Vitamin E-Biotin (Hair, Skin, Nails With Biotin) 7.5-7.5-1,250 mg-unit-mcg Tablet,Chewable Active 3 TAB PO Daily November 12, 2021 11:00pmStart: 49-70-0236Spfwiqje Acid-Vitamin E- Biotin (Hair, Skin, Nails With Biotin) 7.5-7.5-1,250 mg-unit-mcg Tablet,Chewable Active 3 TAB PO Daily November 13, 2021 12:00amazithromycin 500 mg oral tablet (6 sources)Macrolide AntimicrobialStart: 54-17-8007Hheag: 09-19-1013acta 4 tablets by mouth at mealtimeAzithromycin 500 MG 4 tablets Orally as directed for 1 days Take all 4 tablets by mouth today with food Oct, ActiveStart: 58-68-7066Xusemeudn 250 MG 2 tablet on the first day, then 1 tablet daily for 4 days Orally Once a day for 5 day(s) Aug, Activebenzonatate 200 mg oral capsule (1 source)Non-narcotic AntitussiveStart: 60-56-8563ppsw 1 capsule by mouth three times daily as needed for coughBiotin (18 sources)Start: 51-21-2561ajarnm See Instructions, celso, Refills(s) 0 Start Date: 11/27/22 Status: Ordered End: 39-37-0230HQCKNU ORAL Take by mouth daily. 10/02/2024 Discontinued (Discontinued by another clinician)BIOTIN ORAL Take by mouth daily. ActiveBIOTIN ORAL Take by mouth daily. 0 Activecariprazine 1.5 mg oral capsule (7 sources)Atypical AntipsychoticStart: 04-12-2020 End: 62-15-1560CHRQFVM 1.5 mg capsule 3 mg. 04/12/2020 10/02/2024 Discontinued Vraylar Not-Takingcephalexin 500 mg oral capsule (10 sources)Cephalosporin AntibacterialStart: 03-26-2023 End: 11-97-7754xnbn 1 capsule by mouth every six hoursKeflex 500 mg Cap 500 mg = 1 cap(s), Oral, q6hr, X 7 day(s), # 28 cap(s), Refills(s) 0, Pharmacy: [id number], 155, cm, 03/26/23 6:55:00 EDT, Height/Length Dosing, 77.5, kg, 11/27/22 9:07:00 EDT, Weight Dosing Start Date: 03/26/23 Stop Date: 04/02/23 Status: OrderedStart: 11-29-2021 End: 59-06-6465xmxw 1 capsule by mouth three times dailyCephalexin 500 mg capsule Discontinued 500 MG PO Three times daily November 29, 2021 12:00am May 17, 2022 8:03amCranberry preparation (5 sources)Non-Standardized Food Allergenic Extract, Non-Standardized Plant Allergenic Extract End: 47-43-3028OAJAOLKBC ORAL Take by mouth daily. 10/02/2024 Discontinued (Discontinued by another clinician)CRANBERRY ORAL Take by mouth daily. Active CRANBERRY ORAL Take by mouth daily. 0 Activedocosahexaenoic acid/epa (FISH OIL ORAL) (5 sources) End: 03-84-6705pecqutkqrmcgvtx acid/epa (FISH OIL ORAL) Take by mouth 3 (three) times a day. 10/02/2024 Discontinued (Discontinued by another clinician) docosahexaenoic acid/epa (FISH OIL ORAL) Take by mouth 3 (three) times a day. Activedocosahexaenoic acid/epa (FISH OIL ORAL) Take by mouth 3 (three) times a day. 0 Activedoxycycline hyclate 100 mg oral capsule (1 source)Tetracycline-class DrugStart: 05-21-2023 End: 26-75-6588tknj 1 capsule by mouth twice dailydoxycycline hyclate 100 mg Cap 100 mg = 1 cap(s), Oral, BID, X 14 day(s), # 28 cap(s), Refills(s) 0, Pharmacy: [id number], 155, cm, 05/21/23 7:14:00 EST, Height/Length Dosing, 77.5, kg, 11/27/22 9:07:00 EDT, Weight Dosing Start Date: 05/21/23 Stop Date: 06/04/23 Status: OrderedFish Oils (13 sources)Start: 76-67-1596ekwp 1000 mg by mouth once dailyFish Oil 1,000 mg, Oral, Daily, Refill(s) 0 Start Date: 11/27/22 Status: Orderedgabapentin 300 mg oral capsule (12 sources)Anti-epileptic AgentStart: 97-09-1706qpbi 2 capsules by mouth every twelve hoursGabapentin 300 MG 2 capsule Orally twice a day for 30 day(s) Dec, ActiveStart: 08-16-2020 End: 88-92-2853bjxnrlfsap (NEURONTIN) 300 mg capsule Indications: Lumbar neuritis , Lumbosacral spondylosis without myelopathy Take 1 capsule (300 mg total) by mouth See Admin Instructions. Take 1 tablet by mouth at bedtime for 3 nights, then take 1 tablet by mouth twice daily for 3 days, then take 1 tablet by mouth three times daily thereafter 81 capsule 08/16/2020 10/02/2024 Discontinued (Discontinued by another clinician)Gabapentin ActiveHandicap placards as directed (1 source)Start: 80-18-5583Ranqogytuy Ultra Collagen Plus C (13 sources)Start: 16-00-8107Qnpksotopo Ultra Collagen Plus C See Instructions, Refill(s) 0, daily Start Date: 11/27/22 Status: Orderedibuprofen 800 mg oral tablet (6 sources)Nonsteroidal Anti-inflammatory Drug End: 80-09-2270vrda 1 tablet by mouth every six hours as needed for pain ibuprofen (ADVIL,MOTRIN) 800 mg tablet Take 800 mg by mouth every 6 (six) hours as needed for pain.10/02/2024 Discontinued (Discontinued by another clinician) labetalol hydrochloride 200 mg oral tablet (5 sources)beta-Adrenergic BlockerStart: 10-28-2024 End: 79-90-3861iegd 1 tablet by mouth at bedtimelabetaloL (NORMODYNE) 200 mg tablet TAKE 1 TABLET (200 MG TOTAL) BY MOUTH IN THE MORNING AND BEFOREBEDTIME 180 tablet 2 02/25/2025 Activelevothyroxine sodium 0.05 mg oral tablet (12 sources)l-ThyroxineStart: 49-18-9935pwez 1 tablet by mouth in the morning levothyroxine (SYNTHROID, LEVOTHROID) 50 MCG tablet Take 1 tablet (50 mcg total) by mouth in the morning. 07/08/2024 ActiveStart: 34-81-0176mzzr 1 tablet by mouth once dailylosartan potassium 100 mg oral tablet (15 sources)Angiotensin 2 Receptor BlockerStart: 10-31-2023 End: 81-17-2675tetb 1 tablet by mouth in the morninglosartan (COZAAR) 100 mg tablet Take 1 tablet (100 mg total) by mouth in the morning. 90 tablet 3 ActiveStart: 95-41-6559vacd 1 tablet by mouth in the morninglosartan (COZAAR) 50 mg tablet Take 1 tablet (50 mg total) by mouth in the morning. 90 tablet 3 10/03/2023 Activetake 2 tablets by mouth once dailylosartan (Cozaar) 50 MG tablet Take 100 mg by mouth Daily Activelurasidone hydrochloride 80 mg oral tablet (20 sources)Atypical AntipsychoticStart: 11-70-8420evgq 2 tablets by mouth once daily at bedtimeLatuda 80 mg oral tablet TAKE 2 TABLETS BY MOUTH EVERY DAY AT BEDTIME Start Date: 11/27/22 Status: OrderedStart: 94-21-7024nlfcarjpbf (LATUDA) 80 mg tablet 1 tablet (80 mg total) in the morning. 06/19/2021 ActiveStart: 39-61-6998LSJORX 120 mg tablet tabletlurasidone (Latuda) 120 MG tablet Take 80 mg by mouth in the evening Activetake 2 tablets by mouth at bedtimeLatuda 80 MG TAKE 2 TABLETS BY MOUTH AT BEDTIME Oral for 15 Days ActiveLatuda Active medication for headaches and nausea (9 sources)Start: 97-11-8788coayihjqml for headaches and nausea medication for headaches and nausea Start Date: 05/14/23 Status:OrderedmethylPREDNISolone (12 sources)CorticosteroidStart: 02-76-9523uszsskQKOVPCSdrqlg (Medrol Dospak) 4 MG tablets Indications: Neuritis Follow schedule on MEDROL PACK package instructions to be used as directed 21 tablet 07/09/2024 ActiveStart: 11-14-2020 methylPREDNISolone 4 MG as directed Orally Once a day for 6 days November, Not-Wlbqdt05 hr metoprolol succinate 50 mg extended release oral tablet (13 sources)beta-Adrenergic BlockerStart: 49-43-0100dcas 1 tablet by mouth once dailyStart: 09-10-2023 End: 81-85-2891wkru 1.5 tablets by mouth every twenty-four hours in the morning, then take 1.5 tablets by mouth atbedtimemetoprolol succinate XL (TOPROL XL) 50 mg 24 hr tablet Take 1.5 tablets (75 mg total) by mouth in the morning and 1.5 tablets (75 mg total) before bedtime. 270 tablet 3 10/02/2024 ActiveStart: 71-93-2896ztxl 1 tablet by mouth every twenty-four hours in the morning, then take 1 tablet by mouth at bedtimemetoprolol succinate XL (TOPROL XL) 50 mg 24 hr tablet Take 1 tablet (50 mg total) by mouth in the morning and 1 tablet (50 mg total) before bedtime. 0 09/10/2023 ActivemetroNIDAZOLE 500 mg oral tablet (5 sources)Nitroimidazole AntimicrobialStart: 35-34-6656fgqi 1 tablet by mouth every twelve hoursMisc Medication (20 sources)Start: 78-76-0850Kqzh Medication See Instructions, hair, skin and nails dail Start Date: 11/27/22 Status: OrderedStart: 30-22-1870Wuag Medication See Instructions, Dungeduardkevin ovalle dailu Start Date: 11/27/22 Status: OrderedStart: 96-51-6627Zkec Medication See Instructions, Apple cider vinegar daily Start Date: 11/27/22 Status: JhtgwjcXfosaywfntez-Esnk-Lmxio Acid (Centrum Women) 18-400 mg-mcg Tablet (9 sources)Start: 26-76-6944febd 3 tablets by mouth once dailyStart: 11-13-2021 take 3 tablets by mouth once zgrmnOmrhcgpmofqk-Hjtg-Clkir Acid (Centrum Women) 18-400 mg-mcg Tablet Active 3 TAB PO Daily November 12, 2021 11:00pmStart: 56-11-7524dnrh 3 tablets by mouth once yxhxmXuunwbnxnrmj-Mhfq-Kivss Acid (Centrum Women) 18-400 mg-mcg Tablet Active 3 TAB PO Daily November 13, 2021 12:00am mupirocin 0.02 mg/mg topical ointment (1 source)RNA Synthetase Inhibitor AntibacterialStart: 37-61-9559zcwz 15 g nasal route twice dailymupirocin Top 2% Oint See Instructions, 15 gm, Refill(s) 0, apply to both nostrils, both axillary folds, both groin creases twice daily for 5 days, [id number], 155, cm, 05/14/23 13:20:00 EST,Height/Length Dosing, 77.5, kg, 11/27/22 9:07:00 EDT, Weight Dosing Start Date: 05/16/23 Status: Orde redNIFEdipine 60 mg osmotic 24 hr extended release oral tablet (9 sources)Dihydropyridine Calcium Channel BlockerStart: 95-78-0684xupe 1 tablet by mouth twice dailyNIFEdipine XL (PROCARDIA XL) 60 mg 24 hr tablet Take 1 tablet (60 mg total) by mouth 2 (two) times a day. 60 tablet 3 10/22/2024 Active Start: 10-02-2024 End: 69-87-6554hysn 1 tablet by mouth every twenty-four hours in the morning NIFEdipine XL (PROCARDIA XL) 60 mg 24 hr tablet Take 1 tablet (60 mg total) by mouth in the morning. 30 tablet 5 10/02/2024 10/22/2024 Discontinued (Reorder) take 1 tablet by mouth before mealtime, then take 1 tablet by mouth every twenty-four hoursNIFEdipine CC (Adalat CC) 60 MG 24 hr tablet Take 60 mg by mouth in the morning. Take before meals.Do not crush, chew, or split. Active nitroglycerin 0.4 mg sublingual tablet (9 sources)Nitrate VasodilatorStart: 82-58-9948QVygcvochiizu 600 mg oral tablet (20 sources)Anti-epileptic AgentStart: 74-24-4827DJiapnfrkkfei (TRILEPTAL) 600 mg tablet Take 1 tablet (600 mg total) by mouth in the morning and 1 tablet (600 mg total) at noon and 1 tablet (600 mg total) before bedtime. 04/12/2020 Active Start: 86-61-1078THslgjdtctznw (TRILEPTAL) 600 mg tablet Take 1 tablet (600 mg total) by mouth in the morning and 1 tablet (600 mg total) at noon and 1 tablet (600 mg total) before bedtime. 04/12/2020 ActiveStart: 04-12-2020 End: 88-40-8962vuyh 1 tablet by mouth once daily at bedtimeOxcarbazepine 300 mg tablet Discontinued 300 MG PO Daily at bedtime November 13, 2021 12:00am December 04, 2023 11:03amTrileptal 600 MG tablet every 12 (twelve) hours ActiveOXcarbazepine ActiveoxyCODONE hydrochloride 5 mg oral tablet (20 sources)Opioid AgonistStart: 06-16-6662saut 1-2 tablets by mouth three times dailyoxyCODONE HCl 5 MG 1-2 tablets Orally tid for 7 days Dec, Active Start: 11-29-2021 End: 90-67-6650hytu 5-10 mg by mouth every six hours as needed for painOxycodone 5 mg Tablet Discontinued 5 - 10 MG PO Q6H as needed for Pain 50 8 November 29, 20212021 8:02amPNV no.95/ferrous fum/folic ac ( ORAL) (5 sources) End: 82-45-5254VSX no.95/ferrous fum/folic ac ( ORAL) Take by mouth daily. 10/02/2024 Discontinued (Discontinued by another clinician)PNV no.95/ferrous fum/folic ac ( ORAL) Take by mouth daily. ActivePNV no.95/ferrous fum/folic ac ( ORAL) Take by mouth daily. 0 Activeprazosin 2 mg oral capsule (19 sources)alpha-Adrenergic BlockerStart: 50-60-7211mkjp 2 capsules by mouth once dailyprazosin 2 mg oral capsule 4 mg = 2 cap(s), Oral, Daily, Refills(s) 0 Start Date: 11/27/22 Status: OrderedStart: 11-13-2021 End: 07-30-5267tvlf 1 capsule by mouth once daily at bedtimePrazosin 1 mg capsule Discontinued 1 MG PO Daily at bedtime November 13, 2021 12:00am December 04, 2023 11:05ampredniSONE 10 mg oral tablet (11 sources)Start: 18-13-4835Aeqml: 11-29-2021 End: 06-44-8467Rdxgmgvsqg 10 mg tablets,dose pack Discontinued 1 dose pk PO per package directions November 29, 2021 12:00am May 17, 2022 8:02am take 4 tabs for 3 days then take 3 tabs for 3 days then take 2tabs for 3 days then take 1 tab for 3 daysStart: 11-29-2021 End: 61-95-8986Nirjpvgywi Discontinued 1 dose pk PO per package directions November 29, 2021 12:00am May 17, 2022 8:02am take 4 tabs for 3 days then take 3 tabs for 3 days then take 2 tabs for 3 days then take 1 tab for 3 days Start: 11-29-2021 End: 94-77-1457Kxwfmvmmsc Discontinued 1 dose pk PO per package directions November 28, 2021 11:00pm May 17, 2022 7:02am take 4 tabs for 3 days then take 3 tabs for 3 days then take 2 tabs for 3 days then take 1 tab for 3 days Start: 96-65-6005Uwdhzqfpdo Active 1 dose pk PO per package directions November 28, 2021 11:00pm take 4 tabs for 3 days then take 3 tabs for 3 days then take 2 tabs for 3 days then take 1 tab for 3 daysStart: 53-10-6454Zvrtsapvna Active 1 dose pk PO per package directions November 29, 2021 12:00am take 4 tabs for 3 days then take 3 tabs for 3 days then take 2 tabs for 3 days then take 1 tab for 3 daysStart: 48-56-5789ukdh 1 tablet by mouth every twelve hourspredniSONE 20 MG 1 tablet Orally bid for 5 day(s) Aug, Activepregabalin 100 mg oral capsule (18 sources)Start: 34-32-8707djwh 1 capsule by mouth every twelve hoursStart: 33-01-9801rjiz 1 capsule by mouth every twelve hoursStart: 45-33-1561Jomrj: 72-62-0786xxtf 1 capsule by mouth every twelve hoursPregabalin 75 MG 1 capsule Orally Twice a day for 30 days Jun, ActiveStart: 65-78-7752efnj 1 capsule by mouth every twelve hoursPregabalin 25 MG 1 capsule Orally Twice a day for 10 days Feb, ActiveStart: 05-75-5448dygs 1 capsule by mouth every six hoursPregabalin 25 MG 1 capsule Orally qid for 30 days Feb, Active Start: 37-32-4461jkgz 2 capsules by mouth every twelve hoursLyrica 25 MG 2 capsules Orally Twice a day for 30 days EMMANUEL Feb, ActivePrenatal AD (13 sources)Start: 73-45-0374Wzkmxbpx AD See Instructions, Refill(s) 0, daily Start Date: 11/27/22 Status: OrderedProFe (1 source)ProFe Activepropranolol hydrochloride 80 mg oral tablet (9 sources)beta-Adrenergic BlockerStart: 09-90-0653huue 80 mg by mouth once dailypropranolol 80 mg, Oral, Daily, Refills(s) 0 Start Date: 04/29/23 Status: Orderedspironolactone 25 mg oral tablet (12 sources)Aldosterone AntagonistStart: 10-31-2023 End: 59-20-1787udjj 1 tablet by mouth in the morningspironolactone (ALDACTONE) 25 mg tablet Take 1 tablet (25 mg total) by mouth in the morning. 90 tablet 3 10/02/2024 ActivetiZANidine 4 mg oral tablet (4 sources)Central alpha-2 Adrenergic AgonistStart: 98-05-7234arnk 1 tablet by mouth every eight hourstiZANidine HCl 4 MG 1 tablet as needed Orally Three times a day for 7 days May, ActivetraZODone hydrochloride 50 mg oral tablet (20 sources)Serotonin Reuptake InhibitorStart: 46-58-8030ttjOHXuaz (Desyrel) 50 MG tablet 06/23/2024 ActiveStart: 39-71-5750Cwern: 65-86-0168tlfu 100 mg by mouth once daily at bedtimeTrazodone Active 100 MG PO Daily at bedtime December 04, 2023 11:04amStart: 77-03-7923ybjc 2 tablets by mouth once dailytraZODone (DESYREL) 50 mg tablet Take 2 tablets (100 mg total) by mouth nightly. 04/12/2020 ActiveStart: 04-12-2020 End: 89-04-5975obmn 1 tablet by mouth once daily at bedtimeTrazodone 150 mg tablet Discontinued 150 MG PO Daily at bedtime November 13, 2021 12:00am December 04, 2023 11:04amtraZODone HCl Activevilazodone hydrochloride 40 mg oral tablet (20 sources)Start: 03-80-9399kqjm 1 tablet by mouth in the morningvilazodone (VIIBRYD) 40 mg tablet Take 1 tablet (40 mg total) by mouth in the morning. 04/19/2020 ActiveStart: 59-52-1155twsb 1 tablet by mouth once dailyvilazodone 20 mg oral tablet TAKE 1 TABLET BY MOUTH EVERY DAY Start Date: 11/27/22 Status: Orderedtake 2 tablets by mouth at mealtimevilazodone (Viibryd) 20 MG tablet Take 40 mg by mouth in the morning. Take with meals. ActiveViibryd Activezolpidem tartrate 12.5 mg extended release oral tablet (20 sources)gamma-Aminobutyric Acid-ergic AgonistStart: 11-41-5173pgavtcab CR (AMBIEN CR) 12.5 mg CR tablet nightly. 05/31/2021 ActiveStart: 05-31-2021 zolpidem (AMBIEN) 10 mg tabletZolpidem Tartrate Active Completed/Discontinued Medications MedicationDrug Class(es)DatesSig (Normalized)Sig (Original)amoxicillin 875 mg / clavulanate 125 mg oral tablet (1 source)Penicillin-class AntibacterialStart: 80-35-5363djec 1 tablet by mouth every twelve hoursAmoxicillin-Pot Clavulanate 875-125 MG 1 tablet Orally every 12 hrs for 7 days November, Not-TakingcefTRIAXone (4 sources)Cephalosporin AntibacterialStart: 46-86-4164Yzzayjbr 500 mg Oct, 500 mgcyclobenzaprine hydrochloride 10 mg oral tablet (9 sources)Muscle RelaxantStart: 11-29-2021 End: 63-64-8474bxxw 1 tablet by mouth three times daily as needed for muscle spasmsCyclobenzaprine 10 mg tablet Discontinued 10 MG PO Three times daily as needed for back spasms November 29, 2021 12:00am May 17, 2022 8:02am fluticasone propionate 0.05 mg/actuat metered dose nasal spray (1 source)CorticosteroidStart: 14-68-0953xsyj 1 spray(s) nasal route once daily Fluticasone Propionate 50 MCG/ACT 1 spray in each nostril Nasally Once a day for 30 day(s) November, Not-Takingpantoprazole 40 mg delayed release oral tablet (2 sources)Proton Pump InhibitorStart: 12-04-2023 End: 86-60-2868malw 1 tablet by mouth once dailyPantoprazole 40 mg tablet,delayed release (DR/EC) Discontinued 40 MG PO Daily December 04, 2023 12:00am December 04, 2023 11:03am Problems Active Problems Problem ClassificationProblemDateDocumented DateEpisodic/ChronicAcute bronchitis (1 source)Acute bronchitis; Translations: [Acute bronchitis, unspecified] 62-88-5410QshrybrmUixeomc disorders (20 sources)Anxiety; Translations: [Anxiety disorder, unspecified]Onset: 171358-49-1574HtfokusGdtitlgcvf disorders (20 sources)Gastroesophageal reflux disease; Translations: [Gastro-esophageal reflux disease without esophagitis]Onset: 03-21-2022 Resolved: 86-91-2765ScjzhtnCtftbbmtvm disorders (1 source)Esophageal disorders; Translations: [Gastro-esophageal reflux disease without esophagitis]Onset: 36-33-8671Afleksncu hypertension (20 sources)Hypertensive disorder; Translations: [Essential (primary) hypertension]Onset: 136140-94-3563FcxqweoDjyibperafupg symptoms and ill- defined conditions (2 sources)DysuriaEpisodicHeart valve disorders (13 sources)Mitral valve prolapse; Translations: [Nonrheumatic mitral (valve) prolapse]Onset: 674387-63-6462DqdxxjkNlooxyb and fatigue (2 sources)Asthenia; Translations: [Weakness]87-19-9864FiceknupIjlo disorders (13 sources)Bipolar I qzunnptn70-00-9243XckqfjhVoqxh acquired deformities (20 sources)Spondylolysis; Translations: [Spondylolysis, lumbar region] 48-78-8686VpctqwzxGkmgj acquired deformities (4 sources)Spondylolysis, lumbar regionOnset: 09-21-2021 Resolved: 37-54-4133IeasvlwkUanyd acquired deformities (9 sources)Lumbar spondylolisthesis; Translations: [Spondylolisthesis, lumbar region]73-27-4300UdezbkyvInrqgtk on above:Problem List clean-up per request of Phys. EHR CmteOther acquired deformities (3 sources)Spondylolysis, lumbosacral region; Translations: [Lumbosacral spondylolysis]Onset: 342743-18-4054LqtjlhzxOxoezsj on above:Problem List clean-up per request of Phys. EHR CmteOther connective tissue disease (5 sources)Arthrodesis status; Translations: [S/P lumbar spinal fusion]Onset: 65-57-6725UviyicewDdpad connective tissue disease (8 sources)Inflammatory neuropathy ; Translations: [Neuralgia and neuritis, unspecified]03-01-0132KigwamceSnjbl connective tissue disease (8 sources)Capsulitis of metatarsophalangeal joint of left foot; Translations: [Other enthesopathy of left foot and ankle]82-40-0701XlqgqaeiLgsyp connective tissue disease (2 sources)Muscle pain; Translations: [Myalgia, unspecified site]11-05-2024 EpisodicOther gastrointestinal disorders (13 sources)History of gastroesophageal reflux eyiadia63-31-4148OhxodswtQsbtc nervous system disorders (12 sources)Polyneuropathy; Translations: [Other specified polyneuropathies] 33-92-2873PugfxwgWyafz nervous system disorders (2 sources)Inflammatory xqfniaaxfs43-94-9254LoxdmnkBmvex nervous system disorders (1 source)Unspecified mononeuropathy of bilateral lower limbs; Translations: [Neuropathic pain of both feet]Onset: 33-39-0944JzreiuwJslsa nervous system disorders (2 sources)Other chronic pain; Translations: [Chronic bilateral low back pain with sciatica, sciatica laterality unspecified]Onset: 63-49-0679BozjkssSghja nervous system disorders (2 sources)Paresthesia; Translations: [Paresthesia of skin]22-24-9198Nhsegnqz Other nutritional; endocrine; and metabolic disorders (13 sources)H/O: nvamrytghtofkw95-23-5038SebvynfgSihsw nutritional; endocrine; and metabolic disorders (13 sources)H/O: rmxsjmy80-50-9712ZwsmuikaYcplf screening for suspected conditions (not mental disorders or infectious disease) (13 sources)Disorder of cardiovascular nenltw15-72-3315YtkmawfuXjhbs upper respiratory disease (11 sources)Seasonal allergy; Translations: [Other seasonal allergic rhinitis] Onset: 670231-48-7396JfpfycsXvpsejmb codes; unclassified (3 sources)High risk heterosexual behavior; Translations: [High risk heterosexual behavior]Onset: 35-25-6316KuxwbklgYxtdpafc codes; unclassified (1 source)Other specified postprocedural states; Translations: [History of lumbar surgery]Onset: 95-24-8233HukhhetnKdrwzyjsaxtwm and other psychotic disorders (13 sources)Fredvnlxpkqjv49-94-8887LdmzjglEfibpippaoz; intervertebral disc disorders; other back problems (13 sources)Lumbosacral spondylosis without myelopathy; Translations: [Spondylosis without myelopathy or radiculopathy, lumbosacral region]Onset: 567441-17-7582RvkhdelDcacvaqzcri; intervertebral disc disorders; other back problems (20 sources)Lumbar radiculopathy; Translations: [Radiculopathy, lumbar region] Onset: 04-20-2020 Resolved: 35-01-8643WxvtlykgDbkgmii on above:Problem List clean-up per request of Phys. EHR CmteThyroid disorders (2 sources)Hypothyroidism; Translations: [Hypothyroidism, unspecified]12-04-2023 ChronicUnclassified (1 source)Encounter for preprocedural laboratory examination; Translations: [Encounter for preprocedural laboratory examination]Onset: 05-15-2022 Unclassified (1 source)Spondylolysis, lumbar region; Translations: [Spondylolysis, lumbar region]Onset: 18-02-0930Tcthvehktvps (1 source)M43.06 - Spondylolysis, lumbar region; Translations: [M43.06 - Spondylolysis, lumbar region]Onset: 95-96-8091Cixbpefqxifx (1 source)Spinal stenosis, lumbar region without neurogenic claudication; Translations: [Spinal stenosis, lumbar region without neurogenic claudication] Onset: 77-24-0454Zquhwamopdxx (1 source)Z01.812 - Encounter for preprocedural laboratory examination; Translations: [Z01.812 - Encounter for preprocedural laboratory examination] Onset: 71-90-6839Tzdnzgzbmkon (1 source)M54.17 - Radiculopathy, lumbosacral region Past or Other Problems Problem ClassificationProblemDateDocumented DateEpisodic/ChronicChronic obstructive pulmonary disease and bronchiectasis (1 source)Bronchitis, not specified as acute or chronicOnset: 08-29-2021 Resolved: 23-60-5276XkmmfjqkFbptmjnchoxou and screening for infectious disease (1 source)Contact with and (suspected) exposure to other viral communicable diseasesOnset: 08-29-2021 Resolved: 63-84-4871UcpjscylJnkax acquired deformities (1 source)Spondylolisthesis, lumbar region; Translations: [Spondylolisthesis, lumbar region]Onset: 27-72-2756FvuwmvqgCtqpb upper respiratory infections (1 source)Acute upper respiratory infection, unspecifiedOnset: 08-29-2021 Resolved: 44-38-9575Loaeszzg Results Test NameValueInterpretationReference RangeFacilityCNOVon 40-64-1064LFHDFrhoxu Visit (SPNSMN) AARON BRENNAN ([id number]) 1975 F Date Time Provider Department 04/23/25 11:00 AM SERA VILLAREAL SPNSMN During your visit today, we recorded the following information about you: Pulse Respiration Blood pressure Weight 70/minute 17/minute 144/98 62.6 kg Height Last Period 1.549 m 04/08/25 Sera Villareal PA-C 04/23/2025 3:08 PM Signed SPINE SURGERY OUTPATIENT CONSULT This is an in-person visit. SERVICE DATE: 04/23/2025 PCP: No primary care provider on file. REFERRING PROVIDER: Vamsi Alonzo DO [address] [facility] [address] [place] [phone] Consult requested for an opinion regarding the evaluation and treatment of low back pain. My final impression and recommendations will be communicated back to the requesting physician by way of the shared medical record or letter via US mail. SUBJECTIVE Aaron Brennan is a 49 year old female presenting with spouse. CHIEF COMPLAINT: Low back pain, leg numbness, foot pain HISTORY OF PRESENT ILLNESS Aaron is a 49-year-old female with chronic low back pain, neuropathic pain, and hypertension presenting for evaluation of persistent pain and neuropathic symptoms following lumbar spine surgery. She is accompanied by her , who provides additional history. Aaron reports a history of chronic low back pain dating back to 1998, when she sustained a lower lumbar sprain at work. Imaging at that time revealed degenerative disc disease. Over the years, her pain progressively worsened, particularly with activities such as lifting and bending. She underwent her first back surgery, a discectomy at L2-L3, in 2020. She reports that this surgery provided relief of her symptoms. However, her pain continued to worsen, and she subsequently underwent a lumbar fusion at L5-S1 in November 2022. Following this surgery, she developed new symptoms including numbness in most parts of her legs, inability to feel hot or cold in her feet, and very limited movement in her left foot. She also developed constant, very painful tingling in the tops of both feet, worse on the left, which she describes as hypersensitivity to touch. She reports that wearing shoes significantly worsens the pain, and even light touch is extremely painful. She also developed swelling in her left foot and ankle, with compensatory swelling in her right foot and ankle. She was evaluated by a insecticide mixer who administered injections in her left foot, which she did not feel. The insecticide mixer recommended a neurologist if the injections were ineffective. She was subsequently evaluated by Dr. Jermaine Alonzo, who performed EMG and nerve conduction studies. She reports that most of the needling was not felt. Dr. Alonzo reviewed her MRI and noted some discrepancies, consulting a specialist for further interpretation. He reportedly told her that the surgeon was only able to move the spine about 60% of what was intended during the fusion, and that some nerves may have been crushed rather than released. Due to persistent pain, she was referred for a spinal cord stimulator trial, which provided some relief of her lower back pain and improved her left leg limp. The permanent stimulator was implanted in May 2023. She reports that the stimulator provides partial relief, but the tingling in her feet persists. She notes that when the stimulator was not functioning for 3 days, she experienced significantly more pain, suggesting that the device does provide some benefit. However, she reports discomfort at the site where the wires are anchored, particularly after significant weight loss. She has tried multiple treatments including physical therapy, gabapentin, pregabalin, and several injections both before and after surgery. She reports that gabapentin made her very sick, and pregabalin did not provide relief despite being taken for over a month. She is currently taking 5 different medications for hypertension, which developed after her second surgery. She also takes Adderall 30 mg daily. 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 She reports that her pain has affected her sex life. She denies any history of smoking, except for marijuana use many years ago. - (04/23/2025) Lumbar spine radiographs (AP/lateral with flexion/extension): No instability. - MRI Lumbar Spine: Central canal patent from L1-S1; interbody cage present at L5-S1 with spondylolisthesis; mild left L5-S1 foraminal narrowing. - EMG/NCS: Chronic L5-S1 radiculopathy. S/p lumbar discectomy in 2020 at [facility] S/p lumbar fusion in November 2022 at [facility] S/p SCS placement in May 2023 at [facility] Conservative Management: -Physical Therapy (Multiple courses) -Multiple lumbar epidural steroid injections (Pre- and post- surgery) -Pr (more content not included)...NormalSelect [facility] SouthOVOffice Visit (NPRC21) ANUAARON ([id number]) 1975 F Date Time Provider Department 04/23/25 8:30 AM PANCHITO DEWITT NPRC21 During your visit today, we recorded the following information about you: Pulse Respiration Blood pressure Weight 75/minute 16/minute 134/89 62.6 kg Panchito Dewitt DO 04/23/2025 9:29 AM Signed [facility] April 23, 2025 Aaron Brennan is a 49 year old who presents with her She was referred by Vamsi Alonzo DO [address] [place] [phone]. Chief complaint: Chronic Pain SUBJECTIVE: Pt reports most of her pain was in low back and now left leg, and both feet (painful tingling that never leaves) wearing shoes makes it worse She reports her feet will swell up damián t is painful Lumbar Surgery 2022- the pain started to radiate to her legs prior to the surgery [facility] Prior to the surgery she had a disc issue in 2020 She reports she has had lower back pain her entire life 1998- diagnosed with disc disease Headaches, related to her hypertension Spine Red Flag Aaron Brennan has no red flag symptoms. Anesthesia: N Schizophrenia: ? Yes per psychiatry, it also runs on both sides of the family : N/A CHF: N Uncontrolled HTN: Yes, since her surgery, she is follows with cardio close to home Recent WI: yes, age 28, no stents Arrythmias: N Afib: N Hyperthyroid: N Aortic Stenosis: N Liver Failure: N Increased ICP: N Prolapsing left heart valve Average pain over the last 7 days: Her back is a 6-7/10 left foot- always 9/10 Previous pain treatments: physical therapy, medications, surgery, injections (prior to the surgery) She last had an injection 3 months ago, no relief No PT since the surgery She had 2 sessions prior She had a SCS placed, Apr 2023 She reports the SCS is painful, archie where the wires are anchored She cannot sit directly on it Tylenol and ibuprofen for her headaches Gabapentin, Lyrica, no relief Functional Limitations: Only allowed to loft 25 pounds with her arms Wellness: How would you describe your diet: diet is balanced, eats out sometimes How many days a week do you exercise: she has lost 40 pounds, she is not abl to exercise due to the pain, she can't walk, she can't ride her bike How many hours do you sleep a night: takes Ambien 10mg, she reports this is helpful for her sleep Emotional Symptoms: include depression and anxiety The patient has loss of sleep The patient denies suicidal ideation. Non-medical stresses: Include marriage counseling Step daughter, age 16- she has some mental health issues She has a twin brother - he is good She watches her grandchildren, she watches them during the week Family involvement: is appropriate/helpful and supportive Financial Status: she has been unable to work, last was 8-9 years ago Allergies: Reviewed in the EMR Current Medications: Reviewed in the EMR Medical History: Reviewed in the EMR Surgical History: Reviewed in the EMR Psychiatric History: Anxiety Depression Bipolar Disorder ADHD Meds: Trileptal, Latuda, Adderall, Trazodone, Wellbutrin Dr. 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 OBJECTIVE: PHYSICAL EXAM: GENERAL APPEARANCE: Well appearing, well-hydrated, well nourished and alert SKIN: Head, neck, trunk, and extremities dry, intact and without lesions NECK: negative findings: no asymmetry or scars BACK: no tenderness to percussion or palpation, positive findings: paraspinal muscle spasm LUNGS: even and non-labored breathing, normal chest excursion HEART: Edema: No MUSCULOSKELETAL: Spine range of motion normal. Muscular strength intact. NEURO/PSYCH: cranial nerves 2-12 intact, speech normal, mental status intact IMAGING: reviewed ASSESSMENT: :1. Chronic right-sided low back pain with left-sided sciatica - ICD9: 724.2, 724.3, 338.29, ICD10: M54.42, G89.29 (primary diagnosis) 2. History of lumbar surgery - ICD9: V15.29, ICD10: Z98.890 3. Uncontrolled hypertension - ICD9: 401.9, ICD10: I10 Panchito Dewitt DO PLAN: Further evaluation: referral to Neurosurgery and cardiology Nutrition: N Therapies: to consider Aquatic PT Sleep: N Worklessness: N Medications: to consider Cymbalta, advised to check with psychiatry, can consider Namenda in the future Interventions: N Infusions: Pt to check with psychiatry, we may need a release to se (more content not included)...NormalSelect [facility], Edwin ShawCNPNon [id number] Telephone (SPNSMN) AARON BRENNAN ([id number]) 1975 F Date Time Provider Department 04/23/25 SERA VILLAREAL NSHI During your visit today, we recorded the following information about you: Mac Watts RN 04/23/2025 12:53 PM Signed PA completed for Lykristy WASSERMAN - [id number] Awaiting response. Mac Watts RN 04/23/2025 12:53 PM Signed Lyrica approved per [facility]. Allergies As of Date: 04/23/2025 Noted Allergy Reaction CODEINE 05/15/2010 8 - GI Upset 4 - Hives 11 - Vomiting LAMOTRIGINE 04/20/2020 2 - Rash Date Reviewed: 04/23/2025 Reviewed by: Margie Landaverde MA - Fully Assessed Prescriptions as of 04/23/2025 - OXcarbazepine (TRILEPTAL) 600 mg tablet Take 600 mg by mouth three times a day. - buPROPion SR (WELLBUTRIN SR) 150 mg 12 hr tablet Take 1 tablet by mouth once daily. - amphetamine-dextroamphetamine XR (ADDERALL XR) 30 mg capsule Take 30 mg by mouth every morning. - dextroamphetamine-amphetamine (ADDERALL) 20 mg tablet Take 20 mg by mouth daily in the late afternoon. - losartan (COZAAR) 100 mg tablet Take 100 mg by mouth once daily. - spironolactone (ALDACTONE) 25 mg tablet Take 25 mg by mouth once daily. - NIFEdipine ER (PROCARDIA XL) 60 mg 24 hr tablet Take 60 mg by mouth two times a day. - labetalol (TRANDATE) 200 mg tablet Take 200 mg by mouth two times a day. - levothyroxine (SYNTHROID) 50 mcg tablet Take 50 mcg by mouth once daily. - liothyronine 5 mcg tablet Take 5 mcg by mouth once daily. - traZODone (DESYREL) 50 mg tablet Take 50 mg by mouth daily at bedtime. - lurasidone (LATUDA) 80 mg tablet Take 80 mg by mouth daily at bedtime. - albuterol-budesonide HFA (AIRSUPRA) 90-80 mcg/actuation inhaler Inhale 2 puffs as instructed once daily. Do not take more than 12 inhalations in a 24 hour period. - rvfsqnouszx-oaxvmzfcw-wuqdswjb (TRELEGY ELLIPTA) 100-62.5-25 mcg inhalation powder Inhale 1 puff as instructed once daily. - pregabalin (LYRICA) 100 mg capsule Take 1 capsule twice daily for 5 days. If tolerated, okay to increase to 3 capsules daily for 5 days. Ultimately, will titrate to 4 capsules daily. Problem List As Of Date: 04/23/2025 (None) Encounter Status:Closed by MAC WATTS [facility]/23/25[facility] AP/LAT/ FLEX/EXTon 01-97-7798MN LUMBAR 4V AP/LAT/ FLEX/EXT * * *Final Report* * * DATE OF EXAM: Apr 23 2025 10:14AM NOEL 5231 - XR LUMBAR 4V AP/LAT/ FLEX/EXT [...] subchondral cysts. RIGHT upper quadrant surgical clips. IMPRESSION: POSTOPERATIVE AND DEGENERATIVE CHANGES WITHOUT RADIOGRAPHICALLY DEMONSTRATED INSTABILITY. SPINAL CORD STIMULATOR LEADS WITH MULTIPLE TRANSVERSE LUCENCIES OF INDETERMINATE ETIOLOGY. COMPARISON WITH ANY PRIOR RADIOGRAPHS MIGHT BE HELPFUL. Ground Support Equipment Fitter: PSCB Transcribe Date/Time: Apr 23 2025 11:28A Dictated by : JUANCHO HALL MD This examination was interpreted and the report reviewed and electronically signed by: JUANCHO HALL MD on Apr 23 2025 11:33AM EST [id number] Medical Specialty Hospital - Columbus SouthPNon [id number] Telephone (NIQ) AARON BRENNAN ([id number]) 1975 F Date Time Provider Department 02/15/25 NEUROLOGY PROVIDER NIRayo During your visit today, we recorded the following information about you: Zuleika Mack 02/19/2025 2:27 PM Signed Referral source: Vamsi Alonzo DO ([facility]) Reason for visit: neurosurgical consult for lumbosacral radiculopathy External records: Sent with referral Triage required Financial clearance: Not required to schedule Allergies As of Date: 02/15/2025 (Not on File) Date Reviewed: Never Reviewed Reason for Visit: Received Outside Medical Records [357] Cmt: External referral to [facility] Problem List As Of Date: 02/15/2025 (None) Encounter Status:Closed by STEPHEN ZULEIKA on 02/19/25NoOhioHealth [facility]erington [facility] HospitalMain OR Intraoperative Recordon [id number] OR Intraoperative Record Main OR Intraoperative Record IntraOp Document Type FTPM Summary Primary Physician: Néstor Maradiaga DO Finalized Date/Time: 02/01/25 13:46:20 Pt. Name: AARON BRENNAN /Sex: 1975 Female Med Rec #: [id number] Physician: Néstor Maradiaga DO Financial #: [id number] Pt. 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 Operator - Primary Scrub - Primary Time In 02/01/25 13:39:00 02/01/25 13:39:00 02/01/25 13:39:00 Time Out 02/01/25 13:46:00 02/01/25 13:46:00 02/01/25 13:46:00 Procedure CAUDAL EPIDURAL STEROID CAUDAL EPIDURAL STEROID CAUDAL EPIDURAL STEROID INJECTION(., .) INJECTION(., .) INJECTION(., .) Comments Last Modified By: Vamsi Blackwell RN, RN, Vamsi Castrejon RN 02/01/25 13:46:06 02/01/25 13:46:06 02/01/25 13:46:06 Entry 4 Case Attendee Sabina Parks Role Performed Internal Recruiter Time In 02/01/25 13:39:00 Time Out 02/01/25 [...] and tissue Entry 1 Skin Integrity Intact, [place], Warm, & Skin Abnormality No Dry Outcomes [...] Knees Press Points Cande (more content not included)...[facility] Main OR Preoperative Recordon 07-10-6720Ntse OR Preoperative RecordMain OR Preoperative Record Holding Area Document Type FTPM Summary Primary Physician: Néstor Maradiaga DO Finalized Date/Time: 02/01/25 13:05:04 Pt. Name: AARON BRENNAN D.O.B./Sex: 1975 Female Med Rec #: [id number] Physician: Néstor Maradiaga DO Financial #: [id number] Pt. Type: P Room/Bed: / Admit/Disch: 02/01/25 [...] or her perioperative plan of care The patient'sright to privacy is maintained Surgery Checklist FTPM Entry 1 Patient Birthday, ID Band Procedure History and Physical, Identification: Check, Patient Verification: Surgical Consent, With Participation Patient NPO after Midnight: No Date/Time: 02/01/25 13:03:00 Results Reviewed 0915 orange and water Personal Items: Jewelry Comments: [...] Signatures Signed By: Amanda Canales RN 02/01/25 13:05UC HealthOperative Report on 14-57-6218Gfkqbvsvz ReportOperative Report Diagnosis: M96.1 Lumbar postlaminectomy pain syndrome Procedure: Caudal epidural steroid injection under fluoroscopic guidance Anesthesia: Local Complications: None After informed consent was obtained, the patient was brought back to the procedure room and placed in the prone position. Back areas prepped and draped in the usual sterile fashion using fluoroscopicguidance, the skin and subcutaneous tissues overlying the [...] procedure, and agrees to continue currently prescribed/recommended therapies.UC HealthComment on above:Result Comment: Electronically Signed By: Néstor Maradiaga DO.br\Date and Time Signed: 02/01/25 13:47 EDTCoding Summaryon 14-67-2499Ipqets SummaryHTMLBase 64 RzsplegpSUf7pJf+PGhlYWQ+JK2NMYYmH35rfKRzzO2iD6GGAHnQFcfcPUFIXMgSUhVwspXaTJ7roPHs ZXJu [file] b2x (more content not included)...[facility] HospitalProvider Orderson 41-09-8211Davarbpz [id number]#1.00OTGTIFF [facility] HospitalCoding Summaryon 18-71-6075Midzgx SummaryHTMLBase 64 OkgoigjkKMv6qZv+PGhlYWQ+AI4TWXUyN21ogMAgiZ3oG6KGTSkMLohmQMIGSCqQLdDtzfLtGH1wbFZl ZXJu [file] Ym9 (more content not included)...[facility] - Other Lab Results on 53-55-7593Sxk - Other Lab Results [id number]#1.00OTGTIFFNoOhioHealth [facility] - Other Lab [id number]#1.00OTGTKettering Health – [facility] - Other Lab Results [id number]#1.00OTPro[facility] Provider Orderson 24-41-2832Apajzqmj Orders [id number]#1.00OTGTBrattleboro Memorial Hospital HospitalMain OR Intraoperative Recordon 94-64-2909Ason OR Intraoperative RecordMain OR Intraoperative Record IntraOp Document Type FTPM Summary Primary Physician: Néstor Maradiaga DO Finalized Date/Time: 06/02/24 14:49:00 Pt. Name: ANU AARON HernandezB./Sex: 1975 Female Med Rec #: [id number] Physician: Néstor Maradiaga DO Financial #: [id number] Pt. Type: P Room/Bed: / Admit/Disch: 06/02/24 [...] Danielle Fitzgerald Role Performed Surgeon - Primary Sole Leather Cutting Machine Operator - Primary Scrub - Primary Time In 06/02/24 14:43:00 06/02/24 14:43:00 06/02/24 14:43:00 Time Out 06/02/24 14:48:00 06/02/24 14:48:00 06/02/24 14:48:00 Procedure CAUDAL EPIDURAL STEROID CAUDAL EPIDURAL STEROID CAUDAL EPIDURAL STEROID INJECTION(.) INJECTION(.) INJECTION(.) Comments Last Modified By: Rishi RN, Vamsi Blackwell RN, Vamsi Castrejon RN 06/02/24 14:48:53 M 06/02/24 14:48:53 M 06/02/24 14:48:53 Entry 4 Case Attendee Lashay RT(R), Zuleika Role Performed Internal Recruiter Time In 06/02/24 14:43:00 Time Out 06/02/24 [...] Time Out Néstor Maradiaga DO, Given Participants Lashay ALVARENGA(R), Rishi oT RN, Nathaniel Barbosa RN, Danielle Fitzgerald Time Out [...] and tissue Entry 1 Skin Integrity Intact, [place], Warm, & Skin Abnormality No Dry Outcomes [...] Pillow Large Under Knee (more content not included)...[facility] Recordon 13-44-7619Ayzp OR Preoperative RecordMain OR Preoperative Record Holding Area Document Type FTPM Summary Primary Physician: Néstor Maradiaga DO Finalized Date/Time: 06/02/24 14:06:49 Pt. Name: AARON BRENNAN/Sex: 1975 Female Med Rec #: [id number] Physician: Néstor Maradiaga DO Financial #: [id number] Pt. Type: P Room/Bed: / Admit/Disch: 06/02/24 [...] or her perioperative plan of care The patient'sright to privacy is maintained Surgery Checklist FTPM [...] necklaces, two rings, and SCS. Pain Comment: 02/14 lower back pain Operative Site Yes Marking: [...] Signatures Signed By: Sho Weaver RN 06/02/24 14:06NoOhioHealth Doctors HospitalOperative Reporton 19-91-3393Bmnkcgjga ReportOperative Report Diagnosis: M96.1 Lumbar postlaminectomy pain syndrome Procedure: Caudal epidural steroid injection under fluoroscopic guidance Anesthesia: Local Complications: None After informed consent was obtained, the patient was brought back to the procedure room and placed in the prone position. Back areas prepped and draped in the usual sterile fashion using fluoroscopicguidance, the skin and subcutaneous tissues overlying the [...] procedure, and agrees to continue currently prescribed/recommended therapies.UC HealthComment on above:Result Comment: Electronically Signed By: Néstor Maradiaga DO\Date and Time Signed: 06/02/24 14:49 ESTMR lumbar spine wo/w con on 73-74-7287MX lumbar spine wo/w [facility] [place] [address] [place], [place] [id number] MRI Report Signed Patient: Aaron Brennan MR#: [id number] 78 : 1975 Acct:[id number] Age/Sex: 47 / F ADM Date: 11/03/22 Loc: MR Room: Type: [facility] Attending Dr: Joanie Mujica MD Copies to: Joanie Mujica MD Ordering Provider: Jaonie Mujica MD Date of Service: 11/03/22 MR/MR [...] Megan Robles M.D.11/04/2022 1:51 PM Dictation Location: [place] [address] Transcribed By: [facility] 11/04/22 1351 Dictated By: Megan Robles MD 11/04/22 1200 Signed By: 11/04/22 1351NoCommunity Memorial HospitalChlamydia trachomatis DNA [Presence] in Specimen by ROSALVA with probe detectionOrdered By: Aspen Mast on 10-19-2022. trachomatis DNA ROSALVA+probe Ql (Unsp spec)NegativeNegativeAultman Orrville HospitalChlamydia/GC/Trich NAAon 04-73-4590Copvzuaym Trachomotis, NAANegativeNormalNegativeAultman Orrville HospitalComment on above: Order Comment: Reason for Exam High risk sexual behaviorPerformed By: #### GCCHLAMTRI #### [facility] ,Neisseria Gonorrhoeae, NAANegativeNormalNegativeAultman Orrville HospitalComment on above:Order Comment: Reason for Exam High risk sexual behavior Performed By: #### GCCHLAMTRI #### [facility] ,Trichomonas NAANegativeNormalNegOhio Valley HospitalComment on above:Order Comment: Reason for Exam High risk sexual behaviorResult Comment: Performed at: = - [facility] [place] [address] [facility] HospitalNeftali chopraLOH[place], [place] [id number] Big 6 Dealer: Stephenie Xiong MD, Phone: [phone] PERFORMED BY: [facility] [address] [place] [address] PATHOLOGIST SPECIAL EVENT ASSISTANT ARUN FOSTER M.D.Performed By: #### GCCHLAMTRI #### [facility] ,Chlamydia/GC/Trich NAANegativeNegativeBreckenridge MONOQI Other Neisseria gonorrhoeae DNA [Presence] in Specimen by ROSALVA with probe detectionOrdered By: Aspen Mast on 10-19-2022N. gonorrhoeae DNA ROSALVA+probe Ql (Unsp spec)NegativeNegOhio Valley Hospital Trichomonas vaginalis DNA [Presence] in Specimen by ROSALVA with probe detection Ordered By: Aspen Mast on 10-19-2022T. vaginalis DNA ROSALVA+probe Ql (Unsp spec) NegativeNegOhio Valley HospitalComment on above:Performed at: =G - [facility] Pxpfflatev[address] [facility] [place], [place] [id number] Director: Stephenie Xiong MD, Phone: [phone] - AUTOMATEDon 57-72-7461Xsbwsatqhd (U)clearreadeo Other Bilirubin Ql (U)Negativereadeo Other Color (U)yellowHalton Other Glucose Ql (U)[employer] Other Hemoglobin Ql (U)[employer] Other Ketones Ql (U)[employer] Other Leukocyte esterase Test strip Ql (U)[employer] Other Nitrite Ql (U)Negativereadeo Other pH (U)6.0 [pH][place] [employer] Other Protein Ql (U)Negativereadeo Other Specific gravity (U) [Rel density]1.030[facility] MONOQI Other Urobilinogen (U) [Mass/Vol]0.2 mg/dLHalton Other Urinalysis - AUTOMATEDNoHalton Other XR lumbar spine 6V w bendingon 11-30-2367BV lumbar spine 6V w bendingGER[place] [address] XRay Report Signed Patient: Aaron Brennan MR#: [id number] 78 : 1975 Acct:[id number] Age/Sex: 46 / F ADM Date: 06/04/22 Loc: XD Room: Type: [facility] Attending Dr: Joanie Mujica MD [...] PROCESS. Impression dictated by: Guille Meadows Jr., D.O.06/04/2022 4:21 PM Dictation Location: [place] [address] Transcribed By: [facility] 06/04/22 1621 Dictated By: Guille Meadows Jr, DO 06/04/22 162 Signed By: 06/04/22 1621Regional Medical CenterXR lumbar spine AP/LAT/FLX/EXTon 33-76-3581MN lumbar spine AP/LAT/FLX/EXTGERMAN HOSPITAL [facility] [place] [address] [place] [address] XRay Report Signed Patient: Aaron Brennan MR#: [id number] 78 : 1975 Acct:[id number] Age/Sex: 46 / F ADM Date: 05/28/22 Loc: XD Room: Type: [facility] Attending Dr: Joanie Mujica MD Copies [...] complication. Impression dictated by: Guille Meadows Jr., D.OYovani05/28/2022 12:29 PM Dictation Location: [place] [address] Transcribed By: [facility] 05/28/22 1229 Dictated By: Guille Meadows Jr, DO 05/28/22 1227 Signed By: 05/28/22 1229NoCommunity Memorial HospitalHCG ( test) IA.rapid Ql (U)Ordered By: Campbell Shelton on 47-05-8071VUV ( test) Ql (U)NegativeAultman Orrville HospitalHCG,Urineon 56-84-5316Eorp HCG ( test) Ql (U)NegativeRegional Medical CenterComment on above:Result Comment: PERFORMED BY: [place] [id number] PATHOLOGIST SPECIAL EVENT ASSISTANT ARUN FOSTER M.D.Performed By: #### UHCG ####[facility] [address] [place] [id number] USACOVID-19 Antigenon 59-95-6289BOXLP-19 Antigen Healthcare Worker?: N Reference Range: Negative [...] developed and its performance characteristic determined by [employer] and validated at [facility]. This test has not been FDA [...] for SARS Antigen by SANTANA PERFORMED BY: [facility] [address] [place] [id number] PATHOLOGIST SPECIAL EVENT ASSISTANT ARUN FOSTER M.D.Regional Medical CenterComment on above: Performed By: #### COVID-19 SATHISHRONYIANEG #### [facility] [address] [place] [address] USACOVID-19 SOFIAOrdered By: Campbell Shelton on 05-15-2022 SARS-CoV+SARS-CoV-2 (COVID-19) Ag IA.rapid Ql (Resp)NegativeNegativeAultman Orrville HospitalComment on above:This is a duplicate Sathish SARS Antigen (SANTANA) result to be used for statistical tracking purpose only.No Panel InformationOrdered By: Campbell Shelton on 88-70-1229PTGH Antigen (LFIA)[facility] Medical Centerofia Ag Negativeon 90-26-6952Jxyxo Ag NegativeNegative NormalNegOhio Valley HospitalComment on above:Result Comment: This is a duplicate Sathish SARS Antigen (SANTANA) result to be used for statistical tracking purpose only. PERFORMED BY: [place] [address] PATHOLOGIST SPECIAL EVENT ASSISTANT ARUN FOSTER M.D.Performed By: #### COVID-19 SATHISH, SOFIANEG #### [place] [address] USAXR lumbar spine 2-3V*on 92-94-1676TI lumbar spine 2-3V* [facility] [place] [address] [place] [address] XRay Report Signed Patient: Aaron Brennan MR#: [id number] 78 : 1975 Acct:[id number] Age/Sex: 46 / F ADM Date: 02/08/22 Loc: XD Room: Type: [facility] Attending Dr: Joanie Mujica MD [...] Meadows Jr., D.O.02/08/2022 1:05 PM Dictation Location: RADIO-PC-11 Transcribed By: DOUGLAS 02/08/22 1305 Dictated By: Guille Meadows Jr, 02/08/22 1300 Signed By: 02/08/22 1305Regional Medical CenterXR lumbar spine 2-3V*on 29-17-7882OU lumbar spine 2-3V*[facility] Main [place] [id number] XRay Report Signed Patient: Aaron Brennan MR#: [id number] 78 : 1975 Acct:[id number] Age/Sex: 46 / F ADM Date: 12/19/21 Loc: XD Room: Type: [facility] Attending Dr: Joanie Mujica MD [...] Meadows Jr., D.O.12/19/2021 3:55 PM Dictation Location: [facility]IO-[facility]-11 Transcribed By: DOUGLAS 12/19/21 1555 Dictated By: Guille Meadows Jr, 12/19/21 1552 Signed By: 12/19/[address] [place], [place] [address]XR lumbar spine 2-3V*on 31-79-2239EE lumbar spine 2-3V*[facility] Main [address] [address] XRay Report Signed Patient: Aaron Brennan MR#: [id number] 78 : 1975 Acct:[id number] Age/Sex: 46 / F ADM Date: 11/27/21 Loc: ME Room: Type: [facility] Attending Dr: Joanie Mujica MD Ordering [...] Meadows Jr., D.O.11/30/2021 11:40 AM Dictation Location: [place] [address] Transcribed By: [facility] 11/30/21 1140 Dictated By: Guille Meadows Jr, DO 11/30/21 1139 Signed By: 11/30/21 1140Regional Medical CenterABO/Rh Retypeon 11-27-2021 ABO/RH Recheck ResultPositiveRegional Medical CenterComment on above:Result Comment: PERFORMED BY: [place] [address] PATHOLOGIST SPECIAL EVENT ASSISTANT ARUN FOSTER M.D.HCG,Urineon 63-51-6721Cqrd HCG ( test) Ql (U)Negative Regional Medical CenterComment on above:Result Comment: PERFORMED BY: [place] [address] PATHOLOGIST SPECIAL EVENT ASSISTANT ARUN FOSTER M.D.Performed By: #### UHCG #### [place] [address] USALon 11-27-2021L Specimen: [id number] Received: 11/27/21 Status: ANANDA Hodgesrayo Num: [id number] Spec Type: Surgical Subm Dr: Joanie Mujica MD Tissues: A Disc - Intervertebral/Lumbar/Cervical (LUMBAR) Procedures: HE Stain, Gross/Micro L3 Patient Age/Sex Location Account Attending Physician Aaron Brennan 46/F 4N [id number] Joanie Mujica MD SPEC NUM: [id number] RECD: 11/27/21 STATUS: ANANDA HODGESRayo NUM: [id number] RICARDO: 11/27/21- SUBM DR: Joanie Mujica MD ENTERED: 11/27/[address] [facility] [address]: SPEC TYPE: Surgical DEPT: S ORDERED: HE Stain, [...] of carey-red, rubbery and ragged fibrous tissue. Overedge Machine Operator sections are submitted in one cassette labeled A1. Type of Fixative: 10% Neutral Buffered Formalin (SINAI/YJ) Microscopic Description One glass slide with H E stained material has been examined. The microscopic findings support the above pathologic diagnosis. CPT Codes 34019 Specimen: [id number] Received: 11/27/21 Status: ANANDA Aguilera Num: [id number] Spec Type: Surgical Subm Dr: Joanie Mujica MD Tissues: A Disc - Intervertebral/Lumbar/Cervical (LUMBAR) Procedures: HE Stain, Gross/Micro L3 Patient: Aaron Brennan [id number] (Continued) Signed (signature on file) Kristopher Mohan MD 11/28/211922 NormalAultman Orrville HospitalCOVID-19 [facility] [place]on 24-36-7536ZUEG-CoV-2 (COVID-19) RNA ROSALVA+probe Ql (Unsp spec)NegativeNormalNegativeAultman Orrville HospitalComment on above:Order Comment: Healthcare Worker?: NResult Comment: Testing for SARS-CoV-2 by RT-PCR This test was developed and its performance characteristics determined by [employer] and validated at the [facility]. This test has not been FDA [...] is terminated or revoked sooner. PERFORMED BY: [address] [place] [id number] PATHOLOGIST SPECIAL EVENT ASSISTANT ARUN FOSTER M.D.Performed By: #### COVID 19 [facility] [place] #### [address] Vital Signs Date TimeVital SignValuePerforming WldssrkkiObzmzvgm08-04-6437 11:24-0400Body mass index (BMI) [Ratio]32.35 kg/j0Ieutsauptnd Cheri DO Work Phone: [phone]-[facility] HealthMin[facility] Medical CenterIvcuixncly33-02-6032 11:24-0400Body .66 kgChristopher Cheri DO Work Phone: [phone]-[facility] Medical CenterNjqppjkigu14-04-1338 11:24-0400Diastolic blood pcoravgo05 mm[Hg]Christopher Cheri DO Work Phone: [phone] [place], [place] [address]Fwoehqdyyp98-16-1274 11:24-0400Heart vgcn092 /min Christopher Cheri DO Work Phone: [phone] [place], [place] [address]Xebngcsctj60-98-2743 11:24-1535XjN8% (BldA) [Mass fraction]97 %Christopher Cheri DO Work Phone: [phone] [place], [place] [address]Bqtweliocc26-78-4317 11:24-0400Systolic blood awupzshe686 mm[Hg]Christopher Cheri DO Work Phone: [phone] [place], [place] [address]Wffryitfnc74-51-1694 10:16-0400Body waiimq211.9 cmCarmleo Oconnor MD Work Phone: [phone])[address]04-23-2025 10:16-0400Body mass index (BMI) [Ratio]32.88 kg/f7VdxofiditCarmelo Oconnor MD Work Phone: [phone]04-23-2025 10:16-0400Body kxooqj39.93 kgCarmelo Oconnor MD Work Phone: [phone])[address]04-23-2025 10:16-0400Diastolic blood ryhgbzan29 mm[Hg]Carmelo Oconnor MD Work Phone: 1(314)1-[address] [place], [place] [address]04-23-2025 10:16-0400Heart rate 80 /minCarmelo Oconnor MD Work Phone: 1(667)537-[address] [place], [place] [address]04-23-2025 10:16-0400Systolic blood uhxctkof985 mm[Hg]Carmelo Oconnor MD Work Phone: [phone])[address]03-28-2025 09:52-0400Body wmtnaf912.9 cmCarmelo Oconnor MD Work Phone: [phone])[address]03-28-2025 09:52-0400Body mass index (BMI) [Ratio]32.63 kg/u7DcrtdsvmfCarmelo Oconnor MD Work Phone: [phone])[address]03-28-2025 09:52-0400Body .34 kgCarmelo Oconnor MD Work Phone: [phone]03-28-2025 09:52-0400Diastolic blood kwpwmuri66 mm[Hg]Carmelo Oconnor MD Work Phone: [phone])[address]03-28-2025 09:52-0400Heart rate 65 /minCarmelo Oconnor MD Work Phone: [phone])[address] [place], [place] [address]803-28-2025 09:52-7306NvW7% (BldA) [Mass fraction]95 %Carmelo Oconnor MD Work Phone: [phone])[address]03-28-2025 09:52-0400Systolic blood ffpaxndp229 mm[Hg]Carmelo Oconnor MD Work Phone: [phone]01-23-2025 08:31-0500Body ugtzpu104.9 cmWayne Addison DPM Work Phone: [facility] CenterEnfelsmiib04-14-3911 08:31-0500Body mass index (BMI) [Ratio]34.96 kg/k7ZrvoxplwWayne Addison DPM Work Phone: [facility] CenterEwugxqwgpo44-15-6731 08:31-0500Body .92 kgWayne Addison DPM Work Phone: [facility] CenterHcdnuzinfm11-69-3521 08:31-0500Respiratory rate18 /minWayne Addison DPM Work Phone: [facility] CenterWkxrrjcngg59-39-0246 08:29-0500Body jdawiv516.9 cmNicholas Brown DPM Work Phone: [facility] CenterMdtmtwopdx38-39-1325 08:29-0500Body mass index (BMI) [Ratio]34.96 kg/j9Vhtincxb Brown DPM Work Phone: [facility] CenterIazgsxnlds16-57-8389 08:29-0500Body ednywi54.92 kgNicholas Brown DPM Work Phone: [phone] [place], [place] [address]Azixgktuvo88-16-4541 08:29-0500Respiratory rate18 /minNicholas Brown DPM Work Phone: [phone] [place], [place] [address]Iwbjbdzfyd07-63-7338 08:35-0500Body brqigp133.9 cmNicholas Brown DPM Work Phone: [phone] [place], [place] [address]Vtktczwgns66-41-3088 08:35-0500Body mass index (BMI) [Ratio]34.96 kg/l0Gireqiiu Brown DPM Work Phone: [phone] [place], [place] [address]Tvpsqrrwgc82-31-5671 08:35-0500Body .92 kgNicholas Brown DPM Work Phone: [phone] [place], [place] [address]Xftavlhlux39-03-0015 08:35-0500Respiratory rate16 /minNicholas Brown DPM Work Phone: 1([phone])301-[address] [place], [place] [address]Mcgsrbqaig38-86-2074 08:42-0500Body mbeczv698.9 cmNicholas Brown DPM Work Phone: [phone] [place], [place] [address]Xbcirgnhsr29-54-7963 08:42-0500Body mass index (BMI) [Ratio]34.96 kg/d9Ttcqglcx Brown DPM Work Phone: [phone] [place], [place] [address]Mazsrylzgz62-92-1714 08:42-0500Body yqxhiq95.92 kgNicholas Brown DPM Work Phone: 1(335)818-[address] [place], [place] [address]Gedtvxgfib16-86-7545 08:42-0500Respiratory rate18 /minNicholas Brown DPM Work Phone: 1(588)707-[address] [place], [place] [address]Skwxocnqmw13-08-3122 14:52-0500Heart rate56 /min Palm Maradiaga [facility]11-26-2024 14:52-7791UuF0% (BldA) [Mass fraction]95 %Néstor Maradiaga [facility]11-26-2024 14:52-0500 Diastolic blood sxbfknzu47 mm[Hg]Néstor Maradiaga [facility]11-26-2024 14:52-0500Mean blood dittktys42 mm[Hg]Néstor Maradiaga [facility]11-26-2024 14:52-0500 Systolic blood octsszxx854 mm[Hg]Néstor Maradiaga [facility]11-26-2024 14:51-0500 Respiratory rate16 /minBradfsaúl Maradiaga [facility]11-26-2024 14:46-0500 Diastolic blood kjynrbba99 mm[Hg]Néstor Maradiaga [facility]11-26-2024 14:46-0500Heart rate55 /minBradford Hiren [facility]11-26-2024 14:46-0500 Respiratory rate16 /minBradfsaúl Hiren [facility]11-26-2024 14:46-3318CrH6% (BldA) [Mass fraction]98 %Néstor Maradiaga [facility]11-26-2024 14:46-0500 Systolic blood otbmmgyn691 mm[Hg]Néstor Maradiaga [facility]11-26-2024 14:06-0500Heart rate67 /minBradford Hiren [facility]11-26-2024 14:06-7595QpL5% (BldA) [Mass fraction]96 %Palm Hiren [facility]11-26-2024 14:06-0500 Diastolic blood xzuhimfr97 mm[Hg]Néstor Maradiaga [facility]11-26-2024 14:06-0500Mean blood pjvkuwxz825 mm[Hg]Néstor Maradiaga [facility]11-26-2024 14:06-0500 Systolic blood mm[Hg]Néstor Maradiaga [facility]11-26-2024 14:04-0500Body iuqgujjhlms08.24 [degF]Néstor Maradiaga [facility]11-26-2024 14:03-0500 Respiratory rate14 /minBradford Maradiaga [facility]11-06-2024 11:31-0500 Diastolic blood mm[Hg]Palm Maradiaga [facility]11-06-2024 11:31-0500Heart rate66 /minBradfsaúl Hiren [facility]11-06-2024 11:31-0500Mean blood azerdkey376 mm[Hg]Néstor Maradiaga [facility]11-06-2024 11:31-0500 Respiratory rate14 /minBradford Maradiaga [facility]11-06-2024 11:31-0500 Systolic blood ufqhahxz793 mm[Hg]Néstor Maradiaga [facility]05-29-2024 10:55-0400Body kuxdxd442.94 cmAultman Orrville Hospital05-29-2024 10:55-0400Body mass index (BMI) [Ratio]32.1 kg/l0CufphvgkfAultman Orrville Hospital05-29-2024 10:55-0400Body wbjrtxbqxem51.8 [degF][facility]05-29-2024 10:55-0400Body .11 kgAultman Orrville Hospital05-29-2024 10:55-0400Diastolic blood zbafrjfo91 mm[Hg][facility] 12-04-2023 10:55-0400Heart rate88 /[facility] 12-04-2023 10:55-0400Respiratory rate18 /[facility] 12-04-2023 10:55-9594SyU7% (BldA) [Mass fraction]95 %[facility]05-29-2024 10:55-0400Systolic blood puzbitle890 mm[Hg][facility]03-28-2024 09:45-0400Body imuczm253.9 Alex Plascencia MD Work Phone: [facility]03-28-2024 09:45-0400Body mass index (BMI) [Ratio]33.63 kg/z2GqeuhMayito Plascencia MD Work Phone: [facility]03-28-2024 09:45-0400Body dhjyrq48.74 kgMayito Plascencia MD Work Phone: [facility]03-28-2024 09:45-0400Diastolic blood oflovshi32 mm[Hg]Mayito Plascencia MD Work Phone: [facility]03-28-2024 09:45-0400Heart rate 65 /minMayito Plascencia MD Work Phone: [facility]03-28-2024 09:45-4696JyD7% (BldA) [Mass fraction]98 %Mayito Plascencia MD Work Phone: [phone]-[facility]itySum[facility]03-28-2024 09:45-0400Systolic blood mm[Hg]Mayito Plascencia MD Work Phone: [facility]02-21-2024 10:31-0500Heart rate 61 /minNéstor Maradiaga [facility]02-21-2024 10:31-1412XgE9% (BldA) [Mass fraction]96 %Néstor Maradiaga [facility]02-21-2024 10:31-0500 Diastolic blood ducdafvj74 mm[Hg]Néstor Maradiaga [facility]02-21-2024 10:31-0500Mean blood dfusbyey733 mm[Hg]Néstor Maradiaga [facility]02-21-2024 10:31-0500 Respiratory rate16 /minBradfsaúl Maradiaga [facility]02-21-2024 10:31-0500 Systolic blood pwzrslut032 mm[Hg]Néstor Hiren [facility]02-21-2024 10:24-0500 Diastolic blood ypxhrmub127 mm[Hg]Néstor Maradiaga [facility]02-21-2024 10:24-0500Heart rate73 /minBradfsaúl Maradiaga [facility]02-21-2024 10:24-0500 Respiratory rate16 /minBradfsaúl Hiren [facility]02-21-2024 10:24-4146TdY9% (BldA) [Mass fraction]100 %Néstor Maradiaga [facility]02-21-2024 10:24-0500 Systolic blood egppgcph204 mm[Hg]Néstor Maradiaga [facility]02-21-2024 09:00-0500Heart rate71 /minBradfsaúl Maradiaga [facility]02-21-2024 09:00-2551YbC4% (BldA) [Mass fraction]95 %Néstor Maradiaga [facility]02-21-2024 09:00-0500Body anizyrejopr61.88 [degF]Néstor Maradiaga [facility]02-21-2024 09:00-0500 Diastolic blood rphtuucp65 mm[Hg]Néstor Maradiaga [facility]02-21-2024 09:00-0500Mean blood sscldfih920 mm[Hg]Néstor Maradiaga [facility]02-21-2024 09:00-0500 Systolic blood pwquzaqd979 mm[Hg]Néstor Maradiaga [facility]02-21-2024 08:58-0500 Respiratory rate16 /minBraelana Hiren [facility]01-08-2024 10:32-0500 Diastolic blood oezlmtxa27 mm[Hg]Ruba Frias [facility]01-08-2024 10:32-0500Heart rate51 /minAmanda Frias [facility]01-08-2024 10:32-0500Mean blood guancgzj60 mm[Hg]Ruba Frias [facility]01-08-2024 10:32-0500 Respiratory rate18 /minAmanda Frias [facility]01-08-2024 10:32-0500 Systolic blood mm[Hg]Ruba Frias [facility]12-12-2023 09:25-0500 Diastolic blood xxfhmvda06 mm[Hg]Abel Ruggiero [facility]12-12-2023 09:25-0500Heart rate51 /minAbel Ruggiero [facility]12-12-2023 09:25-0500Mean blood vioyzeox105 mm[Hg]Abel Ruggiero [facility]12-12-2023 09:25-0500 Systolic blood rynjtruh287 mm[Hg]Abel Ruggiero [address] [place], [place] [address]11-14-2023 10:27-0500Heart rate53 /minAbel Barraganner [facility]11-14-2023 10:27-6167JcC5% (BldA) [Mass fraction]95 %Abelthom Ruggiero [facility]11-14-2023 10:27-0500Body seszjappean96.34 [degF]Abelthom Barraganner [address] [place], [place] [address]11-14-2023 10:27-0500 Respiratory rate16 /minAbel Barraganner [facility]11-14-2023 10:24-0500 Diastolic blood gozonipt62 mm[Hg]Abelphoebe Barraganner [facility]11-14-2023 10:24-0500Mean blood wzybplbg240 mm[Hg]Abelthom Ruggiero [address] [place], [place] [address]11-14-2023 10:24-0500 Systolic blood panmrbzl853 mm[Hg]Abelphoebe Barraganner [facility]11-14-2023 10:16-0500Heart rate57 /Regis Barraganner [facility]11-14-2023 10:16-1231AbC1% (BldA) [Mass fraction]98 %Abelthom Ruggiero [facility]11-14-2023 10:16-0500 Diastolic blood nazfclep48 mm[Hg]Abel Monik [facility]11-14-2023 10:16-0500Mean blood tfylciyd28 mm[Hg]Abel Monik [facility]11-14-2023 10:16-0500 Systolic blood vwwlguri520 mm[Hg]Abel Monik [facility]11-14-2023 10:16-0500 Respiratory rate12 /minAbel Ruggiero [facility]11-14-2023 07:14-0500Heart rate58 /minAbel Ruggiero [facility]11-14-2023 07:14-4248VqW8% (BldA) [Mass fraction]95 %Abel Ruggiero [facility]11-14-2023 07:14-0500 Diastolic blood yibfianb85 mm[Hg]Abel Barraganner [facility]11-14-2023 07:14-0500Mean blood dghccbso61 mm[Hg]Abel Ruggiero [facility]11-14-2023 07:14-0500 Systolic blood fnquplvh614 mm[Hg]Abel Ruggiero [facility]11-14-2023 07:13-0500Body puqtwdgncst30.52 [degF]bAel Ruggiero [facility]11-14-2023 07:12-0500 Respiratory rate14 /Regis Ruggiero [facility]11-07-2023 13:16-0500 Diastolic blood gsfbfabl08 mm[Hg]Abel Ruggiero [facility]11-07-2023 13:16-0500Heart rate53 /Regis Ruggiero [facility]11-07-2023 13:16-0500Mean blood sgvqijaq426 mm[Hg]Abel Ruggiero [facility]11-07-2023 13:16-0500 Respiratory rate16 /Regis Ruggiero [facility]11-07-2023 13:16-0500 Systolic blood oixzxdgp069 mm[Hg]Abel Monik [facility]09-26-2023 14:43-0400 Diastolic blood arcleuzq03 mm[Hg]Abel Monik [facility]09-26-2023 14:43-0400Heart rate91 /minAbel Barraganner [facility]09-26-2023 14:43-0400Mean blood lnitannx437 mm[Hg]Abelphoebe Barraganner [facility]09-26-2023 14:43-0400 Respiratory rate14 /minAbel Barraganner [facility]09-26-2023 14:43-0400 Systolic blood lgxeebpu473 mm[Hg]Abel Ruggiero [facility]09-19-2023 08:11-0400Heart rate76 /Regis Barraganner [facility]09-19-2023 08:11-1134UxO2% (BldA) [Mass fraction]100 %Abel Barraganner [facility]09-19-2023 08:11-0400 Respiratory rate16 /minAbel Barraganner [facility]09-19-2023 08:10-0400 Diastolic blood oocydfvv25 mm[Hg]Abel Monik [facility]09-19-2023 08:10-0400Mean blood tovyxjvk75 mm[Hg]Abel Monik [facility]09-19-2023 08:10-0400 Systolic blood mm[Hg]Abel Monik [facility]09-19-2023 08:04-0400Heart rate76 /Regis Ruggiero [address] [place], [place] 0710209-19-2023 08:04-6002SxH5% (BldA) [Mass fraction]98 %Abel Ruggiero [address] [place], [place] 0710209-19-2023 08:04-0400Body .52 [degF]Abel Ruggiero [address] [place], [place] 0710209-19-2023 08:03-0400 Diastolic blood yybqyvee51 mm[Hg]Abel Ruggiero [address] [place], [place] 0710209-19-2023 08:03-0400Mean blood pzfmaksi84 mm[Hg]Abel Ruggiero [address] [place], [place] 0710209-19-2023 08:03-0400 Systolic blood uaqutbjz967 mm[Hg]Abel Ruggiero [address] [place], [place] 0710209-19-2023 08:03-0400 Respiratory rate16 /Regis Ruggiero [address] [place], [place] 0710209-19-2023 07:57-0400 Diastolic blood oixsiily65 mm[Hg]Abel Ruggiero [address] [place], [place] 0710209-19-2023 07:57-0400 Systolic blood utcrpwji578 mm[Hg]Abel Ruggiero [address] [place], [place] 0710209-19-2023 07:55-0400Heart rate91 /Regis Ruggiero [address] [place], [place] 0710209-19-2023 07:55-7745SjH5% (BldA) [Mass fraction]100 %Abel Ruggiero [address] [place], [place] 0710209-19-2023 06:55-0400Body sgkmmldbykz07.34 [degF]Abel Ruggiero [facility]09-19-2023 06:55-0400Mean blood bqaojujf03 mm[Hg]Abelphoebe Ruggiero [address] [place], [place] 0710209-13-2023 09:44-0400 Diastolic blood tsxfisry50 mm[Hg]Abel Ruggiero [address] [place], [place] 0710209-13-2023 09:44-0400Heart rate80 /Regis Ruggiero [address] [place], [place] 0710209-13-2023 09:44-0400 Respiratory rate14 /Regis Ruggiero [address] [place], [place] 0710209-13-2023 09:44-0400 Systolic blood eujboddg606 mm[Hg]Abel Ruggiero [address] [place], [place] 0710207-17-2023 08:03-0400Heart rate61 /Regis Ruggiero [address] [place], [place] 0710207-17-2023 08:03-9813ZwK4% (BldA) [Mass fraction]98 %Abel Ruggiero [facility]07-17-2023 08:03-0400 Diastolic blood mm[Hg]Abel Ruggiero [address] [place], [place] 0710207-17-2023 08:03-0400Mean blood owwhxpzj229 mm[Hg]Abel Ruggiero [facility]07-17-2023 08:03-0400 Systolic blood vmeoutox663 mm[Hg]Abel Monik [address] [place], [place] 0710207-17-2023 07:59-0400 Diastolic blood luyeotca13 mm[Hg]Abel Monik [facility]07-17-2023 07:59-0400Heart rate74 /minJoshua Monik [facility]07-17-2023 07:59-0400 Respiratory rate14 /minAbel Barraganner [facility]07-17-2023 07:59-4105ZiG7% (BldA) [Mass fraction]95 %Abelphoebe Barraganner [facility]07-17-2023 07:59-0400 Systolic blood zfuacpxz717 mm[Hg]Abel Barraganner [facility]07-17-2023 07:29-0400Heart rate63 /minAbel Barraganner [facility]07-17-2023 07:29-2491OwP6% (BldA) [Mass fraction]96 %Able Barraganner [facility]07-17-2023 07:28-0400 Diastolic blood vqwylyjl84 mm[Hg]Abel Ruggiero [facility]07-17-2023 07:28-0400Mean blood mm[Hg]Abel Ruggiero [facility]07-17-2023 07:28-0400 Systolic blood voimhuut524 mm[Hg]Abel Barraganner [facility]07-17-2023 07:28-0400Body uxdyundwtyj18.06 [degF]Abel Ruggiero [facility]07-17-2023 07:27-0400 Respiratory rate14 /Regis Ruggiero [facility]04-21-2023 09:40-0400Body kxzfno146.94 cmDale Mujica Other [place] [facility] Other 04-21-2023 09:40-0400Body mass index (BMI) [Ratio]32.5 kg/m2Dale Mujica Other [place] Other 04-21-2023 09:40-0400Body .02 kgDale Mujica Other [place] Other 04-21-2023 09:40-0400Diastolic blood eslqibfy13 mm[Hg] Joanie Mujica Other [place] Other 04-21-2023 09:40-0400Systolic blood ppntnupx618 mm[Hg] Joaniedouglas Mujica Other [place] Other 04-14-2023 17:30-0400Body peppxi655.94 cmPamela Kezia Other [place] Other 04-14-2023 17:30-0400Body mass index (BMI) [Ratio]32.5 kg/z4Ithjct Kezia Other [place] Other 04-14-2023 17:30-0400Body uudyfoymkme338.1 [degF] Aspen Kezia Other [place] Other 04-14-2023 17:30-0400Body ylbbxw56.02 kgPamela Kezia Other [place] Other 04-14-2023 17:30-0400Diastolic blood nhlvtyto57 mm[Hg] Aspen Kezia Other [place] Other 04-14-2023 17:30-0400Respiratory rate18 /minPamela Kezia Other [place] Other 04-14-2023 17:30-3904GbT7% (BldA) [Mass fraction]97 % Aspen Mast Other [place] Other 04-14-2023 17:30-0400Systolic blood jdbefujk090 mm[Hg] Aspen Mast Other [place] Other 02-16-2023 10:00-0500Body .94 cmDale Mujica Other [place] Other 02-16-2023 10:00-0500Body mass index (BMI) [Ratio] 30.98 kg/m2Dacrescencio Mujica Other [place] Other 02-16-2023 10:00-0500Body .39 kgDale Mujica Other [place] Other 02-16-2023 10:00-0500Respiratory rate18 /Carlie Mujica Other [place] Other 11-10-2022 09:25-0500Diastolic blood vrtrcexx31 mm[Hg] DO Sarwat Pang Work Phone: [facility]11-10-2022 09:25-0500 Heart rate51 /minDO Sarwat Pang Work Phone: [facility]11-10-2022 09:25-0500 Respiratory rate16 /minDO Sarwat Braye Work Phone: [facility]11-10-2022 09:25-0500 SaO2% (BldA) [Mass fraction]96 %DO Sarwat Braye Work Phone: [facility]11-10-2022 09:25-0500 Systolic blood swrtyqxm515 mm[Hg]DO Sarwat Pang Work Phone: [facility]11-10-2022 06:58-0500 Body hjpwbe031.94 cmDO Sarwat Pang Work Phone: [facility]11-10-2022 06:58-0500 Body msjardkoxdo13.7 [degF]DO Sarwat Pang Work Phone: [facility]11-10-2022 06:58-0500 Body uzrnzw84.01 kgDO Sarwat Pang Work Phone: [facility]08-04-2022 12:20-0400 Body mpoeia069.94 cmDale Mujica Other [place] Other 08-04-2022 12:20-0400Body mass index (BMI) [Ratio] 30.98 kg/m2Dale Mujica Other [place] Other 08-04-2022 12:20-0400Body xnmonl90.39 kgDale Mujica Other [place] Other 06-14-2022 12:00-0400Body hsvxhe442.94 cmDale Mujica Other [place] Other 06-14-2022 12:00-0400Body mass index (BMI) [Ratio] 30.98 kg/m2Dale Mujica Other [place] Other 06-14-2022 12:00-0400Body wilrqs13.39 kgDale Mujica Other [place] Other 03-17-2022 14:20-0400Body phnvys061.94 cmDale Mujica Other [place] Other 03-17-2022 14:20-0400Body mass index (BMI) [Ratio] 30.61 kg/m2Dale Mujica Other [place] Other 03-17-2022 14:20-0400Body rgfiap10.48 kgDale Mujica Other [place] Other 02-22-2022 10:05-0500Body gtxmey061.94 Jaziel Mast Other [place] Other 02-22-2022 10:05-0500Body mass index (BMI) [Ratio] 30.61 kg/i7BszujqAspen Mast Other [place] Other 02-22-2022 10:05-0500Body tnyskjzfnyu01.4 [degF]Aspen Kezia Other [place] Other 02-22-2022 10:05-0500Body pjyikp33.48 kgAspen Mast Other [place] Other 02-22-2022 10:05-3261ZcG0% (BldA) [Mass fraction]98 % Aspen Kezia Other [place] Other Encounters Encounter DateEncounter TypeCare ProviderFacilityStart: 04-23-2025 End: 89-70-9188wwxnsdlfwpUXJRYY ALBRIGHTFacility:[facility]art: 04-23-2025 End: 12-00-8129taafsaeheyNRXAJ RAJFacility:[facility]art: 02-24-2025 End: 31-55-2247Btxddtsnl encounterPetra Krishnamurthy CMAProMedica Physicians Cardiology Start: 02-20-2025 End: 10-30-5863SamhhqXqccodoow R Stockton MD Work Phone: [facility] CardiologyComment on above:Med RefillStart: 02-15-2025 End: 67-68-0139Bnvoqdhld encounterNeurology ProviderNeurologyComment on above: Received Outside Medical Records (External referral to [facility]/) Start: 02-10-2025 End: 79-56-2795ehmizcdgtbDQYBKYFQI [facility] Work Phone: Start: 02-10-2025 End: 08-37-8075Eajedsi encounter procedureChristopher [facility] Work Phone: Start: 02-01-2025 End: 35-05-3876ljvgxorohsHkbizorm A. JonesFacility:FTMCStart: 01-15-2025 End: 37-99-1091gkwuhgfwehEuvevict A. JonesFacility:FTMCStart: 01-13-2025 End: 74-42-3763Zvxkhxlgx encounterPetra Krishnamurthy [facility] Start: 11-05-2024 End: 18-37-5449Clwevh flowsheetChristopher Cheri DO Work Phone: ana BELLEVUEStart: 11-05-2024 End: 11-48-2878Xxfeoz flowsheetChristopher Cheri DO Work Phone: ana BELLEVUEStart: 11-05-2024 End: 60-41-6621Nqyjnk outpatient new 45 minutesChristopher Cheri DO Work Phone: ana BELLEVUEComment on above:Paresthesia (Primary Dx); Degeneration of intervertebral disc of lumbar region with discogenic back pain and lower extremity pain; Myalgia; Weakness; PolyneuropathyStart: 11-05-2024 End: 46-62-6385jrykovvopyUMRWZZKDIGK GUANAKOETTNot AvailableStart: 10-28-2024 End: 46-27-1315Bzznxb outpatient visit 15 minutesCarmelo Oconnor MD Work Phone: [facility] Physicians CardiologyComment on above: Primary hypertension (Primary Dx)Start: 10-28-2024 End: 94-54-9406zexkvqbzogWKMXKFYUWell[facility] Start: 10-22-2024 End: 06-18-5150Uxlolnomg encounterMari Gramajo [facility] Cardiology Comment on above:ResultsStart: 10-19-2024 End: 36-22-8193xofqvnbvbaWEDVJQBZF R STOCKTONParkview [facility] HospitalStart: 10-02-2024 End: 86-82-9542kbexzbsdngFjmfuozpv R StocktonFacility:[facility] Hospitaltart: 10-02-2024 End: 17-64-3561Lonuun outpatient visit 15 minutesCarmelo Oconnor MD Work Phone: [facility] Physicians CardiologyComment on above: Primary hypertension (Primary Dx)Start: 10-02-2024 End: 87-81-4567zpltavebubROFPUGJMWell[facility] Start: 10-01-2024 End: 23-54-0061Ajpsmaydi encounterPetra Krishnamurthy [facility] Start: 08-12-2024 End: 83-61-7614Wvzubjgae encounterMarya Roque [facility] Physicians CardiologyStart: 08-12-2024 End: 51-06-1512cqgxhsvmybShpzoxufWalker [facility] Hospitaltart: 07-30-2024 End: 00-23-0711Knikmg Fiona Addison DPM Work Phone: [facility] CI PODIATRYStart: 07-30-2024 End: 20-53-1425Twydtzradha Addison DPM Work Phone: noMS CI PODIATRYStart: 07-30-2024 End: 17-42-8599Hrjsms outpatient visit 15 minutesWayne Addison DPM Work Phone: [facility] CI PODIATRYComment on above:Neuritis (Primary Dx); Capsulitis of metatarsophalangeal (MTP) joint of left foot; Other polyneuropathyStart: 07-30-2024 End: 98-60-5461jppwpceqdgZXMSCXWS A BROWNNot AvailableStart: 07-23-2024 End: 16-85-5062Lmlezb flowsheetNicholas A Brown DPM Work Phone: noms CI PODIATRYStart: 07-23-2024 End: 01-94-1201Usqfia flowsheetNicholas A Brown DPM Work Phone: n[facility] CI PODIATRYStart: 07-23-2024 End: 82-68-9948Ezsfup outpatient visit 15 minutesNicholas A Brown DPM Work Phone: noms CI PODIATRYComment on above:Neuritis (Primary Dx); Other polyneuropathy; Capsulitis of metatarsophalangeal (MTP) joint of left footStart: 07-23-2024 End: 63-59-1996roosjfoeitYDBVSLCW A BROWNNot AvailableStart: 07-09-2024 End: 23-72-3686Hnuyuf flowsheetNicholas A Brown DPM Work Phone: noms CI PODIATRYStart: 07-09-2024 End: 46-24-0419Qsxdal flowsheetNicholas A Brown DPM Work Phone: noms CI PODIATRYStart: 07-09-2024 End: 58-15-8088Tpzojf outpatient visit 15 minutesNicholas A Brown DPM Work Phone: noms CI PODIATRYComment on above:Neuritis (Primary Dx); Capsulitis of metatarsophalangeal (MTP) joint of left foot; Other polyneuropathyStart: 07-09-2024 End: 25-29-4864zvlzztaideUCSYCVKR A BROWNNot AvailableStart: 06-25-2024 End: 80-89-4372Ogguut flowsheetNicholas A Brown DPM Work Phone: noms CI PODIATRYStart: 06-25-2024 End: 53-94-9734Hvhmok flowsheetNicholas A Brown DPM Work Phone: noms CI PODIATRYStart: 06-25-2024 End: 11-46-5333Tonthp outpatient new 30 minutesWayne Addison DPM Work Phone: NOOD CI PODIATRYComment on above:Neuritis (Primary Dx); Capsulitis of metatarsophalangeal (MTP) joint of left foot; Other polyneuropathyStart: 06-25-2024 End: 63-96-3259cxmatnpgozTQBJUPYS A BROWNNot AvailableStart: 06-02-2024 End: 62-54-7092pyxelefkteEduqqrnj A. JonesFacility:FTMCStart: 06-02-2024 End: 68-43-0917Xoqq ManagementNéstor Maradiaga [facility] Start: 05-18-2024 End: 77-60-7762Sja-admission [facility] Start: 05-13-2024 End: 50-11-6972soenvpfbyrDclkrujx A. JonesFacility:FTMCStart: 05-13-2024 End: 26-84-9354Hzbstrs encounter procedureNéstor Maradiaga [facility] Start: 12-04-2023 End: 53-52-9284kzigjutucdPbgryqdfpCoshocton Regional Medical Center Work Phone: Start: 12-04-2023 End: 94-91-3200Arzosqi encounter procedureHighlands-[facility] Jhony Work Phone: Start: 11-07-2023 End: 15-55-4134Nmufygxru encounterJanice Novoa Physicians CardiologyStart: 10-29-2023 End: 10-30-1866wvnzoqhzghFWNIK B PATELProFroilan [facility] General Hospitaltart: 10-03-2023 End: 75-61-6641Iwzcvs outpatient new 45 minutesMayito Plascencia MD Work Phone: [facility] CardiologyComment on above:Mitral valve prolapse (Primary Dx); Hypertension, unspecified typeStart: 52-50-9829Mtgyjixuq encounterMarya Roque ASHOKProMedica Physicians CardiologyStart: 08-28-2023 End: 00-65-0093Aais ManagementNéstor Maradiaga [facility] Start: 07-15-2023 End: 52-67-4172Vjfa ManagementRuba Frias [facility] Start: 06-18-2023 End: 12-93-0154Oteq ManagementAbel Ruggiero [facility] Start: 05-21-2023 End: 46-78-4208Fnwu ManagementAbel Ruggiero [facility] Start: 05-14-2023 End: 34-62-8212Tualnhn encounter procedureAbel Ruggiero [facility] Start: 05-14-2023 End: 39-76-7801Vfmq ManagementAbel Ruggiero [facility] Start: 04-02-2023 End: 24-12-3483Xdgt ManagementJojimua D Monik [facility] Start: 03-26-2023 End: 06-77-7668Fukk ManagementJoshua Kameron Ruggiero [facility] Start: 03-20-2023 End: 89-48-6999Yovl ManagementJojimua Kameron Ruggiero [facility] Start: 01-21-2023 End: 87-25-2842Iwqmellie Tamphoebe Ruggiero [facility] Start: 12-11-2022 End: 11-80-9099zrynokowdeXuje Braun Other [place] [facility] Other start: 04-63-4673Xyqgbndaq encounterDale [facility] NeurosurgeryStart: 11-03-2022 End: 93-75-7956aybwzqcxiuVutr E BraunFacility:[facility] Start: 11-03-2022 End: 97-51-0368onisoepcvmYRYICKIZM NO [facility] Work Phone: Start: 11-03-2022 End: 20-72-8837Hmqhcvm encounter procedurePHYSICIAN NO [facility] [place] Work Phone: Start: 10-26-2022 End: 27-86-3477lroeszwukqXueh Braun Other [place] Other start: 01-81-7191Jvcqpe outpatient visit 15 minutes Joanie [facility] NeurosurgeryStart: 82-29-1537Wsphtmvdv encounterDale [facility] NeurosurgeryStart: 10-19-2022 End: 74-20-7584bkecmxqqviBdjhxc DymondFacility:[facility] Start: 10-19-2022 End: 39-39-7688Nklqxslo ReferredNP-C Aspen Mast Work Phone: [facility] [place] Work Phone: Start: 10-19-2022 End: 28-46-5026wfyorzgieoJR-C Aspen Mast Work Phone: [facility] Work Phone: Start: 96-41-9748Sagcjy outpatient visit 15 minutes Aspen MastTJAbel [facility] ClydeStart: 2022 End: 62-05-9592arrsvsjbkxSpno Braun Other [place] Other start: 73-36-6734Zaibrc outpatient visit 15 minutes Joanie SilJefferson [facility] Hospital NeurosurgeryStart: 08-21-2022 End: 48-65-2099jbbecyyqnuEtnd Mujica Other [place] Other start: 27-87-2296Vdfknbzkr encounterDale [facility] NeurosurgeryStart: 06-12-2022 End: 19-25-4682dfezvyicnjDjya Sil Other [place]o Other start: 21-55-0500Apektzqbh encounterDale [facility] NeurosurgeryStart: 06-04-2022 End: 49-79-0631vuiqlxweqiIpgv Douglas MujicaFacility:[facility] Start: 06-04-2022 End: 60-33-6402Gjqxgkm encounter procedureDO Sarwat Pang Work Phone: [facility] HospitalStart: 06-04-2022 End: 15-53-7098eqbjviwsavOS Sarwat Pang Work Phone: [facility] Work Phone: Start: 65-90-8070Ajuumhaam encounterDale [facility] NeurosurgeryStart: 05-29-2022 End: 87-17-5008tanrvwacssTwhk Mujica Other [place] Other start: 98-14-2540Rixgjr outpatient visit 15 minutes Joanie M[facility]icaJefferson [facility] Hospital NeurosurgeryStart: 05-28-2022 End: 70-42-2200djxfiqzqlgTcpw Douglas MujicaFacility:[facility] Start: 05-28-2022 End: 24-68-3044bgwvlqvmtuZK Sarwat Pang Work Phone: [facility] Work Phone: Start: 05-28-2022 End: 50-94-5718Whhjotp encounter procedureDO Sarwat Pang Work Phone: [facility] CampusStart: 05-17-2022 End: 75-86-4538gxcrllrfmqYsjllvo Sara DittyFacility:[facility] Centertart: 05-17-2022 End: 15-37-5876Bgiipsctn to same day surgery centerDO Sarwat Pang Work Phone: [facility]-Digestive HealthStart: 05-17-2022 End: 56-51-1383ufmorsmymmPN Sarwat Pang Work Phone: [facility] Work Phone: Start: 05-15-2022 End: 37-34-8195vbxaaazbuuHycclta Sara DittyFacility:[facility] Centertart: 05-15-2022 End: 04-26-5802jkkrrfquygSS Sarwat Pang Work Phone: [facility] Work Phone: Start: 05-15-2022 End: 56-06-9089Eppvdug encounter procedureDO Sarwat Pang Work Phone: [facility]Ge[facility] Start: 03-21-2022 End: 87-05-9674ykopmbqdvsJuyjvzc Bintay Other [facility] Other Start: 41-43-5512Pnltbydjc encounterCameron BintayTJG GastroenterologyStart: 02-09-2022 End: 37-21-7031lyiiyzwwlnBsfq Braun Other [facility] Other start: 76-79-1894Vvcrebtyp encounterDale [facility] NeurosurgeryStart: 32-76-1837Wallcf follow up visit related to original pxDale [facility] NeurosurgeryStart: 02-08-2022 End: 18-61-5727qixfwtqmlyDmys E Lodgeo MONOQI Other start: 02-08-2022 End: 12-40-0611Dkjsnsl encounter procedureDO Sarwat Pang Work Phone: [facility]Start: 01-04-2022 End: 88-21-6322kxuiphcyepBxgq Mujica Other re[place] Other start: 67-60-2780Idmaladgs encounterDale [facility] NeurosurgeryStart: 01-03-2022 End: 01-52-6304csizqkafjkRH DOCTOR MISCFacility:F8Psnvu: 36-98-8500Eqvxzd follow up visit related to original pxDale [facility] NeurosurgeryStart: 12-19-2021 End: 67-95-8992vaiulwmxviXyyy E Lodgeo MONOQI Other start: 12-19-2021 End: 43-19-0919Dkodhqv encounter procedureDO Sarwat Pang Work Phone: [facility] CampusStart: 12-18-2021 End: 69-28-5346vjlivckipnWfop Mujica Other [place] Other start: 93-76-2217Mbswnjhov encounterDale [facility] NeurosurgeryStart: 12-07-2021 End: 31-36-0842tgzvqayafePxob Mujica Other [place] Other start: 59-52-1508Ktyjqlvtw encounterDale [facility] NeurosurgeryStart: 12-05-2021 End: 66-60-1522dildiajngmTqii Mujica Other [place] Other start: 70-44-6394Zizbpyffw encounterDale [facility] NeurosurgeryStart: 99-73-6770Nxmemnhrd to same day surgery center [facility]trStart: 11-27-2021 End: 68-08-3337mfdahbmrzqXkwd E BraunHalton Other start: 11-23-2021 End: 21-31-3978jccqpqkqpgXitt E BraunFacility:[facility] Start: 09-21-2021 End: 49-64-2598poylvznmvsUknd Mujica Other [place] Other start: 38-39-2550Iadyaw outpatient visit 15 minutes [facility] NeurosurgeryStart: 08-29-2021 End: 02-22-1897zeddyskzjtGyluvu Dymond Other readeo Other Start: 24-98-3467Kaxlvp outpatient visit 15 minutes Aspen MastAbel [facility] Procedures DateProcedureProcedure DetailPerforming ClinicianStart: 05-14-4098Jreihf-up visitFollow-upFRKATHRYN OCONNORStart: 12-09-1886Lgltwdjdd of sacroiliac joint using fluoroscopic guidanceNéstor Maradiaga start: 68-83-2332Omsljjmeofmr of temporary spinal cord stimulatorJothom Ruggiero comment on above:60% reliefStart: 25-86-5021Pwjlx anesthetic sacral epidural blockAbel Ruggiero comment on above:caudal elizabeth 0% reliefStart: 06-04-2022 X-ray of lumbar spine, six views including bending viewsDO Sarwat Pang Work Phone: Start: 23-32-9960B-ray of lumbar spine, four viewsDO Sarwat Pang Work Phone: Start: 30-20-6323CjzeyssgcxughfacadkpvepsduCM Sarwat Pang Work Phone: Start: 64-99-8046V-ray of lumbar spine, two or three viewsDO Sarwat Pang Work Phone: Start: 85-41-6804R-ray of lumbar spine, two or three viewsDO Sarwat Pang Work Phone: Start: 95-26-2759Dtmazx spinal fusionJothom Ruggiero comment on above:L5/G5Epvah: 49-25-6944Hrbjijbygpf with excision of herniated intervertebral disc, nucleus pulposusAbel Ruggiero comment on above:T2 and K8Emvnc: 42-80-8679Meds reversal of female sterilizationAbel Ruggiero start: 52-18-5588Ueawxqhr of fallopian tubeAbel Ruggiero start: 58-61-4544OaceykcxoylexlbOtrlor Goldner appendix structure (body structure)Abel Ruggiero sARS Antigen (LFIA)DO Sarwat Pang Work Phone: Plan of Treatment DateCare ActivityDetailAuthorStart: 42-78-3743Svdka BMI ScreeningAdult BMI ScreeningProMobimediaca Life360 SystemStart: 78-19-5923Mongb BMI ScreeningAdult BMI ScreeningProMercy Health Willard Hospitalca Health SystemStart: 22-51-1514Gxymdnc ScreeningTobacco ScreeningProMobimediaca Health SystemStart: 05-20-2025 End: 45-90-1266Tpnlcpj encounter rnwxqhimv74/13/2025 1:00 PM EST Office Visit [facility] [address] [place] [phone] Carmelo Oconnor MD [address] [place] [address] [facility]: 33-36-3236Malvlusbd vaccinationInfluenza VaccineWooster Community Hospital SystemStart: 93-81-5572Sfxusnu referralUniversity Hospitals Health System Work Phone: Start: 01-25-2025 End: 38-73-4285Bruvory encounter chgfuiqnp84/21/2025 9:45 AM EDT Office Visit [facility] [address] [phone] Vamsi Alonzo DO [address] [place], [place] [id number] [facility]ANK[facility] GIULIANOEVUEStart: 01-14-2025 End: 99-91-4337Ylczuhu encounter xtalbkwpf56/10/2025 1:30 PM EDT Office Visit [facility] [address] [place] [phone] Alicia Shook MD [address] [place] [address] [facility]iologyStart: 12-24-2024 End: 29-23-3959Jxlweav encounter woqiaevyb69/19/2025 10:00 AM EDT Procedure Visit [facility] [address] [phone] Vamsi Alonzo DO [address] [place] [phone] BLANKA GIULIANOEVUEStart: 11-27-2024 End: 29-12-2353Imrnykw encounter imkgukuap90/23/2025 10:00 AM EDT Office Visit [facility] [address] [place] [phone] Carmelo Oconnor MD [address] [place], [place] [phone] [facility]iology[facility]: 11-05-2024 End: 61-43-6394Oomqahvp kinase [Enzymatic activity/volume] in Serum or PlasmaCK Lab Routine Myalgia Expected: 11/05/2024 (Approximate), Expires: 11/05/2025NONM HealthcareComment on above:Expected: 11/05/2024 (Approximate), Expires: 11/05/2025Start: 11-05-2024 End: 04-95-2552HQW 2 ExtremitiesEMG 2 Extremities Neurology Routine Paresthesia Expected: 11/05/2024, Expires: 11/05/2025[facility] Work Phone: comment on above:Expected: 11/05/2024, Expires: 11/05/2025Start: 11-05-2024 End: 83-97-7547Lvniame Ab [Titer] in Serum by ImmunofluorescenceANA Lab Routine Myalgia Expected: 11/05/2024 (Approximate), Expires: 11/05/2025[facility] Comment on above:Expected: 11/05/2024 (Approximate), Expires: 11/05/2025Start: 11-05-2024 End: 31-03-6985Jmwxzgx encounter twcgumnqz70/01/2025 11:30 AM EDT Office Visit [facility] [address] [place] [phone] Vamsi Alonzo, [address] [place] [address] Neuritis; Other polyneuropathyANA LA PUENTEComment on above: Neuritis; Other polyneuropathyStart: 37-34-4127Aoppr BMI ScreeningAdult BMI Screening [facility] Life360 SystemStart: 97-05-8185Vrgdtqc ScreeningTobacco Screening [facility] Life360 SystemStart: 10-02-2024 End: 87-80-5449RR.doppler Renal vessels - bilateralVas renal artery duplex complete Vascular Ultrasound Routine Primary hypertension Expected: 10/02/2024, Expires: 10/02/2025[facility] SystemComment on above:Expected: 10/02/2024, Expires: 10/02/2025Start: 10-02-2024 End: 69-07-8057Kfffqgg encounter jbdtybrnj00/28/2025 10:00 AM EDT Office Visit [facility] [address] [place] [phone] Carmelo Oconnor MD [address] [place] [address] [facility] CardiologyStart: 71-61-1981Bvtiisy ScreeningMayo Clinic Health Systemtart: 08-13-2024 End: 75-15-1039Fwerrmo encounter trxcqwseo77/06/2025 10:30 AM EST Office Visit [facility] [address] [place] [phone] Mayito Plascencia MD [address] [place] [address] [facility] CardiologyStart: 07-30-2024 End: 36-62-7132Bxlnpqs encounter frskzgfai56/23/2025 8:30 AM EST Office Visit [facility] [address] [phone] Wayne Addison, DARLENE [address] [address] Neuritis (Primary Dx); Capsulitis of metatarsophalangeal (MTP) joint of left foot; Other polyneuropathyNOMS CI PODIATRYComment on above:Neuritis (Primary Dx); Capsulitis of metatarsophalangeal (MTP) joint of left foot; Other polyneuropathyStart: 07-23-2024 End: 17-83-2540Vjsvaro encounter procedureNOMS CI PODIATRYComment on above: Neuritis (Primary Dx); Other polyneuropathy; Capsulitis of metatarsophalangeal (MTP) joint of left footStart: 07-09-2024 End: 68-29-1650Mvswfaf encounter procedureNOMS CI PODIATRYComment on above: Neuritis (Primary Dx); Capsulitis of metatarsophalangeal (MTP) joint of left foot; Other polyneuropathyStart: 06-25-2024 End: 57-87-0708Ihnpttz encounter tnmsemsrl03/19/2024 8:50 AM EST Office Visit [facility] 112 [facility] [address] [place] [phone] Wayne Addison DPM [address] [facility] [address] [place] [address] ArrivedNOMS CI PODIATRYComment on above:ArrivedStart: 57-91-4328Agsqachsb vaccinationInfluenza VaccineProMedica Health SystemStart: 10-17-2023 End: 85-73-6707Qtpng metabolic 2000 panel - Serum or PlasmaBasic Metabolic Panel Lab Routine Hypertension, unspecified type Mitral valve prolapse Expected: 05/2024 (Approximate), Expires: 10/02/2024[facility] Work Phone: Comment on above:Expected: 10/17/2023 (Approximate), Expires: 10/02/2024Start: 10-17-2023 End: 17-83-5649Zcpjm panelLipid panel Lab Routine Hypertension, unspecified type Mitral valve prolapse Expected: 10/17/2023 (Approximate), Expires: 10/02/2024 [facility] SystemComment on above:Expected: 10/17/2023 (Approximate), Expires: 10/02/2024Start: 10-03-2023 End: 80-00-0193Wdan complete W/O contrastEcho complete W/O contrast Echocardiography Routine Hypertension, unspecified type Mitral valve prolapse Expected: 10/03/2023, Expires: 10/02/2024[facility] Health SystemComment on above:Expected: 10/03/2023, Expires: 10/02/2024Start: 10-02-2023 End: 53-53-6596Bnkxxuo encounter btwremgap43/27/2024 9:30 AM EDT Office Visit [facility] [address] [place] [phone] Carmelo Oconnor MD [address] [place] [address] [facility] CardiologyStart: 03-85-8568Yvxzzlcaujhajy of varicella zoster vaccineZoster (Shingles) Vaccine (1 of 2)[facility] SystemStart: 42-03-0564Rjpiejgni vaccinationInfluenza VaccineProMercy Health [facility] SystemStart: 98-16-5630SD Lumbar spine WO and W contrast [facility] Hospitaltart: 23-81-4175UAI of lumbar spine with contrastMR lumbar spine wo/w [facility] Centertart: 39-49-2866Latbf BMI ScreeningAdult BMI ScreeningUNC Health Chathamtart: 56-60-9285ZlepazztbUniversity Hospitals Conneaut Medical Centertart: 72-65-3985Qufzkriew for malignant neoplasm of cervixPap SmearUNC Health Chathamtart: 1992 DTaP,Tdap and Td Vaccines (1 - Tdap)DTaP,Tdap and Td Vaccines (1 - Tdap) [facility] SystemStart: 38-32-0776Zepbu BMI Follow Up PlanAdult BMI Follow Up PlanUNC Health Chathamtart: 80-73-9094Uockglbidb ScreeningDepression ScreeningSumma Health Barberton CampusChlamydia trachomatis DNA [Presence] in Unspecified specimen by ROSALVA with probe detectionAultman Orrville HospitalECG, Hospital Report ScanECG, Hospital Report Scan ECG Routine Primary hypertension Ordered: 10/02/2024[facility] Work Phone: Comment on above:Ordered: 10/02/2024Myoglobin, serum Myoglobin, serum Lab Routine Weakness Ordered: 11/05/2024NONM HealthcareComment on above:Ordered: 11/05/2024Neisseria gonorrhoeae DNA [Presence] in Unspecified specimen by ROSALVA with probe detectionAultman Orrville HospitalPatient referralUniversity Hospitals Health System Work Phone: Trichomonas vaginalis DNA [Presence] in Unspecified specimen by ROSALVA with probe detectionAultman Orrville Hospital Immunizations Immunization DateImmunizationNotesCare ErjzljgoBjmwkxzz14-31-2136FHJTX-91 Zenobia Ojeda (Embedded Chat)DO Sarwat Pang Work Phone: [facility]04-01-2021COVID-19 Lynette Marksonia (Pfizer)DO Sarwat Pang Work Phone: [facility] Payers DatePayer CategoryPayerPolicy [id number] Care Other (unspecified)[employer] Member Subscriber Plan / Payer (Effective 2024-Present) Name: Anu Aaron Cole Relation to Subscriber: Self Name: Anu Aaron Cole Payer ID: [id number] (NAIC) Type: Not on file Address: [address] [place] [id number] 29-60-0080Ibcljcm Health [id number] Health Insurance [id number].912840.12877-80-6882Xuulkzj Health [id number]-[id number] 33-35-4440OthxEncompass Health Rehabilitation Hospital of [facility] Care - P[facility]ANTST[facility] 1.2.840.128725.1.13.424.2.7.9.941992.505.28539-88-3203JdbvdlhPVGSGI BLUE ACCESS (PPO) [id number] 2020-Present [phone] [address] [place] [address].2.840.284321.1.13.424.2.7.3.736[id number] 2.840.1.185314.3.57[id number] 2.0.1.548161.3.57[id number] 2.840.1.167254.3.57[id number] 2.840.1.646295.3.57[id number] 2.840.1.931789.3.57[id number] 2.0.1.070899.3.57[id number] 2.0.1.803865.3.57[id number] 2.0.1.124343.3.57[id number] 2.840.1.927598.3.57[id number] 2.0.1.862456.3.57[id number] 2.840.1.295111.3.57[id number] 2.840.1.070191.3.579.[id number] 2.0.1.788801.3.57[id number] 2.0.1.900921.3.579.[id number] 2..1.421395.3.579.[id number] 2.0.1.781258.3.579.2.75482-37-1839Rslw Cross Blue [id number] [id number] 2.840.1.372660.3.579.2.085Kfxeqyu26861440 2.0.1.2[id number] 2.0.1.391986.3.579.2.531 [id number] 2..1.98[id number] 2.840.1.7[id number] 2.0.1.059449.3.579.2.531 [id number] 2.0.1.6[id number] 2.0.1.408[id number] 2.0.1.194669.3.579.2.531 [id number] 2.0.1.391832.3.579.2.531 Social History DateTypeDetailFacilityUnknown if ever smokedNocenterpoint medical center MONOQI Other Start: 07-19-2020 End: 13-46-6548Vzr Assigned At BirthC[facility]innati [facility] Medical Centertart: 11-27-2021 End: 52-83-1799Ecihtaf smoking status NHISNever smoked tobacco (finding) [facility] Centertart: 10-50-8278Wvm Assigned At BirthFemale [facility]rville HospitalTobacco smoking statusNo Smoking Status Entered [facility] CenterStart: 06-25-2024 End: 00-42-5129Uxbcymemn beverage intakeDeferNONM HealthcareStart: 07-19-2020 End: 63-78-5894Gxdcptc of Social functionWooster Community Hospital SystemStart: 21-67-9726Eoeofg identityIdentifies as female gender (finding)[facility] Healthcare Tobacco smoking status NHISTobacco smoking consumption unknownNOMS Healthcare Start: 04-29-2020 End: 01-88-4818Mwaavqp use and exposureSmokeless tobacco non-userWooster Community Hospital SystemStart: 10-03-2023 End: 61-56-3923Rrjcvkhzt beverage intakeEx-drinker (finding)[facility] SystemStart: 34-03-4536XvlvxgdexAbuoyrqOjwMzuxeh Health SystemStart: 09-24-2023 Alcohol Rqukaey71 yrs agoW[facility]oster Community Hospital SystemStart: 76-74-3531Dbb assigned at birthNot on fileWooster Community Hospital SystemStart: 00-64-2438LwmWqvfqq (finding) [facility] Medical Equipment Procedure CodeEquipment CodeEquipment Original TextEquipment IdentifierDates Spinal fusion graft kit()[id number] FDAStart: 46-74-4214Aahb-screw internal spinal fixation system, non-sterile+[id number] FDAStart: 91-07-2548Fepw-screw internal spinal fixation system, non-sterile +[id number] FDAStart: 01-58-8378Vfqocrcve spinal fusion cage, non-sterile [id number] FDAStart: 76-23-3123Ffya-screw internal spinal fixation system, non-sterile+[id number] FDAStart: 16-21-6737Rmuw-screw internal spinal fixation system, non-sterile+[id number] FDAStart: 11-27-2021 Bone-screw internal spinal fixation system, non-sterile+[id number] FDAStart: 67-37-2030Jcab-screw internal spinal fixation system, non-sterile+[id number] FDAStart: 11-27-2021 Goals DatePatient GoalDesired Activity/State Functional Status DvbqIzrweqdbdvBsaxohYzchqueq31-25-5475Hrtffxuxkx StatusN/[facility]11-06-2024Functional StatusN/[facility]02-21-2024 Functional StatusN/[facility]01-08-2024Functional StatusN/A [facility]12-12-2023Functional StatusN/[facility]11-14-2023Functional StatusN/[facility] 07-84-1920Zjcuiarfkl StatusN/[facility]09-26-2023Functional StatusN/[facility]09-19-2023Functional StatusN/[facility]09-13-2023Functional StatusN/[facility] 88-65-7609Iiouwtswmn StatusN/[facility] Clinical Notes 08-29-2021 to 04-23-2025 Note Date & JhfrHdgpXdedztlj47-73-2283 NoteHNO ID: [id number] Author: SERA VILLAREAL PA-C Service: ? Author Type: Physician Flight Operation Coordinator Type: Progress Notes Filed: 04/23/2025 15:08 Note Text: SPINE SURGERY OUTPATIENT CONSULT This is an in-person visit. SERVICE DATE: 04/23/2025 PCP: No primary care provider on file. REFERRING PROVIDER: Vamsi Alonzo DO [address] [place] [phone] Consult requested for an opinion regarding the evaluation and treatment of low back pain. My final impression and recommendations will be communicated back to the requesting physician by way of the shared medical record or letter via US mail. SUBJECTIVE Chance Anu is a 49 year old female presenting with spouse. CHIEF COMPLAINT: Low back pain, leg numbness, foot pain HISTORY OF PRESENT ILLNESS Aaron is a 49-year-old female with chronic low back pain, neuropathic pain, and hypertension presenting for evaluation of persistent pain and neuropathic symptoms following lumbar spine surgery. She is accompanied by her , who provides additional history. Aaron reports a history of chronic low back pain dating back to 1998, when she sustained a lower lumbar sprain at work. Imaging at that time revealed degenerative disc disease. Over the years, her pain progressively worsened, particularly with activities such as lifting and bending. She underwent her first back surgery, a discectomy at L2-L3, in 2020. She reports that this surgery provided relief of her symptoms. However, her pain continued to worsen, and she subsequently underwent a lumbar fusion at L5-S1 in November 2022. Following this surgery, she developed new symptoms including numbness in most parts of her legs, inability to feel hot or cold in her feet, and very limited movement in her left foot. She also developed constant, very painful tingling in the tops of both feet, worse on the left, which she describes as hypersensitivity to touch. She reports that wearing shoes significantly worsens the pain, and even light touch is extremely painful. She also developed swelling in her left foot and ankle, with compensatory swelling in her right foot and ankle. She was evaluated by a insecticide mixer who administered injections in her left foot, which she did not feel. The insecticide mixer recommended a neurologist if the injections were ineffective. She was subsequently evaluated by Dr. Jermaine Alonzo, who performed EMG and nerve conduction studies. She reports that most of the needling was not felt. Dr. Alonzo reviewed her MRI and noted some discrepancies, consulting a specialist for further interpretation. He reportedly told her that the surgeon was only able to move the spine about 60% of what was intended during the fusion, and that some nerves may have been crushed rather than released. Due to persistent pain, she was referred for a spinal cord stimulator trial, which provided some relief of her lower back pain and improved her left leg limp. The permanent stimulator was implanted in May 2023. She reports that the stimulator provides partial relief, but the tingling in her feet persists. She notes that when the stimulator was not functioning for 3 days, she experienced significantly more pain, suggesting that the device does provide some benefit. However, she reports discomfort at the site where the wires are anchored, particularly after significant weight loss. She has tried multiple treatments including physical therapy, gabapentin, pregabalin, and several injections both before and after surgery. She reports that gabapentin made her very sick, and pregabalin did not provide relief despite being taken for over a month. She is currently taking 5 different medications for hypertension, which developed after her second surgery. She also takes Adderall 30 mg daily. 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 She reports that her pain has affected her sex life. She denies any history of smoking, except for marijuana use many years ago. - (04/23/2025) Lumbar spine radiographs (AP/lateral with flexion/extension): No instability. - MRI Lumbar Spine: Central canal patent from L1-S1; interbody cage present at L5-S1 with spondylolisthesis; mild left L5-S1 foraminal narrowing. - EMG/NCS: Chronic L5-S1 radiculopathy. S/p lumbar discectomy in 2020 at [facility] S/p lumbar fusion in November [address] [facility] S/p SCS placement in May [address] [facility] Conservative Management: -Physical Therapy (Multiple courses) -Multiple lumbar epidural steroid injections (Pre- and post- surgery) -Previously trialed gabapentin and lyrica (No improvement) PRECIPITATING EVENT: None DURATION OF SYMPTOMS: Greater Than 1 Year PAIN EVALUATION 04/23/2025 1030 Pain Level: 7 both foot, especially left Pain Location: Back-Lower both feet, mailnly left Description: Aching;Radiating;Tigh (more content not included)...[facility] 04-23-2025 NoteHNO ID: [id number] Author: ROHIT STEELE RT(R) Service: Radiology Author Type: Technologist Type: Progress Notes Filed: 04/23/2025 10:50 Note Text: Radiology Service Progress Note PATIENT NAME: Aaron Brennan DATE OF SERVICE: April 23, 2025 TIME: 10:48 AM PATIENT IDENTITY VERIFICATION COMPLETED USING TWO (2) IDENTIFIERS: Name and Date of confirmed by patient verbally. FALL SCREENING: Has the patient had 2 falls in the last year or 1 fall with injury or currently using an Ambulatory Assistive Device (Walker, Cane, Wheelchair, Crutches, etc.)? No PATIENT GENDER DATA: Assigned female at . status: : No status: NO. PATIENT RELEVANT IMPLANT DATA REVIEWED: Not Applicable PATIENT PRESENTS WITH AN IMPLANTABLE OR ATTACHED CAT CRACKER OPERATOR: No RADIOLOGY DEPARTMENT: General X-ray: Exam(s) Completed: Spine X-Ray(s): Lumbar AP / LAT / L5-S1 / FLEX-EXT PERIPHERAL IV DATA: Not applicable SIGNED BY: RT Kyra(R) April 23, 2025 10:48 [facility]10-17-2025 NoteHNO ID: [id number] Author: PANCHITO DEWITT DO Service: ? Author Type: Physician Type: Progress Notes Filed: 04/23/2025 09:29 Note Text: [facility] April 23, 2025 Aaron Brennan is a 49 year old who presents with her She was referred by Vamsi Alonzo DO [address] [place] [phone]. Chief complaint: Chronic Pain SUBJECTIVE: Pt reports most of her pain was in low back and now left leg, and both feet (painful tingling that never leaves) wearing shoes makes it worse She reports her feet will swell up damián t is painful Lumbar Surgery 2020, 2022- the pain started to radiate to her legs prior to the surgery [facility] in [place] Prior to the surgery she had a disc issue in 2020 She reports she has had lower back pain her entire life 1998- diagnosed with disc disease Headaches, related to her hypertension Spine Red Flag Aaron Brennan has no red flag symptoms. Anesthesia: N Schizophrenia: ? Yes per psychiatry, it also runs on both sides of the family : N/A CHF: N Uncontrolled HTN: Yes, since her surgery, she is follows with cardio close to home Recent WI: yes, age 28, no stents Arrythmias: N Afib: N Hyperthyroid: N Aortic Stenosis: N Liver Failure: N Increased ICP: N Prolapsing left heart valve Average pain over the last 7 days: Her back is a 6-7/10 left foot- always 9/10 Previous pain treatments: physical therapy, medications, surgery, injections (prior to the surgery) She last had an injection 3 months ago, no relief No PT since the surgery She had 2 sessions prior She had a SCS placed, Apr 2023 She reports the SCS is painful, archie where the wires are anchored She cannot sit directly on it Tylenol and ibuprofen for her headaches Gabapentin, Lyrica, no relief Functional Limitations: Only allowed to loft 25 pounds with her arms Wellness: How would you describe your diet: diet is balanced, eats out sometimes How many days a week do you exercise: she has lost 40 pounds, she is not abl to exercise due to the pain, she can't walk, she can't ride her bike How many hours do you sleep a night: takes Ambien 10mg, she reports this is helpful for her sleep Emotional Symptoms: include depression and anxiety The patient has loss of sleep The patient denies suicidal ideation. Non-medical stresses: Include marriage counseling Step daughter, age 16- she has some mental health issues She has a twin brother - he is good She watches her grandchildren, she watches them during the week Family involvement: is appropriate/helpful and supportive Financial Status: she has been unable to work, last was 8-9 years ago Allergies: Reviewed in the EMR Current Medications: Reviewed in the EMR Medical History: Reviewed in the EMR Surgical History: Reviewed in the EMR Psychiatric History: Anxiety Depression Bipolar Disorder ADHD Meds: Trileptal, Latuda, Adderall, Trazodone, Wellbutrin Dr. 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 OBJECTIVE: PHYSICAL EXAM: GENERAL APPEARANCE: Well appearing, well-hydrated, well nourished and alert SKIN: Head, neck, trunk, and extremities dry, intact and without lesions NECK: negative findings: no asymmetry or scars BACK: no tenderness to percussion or palpation, positive findings: paraspinal muscle spasm LUNGS: even and non-labored breathing, normal chest excursion HEART: Edema: No MUSCULOSKELETAL: Spine range of motion normal. Muscular strength intact. NEURO/PSYCH: cranial nerves 2-12 intact, speech normal, mental status intact IMAGING: reviewed ASSESSMENT: :1. Chronic right-sided low back pain with left-sided sciatica - ICD9: 724.2, 724.3, 338.29, ICD10: M54.42, G89.29 (primary diagnosis) 2. History of lumbar surgery - ICD9: V15.29, ICD10: Z98.890 3. Uncontrolled hypertension - ICD9: 401.9, ICD10: I10 Panchito Dewitt DO PLAN: Further evaluation: referral to Neurosurgery and cardiology Nutrition: N Therapies: to consider Aquatic PT Sleep: N Worklessness: N Medications: to consider Cymbalta, advised to check with psychiatry, can consider Namenda in the future Interventions: N Infusions: Pt to check with psychiatry, we may need a release to send a formal letter requesting their opinion on Ketamine infusions in the future. Referral also to cardiology given history of uncontrolled HTN 9. Pain Psychology: referral placed today Review, Ask, Review: Y Follow-up: 3-6 months Panchito Dewitt DO I spent (more content not included)...[facility]09-18-2025 Note HNO ID: [id number] Author: WON MEEK PA-C Service: ? Author Type: Physician Flight Operation Coordinator Type: Progress Notes Filed: 03/25/2025 10:01 Note Text: Per Triage: Aaron Brennan is a 49 year old female that requests evaluation of spine. Per review, they have symptoms of lower back pain, left leg pain, numbness, tingling, weakness. Tingling in feet. Difficulty walking - uses cane BMI: 26 Nonsmoker Request: 1st available Referring provider: Vamsi Alonzo DO Patient out of state: no 2nd opinion: no Prior spine surgery: yes 11/2021 - hx of L5-S1 cage 11/[address] Mujica, hx of lumbar Laminectomy L3-L4 03/2019 (?), [facility] CMT: PT Injections SCS 2022 Studies (Reports unless indicated) MRI lumbar spine report 03/23/25: Evidence of prior L5-S1 fusion. Multilevel spondylosis Moderate left foraminal narrowing at L4-5 Left subarticular zone protrusion L2-3 EMG report 02/10/25: Chronic left L5 radiculopathy, mild Chronic right S1 radiculopathy, mild Disposition: Based on triage, recommend patient be scheduled with center for pain recovery for the chronic pain. Can see Surgical HUSSAIN for possible CT lumbar spine to assess the fusion. Likely not surgical if fusion is solid Spine Xrays prior to appt: yes Please make sure patient imaging is available for review ANGELA [facility]08-20-2025 Miscellaneous Notes* Telephone Encounter - Petra Krishnamurthy CMA - 02/24/2025 8:42 AM EDT Called patient to remind them to bring their most current copy of their medication list with them to their appt. Patient verbalizes understanding. Pt rescheduled appt due to prior medical appt. documented in this encounterSumma Health Barberton Campus08-20-2025 Telephone encounter Note* Telephone Encounter - Petra Krishnamurthy CMA - 02/24/2025 8:42 AM EDT Called patient to remind them to bring their most current copy of their medication list with them to their appt. Patient verbalizes understanding. Pt rescheduled appt due to prior medical appt. [facility] Life360 [id number] Miscellaneous Notes* Telephone Encounter - Kayla Quiles LPN - 02/20/2025 9:[address] [facility] 10/28/24 documented in this encounterSum[facility]08-16-2025 Telephone encounter Note* Telephone Encounter - Kayla Quiles LPN - 02/20/2025 9:34 AM EDT [facility] 10/28/24 [facility]08-15-2025 NoteHNO ID: [id number] Author: ?, ?, ? Service: ? Author Type: ? Type: Progress Notes Filed: 03/25/2025 10:01 Note Text: Patient name: Aaron Brennan Are you being referred by a [facility] Provider or Pain Management Provider at [facility]? No If answer is YES please schedule directly with surgeon, triage does not need to be completed. Is this a self-referral No If not, who is the Referring Provider Vamsi Alonzo, DO Is this a 2nd opinion from another spine surgeon? No Were you offered surgery? No MRI/CT/myelogram within 12 months? Yes If NO , please refer to medical spine or PCP to complete above imaging, triage does not need to be completed If YES,? please ask for the name/address of the facility where the MRI/CT/myelogram was completed: TBS LOcally MRI/CT/myelogram viewable in Epic: No If not, please provide [phone] to fax in imaging reports for review. Also, please inform patient to hand carry imaging disc to appointment. XR (spine) within 12 months: No If YES,? please ask for the name/address of the facility where the XR was completed: Dr. Hines's patients: Have you had previous EMG/Nerve Conduction Study, Ultrasound, or MRI for these same symptoms? If YES,? please ask for the name/address of the facility where they were completed: Requested provider (First and Last name): Are you interested in a virtual visit if offered? No 1. Where are you having symptoms related to this visit? LBP Leg pain (L) Numbness, Tingling, Weakness Tingling feet Back pain Yes Leg pain Yes Arm pain No Neck pain No 2. Are you having any of the following symptoms: Difficulty walking Yes , Walker, Gonzalez daily Numbness Yes Weakness Yes Trouble using your hands? No 3. What is your height? 5-1 What is your weight? 140 4. Are you a current smoker? No 5. Have you had any injections or physical therapy in the last 12 months? Yes If YES then please ask for the name/address of the facility where the injections and/or physical therapy was completed [facility] Address: [address] [place] [address] Injections [facility] Pain [facility] Address: [address] [place] [address] Have you tried any other kinds of non-surgical treatments in the last 12 months? (For example: NSAIDS, muscle relaxants, analgesics, oral steroids, Chiropractor, Acupuncture): Stimulator placed 2022 6. Are you currently taking daily prescribed narcotic medications for your current symptoms (For example Oxycodone, Hydrocodone, Tramadol, Morphine, Other)? No 7. Have you had previous spinal surgery for this same symptoms? Yes If YES? please ask for the name of facility/address of where the surgery was completed: 11/2021 [facility] Additional Comments [phone] (Home Phone)[facility]08-15-2025 Telephone encounter Note* Telephone Encounter - Zuleika Mack - 02/19/2025 2:26 PM EDT Referral source: Vamsi Alonzo DO ([facility]) Reason for visit: neurosurgical consult for lumbosacral radiculopathy External records: Sent with referral Triage required Financial clearance: Not required to schedule [facility]08-15-2025 Miscellaneous Notes* Telephone Encounter - Zuleika Mack - 02/19/2025 2:26 PM EDT Referral source: Vamsi Alonzo DO ([facility]) Reason for visit: neurosurgical consult for lumbosacral radiculopathy External records: Sent with referral Triage required Financial clearance: Not required to schedule documented in this encounterSelect [facility] Hospital Discharge instructionsAmbulatory Orders* Referral to Neurosurgery Time Frame: 02/10/25, Location: None [facility] Work Phone: 1(235) 958-339707-11-2025 NoteConsultation Note Patient is presenting with history [...] cessation when appropriate for F17.200 nicotine dependence. AGSUTO reviewed and discussed during encounter. Patient counseled on maintaining a healthy BMI as part of the total treatment of their pain and to reduce stress/strain on joints.Patient invited to return or call with any questions or concerns that arise.[facility] City HospitalComment on above:Result Comment: Electronically Signed By: Néstor Maradiaga DO\Date and Time Signed: 01/15/25 13:18 EDT 01-13-2025 Miscellaneous Notes* Telephone Encounter - Petra Krishnamurthy CMA - 01/13/2025 8:56 AM EDT No answer; unable to leave a message. documented in this encounterHighland District HospitalRestorando [id number] Telephone encounter Note* Telephone Encounter - Petra Krishnamurthy CMA - 01/13/2025 8:56 AM EDT No answer; unable to leave a message. [facility] History of Present illness Narrative* Vamsi Alonzo DO - 11/05/2024 11:30 AM EDT Images from the original note were not included. Chief Complaint: paresthesia Subjective Aaron Douglas Brennan, 49 y.o., female Patient presents today for a neurologic consult at the request of Dr. Addison for neuritis, hx of spinal cord stimulator. Patient states she is having numbness, tingling and pain in bilateral feet. Theleft foot is worse. She states this is very painful to wear shoes. She admits to swelling in bilateral feet. She has seen pain management and a insecticide mixer. She states podiatry told her she has neuropathy. She denies any prior EMG. She reports multiple back surgeries and injections. She has a spinalcord stimulator. After her major back surgery in [...] , wrist extensors , wrist flexor , tube skiver strength 5/5. LUE Strength deltoid , biceps , triceps , wrist extensors , wrist flexor , tube skiver strength 5/5. RLE Strength illopsoas, quadriceps, tibialis [...] reflex 1+ . Santiago's sign negative. Coordination: Keopqj-vc-qlvz testing and rapid alternating movements are normal [...] of chronic pain through a management in [place] If outside pain management referral is needed this would need to be done through a tertiary care center Pt has been fully educated on their diagnosis, lab results, treatment options, follow up plan, and return instructions documented in this encounterMineral Area Regional Medical [id number] History of Present illness Narrative* Carmelo Oconnor MD - 10/28/2024 11:00 AM EDT Aaron Cole Anu Date of visit: 10/28/2024 Date of : [...] Follow-up Hypertension History of Present Illness Aaron Brennan was seen in follow-up in the [facility] office. Records are reviewed. She is a pleasant 49-year-old woman with longstanding history of essential hypertension. She is severely limited with ongoing back pain with peripheral neuropathy forcing her in to a chronic wheeled device. There have been increasing problems controlling her blood pressure. Some of this is often rel ated to spasms of back pain. She nonetheless [...] heart attack [place] ([place] ([facility]) at age 28 No data recorded No data recorded No data recorded Past Surgical History: Procedure Laterality Date APPENDECTOMY BACK SURGERY CHOLECYSTECTOMY INJECTION BLOCK EPIDURAL STEROID LUMBAR/SACRAL Right L 5, 1 NR Right 07/29/2020 Performed by Contreras Chaparro MD at [facility] MEDIAL BRANCH NERVE BLOCK Bilateral L 4/5, 5/1 Bilateral 04/29/2020 Performed by Contreras Chaparro MD at [facility] SI JOINT Bilateral SI Joint Bilateral 06/20/2020 Performed by Contreras Chaparro MD at [facility] SI JOINT Bilateral SI Joint Bilateral 05/27/2020 Performed by Contreras Chaparro MD at [facility] TUBAL LIGATION Family History Problem Relation [...] Interpersonal Safety: Unknown (08/29/2023) Received from [facility] Safety & Environment Fear of Current or [...] LESLI Wang Referring Physician: LESLI Wang [address] [place] [address] documented in this encounterSpringfield HospitalHoozOn04-17-2025 Miscellaneous Notes* Telephone Encounter - Mari Gramajo RN - 10/22/2024 10:11 AM EDT ----- Message from Rama Person DO sent at 10/20/2024 3:59 PM EDT ----- Doppler looks healthy. Please have her increase Nifedipine to BID dosing. Check BP daily. Avoid caffeine and NSAIDs and sodium 1. Continue [place] Heart [employer] Diet. Please visit [email or web address] for [...] 7. Please contact us (via phone or Reacciónhart) if any new questions / concerns arise before the next visit. 8. Please go to the nearest ER if any symptoms persist or worsen. Thank you, - HM documented in this encounterSpringfield HospitalHoozOn04-17-2025 Telephone encounter Note* Telephone Encounter - Mari Gramajo RN - 10/22/2024 10:11 AM EDT ----- Message from Rama Person DO sent at 10/20/2024 3:59 PM EDT ----- Doppler looks healthy. Please have her increase Nifedipine to BID dosing. Check BP daily. Avoid caffeine and NSAIDs and sodium 1. Continue [place] Heart [employer] Diet. Please visit [email or web address] for [...] persist or worsen. Thank you, - HM 1-800-DENTIST03-28-2025 History of Present illness Narrative* Carmelo Oconnor MD - 10/02/2024 10:00 AM EDT Aaron Brennan Date of visit: 10/02/2024 Date [...] and 1 tablet (5mg total) before bedtime. levothyroxine (SYNTHROID, LEVOTHROID) 50 [...] needed for pain.(Patient not taking: Reported on 10/02/2024) PNV no.95/ferrous fum/folic ac ( ORAL) Take by mouth daily. (Patient not taking: Reported on 10/02/2024) No current facility-administered medications for this visit. Chief Complaint Patient presents with Hypertension Family doctor wants to see what might be causing her high BP. History of Present Illness Aaron Brennan was seen in follow-up in the [facility] office. Records are reviewed. She is a pleasant 49-year-old woman with longstanding history of essential hypertension. She is severely limited with ongoing back pain with peripheral neuropathy. There have been increasing problemscontrolling her blood pressure. Some of this is [...] heart attack [place] of [place] ([place]) ([facility]) at age 28 No data recorded No data recorded No data recorded Past Surgical History: Procedure Laterality Date APPENDECTOMY BACK SURGERY CHOLECYSTECTOMY INJECTION BLOCK EPIDURAL STEROID LUMBAR/SACRAL Right L 5, 1 NR Right 07/29/2020 Performed by Contreras Chaparro MD at [facility] INJECTION MEDIAL BRANCH NERVE BLOCK Bilateral L 4/5, 5/1 Bilateral 04/29/2020 Performed by Contreras Chaparro MD at [facility] INJECTION SI JOINT Bilateral SI Joint Bilateral 06/20/2020 Performed by Contreras Chaparro MD at [facility] INJECTION SI JOINT Bilateral SI Joint Bilateral 05/27/2020 Performed by Contreras Chaparro MD at [facility] TUBAL LIGATION Family History Problem Relation [...] Interpersonal Safety: Unknown (08/29/2023) [facility] from [facility] [place] Safety & Environment Fear of Current or [...] (172 lb 11.2 oz) SpO2 95% BMI 32.63kg/m No orders of the defined types were [...] PCP: LESLI Wang Referring Physician: LESLI Wang [address] [place] [address] documented in this encounterSpringfield HospitalHoozOn03-27-2025 Miscellaneous Notes* Telephone Encounter - Petra Krishnamurthy - 10/01/2024 9:02 AM EDT Called patient to remind them to bring their most current copy of their medication list with them to their appt. Patient verbalizes understanding. documented in this encounterSumma Health [facility] Campus03-27-2025 Telephone encounter Note* Telephone Encounter - Petra Krishnamurthy - 10/01/2024 9:02 AM EDT Called patient to remind them to bring their most current copy of their medication list with them to their appt. Patient verbalizes understanding. [facility]02-05-2025 Miscellaneous Notes* Telephone Encounter - Marya Roque CMA - 08/12/2024 10:42 AM EST Called patient to remind them to bring their most current copy of their medication list with them to their appt. Patient verbalizes understanding. documented in this encounterSumma Health Barber[facility] Campus02-05-2025 Telephone encounter Note* Telephone Encounter - Marya Roque CMA - 08/12/2024 10:42 AM EST Called patient to remind them to bring their most current copy of their medication list with them to their appt. Patient verbalizes understanding. [facility]01-23-2025 History of Present illness Narrative* Wayne Addison DPM - 07/30/2024 8:30 AM EST Patient: Aaron Brennan : 1975 PCP: Sarwat Pang MD SUBJECTIVE This is a 48 y.o. female that presents today for a chief complaint of burning tingling and stingingto her bilateral feet. States been happening for [...] History: Past Medical History: Diagnosis Date Asthma ([facility]) Chronic mental illness Hypertension ([facility]) Medications: Current Outpatient Medications: Adderall 20 MG [...] cool tibia to toes b/l NEURO: 5.07 [place] Eli monofilament test diminished to digits and [...] bilaterally with light touch MRI: Reading at [facility] shows no evidence of stress reaction [...] had spine stimulator in the past and mayneed tertiary care center like [facility] for possible chronic pain management and nerve related type condition Did discuss social security disability with patient she may be interested in pursuing this in the future Wayne Addison DPM documented in this encounterMineral Area Regional Medical [id number] History of Present illness Narrative* Wayne Addison DPM - 07/23/2024 8:30 AM EST Patient: Aaron Brennan : 1975 PCP: Sarwat Pang MD SUBJECTIVE This is a 48 y.o. female that presents today for a chief complaint of burning tingling and stingingto her bilateral feet. States been happening for [...] History: Past Medical History: Diagnosis Date Asthma ([facility]) Chronic mental illness Hypertension ([facility]) Medications: Current Outpatient Medications: Adderall 20 MG [...] cool tibia to toes b/l NEURO: 5.07 [place] Eli monofilament test diminished to digits and [...] for neuritis and peripheral neuropathy type symptoms includingmedications and did recommend jpts-ymc-kzibkqx diclofenac cream to apply twice daily to the feet asthis is used sometimes used in multiple compounded formulas Discussed most likely origin is lower spinal segments and still having issues with post back surgery issues. Did recommend possible 2nd opinion at tertiary hospital. Discussed peripheral neuropathy in detail with patient and causative factors of spinal impingement. Will attempt to anu down MRI at [facility] done in May of 2024 according to patient Advised knee scooter at this time Wayne Addison DPM documented in this encounterMineral Area Regional Medical [id number] History of Present illness Narrative* Wayne Addison, MAGDALENAM - 07/09/2024 8:40 AM EST Patient: Aaron Brennan : 1975 PCP: Sarwat Pang MD SUBJECTIVE This is a 48 y.o. female that presents today for a chief complaint of burning tingling and stingingto her bilateral feet. States been happening for [...] History: Past Medical History: Diagnosis Date Asthma ([facility]) Chronic mental illness Hypertension ([facility]) Medications: Current Outpatient Medications: Adderall 20 MG [...] cool tibia to toes b/l NEURO: 5.07 [place] Eli monofilament test diminished to digits and [...] for neuritis and peripheral neuropathy type symptoms includingmedications and did recommend pctf-ywa-jmgupqx diclofenac cream to apply twice daily to the feet asthis is used sometimes used in multiple compounded [...] procedure including infection,damage or rupture to soft tissuestructures and steroid flare. Pt understood and consented. This is the patients 2nd injection Wayne Addison DPM documented in this encounterMineral Area Regional Medical [id number] History of Present illness Narrative* Wayne Addison DPM - 06/25/2024 8:50 AM EST Patient: Aaron Brennan : 1975 PCP: Sarwat Pang MD SUBJECTIVE This is a 48 y.o. female that presents today for a chief complaint of burning tingling and stingingto her bilateral feet. States been happening for [...] History: Past Medical History: Diagnosis Date Asthma ([facility]) Chronic mental illness Hypertension ([facility]) Medications: Current Outpatient Medications: traZODone (Desyrel) 48 [...] cool tibia to toes b/l NEURO: 5.07 [place] Eli monofilament test diminished to digits and [...] for neuritis and peripheral neuropathy type symptoms includingmedications and did recommend zzhy-gcr-mzatnta diclofenac cream to apply twice daily to the feet asthis is used sometimes used in multiple compounded [...] procedure including infection,damage or rupture to soft tissuestructures and steroid flare. Pt understood and consented. This is the patients 1st injection Discussed possible orthotics in future Wayne Addison DPM documented in this encounterMineral Area Regional Medical [id number] Evaluation + Plan note Extracted from:Title:Caudal epidural steroid injectionAuthor:Néstor Maradiaga DODate:06/02/24 Diagnosis: M96.1 Lumbar post laminectomy pain syndrome Procedure: Caudal epidural steroid injection under fluoroscopic guidance Anesthesia: Local Complications: None After informed consent was obtained, the patient was brought back to the procedure room and placed in the prone position. Back areas prepped and draped in the usual sterile fashion using fluoroscopicguidance, the skin and subcutaneous tissues overlying the [...] Date:07/06/2024 09:00:00 AM Scheduled Provider:Ruba Frias PA-C Location:[facility] Appointment Type:Pain Management - Follow Up (FT) [facility] 11-06-2024 NoteConsultation Note Patient is presenting with [...] call with any questions or concerns that arise.[facility] City HospitalComment on above:Result Comment: Electronically Signed By: Néstor Maradiaga DO\.br\Date and Time Signed: 05/13/24 18:39 [id number] Evaluation + Plan noteExtracted from:Title:chronic painAuthor:Néstor Maradiaga DODate: 05/13/24 Patient is presenting with h istory of [...] call with any questions or concerns that arise.[facility] 05-02-2024 Miscellaneous Notes* Telephone Encounter - Janice Johnson RN - 11/07/2023 11:57 AM EDT Pt calls stating that she was in the [facility] ER last night due to high heart [...] in meds. Attempting to obtain records from [facility] to have scanned in chart. Pt was last seen by Dr. Plascencia, poem writer will message him to advise. * Telephone Encounter - Mayito Plascencia MD - 11/07/2023 11:57 AM EDT Unless there are surprising findings on the records, metoprolol 75 b.i.d. would go ahead and increase this this will take care of the tachycardia and the hypertension hopefully * Telephone Encounter - Janice Johnson RN - 11/07/2023 11:57 AM EDT Pt updated on RBP response, [facility]'s records obtained, nothing alarming on that, will have scanned in. She will increase Metoprolol to 75 mg BID and call office if any further issues arise. She does not need a refill at this time documented in this encounterSumma Health Barberton Campus05-02-2024 Telephone encounter Note* Telephone Encounter - Janice Johnson RN - 11/07/2023 11:57 AM EDT Pt calls stating that she was in the [facility] ER last night due to high heart [...] in meds. Attempting to obtain records from [facility] to have scanned in chart. Pt was last seen by Dr. Plascencia, poem writer will message him to advise. [facility]05-02-2024 Telephone encounter Note* Telephone Encounter - Mayito Plascencia MD - 11/07/2023 11:57 AM EDT Unless there are surprising findings on the records, metoprolol 75 b.i.d. would go ahead and increase this this will take care of the tachycardia and the hypertension hopefully [facility]05-02-2024 Telephone encounter Note* Telephone Encounter - Janice Johnson RN - 11/07/2023 11:57 AM EDT Pt updated on RBP response, [facility] records obtained, nothing alarming on that, will have scanned in. She will increase Metoprolol to 75 mg BID and call office if any further issues arise. 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 BP 200s/100s Cardiac w/u negative, including [...] heart attack History of [place] vitro [place] ([place] infarction) ([facility]) at age 28 No data recorded No data recorded No data recorded Past Surgical History: Procedure Laterality Date APPENDECTOMY BACK SURGERY CHOLECYSTECTOMY INJECTION BLOCK EPIDURAL STEROID LUMBAR/SACRAL Right L 5, 1 NR Right 07/29/2020 Performed by Contreras Chaparro MD at [facility] INJECTION MEDIAL BRANCH NERVE BLOCK Bilateral L 4/5, 5/1 Bilateral 04/29/2020 Performed by Contreras Chaparro MD at [facility] INJECTION SI JOINT Bilateral SI Joint Bilateral 06/20/2020 Performed by Contreras Chaparro MD at [facility] INJECTION SI JOINT Bilateral SI Joint Bilateral 05/27/2020 Performed by Contreras Chaparro MD at [facility] TUBAL LIGATION Family History Problem Relation [...] LESLI Wang Referring Physician: LESLI Wang [address] [place] [address] documented in this encounterHighland District HospitalHelpHub [facility] [id number] Miscellaneous Notes* Telephone Encounter - Marya Roqeu CMA - 10/01/2023 8:52 AM EDT Called patient to remind them to bring their most current copy of their medication list with them to their appt. Patient verbalizes understanding. documented in this encounterHighland District HospitalHelpHub [facility] [id number] Telephone encounter Note* Telephone Encounter - Marya Roque CMA - 10/01/2023 8:52 AM EDT Called patient to remind them to bring their most current copy of their medication list with them to their appt. Patient verbalizes understanding. [email or web address]-DENTIST02-21-2024 Evaluation + Plan noteExtracted from:Title: Bilateral sacroiliac joint injectionsAuthor:Néstor Maradiaga DODate:08/28/23 Diagnosis: M46.1, bilateral sacroiliitis Procedure: Bilateral diagnostic and therapeutic sacroiliac Joint injections under fluoroscopic guidance Anesthesia: Local Complications: none After informed consent was obtained, the patient was brought back to the procedure room and placed in the prone position. Back areas prepped and draped in the usual sterile fashion using fluoroscopicguidance, the skin and subcutaneous tissues overlying the needle trajectory over the lower aspect of sacroiliac joints were anesthetized with 2% lidocaine. The 22-gauge Quincke needles were then introduced in the lower aspect of the sacroiliac joint. Injection of contrast under fluoroscopy revealedappropriate intra-articular spread with confirmation in at least 2 views. Thereafter, 2 mL of 0.5% b upivacaine with 20 mg of methylprednisolone was injected into each sacroiliac joint. The needles were then removed. The patient tolerated procedure well. Patient was then transferred to the recovery room in stable condition. Follow-up: The patient will update us on the response to this procedure, and agrees to continue currently prescribed/recommended therapies. Future Appointments Appointment Date:09/13/2023 08:30:00 AM Scheduled Provider:Ruba Frias PA-C Location:.[facility] Appointment Type:Pain Management - Follow Up (FT) [facility]01-08-2024 Evaluation + Plan noteExtracted from: Title:Pain Managment Follow upAuthor:Ruba Frias PA-CDate:07/15/23 Impression and Plan Patient is a 47-year-old [...] has undergone physical therapy in the past withoutimprovement. Continues to do home exercise without improvement. This affects her ambulatory status.This affects her quality of life. On physical [...] sooner if necessary. AGUSTO score: 16% OARRS [facility]12-12-2023 Evaluation + Plan note Extracted from:Title:FUVAuthor:Monik SANTIAGO, Abel DDate:06/18/23 Impression and Plan 47-year-old female with lumbar [...] for final postoperative check. If all looks wellat that point she will be cleared for full activities. Patient agrees with plan of care. Future Appointments Appointment Date:07/15/2023 10:30:00 AM Scheduled Provider:Ruba Frias PA-C Location:.[facility] Appointment Type:Pain Management - Follow Up (FT) [facility]11-14-2023 Evaluation + Plan noteExtracted from: Title:ELIZABETH Post-operative Note - MACAuthor:Jhony Cano Jr., DO GDate:05/21/23 Plan Transfer/Discharge: Transfer/Discharge Discharge when meets criteria. Extracted from:Title:ELIAZBETH Pre-operative Note - Pain MgtAuthor:Jhony Cano Jr., DO GDate:05/21/23 Plan [place] [employer] (ASA) physical status classification: Class III. Future Appointments Appointment Date:05/28/2023 10:30:00 AM Scheduled Provider:Abel Ruggiero MD Location:FT.[facility] Appointment Type:Pain Management - Follow Up (FT) [facility]09-26-2023 Evaluation + Plan noteExtracted from: Title:FUVAuthor:Abel Ruggiero MD DDate:04/02/23 Impression and Plan 47-year-old female with a history lumbar postlaminectomy syndrome chronic pain, and lumbar radiculitis with significant improvement of pain and function with the use of the spinal cord stimulator trial. This was a very successful trial. The patient's quality life and activities of daily living weresignificantly improved as a result of the relief [...] generator. Patient agrees with plan of care. [facility]09-19-2023 Evaluation + Plan noteExtracted from: Title:YOLIE post opAuthor:Keo Cm MDDate:03/26/23 Plan Transfer/Discharge: Transfer/Discharge Discharge when meets criteria ( To home ). Extracted from:Title:YOLIE PreopAuthor:Keo Cm MDDate:03/26/23 Plan [place] [employer] (ASA) physical status classification: Class II. Anesthetic Preoperative Plan: Anesthesia General. Future Appointments Appointment Date:04/02/2023 02:45:00 PM Scheduled Provider:Abel Ruggiero MD Location:FT.[facility] Appointment Type:Pain Management - Follow Up (FT) [facility]04-21-2023 Evaluation note* Encounter Date Diagnosis Assessment Notes Treatment Notes Treatment Clinical Notes Oct, Left lumbar radiculopathy (ICD-1 0 - M54.16) The patient gets mild relief [...] the patient has I would recommend a reevaluationwith MRI of the lumbar spine with and without gadolinium she understands agrees and we will order it I will follow-up with her after. I will also follow-up with her after her visit to Dr. Ruggiero so I will see her in a period of 4 to 6 weeks. Oct,History of lumbar fusion (ICD-10 - Z98.1) reade[facility] Other 04-14-2023 Evaluation note* Encounter Date Diagnosis Assessment Notes Treatment Notes Treatment Clinical Notes Oct, High risk sexual behavior (ICD-1 0 - Z72.51) Detecting and treating STDs material was printed Oct,ysuria (ICD-10 - R30.0)Drink plenty fluids, get plenty of rest. Take the azithromycin, 4 tablets today with food. Take themetronidazole as prescribed until gone starting tomorrow. Follow-up with your family physician if no improvement in 2 to 3 days. No intercourse for 2 weeks. Always use condoms. reade[facility] Other 02-16-2023 Evaluation note* Encounter Date Diagnosis Assessment Notes Treatment Notes Treatment Clinical Notes Aug, Left lumbar radiculopathy (ICD-1 0 - M54.16) This patient has in essence [...] see her in 4 to 6 weeks. Aug,History of lumbar fusion (ICD-10 - Z98.1) [facility] Other 12-06-2022 Evaluation note* Encounter Date Diagnosis Assessment Notes Treatment Notes Treatment Clinical Notes Jun, Left lumbar radiculopathy (ICD-1 0 - M54.16) [facility] Other 11-22-2022 Evaluation note* Encounter Date Diagnosis Assessment Notes Treatment Notes Treatment Clinical Notes May, Left lumbar radiculopathy (ICD-1 0 - M54.16) At approximately 6 months postop [...] some relief. She is quite functional and kimmy is happy with how she is doing, but still has real issues that she is living with. I would like to talk to her in the next couple weeks about how the gabapentin is doing and adjust the dose.as needed. She will call the office and speak with my nurse and keep us updated with her progress on the medication. May,Lumbar spondylolysis (ICD-10 - M43.06) readeo Other 11-[facility]-2022 [facility]* Encounter Date Diagnosis Assessment Notes Treatment Notes Treatment Clinical Notes Mar, Gastroesophageal ref lux disease, unspecified whether esophagitis present (ICD-10 - K21.9) reade[facility] Other 08-04-2022 Evaluation note* Encounter Date Diagnosis Assessment Notes Treatment Notes Treatment Clinical Notes Feb, Lumbar spondylolysis (ICD-10 - M 43.06) This patient is now 2 1/2 month postop, x-ray looks to be good with regard to hardware and interbody cage. Clinically the patient cannot walk half mile; she does not have the leg pain that she did previously but she has some persistent numbness in the left calf she has developed dysesthesias in theanterior foot consistent with almost an RSD like pattern. She had had chronic pain and numbness in that leg for some time. I remember that neuroforamen was very narrow interoperatively. Her right legis nearly completely better I think the biggest [...] us on how the Lyrica is doing. Feb,Left lumbar radiculopathy (ICD-10 - M54.16) readeo Other 06-14-2022 Evaluation note* Encounter Date Diagnosis Assessment Notes Treatment Notes Treatment Clinical Notes Dec, Left lumbar radiculopathy (ICD-1 0 - M54.16) This patient has numbness in an L5 distribution that occurred after surgery and weakness of the left foot. She had a very severely compressed left L5 nerve root that was decompressed during the L5-H1itkvgs interbody fusion. She had the symptoms for [...] her back in 4 to 6 weeks. re[facility] Other 03-17-2022 Evaluation note* Encounter Date Diagnosis Assessment Notes Treatment Notes Treatment Clinical Notes Sep, Lumbar spondylolysis (ICD-10 - M 43.06) I have independently reviewed the MRI of [...] extension view of the back along with aAP lateral pelvis and reevaluate the patient in about 4 to 6 weeks. Consideration will be given to surgical intervention once these results are available for review Sep,Left lumbar radiculopathy (ICD-10 - M54.16) readeo Other 02-22-2022 Evaluation note* Encounter Date Diagnosis Assessment Notes Treatment Notes Treatment Clinical Notes Aug, Contact with and (yin spected) exposure to other viral communicable diseases (ICD-10 - Z20.828) Aug,ronchitis (ICD-10 - J40) Drink plenty fluids, get plenty of rest. Take the prednisone and Zithromax as prescribed until gone. Take Tylenol Motrin as needed for aches pains or fevers. Use your albuterol inhaler as needed as prescribed. Follow-up with your family physician if no improvement in 2 to 3 days. Aug,Viral upper respiratory illness (ICD-10 - J06.9) Aug,ther Additional time spent conducting pre-visit phone call, screening for symptoms, instructions on social distancing, application and removal of PPE, and cleaning of examination room, equipment and supplies was preformed. Patient education given for testing methodology and results. Patient care instructions given in writting by [facility] Care At Home document. readeo Other Evaluation + Plan note Future Appointments Appointment Date:02/05/2023 03:30:00 PM Scheduled Provider:Abel Ruggiero MD Location:[facility] Future Appointments Appointment Date:03/26/2023 07:30:00 AM Scheduled Provider: Location:[facility] Appointment Type:Surgery FT Appointment Date:04/02/2023 02:45:00 PM Scheduled Provider:Abel Ruggiero MD Location:[facility] Appointment Type:[facility] Future Appointments Appointment Date:05/21/2023 08:45:00 AM Scheduled Provider: Location:[facility] Appointment Type:Surgery FT Appointment Date:05/28/2023 01:30:00 PM Scheduled Provider:Abel Ruggiero MD Location:[facility] Appointment Type:[facility] - [facility] Future Appointments Appointment Date:05/21/2023 08:45:00 AM Scheduled Provider: Location:[facility] Appointment Type:Surgery FT Appointment Date:05/28/2023 01:30:00 PM Scheduled Provider:Abel Ruggiero MD Location:[facility] Appointment Type:Pain Management - Follow Up (FT) Diagnostic Tests Pending * MRSA Screen [facility]/14/23 [facility] noteNo InformationNort MONOQI Other evaluation noteNo assessment information [facility] Work Phone: Evaluation noteNort MONOQI Other evaluation note* Diagnosis Neuritis- Primary Unspecified neuralgia, neuritis, and radiculitis Capsulitis of metatarsophalangeal (MTP) joint of left foot Other polyneuropathy documented [facility] Diagnosis Neuritis- Primary Unspecified neuralgia, neuritis, and radiculitis Capsulitis of metatarsophalangeal (MTP) joint of left foot Other polyneuropathy documented [facility]* Diagnosis Neuritis- Primary Unspecified neuralgia, neuritis, and radiculitis Other polyneuropathy Capsulitis of metatarsophalangeal (MTP) joint of left foot documented in this encounter [facility]* Diagnosis Neuritis- Primary Unspecified neuralgia, neuritis, and radiculitis Capsulitis of metatarsophalangeal (MTP) joint of left foot Other polyneuropathy documented in this encounter [facility]* Diagnosis Mitral valve prolapse- Primary Mitral valve disorders Hypertension, unspecified type documented in this encounter [facility] Diagnosis Primary hypertension- Primary Unspecified essential hypertension [facility] Diagnosis Primary hypertension- Primary Unspecified essential hypertension documented [facility]* Diagnosis Paresthesia- Primary Disturbance of skin sensation Degeneration of intervertebral disc of lumbar region with discogenic back pain and lower extremity pain Myalgia Unspecified myalgia and myositis Weakness Other malaise and fatigue Polyneuropathy Unspecified hereditary and idiopathic peripheral neuropathy documented in this encounter [facility]* Diagnosis Onset Date Resolution Status Admit Date Lumbosacral radiculopathy acuteAugust 2024 1:27pm [facility] Work Phone: History and physical note Author Campbell Shelton [facility] May 17, 2022 8:44amNote Date/TimeNov2021 8:44am[place] [address] Gastroenterology H&P Signed Patient: Aaron Brennan MR#: [id number] : 1975 Acct:[id number] Age/Sex: 46 / F Adm Date: 2 Loc: Room: Type: [facility] Attending Dr: Campbell Shelton MD Copies to: MD Sarwat Rene DO~ Date of Service: 05/17/2022 HISTORY & PHYSICAL: Patient's history with special attention to the cardiovascular, pulmonary systems and the current problem was reviewed with the patient immediately prior to the procedure. Present medications and doses reviewed in the EMR. Allergies and pertinent laboratory tests were also re viewedat this time in the EMR. The physical [...] <Electronically signed by Campbell Shelton MD> 05/17/2244 [facility] Work Phone: Hisyrcw general Narrative - Reported* Type Description Date Medical History bipolar Medical Historyschizophrenia [facility] GOintegro Other History general Narrative - Reported* Type Description Date Medical History bipolar Medical HistoryschizophreniaMedical HistoryProlapsing left ventricleSurgical Historyback surgeryCharles [facility] HistorySee Above [employer] [facility] Other History general Narrative - ReportedNortClarion Psychiatric Center [facility]inte[facility] Other Hospital course Narrative No data available for this section Apnote [facility] Additional Instructions DISCHARGE INSTRUCTIONS FOR [...] Follow up with PCP. - Office number [phone].[facility] Work Phone: Hospital Discharge instructions No data available for this section [facility]InstructionsNot on filedocumented in this encounter [facility] SystemInstructionsNot on filedocumented in this encounter [...] note No data available for this section [facility]Reason for visit NarrativeReferral Dr. Pinto Lumbar SpondylolysisNocenterpoint medical center MONOQI Other reason for visit Narrative* Consultation (Routine) - ClosedSpecialtyDiagnoses / ProceduresReferred By ContactReferred To Contact Neurology Diagnoses Neuritis Other polyneuropathy Procedures ME OFFICE/OUTPATIENT [facility] MDM 60 MINUTES Wayne Addison, DARLENE [address] [address] Phone: tel: fax: Arnel Hamilton MD [address] [place] [address] Phone: tel: fax: Referral IDStatusReasonStart DateExpiration DateVisits RequestedVisits [id number] Consult and Treat / [facility] Reason for Referral SpecialtyDiagnoses / ProceduresReferred By ContactReferred To Contact Diagnoses Hypertension, unspecified type Mitral valve prolapse Procedures Echo complete W/O contrast Mayito Plascencia MD [address] [place] [address] Referral IDStatusReasonStart DateExpiration DateVisits RequestedVisits [id number] Review/ Reason *FU 11/08 RSD Bila t foot stimulator ; Right sacroiliac pain Diagnosis 1 Left lumbar radiculo sarah (M54.16) Referral Organization [facility] Ne urosurgery Referring Provider First Name Joanie Referring Provider Last Name Sil Referring Provider Specialty Neurologica l Surgery Referred Organization [facility] Referred Provider Abel Ruggiero Referred Address [address] [place], [place],[address] Referred Provider Specialty Pain Medicin e Referral Priority Routine General Notes Fore, Bee M 023 11:15:48 AM >Received today and waiting for office notes to be locked before sending Bee Gray 11/01/2022 11:10:53 AM >Office notes are locked. [facility] Pain Medicine 's office request us to fill out form and fax referral to them and they will review the referral and call patient. Referral was fax Reason Severe Persistent Mya mbar Radiculopathy with Severe Leg Pain with Zacarias Charly Please send PT notes as soon as available for MRI prior auth Diagnosis 1 Left lumbar radiculo sarah (M54.16) Referral Organization [facility] urosurger Referring Provider First Name Joanie Referring Provider Last Name Sil Referring Provider Specialty Neurologica l Surgery Referred Organization [facility] Referred Address ,[place], [place],[address] Referred Provider Specialty Physical The rapist Referral Priority Routine General Notes [place] [facility] 09/14/2022 11:32:48 AM > PT notes in chart Reason Evaluate and Treat f or Leg Strengthening and Gait Training Diagnosis 1 Left lumbar radiculo sarah (M54.16) Referral Organization [facility] urosurger Referring Provider First Name Joanie Referring Provider Last Name Sli Referring Provider Specialty Neurologica l Surgery Referred Organization [facility] Referred Address [address] [place], [place],[address] Referred Provider Specialty Physical The rapist Referral Priority Routine Reason Evaluate and Treat Diagnosis 1 Lumbar spondylolysis (M43.06) Diagnosis 2 Left lumbar radiculo sarah (M54.16) Referral Organization [facility] Referring Provider First Name Joanie Referring Provider Last Name Sil Referring Provider Specialty Neurologica l Surgery Referred Organization [facility] Referred Address ,[place], [place],[address] Referred Provider Specialty Physical The rapist Referral [...] Reason for Visit Admit Date Lumbosacral radiculopathy [place] 6th, 20 25 1:27pm Family History No Family History Records Found Relationship Condition Age at Onset Recorded Date/T armando Not Specified Depression Unknown Malignant neoplasm of breastUnknownfatherDiabetes mellitusUnknownHistory of coronary artery stent placementUnknownCoronary artery diseaseUnknown SchizophreniaUnknownMalignant neoplasm of kidneyUnknownbrotherDiabetes mellitus UnknownDepressionUnknownHypertensionUnknownsisterSchizophreniaUnknownDiabetes mellitusUnknownBipolar disorderUnknown Relationship Condition Age at Onset Recorded Date/T armando mother Depression Unknown Malignant neoplasm of breastUnknownfatherDiabetes mellitusUnknownHistory of coronary artery stent placementUnknownCoronary artery diseaseUnknown SchizophreniaUnknownMalignant neoplasm of kidneyUnknownbrotherDiabetes mellitus UnknownDepressionUnknownHypertensionUnknownsisterSchizophreniaUnknownDiabetes mellitusUnknownBipolar disorderUnknown Advance Directives No Advanced Directives Records Found Advance Directive Response Recorded Date/ Time Advance Directives No September 21 2:12pm Advance Directive Response Recorded Date/ Time Advance Directives No September 21 1:12pm Summary Purpose Additional Source Comments REASON FOR VISIT (unrecogniz ed section and content) ReasonCommentsFoot ProblemTingling/foot painReasonCommentsInjectionsLeft cap 1 ReasonCommentsFollow-upLeft 2nd capReasonCommentsFollow-upMri resultsReason CommentsNew PatientNP HYPERTENSION, LABS DONE, [facility]ialtyDiagnoses / ProceduresReferred By ContactReferred To Contact Cardiology Diagnoses Hypertension, unspecified type [facility] [address] [place] [address] [facility] [address] [place] [address] Referral IDStatusReasonStart DateExpiration DateVisits RequestedVisits [id number] Review Specialty Services Required /[id number]wiKsdlxu doctor wants to see what might be causing her high BP.ReasonOnset IgguFslkgxszRniikix16/17/2025Reason CommentsFollow-upHypertensionReasonCommentsReceived Outside Medical Records External referral to Neurological InstituteReasonCommentsMed Refill Care Teams (unrecognized sec tion and content) Team Status: Inactive Member Role Status Dates Sarwat Pang , Primary Care Provider Active Damian Rucker ProviderActive Team Status: Active Member Role Status Dates Sarwat Pang , Primary Care Provider Active Team Status: Inactive Member Role Status Dates Sarwat Pang DO Primary Care Provider Active Damian Rene ProviderActive Team Status: Inactive Member Role Status Dates Aspen Mast NP-C Attending Provider Active Team Status: Active Member Role Status Dates PHYSICIAN NO FAMILY Primary Care Provider Active Team Status: Inactive Member Role Status Dates Joanie Mujica MD Attending Provider Active PHYSICIAN NO FAMILYPrimary Care ProviderActive Team Status: Inactive Member Role Status Dates PHYSICIAN NO FAMILY Primary Care Provider Active Start: December 04, 2023 End: December 03ANGELA Nascimento-Hannah ProviderActiveStart: December 04, 2023 End: December 04, 2023Team MemberRelationshipSpecialtyStart DateEnd Date Sarwat Pang MD [address] [place] [address] PCP - GeneralFamily Medicine07/24/23Team MemberRelationshipSpecialtyStart DateEnd Date Sarwat Pang MD [address] [place] [address] PCP - GeneralFamily Medicine07/24/23Team MemberRelationshipSpecialtyStart DateEnd Date Sarwat Pang MD [address] [place] [address] PCP - GeneralFamily Medicine07/24/23Team MemberRelationshipSpecialtyStart DateEnd Date Sarwat Pang MD [address] [place] [address] PCP - GeneralFamily Medicine07/24/23Team MemberRelationshipSpecialtyStart DateEnd Date Sarwat Pang MD [address] [place] [phone] PCP - GeneralFamily Medicine07/24/23Team MemberRelationshipSpecialtyStart DateEnd Date Sarwat Pang MD [address] [place] [address] PCP - GeneralFamily Medicine07/24/23Team MemberRelationshipSpecialtyStart DateEnd Date Sarwat Pang MD [address] [place] [address] PCP - GeneralFamily Medicine07/24/23Team MemberRelationshipSpecialtyStart DateEnd Date Jemma Singletary APRN-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 [address] [place] [address] PCP - GeneralFamily Medicine12/05/17Team MemberRelationshipSpecialtyStart DateEnd Date Jemma Singletary VICE PRESIDENT TALENT MANAGEMENT-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 [address] [place] [address] PCP - GeneralFamily Medicine12/05/17Team MemberRelationshipSpecialtyStart DateEnd Date Jemma Singletary VICE PRESIDENT TALENT MANAGEMENT-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 [address] [place] [address] PCP - GeneralFamily Medicine12/05/17Team MemberRelationshipSpecialtyStart DateEnd Date Jemma Singletary VICE PRESIDENT TALENT MANAGEMENT-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 [address] [place] [address] PCP - GeneralFamily Medicine12/05/17Team MemberRelationshipSpecialtyStart DateEnd Date Jemma Singletary VICE PRESIDENT TALENT MANAGEMENT-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 [address] [place] [address] PCP - GeneralFamily Medicine12/05/17Team MemberRelationshipSpecialtyStart DateEnd Date Jemma Singletary VICE PRESIDENT TALENT MANAGEMENT-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 [address] [place] [address] PCP - GeneralFamily Medicine12/05/17Team MemberRelationshipSpecialtyStart DateEnd Date Jemma Singletary VICE PRESIDENT TALENT MANAGEMENT-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 [address] [place] [address] PCP - GeneralFamily Medicine12/05/17Team MemberRelationshipSpecialtyStart DateEnd Date Sarwat Pang MD [address] [place] [address] PCP - GeneralFamily Medicine07/24/23Team MemberRelationshipSpecialtyStart DateEnd Date Sarwat Pang MD [address] [place] [phone] PCP - GeneralFamily Medicine07/24/23Team MemberRelationshipSpecialtyStart DateEnd Date Jemma Singletary VICE PRESIDENT TALENT MANAGEMENT-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 [address] [place] [address] PCP - GeneralFamily Medicine12/05/17 Team Status: Inactive Member Role Status Dates PHYSICIAN NO FAMILY Primary Care Provider Active Start: February 10, 2025 End: February 10gricelda Alonzo DOAttending ProviderActiveStart: February 10, 2025 End: February 10, 2025Team MemberRelationshipSpecialtyStart DateEnd Date Vamsi Alonzo DO [address] [phone] [place] Referring TeamNeurology02/19/25Team MemberRelationshipSpecialtyStart DateEnd Date Jemma Singletary APRN-JUAN [address] [place] [address] PCP - GeneralFamily Medicine12/05/17 Goals (unrecognized section and content) Goals may be documented in a n alternate section INFORMATION SOURCE (unrecogn ized section and content) DATE CREATED AUTHOR 07/03/2022 [facility] DATE CREATED AUTHOR AUTHOR'S ORGANIZ ATION 11/14/2022 [facility] DATE CREATED AUTHOR AUTHOR'S ORGANIZ ATION 10/10/2024 [facility] DATE CREATED AUTHOR AUTHOR'S ORGANIZ ATION 10/21/[address] [facility] DATE CREATED AUTHOR AUTHOR'S ORGANIZ ATION 10/29/2024 [facility] DATE CREATED AUTHOR AUTHOR'S ORGANIZ ATION 11/10/2024 [facility] DATE CREATED AUTHOR AUTHOR'S ORGANIZ ATION 02/04/2025 [facility] DATE CREATED AUTHOR AUTHOR'S ORGANIZ ATION 04/25/2025 [facility] Source Comments (unrecognize d section and content) In the event this informatio n is protected by the Federal Confidentiality of Alcohol and Drug Abuse Patient Records regulations: The Federal rules restrict any use of the information to criminally investigate or prosecute any alcohol or drug abuse patient.[facility] FOR RECORDS PERTAINING TO PATIENTS WHO ARE [...] BE BASED ON THE PRIMARY CLINICAL RECORDS. [facility] [employer] [facility]. provides no warranty or guarantee of the accuracy or completeness of information in this document.
--- NOTE | 2025-05-11 17:30 | CT_ITS ---
The [address] [address] Patient Name: BETO BRENNAN MRN: [id number] date: 1975 Sex: F Assigned Patient Location: ER Current Patient Location: ER Accession/Order Number: [id number] Exam Date: 05/11/2025 17:50 Report Date: 05/11/2025 18:09 At the request of: MIGDALIA MILLER Procedure: CT lumbar spine wo con CT lumbar spine without contrast TECHNIQUE: The CT exam was performed using one or more the following dose reduction techniques: Automated exposure control, adjustment of the MA and/or Kv according to patient size, or use of the iterative reconstruction technique. COMPARISON: MRI lumbar spine 1625 HISTORY: Acute low back pain. Worsening. Prior L5-S1 fusion. No injury. Spinal stimulator. L5-S1 posterior fusion hardware. No complication. Interbody fusion without complication. Continued anterolisthesis at L5-S1 level. Posterior decompression. Remaining disc spaces are adequate. Mild facet degeneration multiple levels. Neurostimulator present. No acute fracture. No paraspinal abnormality. No nephrolithiasis or hydronephrosis. Visualized abdominal aorta unremarkable. CT/CT lumbar spine wo con IMPRESSION: No hardware complication. Stable degenerative and postsurgical changes. No new findings compared to the MRI examination. Impression dictated by: Martin Steiner M.D. 05/11/2025 6:09 PM Dictation Location: [place] [address] Electronically authenticated by: [id number] Y Date: 05/11/2025 18:09
[2025-05-11] MEDS: KETOROLAC TROMETHAMINE 30 MG/ML VIAL IVP (17:39)
[2025-05-11] MEDS: ORPHENADRINE 60 MG/2 ML VIAL IV (17:39)
[2025-05-11] MEDS: LIDOCAINE 5% PATCH 1 PATCH TOPICAL (17:40)
--- NOTE | 2025-05-11 17:51 | ED_ITS ---
<Statement entered by Lilliam Ferguson DO - 05/11/25 19:35> This documentation has been reviewed and approved. The patient does not appear to have any risk factors for spinal epidural abscess. No acute neurologic deficits different from her baseline that have already been in the process of being worked up. HPI HPI - General Adult General Chief complaint: Back Pain/Injury Stated complaint: PAIN IN BACK Time Seen by Provider: 05/11/25 17:05 Source: patient Mode of arrival: walk-in Limitations: no limitations History of Present Illness HPI narrative: Patient is a 49-year-old female that presents with complaints of increased lumbar back pain after she was carrying her approximately 15 pound grandchild around today. She states that she felt pain right next to where her spinal cord stimulator is, midline, and felt shooting pains go down the back of her legs. She states that these resolved but she has been very uncomfortable. She has been having progressively increasing pain in the lumbar spine and has been trying to mess with settings on her spinal cord stimulator. She reports that in November 2022 she had a L5-S1 decompression and fusion. She had a spinal cord stimulator placed in May 2023. The surgery was done by Dr. Kiran with [facility] who then sent her to [facility]. [facility] did an MRI recently and wants to do a CT scan to evaluate her fusion. She does have residual numbness in her bilateral legs, more so residual symptoms on the left. She has hyperparesthesias in her left foot and feels like she walks on a ball. She is still in pain management in [place] with Dr. Maradiaga. She denies bowel or bladder incontinence/retention, saddle anesthesia, increased leg weakness or numbness above her baseline postoperatively. Related Data Home Medications ?Medication ?Instructions ?Recorded ?Confirmed lurasidone 80 mg tablet 160 mg PO QPM 05/08/2311/05 oxcarbazepine 600 mg tablet 600 mg PO TID 05/08/2307/31 propranolol 80 mg capsule,24 80 mg PO BID 05/08/23/ hr,extended release trazodone 50 mg tablet 100 mg PO QPM 05/08/2311/05 zolpidem 12.5 mg tablet,extended 12.5 mg PO QPM PRN in somnia 05/08/23 11/06/23 release,multiphase amlodipine 5 mg tablet 5 mg PO BID PRN BP >150 07/0911/06/23 dextroamphetamine-amphetamine 20 20 mg PO DAILY 11/06/23 mg tablet dextroamphetamine-amphetamine ER 30 mg PO QAM 11/06/23 11/06/23 30 mg 24hr capsule,extend release levothyroxine 25 mcg tablet 25 mcg PO DAILY 11/06/23 0 11/06/23 losartan 100 mg tablet 100 mg PO DAILY 11/06/2307/31 losartan 50 mg tablet 50 mg PO QAM 11/06/23 metoprolol succinate 50 mg 50 mg PO DAILY 11/06/2307/31 tablet,extended release 24 hr spironolactone 25 mg tablet 25 mg PO DAILY 11/06/23 vilazodone 40 mg tablet 40 mg PO DAILY 11/06/2307/31 Previous Rx's ?Medication ?Instructions ?Recorded oxycodone-acetaminophen 5 mg-325 1 tab PO Q6H PRN pain #5 tabs 05/11/25 mg tablet (Percocet) Allergies Allergy/AdvReac Type Severity Reaction Status Date / Time codeine Allergy Unknown Unknown Verified 05/11/25 16:31 lamotrigine (From Lamictal) Allergy Unknown Unknown Verified 05/11/25 16:31 Opioid HPI Opioid Management Most Recent Opioid Data: Last Pain Scale 7 05/11/25, 19:52 Last MAR Pain Assessment 05/11/25, 19:52 Review of Systems ROS Status of ROS 10 or more systems reviewed and unremark able except as noted in history and below PFSH PFS Social History Smoking status: Never smoker Little interest or pleasure in doing things: not at all Feeling down, depressed, or hopeless: not at all Exam Narrative Exam Narrative: General: No distress, age-appropriate Skin: Warm, dry, no pallor. No rash. Head: Normocephalic, atraumatic. Neck: Supple, non-tender. Eye: Pupils are equal, round and EOMI. No scleral icterus. Ears, Nose, Mouth, and Throat: No nasal mucosal hypertrophy. Oral mucosa is moist, no posterior oropharynx erythema, uvula is mid-line Cardiovascular: Regular Rate and Rhythm without murmur, gallop or rub. Respiratory: No accessory muscle use or respiratory distress. Back: No midline thoracic tenderness, midline lumbar tenderness with palpation right above the midline surgical scar. Midline surgical scar well-healed, no surrounding erythema. Spinal cord stimulator palpated just to the right of the spine, nontender. 5/5 strength bilateral lower extremities. Sensation intact distally with light touch bilateral lower extremities. Musculoskeletal: Full ROM of all extremities, no calf or popliteal tenderness Neurological: A&O x4. No cranial nerve dysfunction observed. No truncal ataxia. Moves all extremities. Sensation intact. Psychiatric: Cooperative and interactive. Normal mood and affect. Constitutional Vital Signs, click to edit/add: Last Vital Signs Temp 99 F 05/11/25 16:31 Pulse 62 05/11/25 18:32 Resp 16 05/11/25 18:32 BP 176/100 H 05/11/25 18:32 Pulse Ox 98 05/11/25 18:32 O2 Del Method Room Air 05/11/25 18:32 Course Vital Signs Vital signs: Vital Signs Temperature 99 F 05/11/25 16:31 Pulse Rate 66 05/11/25 16:31 Respiratory Rate 18 05/11/25 16:31 Blood Pressure 178/106 H 05/11/25 16:31 Pulse Oximetry 99 05/11/25 16:31 Oxygen Delivery Method Room Air 05/11/25 16:31 Temperature 99 F 05/11/25 16:31 Pulse Rate 62 05/11/25 18:32 Respiratory Rate 16 05/11/25 18:32 Blood Pressure 176/100 H 05/11/25 18:32 Pulse Oximetry 98 05/11/25 18:32 Oxygen Delivery Method Room Air 05/11/25 18:32 Medical Decision Making MDM Narrative Medical decision making narrative: This is a 49 female with a PSH of L5-S1 posterior fusion, and spinal cord stimulator both in 2022. She presented after having weeks of increasing pain, worst today while she was carrying her 15 pound grandchild. She felt pain shoot down the back of her legs during a brief episode. On arrival patient appears uncomfortable but in no distress, she is vital signs stable. No red flag symptoms to suggest cauda equina, no bowel or bladder incontinence/retention, no saddle anesthesia, no increased lower extremity weakness or numbness above her baseline. IV placed. 30 mg IV Toradol, 60 mg No rflex, and lidocaine patch ordered. CT lumbar spine without contrast ordered to evaluate for fracture, hardware failure, or spinal stenosis. CT lumbar spine reviewed and there is no hardware complication, stable degenerative and postsurgical changes. I discussed results with patient and her . Pain is slightly improved with the above medications, will give her 0.5 mg IV Dilaudid. Pain more controlled after the medication administration. Patient would like to go home. I will give her a short course of Percocet 5 mg as she does have a pain management appointment in 2 days, on . [facility] report reviewed and no issues identified. We discussed having her spinal cord stimulator evaluated by the rep. Patient is being controlled, no signs or symptoms of cauda equina, and clinical exam stable in the emergency department. Patient discharged with plan for close follow-up with pain management and [facility] spine. Differential Diagnosis Differential Diagnosis: Spinal cord stimulator malfunction, Hardware failure, radiculopathy Imaging Data CT Lumbar Spine: Attestation: I have reviewed the pertinent imaging results. Radiologist's impression: ITS Impressions Lumbar Spine CT 05/11/25 17:30 IMPRESSION: No hardware complication. Stable degenerative and postsurgical changes. No new findings compared to the MRI examination. Impression dictated by: Martin Steiner M.D. 05/11/2025 6:09 PM Dictation Location: [place] Electronically authenticated by: [id number] Y Date: 05/11/2025 18:09 Discharge Plan Discharge Chief Complaint: Back Pain/Injury Clinical Impression: Acute exacerbation of chronic low back pain, History of lumbar fusion Patient Disposition: Home, Self-Care Time of Disposition Decision: 19:29 Condition: Good Mode of Transportation: Private Vehicle Prescriptions / Home Meds: New oxycodone-acetaminophen [Percocet] 5-325 mg tablet 1 tab PO Q6H PRN (Reason: pain) Qty: 5 0RF No Action lurasidone 80 mg tablet 160 mg PO QPM oxcarbazepine 600 mg tablet 600 mg PO TID propranolol 80 mg capsule,extended release 24 hr 80 mg PO BID trazodone 50 mg tablet 100 mg PO QPM zolpidem 12.5 mg tablet,ext release multiphase 12.5 mg PO QPM PRN (Reason: insomnia) dextroamphetamine-amphetamine 20 mg tablet 20 mg PO DAILY dextroamphetamine-amphetamine 30 mg capsule,extended release 24hr 30 mg PO QAM levothyroxine 25 mcg tablet 25 mcg PO DAILY losartan 100 mg tablet 100 mg PO DAILY losartan 50 mg tablet 50 mg PO QAM metoprolol succinate 50 mg tablet extended release 24 hr 50 mg PO DAILY vilazodone 40 mg tablet 40 mg PO DAILY spironolactone 25 mg tablet 25 mg PO DAILY amlodipine 5 mg tablet 5 mg PO BID PRN (Reason: BP >150) Print Language: Burundian Instructions: Acute Low Back Pain (ED) Referrals: HERBERT PANG [Primary Care Provider, Family Practice] - 1 week Discharge Date/Time: 05/11/25 20:03
[2025-05-11 18:00] VITALS: BP 176/112; PULSE 68; O2SAT 99
[2025-05-11 18:32] VITALS: BP 176/100; PULSE 62; O2SAT 98
--- NOTE | 2025-05-11 19:11 | PC.NURSE ---
End of shift report given to Kaylyn RODRIGUEZ
[2025-05-11] MEDS: HYDROMORPHONE HCL 0.5 MG/0.5 ML SYRINGE IV (19:52)
== END 2025-05-11 20:03 | disposition home or self-care (01) ==
PROVIDERS: Emergency Provider Emergency Medicine; PCP Family Medicine
DX: M54.50 Low back pain, unspecified (principal); G89.29 Other chronic pain; Z98.1 Arthrodesis status
CPT/HCPCS: 72131; 76376; 96374; 96375; 99285; J1171; J1885; J2360